=== PATIENT | male | born 1935 | race Hispanic/Latino ===

== ENCOUNTER 2018-07-12 08:59 | Inpatient (IN) | payer BC, MEDICARE ==
[2018-07-12 09:35] LABS: BASO # 0.1 K/uL (0.0-0.2); BASO % 1.2 % (0.0-2.0); EOS # 0.1 K/uL (0.0-0.7); EOS % 1.2 % (0.0-4.0); HEMOGLOBIN 14.1 g/dL (12.0-18.0); LYMPH # 0.8 K/uL (1.0-4.3); LYMPH % 11.6 % (20.0-40.0); MEAN CELL VOLUME 97.6 fL (80.0-94.0); MEAN CORPUSCULAR HEMOGLOBIN 32.4 pg (27.0-31.0); MEAN CORPUSCULAR HGB CONC 33.2 g/dL (33.0-37.0); MEAN PLATELET VOLUME 10.2 fL (7.2-11.7); MONO # 0.6 K/uL (0.0-0.8); MONO % 9.4 % (0.0-10.0); NEUT # 5.1 K/uL (1.8-7.0); NEUT % 76.6 % (50.0-75.0); NRBC % 0.3 % (0.0-2.0); RBC 4.34 Mil/uL (4.40-5.90); RED CELL DISTRIBUTION WIDTH 14.9 % (11.5-14.5); WHITE BLOOD COUNT 6.6 K/uL (4.8-10.8)
--- NOTE | 2018-07-12 09:40 | RAD ---
Chest x-ray single frontal view History: Shortness of breath. Comparison: None. Findings: Moderate to severe venous congestion. Right midlung atelectasis. Widened mediastinum with enlarged ectatic aorta. Atherosclerotic calcification at the aortic knob. Cardiomegaly. Small nodular density at the left lung apex. Status post median sternotomy. Degenerative changes in the spine and shoulders. Impression: Moderate to severe venous congestion. Right midlung atelectasis. Widened mediastinum with enlarged ectatic aorta. Atherosclerotic calcification at the aortic knob. Cardiomegaly. Small nodular density at the left lung apex. Status post median sternotomy.
[2018-07-12 09:41] LABS: VENOUS BLOOD GAS BASE EXCESS 12.2 mmol/L (0.0-2.0); VENOUS BLOOD GAS PCO2 100 mmHg (40-60); VENOUS BLOOD GAS PO2 30 mm/Hg (30-55); VENOUS BLOOD PH 7.25 (7.32-7.43)
[2018-07-12 09:46] LABS: ALB/GLOB RATIO 1.2 (1.0-2.1); ALBUMIN 3.7 g/dL (3.5-5.0); CALCIUM 8.9 mg/dl (8.6-10.4)
[2018-07-12 09:49] LABS: INR 1.4; PROTHROMBIN TIME 15.7 SECONDS (9.7-12.2)
[2018-07-12 10:05] LABS: CK-MB 2.42 ng/mL (0.0-3.38); TROPONIN I 0.158 ng/mL (0.00-0.120)
[2018-07-12 11:27] LABS: ABG ALLEN TEST POS; ARTERIAL BLOOD GAS HCO3 28.3 mmol/L (21-28); ARTERIAL BLOOD GAS HEMOGLOBIN 14.3 g/dL (11.7-17.4); ARTERIAL BLOOD GAS O2 SAT 97.1 % (95-98); ARTERIAL BLOOD GAS PCO2 79 mm/Hg (35-45); ARTERIAL BLOOD GAS PH 7.25 (7.35-7.45); ARTERIAL BLOOD GAS PO2 83 mm/Hg (80-100)
--- NOTE | 2018-07-12 11:29 | C.PDOC ---
History Of Present Illness Patient BIBA for evaluation of SOB and weakness, given albuterol/atrovent in the field by EMS. History is limited due to clinical condition. Time Seen by Provider: 07/12/18 09:00 Chief Complaint (Nursing): Respiratory Distress History Per: EMS History/Exam Limitations: clinical condition Onset/Duration Of Symptoms: Unknown Current Respiratory Medications: See Home Med List Severity: Moderate Past Medical History Reviewed: Historical Data, Nursing Documentation, Vital Signs Vital Signs: Last Vital Signs Temp 98.4 F 07/12/18 09:25 Pulse 101 H 07/12/18 10:57 Resp 17 07/12/18 10:57 BP 145/79 07/12/18 10:57 Pulse Ox 96 07/12/18 10:57 - Medical History PMH: HTN Surgical History: CABG Family History: States: Other Other Family History: noncontributory - Social History Hx Alcohol Use: Yes Hx Substance Use: No Review Of Systems Review Of Systems: ROS cannot be obtained secondary to pt's inabilty to answer questions. Physical Exam - Physical Exam Appears: In Acute Distress (in moderate respiratory distress) Skin: Other (erythematous areas around B/L eyes, B/L nipples) Head: Normacephalic Oral Mucosa: Moist Cardiovascular: Rhythm Irregular (tachycardic and irregularly irregular) Respiratory: Accessory Muscle Use (moderate), Rales (B/L ), No Rhonchi Gastrointestinal/Abdominal: Normal Exam, Bowel Sounds, Soft, No Tenderness Extremity: Pedal Edema (+1 pitting edema B/L LEs) Pulses: Left Dorsalis Pedis: Normal, Right Dorsalis Pedis: Normal Neurological/Psych: Other (awake, alert, mildly confused) ED Course And Treatment - Laboratory Results Result Diagrams: 07/18/18 07:33 07/18/18 07:33 ECG: Interpreted By Me, Viewed By Me (atrial fibrillation 82 bpm, left axis deviation, Q waves III, V2, V3, T wave inversions aVF, V4-V6) ECG Interpretation: Abnormal O2 Sat by Pulse Oximetry: 96 (RA) Pulse Ox Interpretation: Normal - Radiology CXR: Interpreted by Me, Viewed By Me CXR Interpretation: Yes: Other (pulmonary vascular congestion, no infiltrates ) Progress Note: Blood work, EKG, CXR ordered and reviewed. Patient placed on bipap emergently, SL nitro, PO ASA, IV Lasix given. 11:25am- Patient's daughter now at bedside, states patient has h/o CABG and aortic valve repair (2013), COPD, atrial fibrillation, prostate CA s/p radiation, HTN, hyperlipidemia. Patient has been weak and SOB, with increasing swelling since friday. - Physician Consult Information Physician Contacted: Rey House Outcome Of Conversation: Discussed patient with Dr. House, agreess with admission to his service for CHF exacerbation, COPD, dyspnea, hypercapnea, elevated troponin. Patient evaluated by audio visual coordinator Dr. Tran, who accepts patient for ICU admission. Critical Care Time - Critical Care Note Total Time (in mins): 50 Documented critical care: time excludes all time spent performing seperately blair lable procedures. Disposition - Disposition Disposition: HOSPITALIZED Disposition Time: 12:44 Condition: SERIOUS - Clinical Impression Clinical Impression: COPD (chronic obstructive pulmonary disease), Troponin level elevated, Hypercarbia, CHF exacerbation Decision To Admit - Pt Status Changed To: Hospital Disposition Of: Inpatient - Admit Certification Admit to Inpatient:: After my assessment, the patient will require hospitalization for at least two midnights. This is because of the severity of symptoms shown, intensity of services needed, and/or the medical risk in this patient being treated as an outpatient. - InPatient: Physician Admission Certification: I certify that this patient requires 2 or more midnights of care for the following reason:: see notes - . Bed Request Type: ICU Admitting Physician: Rey House Patient Diagnosis: CHF exacerbation, COPD (chronic obstructive pulmonary disease), Hypercarbia, Troponin level elevated
[2018-07-12] MEDS ORDERED: Albuterol 0.083% Inhal Sol (2.5 mg/3 mL) UD IH STA (11:32)
[2018-07-12] MEDS ORDERED: Albuterol-Ipratrop 3 mg / 0.5 (3 ml) UD ONE (11:57)
[2018-07-12 13:29] LABS: SQUAMOUS EPITHIAL < 1 /hpf (0-5); URINE BACTERIA RARE (<OCC); URINE BILIRUBIN NEGATIVE (NEGATIVE); URINE BLOOD 2+ (NEGATIVE); URINE CLARITY Clear (Clear); URINE COLOR Yellow (YELLOW); URINE GLUCOSE (UA) NORMAL (Normal); URINE LEUKOCYTE ESTERASE NEG Leu/uL (Negative); URINE PROTEIN 2+ mg/dL (NEGATIVE); URINE UROBILINOGEN NORMAL mg/dL (0.2-1.0)
--- NOTE | 2018-07-12 16:01 | CT ---
Date of service: 07/12/2018 PROCEDURE: CT HEAD WITHOUT CONTRAST. HISTORY: Altered mental status COMPARISON: None available. TECHNIQUE: Axial computed tomography images were obtained through the head/brain without intravenous contrast. Radiation dose: Total exam DLP = 1329.01 mGy-cm. This CT exam was performed using one or more of the following dose reduction techniques: Automated exposure control, adjustment of the mA and/or kV according to patient size, and/or use of iterative reconstruction technique. FINDINGS: HEMORRHAGE: No intracranial hemorrhage. BRAIN: No mass effect or edema. Scattered focal lucencies in the subcortical and periventricular white matter suggestive for chronic microvascular ischemic change. Diffuse generalized atrophy. Intracranial arterial calcifications. VENTRICLES: Prominent. CALVARIUM: Unremarkable. PARANASAL SINUSES: Mucosal retention cysts and/or polyps in the bilateral maxillary sinuses. MASTOID AIR CELLS: Unremarkable as visualized. No inflammatory changes. OTHER FINDINGS: None. IMPRESSION: No acute intracranial abnormality. Chronic microvascular ischemic change. Diffuse generalized atrophy. Sinus mucosal disease. If symptoms persists, consider correlation with MRI.
[2018-07-12 16:24] LABS: ABG ALLEN TEST PS; ARTERIAL BLOOD GAS HEMOGLOBIN 13.8 g/dL (11.7-17.4); ARTERIAL BLOOD GAS O2 SAT 97.5 % (95-98); ARTERIAL BLOOD GAS PCO2 90 mm/Hg (35-45); ARTERIAL BLOOD GAS PH 7.23 (7.35-7.45); ARTERIAL BLOOD GAS PO2 87 mm/Hg (80-100); ARTERIAL BLOOD GAS TCO2 40.5 mmol/L (22-28)
--- NOTE | 2018-07-12 17:07 | CP.PCM.CON ---
History of Present Illness - History of Present Illness History of Present Illness: 83yo M. PMHx HTN, COPD, CAD, CABG, AVR, Afib on Xarelto. p/w progressive worsening SOB, with AMS today, which appears to be secondary to pulmonary edema from acute exacerbation of chronic CHF (type unknown). Patient started on BIPAP in ED with minimal improvement, brought to ICU for further monitoring. Review of Systems - Review of Systems Systems not reviewed;Unavailable: Altered Mental Status Past Patient History - Past Social History Smoking Status: Former Smoker - CARDIAC Hx Hypertension: Yes - PSYCHIATRIC Hx Substance Use: No - SURGICAL HISTORY Hx Coronary Artery Bypass Graft: Yes Meds Allergies/Adverse Reactions: Allergies Allergy/AdvReac Type Severity Reaction Status Date / Time No Known Allergies Allergy Verified 07/12/18 09:17 - Medications Medications: Current Medications Aspirin (Aspirin Chewable) 81 mg PO DAILY JO-ANN Carvedilol (Coreg) 3.125 mg PO BID JO-ANN Enalapril Maleate (Vasotec) 2.5 mg PO DAILY JO-ANN Furosemide (Lasix) 40 mg IVP Q12 JO-ANN Losartan Potassium (Cozaar) 25 mg PO DAILY JO-ANN Rivaroxaban (Xarelto) 15 mg PO DAILY JO-ANN Rosuvastatin Calcium (Crestor) 10 mg PO HS JO-ANN Tamsulosin HCl (Flomax) 0.4 mg PO DAILY JO-ANN Physical Exam - Head Exam Head Exam: ATRAUMATIC, NORMAL INSPECTION, NORMOCEPHALIC - Eye Exam Eye Exam: EOMI, PERRL Additional comments: crust around left eye, with erythema. - ENT Exam ENT Exam: Mucous Membranes Dry - Neck Exam Neck exam: Positive for: Normal Inspection - Respiratory Exam Respiratory Exam: Clear to Auscultation Bilateral, NORMAL BREATHING PATTERN - Cardiovascular Exam Cardiovascular Exam: Tachycardia, Irregular Rhythm - GI/Abdominal Exam GI & Abdominal Exam: Normal Bowel Sounds, Soft. absent: Tenderness - Extremities Exam Extremities exam: Positive for: normal inspection, pedal edema (+1 bilaterally) - Neurological Exam Neurological exam: Alert, Altered - Psychiatric Exam Psychiatric exam: Agitated, Anxious Results - Vital Signs Recent Vital Signs: Last Vital Signs Temp 97.6 F 07/12/18 15:17 Pulse 74 07/12/18 16:34 Resp 21 07/12/18 15:15 BP 123/79 07/12/18 15:15 Pulse Ox 96 07/12/18 15:15 - Labs Result Diagrams: 07/12/18 09:25 07/12/18 09:25 Labs: Laboratory Results - last 24 hr 07/12/18 07/12/18 07/12/18 09:13 09:25 09:25 WBC 6.6 RBC 4.34 L Hgb 14.1 Hct 42.4 MCV 97.6 H MCH 32.4 H MCHC 33.2 RDW 14.9 H Plt Count 174 MPV 10.2 Neut % (Auto) 76.6 H Lymph % (Auto) 11.6 L [place] % (Auto) 9.4 Eos % (Auto) 1.2 Baso % (Auto) 1.2 Neut # (Auto) 5.1 Lymph # (Auto) 0.8 L [place] # (Auto) 0.6 Eos # (Auto) 0.1 Baso # (Auto) 0.1 PT 15.7 H INR 1.4 APTT 33 Puncture Site pCO2 pO2 HCO3 ABG pH ABG Total CO2 ABG O2 Saturation ABG Base Excess ABG Hemoglobin ABG Carboxyhemoglobin POC ABG HHb (Measured) ABG Methemoglobin [place] Test VBG pH VBG pCO2 VBG HCO3 VBG Total CO2 VBG O2 Sat (Calc) VBG Base Excess VBG Potassium A-a O2 Difference Respiratory Index Hgb O2 Saturation Glucose Lactate Vent Mode Mechanical Rate FiO2 Inspiratory BiPAP Expiratory BiPAP Blood Gas Comments Crit Value Called To Crit Value Called By Crit Value Read Back Blood Gas Notified Time Sodium Potassium Chloride Carbon Dioxide Anion Gap BUN Creatinine Est GFR ( Amer) Est GFR (Non-Af Amer) POC Glucose (mg/dL) 99 Random Glucose Calcium Total Bilirubin AST ALT Alkaline Phosphatase Total Creatine Kinase CK-MB (Mass) Troponin I NT-Pro-B Natriuret Pep Total Protein Albumin Globulin Albumin/Globulin Ratio Venous Blood Potassium Urine Color Urine Clarity Urine pH Ur Specific [place] Urine Protein Urine Glucose (UA) Urine Ketones Urine Blood Urine Nitrate Urine Bilirubin Urine Urobilinogen Ur Leukocyte Esterase Urine WBC (Auto) Urine RBC (Auto) Ur Squamous Epith Cells Urine Bacteria 07/12/18 07/12/18 07/12/18 09:25 09:36 11:15 WBC RBC Hgb Hct MCV MCH MCHC RDW Plt Count MPV Neut % (Auto) Lymph % (Auto) [place] % (Auto) Eos % (Auto) Baso % (Auto) Neut # (Auto) Lymph # (Auto) [place] # (Auto) Eos # (Auto) Baso # (Auto) PT INR APTT Puncture Site Rr pCO2 79 H* pO2 30 83 HCO3 28.3 H ABG pH 7.25 L ABG Total CO2 37.0 H ABG O2 Saturation 97.1 ABG Base Excess 4.5 H ABG Hemoglobin 14.3 ABG Carboxyhemoglobin 2.7 H POC ABG HHb (Measured) 2.8 ABG Methemoglobin 1.4 [place] Test Pos VBG pH 7.25 L VBG pCO2 100 H* VBG HCO3 33.0 VBG Total CO2 47.0 H VBG O2 Sat (Calc) 55.3 VBG Base Excess 12.2 H VBG Potassium 5.8 H A-a O2 Difference 246.0 Respiratory Index 3.0 Hgb O2 Saturation 93.1 L Glucose 114 H Lactate 1.8 Vent Mode Bipap Mechanical Rate FiO2 60.0 Inspiratory BiPAP 10 Expiratory BiPAP 5 Blood Gas Comments High co2 Crit Value Called To starr Garcia Renan Crit Value Called By manisha Delgado Crit Value Read Back Y Y Blood Gas Notified Time 940 1125 Sodium 143 142.0 Potassium 4.6 Chloride 98 103.0 Carbon Dioxide 38 H Anion Gap 12 BUN 30 H Creatinine 1.6 H Est GFR ( Amer) 50 Est GFR (Non-Af Amer) 41 POC Glucose (mg/dL) Random Glucose 117 H Calcium 8.9 Total Bilirubin 0.8 AST 36 ALT 30 Alkaline Phosphatase 171 H Total Creatine Kinase 50 L CK-MB (Mass) 2.42 Troponin I 0.1580 H* NT-Pro-B Natriuret Pep 7450 H Total Protein 6.8 Albumin 3.7 Globulin 3.2 Albumin/Globulin Ratio 1.2 Venous Blood Potassium 5.8 H Urine Color Urine Clarity Urine pH Ur Specific [place] Urine Protein Urine Glucose (UA) Urine Ketones Urine Blood Urine Nitrate Urine Bilirubin Urine Urobilinogen Ur Leukocyte Esterase Urine WBC (Auto) Urine RBC (Auto) Ur Squamous Epith Cells Urine Bacteria 07/12/18 07/12/18 13:00 16:15 WBC RBC Hgb Hct MCV MCH MCHC RDW Plt Count MPV Neut % (Auto) Lymph % (Auto) [place] % (Auto) Eos % (Auto) Baso % (Auto) Neut # (Auto) Lymph # (Auto) [place] # (Auto) Eos # (Auto) Baso # (Auto) PT INR APTT Puncture Site Rrsdial pCO2 90 H* pO2 87 HCO3 30.0 H ABG pH 7.23 L ABG Total CO2 40.5 H ABG O2 Saturation 97.5 ABG Base Excess 6.6 H ABG Hemoglobin 13.8 ABG Carboxyhemoglobin 2.5 H POC ABG HHb (Measured) 2.4 ABG Methemoglobin 1.0 [place] Test Ps VBG pH VBG pCO2 VBG HCO3 VBG Total CO2 VBG O2 Sat (Calc) VBG Base Excess VBG Potassium A-a O2 Difference 228.0 Respiratory Index 2.6 Hgb O2 Saturation 94.0 L Glucose Lactate Vent Mode Bipap Mechanical Rate 20 FiO2 60.0 Inspiratory BiPAP 20 Expiratory BiPAP 10 Blood Gas Comments Crit Value Called To Dr. tao Crit Value Called By Mely caldwell rcp Crit Value Read Back Y Blood Gas Notified Time 1625 Sodium Potassium Chloride Carbon Dioxide Anion Gap BUN Creatinine Est GFR ( Amer) Est GFR (Non-Af Amer) POC Glucose (mg/dL) Random Glucose Calcium Total Bilirubin AST ALT Alkaline Phosphatase Total Creatine Kinase CK-MB (Mass) Troponin I NT-Pro-B Natriuret Pep Total Protein Albumin Globulin Albumin/Globulin Ratio Venous Blood Potassium Urine Color Yellow Urine Clarity Clear Urine pH 5.0 Ur Specific [place] 1.008 Urine Protein 2+ H Urine Glucose (UA) Normal Urine Ketones Negative Urine Blood 2+ H Urine Nitrate Negative Urine Bilirubin Negative Urine Urobilinogen Normal Ur Leukocyte Esterase Neg Urine WBC (Auto) < 1 Urine RBC (Auto) 9 H Ur Squamous Epith Cells < 1 Urine Bacteria Rare Assessment & Plan (1) CHF exacerbation Assessment and Plan: 83yo M. PMHx HTN, COPD, CAD, CABG, AVR, Afib on Xarelto. p/w progressive worsening SOB, with AMS today, which appears to be secondary to pulmonary edema from acute exacerbation of chronic CHF (type unknown). Neuro: p/w metabolic encephalopathy secondary to hypercarbia. Patient more alert with change of settings on BIPAP. Pulm: acute respiratory failure with hypercarbia and hypoxia, requiring BIPAP. repeating ABG to assess hypercarbia. CV: hemodynamically stable. Obtain echo to assess cardiac function. patient was on beta blockers at home, can continue. Continue eddie-I. Hem: anemia of chronic disease. Afib on Xarelto. Renal: will monitor urine output, diuresing with lasix. 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 Endo: no acute issues GI: NPO while on BIPAP ID: no acute issues DVT proph - lovenox GI proph - not currently indicated simpson for strict I/O's during acute illness Code status - full code Critical Care Time spent 45 minutes The documented time is cumulative and includes review of patient data/exams/labs/chart review and examination of the patient on rounds and throughout the day; time is exclusive of any procedures or teaching time. Status: Acute
[2018-07-12] MEDS ORDERED: Albumin Human 5% (12.5 gm/250 ml) IV ONE (17:15)
[2018-07-12 17:28] LABS: ABG ALLEN TEST POS; ARTERIAL BLOOD GAS HCO3 28.2 mmol/L (21-28); ARTERIAL BLOOD GAS HEMOGLOBIN 13.5 g/dL (11.7-17.4); ARTERIAL BLOOD GAS O2 SAT 99.3 % (95-98); ARTERIAL BLOOD GAS PCO2 85 mm/Hg (35-45); ARTERIAL BLOOD GAS PH 7.22 (7.35-7.45); ARTERIAL BLOOD GAS PO2 154 mm/Hg (80-100); ARTERIAL BLOOD GAS TCO2 37.4 mmol/L (22-28)
--- NOTE | 2018-07-13 00:28 | CON ---
DATE: 07/12/2018 HISTORY OF PRESENT ILLNESS: History was obtained from the patient's daughter. The patient is an 83-year-old male, who has history of coronary artery disease, status post double bypass surgery and aortic valve replacement with a porcine prosthesis in 2013 at [facility]. The patient is being followed by his cyber incident handler, Dr. Olivas in [place] and, since his surgery in 2014, he has not required any cardiac catheterization or coronary intervention. The daughter noticed that the patient himself is getting sluggish, refusing to take a shower and refusing to go downstairs and finally he stayed in bed and is unable to eat. At this point, she activated EMS. The patient is some 15 years ago and his daughter lives with him, but he is fairly active on his own at home until the last week. There was no reported history of stroke in the past. SOCIAL HISTORY: Nonsmoker. He lives with his daughter. HOME MEDICATIONS: Include Xarelto 15 mg once a day, Lopressor, Cozaar, amlodipine, and albuterol inhaler. REVIEW OF SYSTEMS: No fever or chills. No syncope or fall episode. PHYSICAL EXAMINATION: GENERAL: The patient is an elderly male, who is currently sleepy and does not appear to be in respiratory distress. VITAL SIGNS: Blood pressure 127/73, heart rate 99, temperature 98.4, respirations 26. HEENT: Normocephalic. CHEST: Absent breath sounds over the bases. HEART: S1 and S2, regular. ABDOMEN: Soft. EXTREMITIES: 2+ pitting edema. LABORATORY DATA: Today's hemoglobin and hematocrit 14.1 and 42.4. White count and platelet count are within normal limits. SMA-7: Sodium 143, potassium 4.6, chloride 98, CO2 38, glucose 117, BUN 6, creatinine 1.6, troponin 0.158. INR is 1.4, PTT 33. IMAGING DATA: EKG revealed atrial fibrillation at the rate of 82, PVCs versus aberrancy, old anterolateral NV, consider lateral ischemic T-wave changes. Chest x-ray revealed cardiomegaly with moderate CHF. Sternotomy wires were noted. ASSESSMENT: 1. Exacerbation versus heart failure. 2. Chronic atrial fibrillation. 3. Coronary artery disease status post double coronary artery bypass surgery, as well as bioprosthetic aortic valve replacement in 2013. 4. Rule out underlying sepsis. 5. Rule out cerebrovascular accident. 6. Consider non-ST elevation myocardial infarction. RECOMMENDATIONS: Resume aspirin 81 mg once a day, Xarelto 15 mg once a day. Monitor the EKGs and serial cardiac enzymes. Obtain daily EKGs. Consider obtaining an echocardiogram, venous Doppler of lower extremities, two sets of blood cultures, urine culture, and head CT scan without contrast. The case was discussed at length with the patient's daughter. In the meantime, the patient will be started on IV Lasix and GRIFFIN inhibitors. Tyler Daley MD
[2018-07-13 04:41] LABS: ABG ALLEN TEST POS; ARTERIAL BLOOD GAS HCO3 35.3 mmol/L (21-28); ARTERIAL BLOOD GAS O2 SAT 97.2 % (95-98); ARTERIAL BLOOD GAS PCO2 82 mm/Hg (35-45); ARTERIAL BLOOD GAS PH 7.33 (7.35-7.45); ARTERIAL BLOOD GAS PO2 83 mm/Hg (80-100); ARTERIAL BLOOD GAS TCO2 45.7 mmol/L (22-28)
[2018-07-13 06:28] LABS: ALBUMIN 2.9 g/dL (3.5-5.0); CALCIUM 7.6 mg/dl (8.6-10.4)
[2018-07-13 06:59] LABS: BASO % 0.5 % (0.0-2.0); HEMOGLOBIN 13.9 g/dL (12.0-18.0); LYMPH # 0.3 K/uL (1.0-4.3); LYMPH % 4.3 % (20.0-40.0); MEAN CELL VOLUME 96.5 fL (80.0-94.0); MEAN CORPUSCULAR HEMOGLOBIN 31.9 pg (27.0-31.0); MEAN PLATELET VOLUME 9.6 fL (7.2-11.7); MONO # 0.7 K/uL (0.0-0.8); MONO % 8.9 % (0.0-10.0); NEUT # 6.5 K/uL (1.8-7.0); NEUT % 86.3 % (50.0-75.0); NRBC % 0.3 % (0.0-2.0); PLATELET COUNT 144 K/uL (130-400); RBC 4.36 Mil/uL (4.40-5.90); RED CELL DISTRIBUTION WIDTH 14.9 % (11.5-14.5); WHITE BLOOD COUNT 7.5 K/uL (4.8-10.8)
[2018-07-13 08:37] LABS: BANDS 1 % (0-2); LYMPHOCYTE 3 % (20-40); MONOCYTE 6 % (0-10); NEUTROPHIL 90 % (50-75); PLATELET ESTIMATE NORMAL (NORMAL); TOTAL CELLS COUNTED 100
--- NOTE | 2018-07-13 10:49 | CP.CCUPN ---
CCU Subjective - Physician Review Subjective (Free Text): 07/13/18 12:01 Patient seen and examined this morning. Patient in no acute distress. He is on BIPAP and resting comfortably. Critical Care Time Spent (in minutes): 35 CCU Objective - Vital Signs / Intake & Output Vital Signs (Last 4 hours): Vital Signs Pulse Resp BP Pulse Ox 07/13/18 10:36 111/68 07/13/18 10:34 86 07/13/18 07:46 86 07/13/18 07:00 77 20 96 Intake and Output (Last 8hrs): Intake & Output 07/12/18 07/13/18 07/13/18 22:59 06:59 14:59 Intake Total 125 Output Total 970 900 75 Balance -845 -900 -75 Weight 261 lb 3.2 oz 232 lb 12.93 oz Intake: Intake, IV Amount 125 Right Antecubital 125 Oral 0 Output: Urine 970 900 75 Urethral (Simpson) 970 900 75 Other: Voiding Method Indwelling Catheter - Physical Exam Head: Positive for: Atraumatic, Normocephalic Pupils: Positive for: PERRL Conjunctiva: Positive for: Normal Mouth: Positive for: Moist Mucous Membranes Respiratory/Chest: Positive for: Clear to Auscultation, Other (On BIPAP). Negative for: Respiratory Distress, Accessory Muscle Use, Wheezes, Rales, Rhonchi Cardiovascular: Positive for: Normal S1, S2, Irregular Rhythm. Negative for: Murmurs, Tachycardic, Bradycardic, Rub, Gallop Abdomen: Positive for: Normal Bowel Sounds. Negative for: Tenderness, Distention, Peritoneal Signs, Guarding Upper Extremity: Positive for: Normal Inspection. Negative for: Cyanosis, Edema Lower Extremity: Positive for: Normal Inspection, Edema, NORMAL PULSES Skin: Positive for: Warm, Dry, Normal Color. Negative for: Rashes Psychiatric: Positive for: Alert - Medications Active Medications: Active Medications Generic Name Dose Route Start Last Admin Trade Name Freq PRN Reason Stop Dose Admin Aspirin 81 mg 07/13/18 10:00 Aspirin Chewable PO DAILY JO-ANN Carvedilol 3.125 mg 07/12/18 18:00 07/12/18 18:00 Coreg PO Not Given BID JO-ANN Enalapril Maleate 2.5 mg 07/13/18 10:00 Vasotec PO DAILY JO-ANN Famotidine 20 mg 07/13/18 10:30 07/13/18 10:40 Pepcid IVP 20 mg DAILY JO-ANN Administration Furosemide 40 mg 07/12/18 22:00 07/13/18 10:36 Lasix IVP 40 mg Q12 JO-ANN Administration Influenza Virus Vaccine 60 mcg 07/15/18 10:00 Fluzone Quad [id number] IM 07/15/18 10:01 .ONCE ONE Pneumococcal Polyvalent Vaccine 0.5 ml 07/15/18 10:00 Pneumovax 23 Vaccine IM 07/15/18 10:01 .ONCE ONE Rivaroxaban 15 mg 07/12/18 15:30 07/12/18 15:30 Xarelto PO Not Given DAILY JO-ANN Rosuvastatin Calcium 10 mg 07/12/18 22:00 07/12/18 21:26 Crestor PO 10 mg HS JO-ANN Administration Tamsulosin HCl 0.4 mg 07/12/18 15:30 07/12/18 15:30 Flomax PO Not Given DAILY JO-ANN - Patient Studies Lab Studies: Microbiology Studies 07/12/18 10:12 Blood Culture - Preliminary Blood NO GROWTH AFTER 24 HOURS 07/12/18 09:25 Blood Culture - Preliminary Blood NO GROWTH AFTER 24 HOURS Lab Studies 07/13/18 07/13/18 07/12/18 Range/Units 06:52 06:03 17:20 WBC 7.5 (4.8-10.8) K/uL RBC 4.36 L (4.40-5.90) Mil/uL Hgb 13.9 (12.0-18.0) g/dL Hct 42.1 (35.0-51.0) % MCV 96.5 H (80.0-94.0) fL MCH 31.9 H (27.0-31.0) pg MCHC 33.0 (33.0-37.0) g/dL RDW 14.9 H (11.5-14.5) % Plt Count 144 (130-400) K/uL MPV 9.6 (7.2-11.7) fL Neut % (Auto) 86.3 H (50.0-75.0) % Lymph % (Auto) 4.3 L (20.0-40.0) % [place] % (Auto) 8.9 (0.0-10.0) % Eos % (Auto) 0.0 (0.0-4.0) % Baso % (Auto) 0.5 (0.0-2.0) % Neut # (Auto) 6.5 (1.8-7.0) K/uL Lymph # (Auto) 0.3 L (1.0-4.3) K/uL [place] # (Auto) 0.7 (0.0-0.8) K/uL Eos # (Auto) 0.0 (0.0-0.7) K/uL Baso # (Auto) 0.0 (0.0-0.2) K/uL Neutrophils % (Manual) 90 H (50-75) % Band Neutrophils % 1 (0-2) % Lymphocytes % (Manual) 3 L (20-40) % Monocytes % (Manual) 6 (0-10) % Platelet Estimate Normal (NORMAL) RBC Morphology Normal Puncture Site Rradial pCO2 85 H* (35-45) mm/Hg pO2 154 H (80-100) mm/Hg HCO3 28.2 H (21-28) mmol/L ABG pH 7.22 L (7.35-7.45) ABG Total CO2 37.4 H (22-28) mmol/L ABG O2 Saturation 99.3 H (95-98) % ABG Base Excess 4.2 H (-2.0-3.0) mmol/L ABG Hemoglobin 13.5 (11.7-17.4) g/dL ABG Carboxyhemoglobin 2.2 H (0.5-1.5) % POC ABG HHb (Measured) 0.7 (0.0-5.0) % ABG Methemoglobin 0.9 (0.0-3.0) % [place] Test Pos ABG Potassium (3.6-5.2) mmol/L A-a O2 Difference 310.0 mm/Hg Respiratory Index 2.0 Hgb O2 Saturation 96.2 (95.0-98.0) % Sodium 142 (132-148) mmol/l Chloride 96 L (98-107) mmol/L Glucose (75-110) mg/dl Lactate (0.7-2.1) mmol/L Vent Mode Bipap Mechanical Rate FiO2 80.0 % Inspiratory BiPAP 20 Expiratory BiPAP 10 Blood Gas Comments Crit Value Called To Crit Value Called By Mely caldwell rcp Crit Value Read Back Y Blood Gas Notified Time 1728 Potassium 4.4 (3.6-5.2) mmol/L Carbon Dioxide 34 H (22-30) mmol/L Anion Gap 16 (10-20) BUN 33 H (9-20) mg/dL Creatinine 1.7 H (0.8-1.5) mg/dL Est GFR ( Amer) 47 Est GFR (Non-Af Amer) 38 Random Glucose 120 H (75-110) mg/dL Calcium 7.6 L (8.6-10.4) mg/dl Phosphorus 4.6 H (2.5-4.5) mg/dL Magnesium 1.7 (1.6-2.3) mg/dL Total Bilirubin 0.6 (0.2-1.3) mg/dL AST 26 (17-59) U/L ALT 19 L D (21-72) U/L Alkaline Phosphatase 108 (38-126) U/L Total Protein 5.9 L (6.3-8.3) g/dL Albumin 2.9 L D (3.5-5.0) g/dL Globulin 3.0 (2.2-3.9) gm/dL Albumin/Globulin Ratio 1.0 (1.0-2.1) Arterial Blood Potassium (3.6-5.2) mmol/L Urine Color (YELLOW) Urine Clarity (Clear) Urine pH (5.0-8.0) Ur Specific [place] (1.003-1.030) Urine Protein (NEGATIVE) mg/dL Urine Glucose (UA) (Normal) mg/dL Urine Ketones (NEGATIVE) mg/dL Urine Blood (NEGATIVE) Urine Nitrate (NEGATIVE) Urine Bilirubin (NEGATIVE) Urine Urobilinogen (0.2-1.0) mg/dL Ur Leukocyte Esterase (Negative) Gertrudis/uL Urine WBC (Auto) (0-5) /hpf Urine RBC (Auto) (0-3) /hpf Ur Squamous Epith Cells (0-5) /hpf Urine Bacteria (<OCC) 07/12/18 07/12/18 07/12/18 Range/Units 16:15 13:00 11:15 WBC (4.8-10.8) K/uL RBC (4.40-5.90) Mil/uL Hgb (12.0-18.0) g/dL Hct (35.0-51.0) % MCV (80.0-94.0) fL MCH (27.0-31.0) pg MCHC (33.0-37.0) g/dL RDW (11.5-14.5) % Plt Count (130-400) K/uL MPV (7.2-11.7) fL Neut % (Auto) (50.0-75.0) % Lymph % (Auto) (20.0-40.0) % [place] % (Auto) (0.0-10.0) % Eos % (Auto) (0.0-4.0) % Baso % (Auto) (0.0-2.0) % Neut # (Auto) (1.8-7.0) K/uL Lymph # (Auto) (1.0-4.3) K/uL [place] # (Auto) (0.0-0.8) K/uL Eos # (Auto) (0.0-0.7) K/uL Baso # (Auto) (0.0-0.2) K/uL Neutrophils % (Manual) (50-75) % Band Neutrophils % (0-2) % Lymphocytes % (Manual) (20-40) % Monocytes % (Manual) (0-10) % Platelet Estimate (NORMAL) RBC Morphology Puncture Site Rrsdial Rr pCO2 90 H* 79 H* (35-45) mm/Hg pO2 87 83 (80-100) mm/Hg HCO3 30.0 H 28.3 H (21-28) mmol/L ABG pH 7.23 L 7.25 L (7.35-7.45) ABG Total CO2 40.5 H 37.0 H (22-28) mmol/L ABG O2 Saturation 97.5 97.1 (95-98) % ABG Base Excess 6.6 H 4.5 H (-2.0-3.0) mmol/L ABG Hemoglobin 13.8 14.3 (11.7-17.4) g/dL ABG Carboxyhemoglobin 2.5 H 2.7 H (0.5-1.5) % POC ABG HHb (Measured) 2.4 2.8 (0.0-5.0) % ABG Methemoglobin 1.0 1.4 (0.0-3.0) % Naman Test Ps Pos ABG Potassium (3.6-5.2) mmol/L A-a O2 Difference 228.0 246.0 mm/Hg Respiratory Index 2.6 3.0 Hgb O2 Saturation 94.0 L 93.1 L (95.0-98.0) % Sodium (132-148) mmol/l Chloride (98-107) mmol/L Glucose (75-110) mg/dl Lactate (0.7-2.1) mmol/L Vent Mode Bipap Bipap Mechanical Rate 20 FiO2 60.0 60.0 % Inspiratory BiPAP 20 10 Expiratory BiPAP 10 5 Blood Gas Comments High co2 Crit Value Called To Dr. dinh Urrutia Crit Value Called By herson Garcia Crit Value Read Back Y Y Blood Gas Notified Time 1625 1125 Potassium (3.6-5.2) mmol/L Carbon Dioxide (22-30) mmol/L Anion Gap (10-20) BUN (9-20) mg/dL Creatinine (0.8-1.5) mg/dL Est GFR ( Amer) Est GFR (Non-Af Amer) Random Glucose (75-110) mg/dL Calcium (8.6-10.4) mg/dl Phosphorus (2.5-4.5) mg/dL Magnesium (1.6-2.3) mg/dL Total Bilirubin (0.2-1.3) mg/dL AST (17-59) U/L ALT (21-72) U/L Alkaline Phosphatase (38-126) U/L Total Protein (6.3-8.3) g/dL Albumin (3.5-5.0) g/dL Globulin (2.2-3.9) gm/dL Albumin/Globulin Ratio (1.0-2.1) Arterial Blood Potassium (3.6-5.2) mmol/L Urine Color Yellow (YELLOW) Urine Clarity Clear (Clear) Urine pH 5.0 (5.0-8.0) Ur Specific [place] 1.008 (1.003-1.030) Urine Protein 2+ H (NEGATIVE) mg/dL Urine Glucose (UA) Normal (Normal) mg/dL Urine Ketones Negative (NEGATIVE) mg/dL Urine Blood 2+ H (NEGATIVE) Urine Nitrate Negative (NEGATIVE) Urine Bilirubin Negative (NEGATIVE) Urine Urobilinogen Normal (0.2-1.0) mg/dL Ur Leukocyte Esterase Neg (Negative) Gertrudis/uL Urine WBC (Auto) < 1 (0-5) /hpf Urine RBC (Auto) 9 H (0-3) /hpf Ur Squamous Epith Cells < 1 (0-5) /hpf Urine Bacteria Rare (<OCC) 07/12/18 Range/Units 04:30 WBC (4.8-10.8) K/uL RBC (4.40-5.90) Mil/uL Hgb (12.0-18.0) g/dL Hct (35.0-51.0) % MCV (80.0-94.0) fL MCH (27.0-31.0) pg MCHC (33.0-37.0) g/dL RDW (11.5-14.5) % Plt Count (130-400) K/uL MPV (7.2-11.7) fL Neut % (Auto) (50.0-75.0) % Lymph % (Auto) (20.0-40.0) % [place] % (Auto) (0.0-10.0) % Eos % (Auto) (0.0-4.0) % Baso % (Auto) (0.0-2.0) % Neut # (Auto) (1.8-7.0) K/uL Lymph # (Auto) (1.0-4.3) K/uL [place] # (Auto) (0.0-0.8) K/uL Eos # (Auto) (0.0-0.7) K/uL Baso # (Auto) (0.0-0.2) K/uL Neutrophils % (Manual) (50-75) % Band Neutrophils % (0-2) % Lymphocytes % (Manual) (20-40) % Monocytes % (Manual) (0-10) % Platelet Estimate (NORMAL) RBC Morphology Puncture Site Rr pCO2 82 H* (35-45) mm/Hg pO2 83 (80-100) mm/Hg HCO3 35.3 H (21-28) mmol/L ABG pH 7.33 L (7.35-7.45) ABG Total CO2 45.7 H (22-28) mmol/L ABG O2 Saturation 97.2 (95-98) % ABG Base Excess 13.4 H (-2.0-3.0) mmol/L ABG Hemoglobin (11.7-17.4) g/dL ABG Carboxyhemoglobin (0.5-1.5) % POC ABG HHb (Measured) (0.0-5.0) % ABG Methemoglobin (0.0-3.0) % Naman Test Pos ABG Potassium 4.5 (3.6-5.2) mmol/L A-a O2 Difference 135.0 mm/Hg Respiratory Index 1.6 Hgb O2 Saturation (95.0-98.0) % Sodium 142.0 (132-148) mmol/l Chloride 104.0 (98-107) mmol/L Glucose 132 H (75-110) mg/dl Lactate 1.1 (0.7-2.1) mmol/L Vent Mode Bipap Mechanical Rate FiO2 45.0 % Inspiratory BiPAP 20 Expiratory BiPAP 10 Blood Gas Comments Crit Value Called To Tashia bazzi/rn Crit Value Called By Tyrell lang/rt Crit Value Read Back Y Blood Gas Notified Time 445 Potassium (3.6-5.2) mmol/L Carbon Dioxide (22-30) mmol/L Anion Gap (10-20) BUN (9-20) mg/dL Creatinine (0.8-1.5) mg/dL Est GFR ( Amer) Est GFR (Non-Af Amer) Random Glucose (75-110) mg/dL Calcium (8.6-10.4) mg/dl Phosphorus (2.5-4.5) mg/dL Magnesium (1.6-2.3) mg/dL Total Bilirubin (0.2-1.3) mg/dL AST (17-59) U/L ALT (21-72) U/L Alkaline Phosphatase (38-126) U/L Total Protein (6.3-8.3) g/dL Albumin (3.5-5.0) g/dL Globulin (2.2-3.9) gm/dL Albumin/Globulin Ratio (1.0-2.1) Arterial Blood Potassium 4.5 (3.6-5.2) mmol/L Urine Color (YELLOW) Urine Clarity (Clear) Urine pH (5.0-8.0) Ur Specific [place] (1.003-1.030) Urine Protein (NEGATIVE) mg/dL Urine Glucose (UA) (Normal) mg/dL Urine Ketones (NEGATIVE) mg/dL Urine Blood (NEGATIVE) Urine Nitrate (NEGATIVE) Urine Bilirubin (NEGATIVE) Urine Urobilinogen (0.2-1.0) mg/dL Ur Leukocyte Esterase (Negative) Gertrudis/uL Urine WBC (Auto) (0-5) /hpf Urine RBC (Auto) (0-3) /hpf Ur Squamous Epith Cells (0-5) /hpf Urine Bacteria (<OCC) Laboratory Results - last 24 hr 07/12/18 07/12/18 07/12/18 04:30 11:15 13:00 WBC RBC Hgb Hct MCV MCH MCHC RDW Plt Count MPV Neut % (Auto) Lymph % (Auto) [place] % (Auto) Eos % (Auto) Baso % (Auto) Neut # (Auto) Lymph # (Auto) [place] # (Auto) Eos # (Auto) Baso # (Auto) Neutrophils % (Manual) Band Neutrophils % Lymphocytes % (Manual) Monocytes % (Manual) Platelet Estimate RBC Morphology Puncture Site Rr Rr pCO2 82 H* 79 H* pO2 83 83 HCO3 35.3 H 28.3 H ABG pH 7.33 L 7.25 L ABG Total CO2 45.7 H 37.0 H ABG O2 Saturation 97.2 97.1 ABG Base Excess 13.4 H 4.5 H ABG Hemoglobin 14.3 ABG Carboxyhemoglobin 2.7 H POC ABG HHb (Measured) 2.8 ABG Methemoglobin 1.4 Naman Test Pos Pos ABG Potassium 4.5 A-a O2 Difference 135.0 246.0 Respiratory Index 1.6 3.0 Hgb O2 Saturation 93.1 L Sodium 142.0 Chloride 104.0 Glucose 132 H Lactate 1.1 Vent Mode Bipap Bipap Mechanical Rate FiO2 45.0 60.0 Inspiratory BiPAP 20 10 Expiratory BiPAP 10 5 Blood Gas Comments High co2 Crit Value Called To Tashia bazzi/rn Renan Crit Value Called By Tryell lang/rt Mirela bryant Crit Value Read Back Y Y Blood Gas Notified Time 445 1125 Potassium Carbon Dioxide Anion Gap BUN Creatinine Est GFR ( Amer) Est GFR (Non-Af Amer) Random Glucose Calcium Phosphorus Magnesium Total Bilirubin AST ALT Alkaline Phosphatase Total Protein Albumin Globulin Albumin/Globulin Ratio Arterial Blood Potassium 4.5 Urine Color Yellow Urine Clarity Clear Urine pH 5.0 Ur Specific [place] 1.008 Urine Protein 2+ H Urine Glucose (UA) Normal Urine Ketones Negative Urine Blood 2+ H Urine Nitrate Negative Urine Bilirubin Negative Urine Urobilinogen Normal Ur Leukocyte Esterase Neg Urine WBC (Auto) < 1 Urine RBC (Auto) 9 H Ur Squamous Epith Cells < 1 Urine Bacteria Rare 07/12/18 07/12/18 07/13/18 16:15 17:20 06:03 WBC RBC Hgb Hct MCV MCH MCHC RDW Plt Count MPV Neut % (Auto) Lymph % (Auto) [place] % (Auto) Eos % (Auto) Baso % (Auto) Neut # (Auto) Lymph # (Auto) [place] # (Auto) Eos # (Auto) Baso # (Auto) Neutrophils % (Manual) Band Neutrophils % Lymphocytes % (Manual) Monocytes % (Manual) Platelet Estimate RBC Morphology Puncture Site Rrsdial Rradial pCO2 90 H* 85 H* pO2 87 154 H HCO3 30.0 H 28.2 H ABG pH 7.23 L 7.22 L ABG Total CO2 40.5 H 37.4 H ABG O2 Saturation 97.5 99.3 H ABG Base Excess 6.6 H 4.2 H ABG Hemoglobin 13.8 13.5 ABG Carboxyhemoglobin 2.5 H 2.2 H POC ABG HHb (Measured) 2.4 0.7 ABG Methemoglobin 1.0 0.9 Naman Test Ps Pos ABG Potassium A-a O2 Difference 228.0 310.0 Respiratory Index 2.6 2.0 Hgb O2 Saturation 94.0 L 96.2 Sodium 142 Chloride 96 L Glucose Lactate Vent Mode Bipap Bipap Mechanical Rate 20 FiO2 60.0 80.0 Inspiratory BiPAP 20 20 Expiratory BiPAP 10 10 Blood Gas Comments Crit Value Called To Dr. dinh Giron Crit Value Called By herson Garcia rcp Crit Value Read Back Y Y Blood Gas Notified Time 1625 1728 Potassium 4.4 Carbon Dioxide 34 H Anion Gap 16 BUN 33 H Creatinine 1.7 H Est GFR ( Amer) 47 Est GFR (Non-Af Amer) 38 Random Glucose 120 H Calcium 7.6 L Phosphorus 4.6 H Magnesium 1.7 Total Bilirubin 0.6 AST 26 ALT 19 L D Alkaline Phosphatase 108 Total Protein 5.9 L Albumin 2.9 L D Globulin 3.0 Albumin/Globulin Ratio 1.0 Arterial Blood Potassium Urine Color Urine Clarity Urine pH Ur Specific [place] Urine Protein Urine Glucose (UA) Urine Ketones Urine Blood Urine Nitrate Urine Bilirubin Urine Urobilinogen Ur Leukocyte Esterase Urine WBC (Auto) Urine RBC (Auto) Ur Squamous Epith Cells Urine Bacteria 07/13/18 06:52 WBC 7.5 RBC 4.36 L Hgb 13.9 Hct 42.1 MCV 96.5 H MCH 31.9 H MCHC 33.0 RDW 14.9 H Plt Count 144 MPV 9.6 Neut % (Auto) 86.3 H Lymph % (Auto) 4.3 L [place] % (Auto) 8.9 Eos % (Auto) 0.0 Baso % (Auto) 0.5 Neut # (Auto) 6.5 Lymph # (Auto) 0.3 L [place] # (Auto) 0.7 Eos # (Auto) 0.0 Baso # (Auto) 0.0 Neutrophils % (Manual) 90 H Band Neutrophils % 1 Lymphocytes % (Manual) 3 L Monocytes % (Manual) 6 Platelet Estimate Normal RBC Morphology Normal Puncture Site pCO2 pO2 HCO3 ABG pH ABG Total CO2 ABG O2 Saturation ABG Base Excess ABG Hemoglobin ABG Carboxyhemoglobin POC ABG HHb (Measured) ABG Methemoglobin [place] Test ABG Potassium A-a O2 Difference Respiratory Index Hgb O2 Saturation Sodium Chloride Glucose Lactate Vent Mode Mechanical Rate FiO2 Inspiratory BiPAP Expiratory BiPAP Blood Gas Comments Crit Value Called To Crit Value Called By Crit Value Read Back Blood Gas Notified Time Potassium Carbon Dioxide Anion Gap BUN Creatinine Est GFR ( Amer) Est GFR (Non-Af Amer) Random Glucose Calcium Phosphorus Magnesium Total Bilirubin AST ALT Alkaline Phosphatase Total Protein Albumin Globulin Albumin/Globulin Ratio Arterial Blood Potassium Urine Color Urine Clarity Urine pH Ur Specific [place] Urine Protein Urine Glucose (UA) Urine Ketones Urine Blood Urine Nitrate Urine Bilirubin Urine Urobilinogen Ur Leukocyte Esterase Urine WBC (Auto) Urine RBC (Auto) Ur Squamous Epith Cells Urine Bacteria EKG/Cardiology Studies: Cardiology / EKG Studies 07/12/18 10:17 EKG [ELECTROCARDIOGRAM] Stat Comment: Mode Of Transportation: BED Reason For Exam: cp Fingerstick Blood Sugar Results: 99 Critical Care Progress Note - Ventilator Checklist Head of Bed 30 Degrees: Yes - Vent Settings FIO2:: 40 - Extremities/Vascular Does the Patient have a Simpson Catheter?: Yes Assessment/Plan - Assessment and Plan (Free Text) Assessment: 83yo male with PMHx HTN, COPD, CAD, CABG, AVR, and Afib on Xarelto. Presenting with progressive worsening SOB with AMS, which appears to be secondary to pulmonary edema from acute exacerbation of chronic CHF (type unknown). Plan: Neuro: - P/w metabolic encephalopathy secondary to hypercarbia - Patient more alert with change of settings on BIPAP Pulm: - Acute respiratory failure with hypercarbia and hypoxia, requiring BIPAP. - ABG: f/u Cardiovascular: - Hemodynamically stable. - Echo: mild concentric LVH, LVEF: 45-50%, mild global hypokinesis of LV, moderate pulmonary HTN, moderate tricuspid regurgitation - Coreg 3.125mg PO BID - Enalapril 2.5mg PO QD - Troponin: 0.158 --> 0.174 Heme: - Anemia of chronic disease. Afib on Xarelto. Renal: - Will monitor urine output - Flomax 0.4mg PO QD - Lasix 40mg IV Q12H Endo: - No acute issues GI: - NPO while on BIPAP ID: - Blood cx (07/12): Gram positive cocci - Rocephin 1g IV QD DVT proph - Xarelto, SCD's contraindicated 2/2 rule out DVT GI proph - Pepcid simpson for strict I/O's during acute illness Code status - full code Case discussed with Dr. Sandor Edmonds, PGY-1 - Date & Time Date: 07/13/18 Time: 12:04
--- NOTE | 2018-07-13 12:34 | CARD ---
APPROVED REPORT Date of service: 07/12/2018 EKG Measurement Heart [id number] <Conclusion> Atrial fibrillation with rapid ventricular response Left axis deviation Low voltage QRS Inferior infarct, age undetermined Possible Anterolateral infarct, age undetermined Abnormal ECG
--- NOTE | 2018-07-13 12:50 | CARD ---
APPROVED REPORT Date of service: 07/13/2018 EXAM: Two-dimensional and M-mode echocardiogram with Doppler and color Doppler. INDICATION Congestive Heart Failure COPD 2D DIMENSIONS IVSd1.2 (0.7-1.1cm)Aortic Root (2D)2.2 (2.0-3.7cm) LVDd5.3 (3.9-5.9cm)LVOT Diameter2.0 (1.8-2.4cm) PWd1.2 (0.7-1.1cm)LA Qzutoj46 (18-58mL) LVDs3.9 (2.5-4.0cm)FS (%) 27.2 % LVEF (%)52.5 (>50%)IVC0.00 cm M-Mode DIMENSIONS Left Atrium (MM)5.77 (2.5-4.0cm)IVSd0.95 (0.7-1.1cm) Aortic Root2.02 (2.2-3.7cm)LVDd4.57 (4.0-5.6cm) Aortic Cusp Exc.1.20 (1.5-2.0cm)PWd0.91 (0.7-1.1cm) FS (%) 30 %LVDs3.21 (2.0-3.8cm) TAPSE13.36 cmLVEF (%)57 (>50%) Aortic Valve AoV Peak Jomsdlow258.8cm/sAoV VTI59.1cmAO Peak GR.34mmHg LVOT Peak Tynoodgx113.2cm/sLVOT VTI23.44cmAO Mean GR.18mmHg DUSTY (VMAX)1.56pf3KXE (VTI)1.24cm2 Mitral Valve MV E Mzxdmnyt86.8cm/sE/A ratio0.6PJAB986.95 cm/s TDI Lateral E' Peak V11.84cm/sMedial E' Peak V6.80cm/sE/Lateral E'8.3 E/Medial E'14.4 Tricuspid Valve TR Peak [id number]/sTR Peak Gr.[id number] LEFT VENTRICLE The left ventricle appears normal size. There is mild concentric left ventricular hypertrophy. The Ejection Fraction is 45-50%. There is mild global hypokinesis of the left ventricle. indeterminate diastolic function. RIGHT VENTRICLE The right ventricle is normal size. rv Systolic function is moderately reduced. ATRIA The left atrium is severely dilated. The right atrium size is normal. The interatrial septum is intact with no evidence for an atrial septal defect. AORTIC VALVE aortic valve is not well seen,appears calcified. No aortic regurgitation is present. There is moderate valvular aortic stenosis. Calculated aortic valve area is 1.2 cm2 with maximum pressure gradient of 34 mmHg and mean pressure gradient of 18 mmHg. MITRAL VALVE mild mac, Mitral regurgitation is moderate. TRICUSPID VALVE The tricuspid valve is normal in structure. There is moderate tricuspid regurgitation. Right ventricular systolic pressure is estimated at 50 mmHg. There is moderate pulmonary hypertension. PULMONIC VALVE The pulmonary valve is normal in structure. GREAT VESSELS The aortic root is normal size. The aortic root displays mild sclerocalcific changes of the aortic root. Dilated IVC with poor inspiration collapse is consistent with elevated right atrial pressure. PERICARDIAL EFFUSION There is no pericardial effusion. <Conclusion> The left ventricle appears normal size. There is mild concentric left ventricular hypertrophy. The Ejection Fraction is 45-50%. There is mild global hypokinesis of the left ventricle. indeterminate diastolic function. rv Systolic function is moderately reduced. The left atrium is severely dilated. aortic valve is not well seen,appears calcified. There is moderate valvular aortic stenosis. Calculated aortic valve area is 1.2 cm2 with maximum pressure gradient of 34 mmHg and mean pressure gradient of 18 mmHg. Mitral regurgitation is moderate. There is moderate tricuspid regurgitation. Right ventricular systolic pressure is estimated at 50 mmHg. There is moderate pulmonary hypertension. The aortic root is normal size. The aortic root displays mild sclerocalcific changes of the aortic root. Dilated IVC with poor inspiration collapse is consistent with elevated right atrial pressure. There is no pericardial effusion.
[2018-07-13 14:27] LABS: TROPONIN I 0.174 ng/mL (0.00-0.120)
[2018-07-13 14:28] LABS: CK-MB 1.74 ng/mL (0.0-3.38)
--- NOTE | 2018-07-13 19:05 | CP.PCM.HP ---
Past Patient History - Past Medical History & Family History Past Medical History?: Yes - Past Social History Smoking Status: Former Smoker - CARDIAC Hx Hypertension: Yes - PULMONARY Hx Respiratory Disorders: Yes Hx Chronic Obstructive Pulmonary Disease (COPD): Yes - NEUROLOGICAL Hx Neurological Disorder: No - HEENT Hx HEENT Problems: No - RENAL Hx Chronic Kidney Disease: No - ENDOCRINE/METABOLIC Hx Endocrine Disorders: No - HEMATOLOGICAL/ONCOLOGICAL Hx Blood Disorders: No - INTEGUMENTARY Hx Dermatological Problems: No - MUSCULOSKELETAL/RHEUMATOLOGICAL Hx Musculoskeletal Disorders: No Hx Falls: No - GASTROINTESTINAL Hx Gastrointestinal Disorders: No - GENITOURINARY/GYNECOLOGICAL Hx Genitourinary Disorders: No - PSYCHIATRIC Hx Substance Use: No - SURGICAL HISTORY Hx Coronary Artery Bypass Graft: Yes - ANESTHESIA Hx Anesthesia: Yes Hx Anesthesia Reactions: No Meds Allergies/Adverse Reactions: Allergies Allergy/AdvReac Type Severity Reaction Status Date / Time No Known Allergies Allergy Verified 07/12/18 09:17 Physical Exam - Constitutional Appears: Well - Head Exam Head Exam: ATRAUMATIC, NORMAL INSPECTION, NORMOCEPHALIC - Eye Exam Eye Exam: EOMI, Normal appearance, PERRL Pupil Exam: NORMAL ACCOMODATION, PERRL - ENT Exam ENT Exam: Mucous Membranes Moist, Normal Exam - Neck Exam Neck exam: Positive for: Normal Inspection - Respiratory Exam Respiratory Exam: Decreased Breath Sounds - Cardiovascular Exam Cardiovascular Exam: REGULAR RHYTHM, +S1, +S2 - GI/Abdominal Exam GI & Abdominal Exam: Diminished Bowel Sounds, Soft - Rectal Exam Rectal Exam: Deferred Results - Vital Signs Recent Vital Signs: Last Vital Signs Temp 98.4 F 07/13/18 10:00 Pulse 77 07/13/18 15:30 Resp 32 H 07/13/18 15:20 BP 139/85 07/13/18 15:20 Pulse Ox 95 07/13/18 15:20 - Labs Result Diagrams: 07/13/18 06:52 07/13/18 06:03 Labs: Laboratory Results - last 24 hr 07/12/18 07/13/18 07/13/18 04:30 06:03 06:52 WBC 7.5 RBC 4.36 L Hgb 13.9 Hct 42.1 MCV 96.5 H MCH 31.9 H MCHC 33.0 RDW 14.9 H Plt Count 144 MPV 9.6 Neut % (Auto) 86.3 H Lymph % (Auto) 4.3 L Hubbard % (Auto) 8.9 Eos % (Auto) 0.0 Baso % (Auto) 0.5 Neut # (Auto) 6.5 Lymph # (Auto) 0.3 L Hubbard # (Auto) 0.7 Eos # (Auto) 0.0 Baso # (Auto) 0.0 Neutrophils % (Manual) 90 H Band Neutrophils % 1 Lymphocytes % (Manual) 3 L Monocytes % (Manual) 6 Platelet Estimate Normal RBC Morphology Normal Puncture Site Rr pCO2 82 H* pO2 83 HCO3 35.3 H ABG pH 7.33 L ABG Total CO2 45.7 H ABG O2 Saturation 97.2 ABG Base Excess 13.4 H Naman Test Pos ABG Potassium 4.5 A-a O2 Difference 135.0 Respiratory Index 1.6 Sodium 142.0 142 Chloride 104.0 96 L Glucose 132 H Lactate 1.1 Vent Mode Bipap FiO2 45.0 Inspiratory BiPAP 20 Expiratory BiPAP 10 Crit Value Called To Tashia bazzi/rn Crit Value Called By Tyrell lang/rt Crit Value Read Back Y Blood Gas Notified Time 445 Potassium 4.4 Carbon Dioxide 34 H Anion Gap 16 BUN 33 H Creatinine 1.7 H Est GFR ( Amer) 47 Est GFR (Non-Af Amer) 38 Random Glucose 120 H Calcium 7.6 L Phosphorus 4.6 H Magnesium 1.7 Total Bilirubin 0.6 AST 26 ALT 19 L D Alkaline Phosphatase 108 Total Creatine Kinase CK-MB (Mass) Troponin I Total Protein 5.9 L Albumin 2.9 L D Globulin 3.0 Albumin/Globulin Ratio 1.0 Arterial Blood Potassium 4.5 07/13/18 13:24 WBC RBC Hgb Hct MCV MCH MCHC RDW Plt Count MPV Neut % (Auto) Lymph % (Auto) Hubbard % (Auto) Eos % (Auto) Baso % (Auto) Neut # (Auto) Lymph # (Auto) Hubbard # (Auto) Eos # (Auto) Baso # (Auto) Neutrophils % (Manual) Band Neutrophils % Lymphocytes % (Manual) Monocytes % (Manual) Platelet Estimate RBC Morphology Puncture Site pCO2 pO2 HCO3 ABG pH ABG Total CO2 ABG O2 Saturation ABG Base Excess Naman Test ABG Potassium A-a O2 Difference Respiratory Index Sodium Chloride Glucose Lactate Vent Mode FiO2 Inspiratory BiPAP Expiratory BiPAP Crit Value Called To Crit Value Called By Crit Value Read Back Blood Gas Notified Time Potassium Carbon Dioxide Anion Gap BUN Creatinine Est GFR ( Amer) Est GFR (Non-Af Amer) Random Glucose Calcium Phosphorus Magnesium Total Bilirubin AST ALT Alkaline Phosphatase Total Creatine Kinase 56 CK-MB (Mass) 1.74 Troponin I 0.1740 H* Total Protein Albumin Globulin Albumin/Globulin Ratio Arterial Blood Potassium
--- NOTE | 2018-07-13 20:01 | PN ---
DATE: 07/13/2018 SUBJECTIVE: The patient is currently lethargic. He is on BiPAP. No reported hypotension or ventricular arrhythmia. PHYSICAL EXAMINATION: VITAL SIGNS: Blood pressure 118/73, heart rate 70, temperature 98.2, respirations 29. HEENT: Normocephalic. CHEST: Absent breath sounds over the bases. HEART: S1 and S2 regular. ABDOMEN: Soft. EXTREMITIES: 1+ pitting edema. LABORATORY DATA: Today's BUN and creatinine are 33 and 1.7, glucose 120. Troponin 0.158 and 0.174. Today's hemoglobin and hematocrit, white count, and platelet count are within normal limit. Blood culture is positive for gram-positive cocci. Bedside echocardiographic study revealed ejection fraction in the range of 45% to 50%. 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 ASSESSMENT: 1. Systolic heart failure. 2. Gram-positive bacteremia, rule-out underlying sepsis. 3. Moderate bioprosthetic valve aortic stenosis. 4. Chronic atrial fibrillation. 5. Consider non-ST elevation myocardial infarction. RECOMMENDATIONS: Continue aspirin 81 mg once a day; IV Rocephin at 1 g daily; Coreg at 3.125 mg twice a day, off for systolic blood pressure below 110. Continue Vasotec 2.5 mg once a day, off for systolic blood pressure below 100. Continue Lasix 40 mg intravenously twice a day. The daughter signed [id number] status on him. ID consult is strongly recommended as well as initiating appropriate intravenous antibiotic therapy. Tyler Daley MD
[2018-07-14 05:41] LABS: ABG ALLEN TEST POS; ARTERIAL BLOOD GAS HCO3 40.8 mmol/L (21-28); ARTERIAL BLOOD GAS HEMOGLOBIN 14.2 g/dL (11.7-17.4); ARTERIAL BLOOD GAS O2 SAT 93.2 % (95-98); ARTERIAL BLOOD GAS PCO2 94 mm/Hg (35-45); ARTERIAL BLOOD GAS PH 7.35 (7.35-7.45); ARTERIAL BLOOD GAS PO2 64 mm/Hg (80-100); ARTERIAL BLOOD GAS TCO2 54.8 mmol/L (22-28)
[2018-07-14 06:42] LABS: BASO % 0.3 % (0.0-2.0); EOS % 0.5 % (0.0-4.0); HEMOGLOBIN 14.3 g/dL (12.0-18.0); LYMPH # 0.6 K/uL (1.0-4.3); LYMPH % 8.1 % (20.0-40.0); MEAN CELL VOLUME 97.4 fL (80.0-94.0); MEAN CORPUSCULAR HEMOGLOBIN 32.5 pg (27.0-31.0); MEAN CORPUSCULAR HGB CONC 33.4 g/dL (33.0-37.0); MEAN PLATELET VOLUME 10.1 fL (7.2-11.7); MONO # 0.7 K/uL (0.0-0.8); MONO % 9.6 % (0.0-10.0); NEUT # 6.3 K/uL (1.8-7.0); NEUT % 81.5 % (50.0-75.0); NRBC % 0.3 % (0.0-2.0); PLATELET COUNT 149 K/uL (130-400); RBC 4.39 Mil/uL (4.40-5.90); WHITE BLOOD COUNT 7.8 K/uL (4.8-10.8)
[2018-07-14 06:49] LABS: ALBUMIN 3.3 g/dL (3.5-5.0); CALCIUM 8.2 mg/dl (8.6-10.4)
[2018-07-14 07:08] LABS: CK-MB 2.37 ng/mL (0.0-3.38); TROPONIN I 0.139 ng/mL (0.00-0.120)
--- NOTE | 2018-07-14 07:36 | CP.CCUPN ---
<Michael Edmonds - Last Filed: 07/14/18 18:13> CCU Subjective - Physician Review Events Since Last Encounter (Free Text): 07/14/18 12:44 Patient seen and examined at bedside. Patient is not in distress. Patient is no longer on BIPAP. O2 saturation stable on 2L of O2. Subjective (Free Text): 07/13/18 12:01 Patient seen and examined this morning. Patient in no acute distress. He is on BIPAP and resting comfortably. Critical Care Time Spent (in minutes): 35 CCU Objective - Vital Signs / Intake & Output Vital Signs (Last 4 hours): Vital Signs Temp Pulse Resp BP Pulse Ox 07/14/18 07:00 80 15 97 07/14/18 06:27 71 07/14/18 06:20 82 14 118/76 90 L 07/14/18 06:16 72 15 119/83 96 07/14/18 06:15 71 13 96 07/14/18 06:00 98.4 F 67 15 95 07/14/18 05:20 76 23 110/76 95 07/14/18 05:00 88 35 H 84 L 07/14/18 04:20 72 14 130/80 96 07/14/18 04:00 70 16 97 Intake and Output (Last 8hrs): Intake & Output 07/13/18 07/14/18 07/14/18 22:59 06:59 14:59 Intake Total 690 100 0 Output Total 265 615 100 Balance 425 -515 -100 Weight 220 lb Intake: Oral 690 100 0 Output: Urine 265 615 100 Urethral (Simpson) 265 615 100 Other: # Voids Urethral (Simpson) 100 # Bowel Movements 0 0 0 - Physical Exam Head: Positive for: Atraumatic, Normocephalic Pupils: Positive for: PERRL Conjunctiva: Positive for: Normal Mouth: Positive for: Moist Mucous Membranes Respiratory/Chest: Positive for: Clear to Auscultation, Other (On BIPAP). Negative for: Respiratory Distress, Accessory Muscle Use, Wheezes, Rales, Rhonchi Cardiovascular: Positive for: Normal S1, S2, Irregular Rhythm. Negative for: Murmurs, Tachycardic, Bradycardic, Rub, Gallop Abdomen: Positive for: Normal Bowel Sounds. Negative for: Tenderness, Distention, Peritoneal Signs, Guarding Upper Extremity: Positive for: Normal Inspection. Negative for: Cyanosis, Edema Lower Extremity: Positive for: Normal Inspection, Edema, NORMAL PULSES Skin: Positive for: Warm, Dry, Normal Color. Negative for: Rashes Psychiatric: Positive for: Alert - Medications Active Medications: Active Medications Generic Name Dose Route Start Last Admin Trade Name Freq PRN Reason Stop Dose Admin Alprazolam 0.25 mg 07/14/18 07:29 Xanax PO 07/21/18 07:31 Q8H PRN Agitation Aspirin 81 mg 07/13/18 10:00 07/13/18 10:00 Aspirin Chewable PO Not Given DAILY JO-ANN Carvedilol 3.125 mg 07/12/18 18:00 07/13/18 18:41 Coreg PO 3.125 mg BID JO-ANN Administration Enalapril Maleate 2.5 mg 07/13/18 10:00 07/13/18 10:00 Vasotec PO Not Given DAILY JO-ANN Famotidine 20 mg 07/13/18 10:30 07/13/18 10:40 Pepcid IVP 20 mg DAILY JO-ANN Administration Furosemide 40 mg 07/12/18 22:00 07/14/18 00:25 Lasix IVP 40 mg Q12 JO-ANN Administration Ceftriaxone Sodium 1 gm/ 100 mls @ 100 mls/hr 07/13/18 12:00 07/13/18 12:24 Sodium Chloride IVPB 100 mls/hr Q24H JO-ANN Administration Protocol Influenza Virus Vaccine 60 mcg 07/15/18 10:00 Fluzone Quad [id number] IM 07/15/18 10:01 .ONCE ONE Pneumococcal Polyvalent Vaccine 0.5 ml 07/15/18 10:00 Pneumovax 23 Vaccine IM 07/15/18 10:01 .ONCE ONE Rivaroxaban 15 mg 07/12/18 15:30 07/13/18 18:42 Xarelto PO 15 mg DAILY JO-ANN Administration Rosuvastatin Calcium 10 mg 07/12/18 22:00 07/13/18 21:45 Crestor PO 10 mg HS JO-ANN Administration Tamsulosin HCl 0.4 mg 07/12/18 15:30 07/13/18 10:00 Flomax PO Not Given DAILY JO-ANN - Patient Studies Lab Studies: Microbiology Studies 07/12/18 19:00 MRSA Culture (Admit) - Final Naris MRSA NOT DETECTED 07/12/18 14:13 Urine Culture - Final Urine,Catheterized No Growth (<1,000 CFU/ML) 07/12/18 09:25 Blood Culture - Preliminary Blood Gram Positive Cocci Gram Stain - Final 07/12/18 10:12 Blood Culture - Preliminary Blood NO GROWTH AFTER 24 HOURS Lab Studies 07/14/18 07/14/18 07/14/18 Range/Units 06:32 06:32 06:30 WBC 7.8 (4.8-10.8) K/uL RBC 4.39 L (4.40-5.90) Mil/uL Hgb 14.3 (12.0-18.0) g/dL Hct 42.7 (35.0-51.0) % MCV 97.4 H (80.0-94.0) fL MCH 32.5 H (27.0-31.0) pg MCHC 33.4 (33.0-37.0) g/dL RDW 15.0 H (11.5-14.5) % Plt Count 149 (130-400) K/uL MPV 10.1 (7.2-11.7) fL Neut % (Auto) 81.5 H (50.0-75.0) % Lymph % (Auto) 8.1 L (20.0-40.0) % Green % (Auto) 9.6 (0.0-10.0) % Eos % (Auto) 0.5 (0.0-4.0) % Baso % (Auto) 0.3 (0.0-2.0) % Neut # (Auto) 6.3 (1.8-7.0) K/uL Lymph # (Auto) 0.6 L (1.0-4.3) K/uL Green # (Auto) 0.7 (0.0-0.8) K/uL Eos # (Auto) 0.0 (0.0-0.7) K/uL Baso # (Auto) 0.0 (0.0-0.2) K/uL Neutrophils % (Manual) (50-75) % Band Neutrophils % (0-2) % Lymphocytes % (Manual) (20-40) % Monocytes % (Manual) (0-10) % Platelet Estimate (NORMAL) RBC Morphology Puncture Site pCO2 (35-45) mm/Hg pO2 (80-100) mm/Hg HCO3 (21-28) mmol/L ABG pH (7.35-7.45) ABG Total CO2 (22-28) mmol/L ABG O2 Saturation (95-98) % ABG Base Excess (-2.0-3.0) mmol/L ABG Hemoglobin (11.7-17.4) g/dL ABG Carboxyhemoglobin (0.5-1.5) % POC ABG HHb (Measured) (0.0-5.0) % ABG Methemoglobin (0.0-3.0) % Naman Test Hgb O2 Saturation (95.0-98.0) % Liter Flow Crit Value Called To Crit Value Called By Crit Value Read Back Blood Gas Notified Time Sodium 140 (132-148) mmol/L Potassium 3.9 (3.6-5.2) mmol/L Chloride 87 L (98-107) mmol/L Carbon Dioxide 42 H* D (22-30) mmol/L Anion Gap 15 (10-20) BUN 45 H (9-20) mg/dL Creatinine 1.7 H (0.8-1.5) mg/dL Est GFR ( Amer) 47 Est GFR (Non-Af Amer) 38 Random Glucose 83 (75-110) mg/dL Calcium 8.2 L (8.6-10.4) mg/dl Phosphorus 4.0 (2.5-4.5) mg/dL Magnesium 1.8 (1.6-2.3) mg/dL Total Bilirubin 0.7 (0.2-1.3) mg/dL AST 32 (17-59) U/L ALT 31 (21-72) U/L Alkaline Phosphatase 138 H D (38-126) U/L Total Creatine Kinase 65 (55-170) U/L CK-MB (Mass) 2.37 (0.0-3.38) ng/mL Troponin I 0.1390 H* (0.00-0.120) ng/mL Total Protein 6.4 (6.3-8.3) g/dL Albumin 3.3 L (3.5-5.0) g/dL Globulin 3.2 (2.2-3.9) gm/dL Albumin/Globulin Ratio 1.0 (1.0-2.1) 11/20/18 11/19/18 11/19/18 Range/Units 05:17 13:24 06:52 WBC (4.8-10.8) K/uL RBC (4.40-5.90) Mil/uL Hgb (12.0-18.0) g/dL Hct (35.0-51.0) % MCV (80.0-94.0) fL MCH (27.0-31.0) pg MCHC (33.0-37.0) g/dL RDW (11.5-14.5) % Plt Count (130-400) K/uL MPV (7.2-11.7) fL Neut % (Auto) (50.0-75.0) % Lymph % (Auto) (20.0-40.0) % Green % (Auto) (0.0-10.0) % Eos % (Auto) (0.0-4.0) % Baso % (Auto) (0.0-2.0) % Neut # (Auto) (1.8-7.0) K/uL Lymph # (Auto) (1.0-4.3) K/uL Green # (Auto) (0.0-0.8) K/uL Eos # (Auto) (0.0-0.7) K/uL Baso # (Auto) (0.0-0.2) K/uL Neutrophils % (Manual) 90 H (50-75) % Band Neutrophils % 1 (0-2) % Lymphocytes % (Manual) 3 L (20-40) % Monocytes % (Manual) 6 (0-10) % Platelet Estimate Normal (NORMAL) RBC Morphology Normal Puncture Site Rr pCO2 94 H* (35-45) mm/Hg pO2 64 L (80-100) mm/Hg HCO3 40.8 H* (21-28) mmol/L ABG pH 7.35 (7.35-7.45) ABG Total CO2 54.8 H (22-28) mmol/L ABG O2 Saturation 93.2 L (95-98) % ABG Base Excess 20.6 H (-2.0-3.0) mmol/L ABG Hemoglobin 14.2 (11.7-17.4) g/dL ABG Carboxyhemoglobin 2.3 H (0.5-1.5) % POC ABG HHb (Measured) 6.6 H (0.0-5.0) % ABG Methemoglobin 1.0 (0.0-3.0) % Naman Test Pos Hgb O2 Saturation 90.2 L (95.0-98.0) % Liter Flow 2.0 Crit Value Called To Robin rn Crit Value Called By Fidencio antit[employer] assault gunner Crit Value Read Back Y Blood Gas Notified Time 541 Sodium (132-148) mmol/L Potassium (3.6-5.2) mmol/L Chloride (98-107) mmol/L Carbon Dioxide (22-30) mmol/L Anion Gap (10-20) BUN (9-20) mg/dL Creatinine (0.8-1.5) mg/dL Est GFR ( Amer) Est GFR (Non-Af Amer) Random Glucose (75-110) mg/dL Calcium (8.6-10.4) mg/dl Phosphorus (2.5-4.5) mg/dL Magnesium (1.6-2.3) mg/dL Total Bilirubin (0.2-1.3) mg/dL AST (17-59) U/L ALT (21-72) U/L Alkaline Phosphatase (38-126) U/L Total Creatine Kinase 56 (55-170) U/L CK-MB (Mass) 1.74 (0.0-3.38) ng/mL Troponin I 0.1740 H* (0.00-0.120) ng/mL Total Protein (6.3-8.3) g/dL Albumin (3.5-5.0) g/dL Globulin (2.2-3.9) gm/dL Albumin/Globulin Ratio (1.0-2.1) Laboratory Results - last 24 hr 07/13/18 07/13/18 07/14/18 06:52 13:24 05:17 WBC RBC Hgb Hct MCV MCH MCHC RDW Plt Count MPV Neut % (Auto) Lymph % (Auto) Green % (Auto) Eos % (Auto) Baso % (Auto) Neut # (Auto) Lymph # (Auto) Green # (Auto) Eos # (Auto) Baso # (Auto) Neutrophils % (Manual) 90 H Band Neutrophils % 1 Lymphocytes % (Manual) 3 L Monocytes % (Manual) 6 Platelet Estimate Normal RBC Morphology Normal Puncture Site Rr pCO2 94 H* pO2 64 L HCO3 40.8 H* ABG pH 7.35 ABG Total CO2 54.8 H ABG O2 Saturation 93.2 L ABG Base Excess 20.6 H ABG Hemoglobin 14.2 ABG Carboxyhemoglobin 2.3 H POC ABG HHb (Measured) 6.6 H ABG Methemoglobin 1.0 Naman Test Pos Hgb O2 Saturation 90.2 L Liter Flow 2.0 Crit Value Called To Robin clements Crit Value Called By Fidencio antit[employer] assault gunner Crit Value Read Back Y Blood Gas Notified Time 541 Sodium Potassium Chloride Carbon Dioxide Anion Gap BUN Creatinine Est GFR ( Amer) Est GFR (Non-Af Amer) Random Glucose Calcium Phosphorus Magnesium Total Bilirubin AST ALT Alkaline Phosphatase Total Creatine Kinase 56 CK-MB (Mass) 1.74 Troponin I 0.1740 H* Total Protein Albumin Globulin Albumin/Globulin Ratio 07/14/18 07/14/18 07/14/18 06:30 06:32 06:32 WBC 7.8 RBC 4.39 L Hgb 14.3 Hct 42.7 MCV 97.4 H MCH 32.5 H MCHC 33.4 RDW 15.0 H Plt Count 149 MPV 10.1 Neut % (Auto) 81.5 H Lymph % (Auto) 8.1 L Green % (Auto) 9.6 Eos % (Auto) 0.5 Baso % (Auto) 0.3 Neut # (Auto) 6.3 Lymph # (Auto) 0.6 L Green # (Auto) 0.7 Eos # (Auto) 0.0 Baso # (Auto) 0.0 Neutrophils % (Manual) Band Neutrophils % Lymphocytes % (Manual) Monocytes % (Manual) Platelet Estimate RBC Morphology Puncture Site pCO2 pO2 HCO3 ABG pH ABG Total CO2 ABG O2 Saturation ABG Base Excess ABG Hemoglobin ABG Carboxyhemoglobin POC ABG HHb (Measured) ABG Methemoglobin Naman Test Hgb O2 Saturation Liter Flow Crit Value Called To Crit Value Called By Crit Value Read Back Blood Gas Notified Time Sodium 140 Potassium 3.9 Chloride 87 L Carbon Dioxide 42 H* D Anion Gap 15 BUN 45 H Creatinine 1.7 H Est GFR ( Amer) 47 Est GFR (Non-Af Amer) 38 Random Glucose 83 Calcium 8.2 L Phosphorus 4.0 Magnesium 1.8 Total Bilirubin 0.7 AST 32 ALT 31 Alkaline Phosphatase 138 H D Total Creatine Kinase 65 CK-MB (Mass) 2.37 Troponin I 0.1390 H* Total Protein 6.4 Albumin 3.3 L Globulin 3.2 Albumin/Globulin Ratio 1.0 Fingerstick Blood Sugar Results: 99 Critical Care Progress Note - Nutrition Nutrition: Nutrition Category Date Time Status Pureed [Dysphagia/Modified Consistency Diet] [DIET] Diets 07/14/18 Breakfast Active Assessment/Plan - Assessment and Plan (Free Text) Assessment: 83yo male with PMHx HTN, COPD, CAD, CABG, AVR, and Afib on Xarelto. Presenting with progressive worsening SOB with AMS, which appears to be secondary to pulmonary edema from acute exacerbation of chronic CHF. Plan: Neuro: - P/w metabolic encephalopathy secondary to hypercarbia - Patient is alert Pulm: - Acute respiratory failure with hypercarbia and hypoxia - Off BIPAP - Stable on 2L of O2 - ABG: f/u Cardiovascular: - Hemodynamically stable. - Echo: mild concentric LVH, LVEF: 45-50%, mild global hypokinesis of LV, moderate pulmonary HTN, moderate tricuspid regurgitation - Coreg 3.125mg PO BID - Enalapril 2.5mg PO QD - Troponin: 0.174 --> 0.139 Heme: - Anemia of chronic disease - A-fib on Xarelto 15mg PO QD Renal: - Will monitor urine output - Flomax 0.4mg PO QD - Lasix 40mg IV Q12H Endo: - No acute issues GI: - Pureed diet ID: - Blood cx (07/12): Gram positive cocci- Likely contaminated sample - Blood cx (07/12): No growth to date - Patient afebrile and no leukocytosis - MRSA not detected DVT proph - Xarelto, SCD's contraindicated 2/2 rule out DVT GI proph - Pepcid simpson for strict I/O's during acute illness Code status - full code Case discussed with Dr. Frank Edmonds, PGY-1 <Woodrow Marie S - Last Filed: 07/14/18 18:34> CCU Objective - Vital Signs / Intake & Output Vital Signs (Last 4 hours): Vital Signs Pulse Resp BP 07/14/18 17:24 74 07/14/18 17:20 103/67 07/14/18 17:19 92 H 22 07/14/18 17:00 80 07/14/18 16:21 110 H 30 H 120/86 07/14/18 16:00 77 25 H 07/14/18 15:20 74 19 103/70 07/14/18 15:00 98 H 17 Intake and Output (Last 8hrs): Intake & Output 07/14/18 07/14/18 07/14/18 06:59 14:59 22:59 Intake Total 100 400 Output Total 615 580 140 Balance -515 -180 -140 Weight 220 lb Intake: Oral 100 400 Output: Urine 615 580 140 Urethral (Simpson) 615 580 140 Other: # Bowel Movements 0 0 - Medications Active Medications: Active Medications Generic Name Dose Route Start Last Admin Trade Name Freq PRN Reason Stop Dose Admin Albuterol/Ipratropium 3 ml 07/14/18 14:00 07/14/18 13:20 Duoneb 3 Mg/0.5 Mg (3 Ml) Ud INH 3 ml RQ6 JO-ANN Administration Alprazolam 0.25 mg 07/14/18 07:29 07/14/18 17:46 Xanax PO 07/21/18 07:31 0.25 mg Q8H PRN Administration Agitation Aspirin 81 mg 07/13/18 10:00 07/14/18 09:20 Aspirin Chewable PO 81 mg DAILY JO-ANN Administration Carvedilol 3.125 mg 07/12/18 18:00 07/14/18 17:46 Coreg PO 3.125 mg BID JO-ANN Administration Enalapril Maleate 2.5 mg 07/13/18 10:00 07/14/18 09:51 Vasotec PO 2.5 mg DAILY JO-ANN Administration Famotidine 20 mg 07/13/18 10:30 07/14/18 09:20 Pepcid IVP 20 mg DAILY JO-ANN Administration Furosemide 40 mg 07/15/18 10:00 Lasix IVP DAILY [facility] Influenza Virus Vaccine 60 mcg 07/15/18 10:00 Fluzone Quad [id number] IM 07/15/18 10:01 .ONCE ONE Methylprednisolone 60 mg 07/14/18 10:30 07/14/18 16:21 Solu-Medrol IV 60 mg Q6H JO-ANN Administration Pneumococcal Polyvalent Vaccine 0.5 ml 07/15/18 10:00 Pneumovax 23 Vaccine IM 07/15/18 10:01 .ONCE ONE Rivaroxaban 15 mg 07/12/18 15:30 07/14/18 09:19 Xarelto PO 15 mg DAILY JO-ANN Administration Rosuvastatin Calcium 10 mg 07/12/18 22:00 07/13/18 21:45 Crestor PO 10 mg HS JO-ANN Administration Tamsulosin HCl 0.4 mg 07/12/18 15:30 07/14/18 09:20 Flomax PO 0.4 mg DAILY JO-ANN Administration - Patient Studies Lab Studies: Microbiology Studies 07/12/18 09:25 S.aureus & Coag-Neg Staph PNA FISH - Preliminary Blood Blood Culture - Preliminary Gram Positive Cocci Gram Stain - Final 07/12/18 10:12 Blood Culture - Preliminary Blood NO GROWTH AFTER 48 HOURS 07/12/18 19:00 MRSA Culture (Admit) - Final Naris MRSA NOT DETECTED 07/12/18 14:13 Urine Culture - Final Urine,Catheterized No Growth (<1,000 CFU/ML) Lab Studies 07/14/18 07/14/18 07/14/18 Range/Units 06:32 06:32 06:30 WBC 7.8 (4.8-10.8) K/uL RBC 4.39 L (4.40-5.90) Mil/uL Hgb 14.3 (12.0-18.0) g/dL Hct 42.7 (35.0-51.0) % MCV 97.4 H (80.0-94.0) fL MCH 32.5 H (27.0-31.0) pg MCHC 33.4 (33.0-37.0) g/dL RDW 15.0 H (11.5-14.5) % Plt Count 149 (130-400) K/uL MPV 10.1 (7.2-11.7) fL Neut % (Auto) 81.5 H (50.0-75.0) % Lymph % (Auto) 8.1 L (20.0-40.0) % Green % (Auto) 9.6 (0.0-10.0) % Eos % (Auto) 0.5 (0.0-4.0) % Baso % (Auto) 0.3 (0.0-2.0) % Neut # (Auto) 6.3 (1.8-7.0) K/uL Lymph # (Auto) 0.6 L (1.0-4.3) K/uL Green # (Auto) 0.7 (0.0-0.8) K/uL Eos # (Auto) 0.0 (0.0-0.7) K/uL Baso # (Auto) 0.0 (0.0-0.2) K/uL Neutrophils % (Manual) 82 H (50-75) % Lymphocytes % (Manual) 8 L (20-40) % Monocytes % (Manual) 10 (0-10) % Nucleated RBC % 2 H (0-0) % Platelet Estimate Normal (NORMAL) RBC Morphology Normal Puncture Site pCO2 (35-45) mm/Hg pO2 (80-100) mm/Hg HCO3 (21-28) mmol/L ABG pH (7.35-7.45) ABG Total CO2 (22-28) mmol/L ABG O2 Saturation (95-98) % ABG Base Excess (-2.0-3.0) mmol/L ABG Hemoglobin (11.7-17.4) g/dL ABG Carboxyhemoglobin (0.5-1.5) % POC ABG HHb (Measured) (0.0-5.0) % ABG Methemoglobin (0.0-3.0) % Naman Test Hgb O2 Saturation (95.0-98.0) % Liter Flow Crit Value Called To Crit Value Called By Crit Value Read Back Blood Gas Notified Time Sodium 140 (132-148) mmol/L Potassium 3.9 (3.6-5.2) mmol/L Chloride 87 L (98-107) mmol/L Carbon Dioxide 42 H* D (22-30) mmol/L Anion Gap 15 (10-20) BUN 45 H (9-20) mg/dL Creatinine 1.7 H (0.8-1.5) mg/dL Est GFR ( Amer) 47 Est GFR (Non-Af Amer) 38 Random Glucose 83 (75-110) mg/dL Calcium 8.2 L (8.6-10.4) mg/dl Phosphorus 4.0 (2.5-4.5) mg/dL Magnesium 1.8 (1.6-2.3) mg/dL Total Bilirubin 0.7 (0.2-1.3) mg/dL AST 32 (17-59) U/L ALT 31 (21-72) U/L Alkaline Phosphatase 138 H D (38-126) U/L Total Creatine Kinase 65 (55-170) U/L CK-MB (Mass) 2.37 (0.0-3.38) ng/mL Troponin I 0.1390 H* (0.00-0.120) ng/mL Total Protein 6.4 (6.3-8.3) g/dL Albumin 3.3 L (3.5-5.0) g/dL Globulin 3.2 (2.2-3.9) gm/dL Albumin/Globulin Ratio 1.0 (1.0-2.1) 07/14/18 Range/Units 05:17 WBC (4.8-10.8) K/uL RBC (4.40-5.90) Mil/uL Hgb (12.0-18.0) g/dL Hct (35.0-51.0) % MCV (80.0-94.0) fL MCH (27.0-31.0) pg MCHC (33.0-37.0) g/dL RDW (11.5-14.5) % Plt Count (130-400) K/uL MPV (7.2-11.7) fL Neut % (Auto) (50.0-75.0) % Lymph % (Auto) (20.0-40.0) % Green % (Auto) (0.0-10.0) % Eos % (Auto) (0.0-4.0) % Baso % (Auto) (0.0-2.0) % Neut # (Auto) (1.8-7.0) K/uL Lymph # (Auto) (1.0-4.3) K/uL Green # (Auto) (0.0-0.8) K/uL Eos # (Auto) (0.0-0.7) K/uL Baso # (Auto) (0.0-0.2) K/uL Neutrophils % (Manual) (50-75) % Lymphocytes % (Manual) (20-40) % Monocytes % (Manual) (0-10) % Nucleated RBC % (0-0) % Platelet Estimate (NORMAL) RBC Morphology Puncture Site Rr pCO2 94 H* (35-45) mm/Hg pO2 64 L (80-100) mm/Hg HCO3 40.8 H* (21-28) mmol/L ABG pH 7.35 (7.35-7.45) ABG Total CO2 54.8 H (22-28) mmol/L ABG O2 Saturation 93.2 L (95-98) % ABG Base Excess 20.6 H (-2.0-3.0) mmol/L ABG Hemoglobin 14.2 (11.7-17.4) g/dL ABG Carboxyhemoglobin 2.3 H (0.5-1.5) % POC ABG HHb (Measured) 6.6 H (0.0-5.0) % ABG Methemoglobin 1.0 (0.0-3.0) % Naman Test Pos Hgb O2 Saturation 90.2 L (95.0-98.0) % Liter Flow 2.0 Crit Value Called To Robin rn Crit Value Called By Fidencio antitank assault gunner Crit Value Read Back Y Blood Gas Notified Time 541 Sodium (132-148) mmol/L Potassium (3.6-5.2) mmol/L Chloride (98-107) mmol/L Carbon Dioxide (22-30) mmol/L Anion Gap (10-20) BUN (9-20) mg/dL Creatinine (0.8-1.5) mg/dL Est GFR ( Amer) Est GFR (Non-Af Amer) Random Glucose (75-110) mg/dL Calcium (8.6-10.4) mg/dl Phosphorus (2.5-4.5) mg/dL Magnesium (1.6-2.3) mg/dL Total Bilirubin (0.2-1.3) mg/dL AST (17-59) U/L ALT (21-72) U/L Alkaline Phosphatase (38-126) U/L Total Creatine Kinase (55-170) U/L CK-MB (Mass) (0.0-3.38) ng/mL Troponin I (0.00-0.120) ng/mL Total Protein (6.3-8.3) g/dL Albumin (3.5-5.0) g/dL Globulin (2.2-3.9) gm/dL Albumin/Globulin Ratio (1.0-2.1) Laboratory Results - last 24 hr 07/14/18 07/14/18 07/14/18 05:17 06:30 06:32 WBC RBC Hgb Hct MCV MCH MCHC RDW Plt Count MPV Neut % (Auto) Lymph % (Auto) Green % (Auto) Eos % (Auto) Baso % (Auto) Neut # (Auto) Lymph # (Auto) Green # (Auto) Eos # (Auto) Baso # (Auto) Neutrophils % (Manual) Lymphocytes % (Manual) Monocytes % (Manual) Nucleated RBC % Platelet Estimate RBC Morphology Puncture Site Rr pCO2 94 H* pO2 64 L HCO3 40.8 H* ABG pH 7.35 ABG Total CO2 54.8 H ABG O2 Saturation 93.2 L ABG Base Excess 20.6 H ABG Hemoglobin 14.2 ABG Carboxyhemoglobin 2.3 H POC ABG HHb (Measured) 6.6 H ABG Methemoglobin 1.0 Naman Test Pos Hgb O2 Saturation 90.2 L Liter Flow 2.0 Crit Value Called To Robin rn Crit Value Called By Fidencio antitank assault gunner Crit Value Read Back Y Blood Gas Notified Time 541 Sodium 140 Potassium 3.9 Chloride 87 L Carbon Dioxide 42 H* D Anion Gap 15 BUN 45 H Creatinine 1.7 H Est GFR ( Amer) 47 Est GFR (Non-Af Amer) 38 Random Glucose 83 Calcium 8.2 L Phosphorus 4.0 Magnesium 1.8 Total Bilirubin 0.7 AST 32 ALT 31 Alkaline Phosphatase 138 H D Total Creatine Kinase 65 CK-MB (Mass) 2.37 Troponin I 0.1390 H* Total Protein 6.4 Albumin 3.3 L Globulin 3.2 Albumin/Globulin Ratio 1.0 07/14/18 06:32 WBC 7.8 RBC 4.39 L Hgb 14.3 Hct 42.7 MCV 97.4 H MCH 32.5 H MCHC 33.4 RDW 15.0 H Plt Count 149 MPV 10.1 Neut % (Auto) 81.5 H Lymph % (Auto) 8.1 L Green % (Auto) 9.6 Eos % (Auto) 0.5 Baso % (Auto) 0.3 Neut # (Auto) 6.3 Lymph # (Auto) 0.6 L Green # (Auto) 0.7 Eos # (Auto) 0.0 Baso # (Auto) 0.0 Neutrophils % (Manual) 82 H Lymphocytes % (Manual) 8 L Monocytes % (Manual) 10 Nucleated RBC % 2 H Platelet Estimate Normal RBC Morphology Normal Puncture Site pCO2 pO2 HCO3 ABG pH ABG Total CO2 ABG O2 Saturation ABG Base Excess ABG Hemoglobin ABG Carboxyhemoglobin POC ABG HHb (Measured) ABG Methemoglobin Naman Test Hgb O2 Saturation Liter Flow Crit Value Called To Crit Value Called By Crit Value Read Back Blood Gas Notified Time Sodium Potassium Chloride Carbon Dioxide Anion Gap BUN Creatinine Est GFR ( Amer) Est GFR (Non-Af Amer) Random Glucose Calcium Phosphorus Magnesium Total Bilirubin AST ALT Alkaline Phosphatase Total Creatine Kinase CK-MB (Mass) Troponin I Total Protein Albumin Globulin Albumin/Globulin Ratio Critical Care Progress Note - Nutrition Nutrition: Nutrition Category Date Time Status Dysphagia/Modified Consistency Diet [DIET] Diets 07/14/18 Dinner Active Attending/Attestation - Attestation I have personally seen and examined this patient.: Yes I have fully participated in the care of the patient.: Yes I have reviewed all pertinent clinical information: Yes Notes (Text): 07/14/18 18:33 patient seen and examined in the intensive care unit. Patient is off BiPAP and breathing much improved Continue nebulizer treatment Continue diuretics Antibiotics started Nebulizer treatment Follow-up ABG and chest x-ray
[2018-07-14 08:48] LABS: LYMPHOCYTE 8 % (20-40); MONOCYTE 10 % (0-10); NEUTROPHIL 82 % (50-75); NUCLEATED RED BLOOD CELL 2 % (0-0); PLATELET ESTIMATE NORMAL (NORMAL); TOTAL CELLS COUNTED 100
[2018-07-14] MEDS: MethylPREDNISolone 40 mg Vial IV SCH ×3 (11:30→21:35)
--- NOTE | 2018-07-14 11:56 | CP.PCM.PN ---
Subjective - Date & Time of Evaluation Date of Evaluation: 07/14/18 Time of Evaluation: 13:30 - Subjective Subjective: clinically same Objective - Vital Signs/Intake and Output Vital Signs (last 24 hours): Temp Pulse Resp BP Pulse Ox 98.4 F 65 15 111/62 97 07/14/18 06:00 07/14/18 07:38 07/14/18 07:00 07/14/18 09:51 07/14/18 07:00 Intake and Output: 07/14/18 07/14/18 06:59 18:59 Intake Total 550 0 Output Total 880 370 Balance -330 -370 - Medications Medications: Current Medications Albuterol/Ipratropium (Duoneb 3 Mg/0.5 Mg (3 Ml) Ud) 3 ml INH RQ6 JO-ANN Alprazolam (Xanax) 0.25 mg PO Q8H PRN PRN Reason: Agitation Stop: 07/21/18 07:31 Aspirin (Aspirin Chewable) 81 mg PO DAILY [facility] Last Admin: 07/14/18 09:20 Dose: 81 mg Carvedilol (Coreg) 3.125 mg PO BID [facility] Last Admin: 07/14/18 09:19 Dose: 3.125 mg Enalapril Maleate (Vasotec) 2.5 mg PO DAILY [facility] Last Admin: 07/14/18 09:51 Dose: 2.5 mg Famotidine (Pepcid) 20 mg IVP DAILY [facility] Last Admin: 07/14/18 09:20 Dose: 20 mg Furosemide (Lasix) 40 mg IVP Q12 [facility] Last Admin: 07/14/18 09:23 Dose: 40 mg Influenza Virus Vaccine (Fluzone Quad [id number]) 60 mcg IM .ONCE ONE Stop: 07/15/18 10:01 Methylprednisolone (Solu-Medrol) 60 mg IV Q6H [facility] Pneumococcal Polyvalent Vaccine (Pneumovax 23 Vaccine) 0.5 ml IM .ONCE ONE Stop: 07/15/18 10:01 Rivaroxaban (Xarelto) 15 mg PO DAILY [facility] Last Admin: 07/14/18 09:19 Dose: 15 mg Rosuvastatin Calcium (Crestor) 10 mg PO HS [facility] Last Admin: 07/13/18 21:45 Dose: 10 mg Tamsulosin HCl (Flomax) 0.4 mg PO DAILY [facility] Last Admin: 07/14/18 09:20 Dose: 0.4 mg - Labs Labs: 07/14/18 06:32 07/14/18 06:30 PT 15.7 SECONDS (9.7-12.2) H 07/12/18 09:25 INR 1.4 07/12/18 09:25 APTT 33 SECONDS (21-34) 07/12/18 09:25 - Constitutional Appears: Well - Head Exam Head Exam: ATRAUMATIC, NORMAL INSPECTION, NORMOCEPHALIC - Eye Exam Eye Exam: EOMI, Normal appearance, PERRL Pupil Exam: NORMAL ACCOMODATION, PERRL - ENT Exam ENT Exam: Mucous Membranes Moist, Normal Exam - Neck Exam Neck Exam: Full ROM, Normal Inspection. absent: Lymphadenopathy - Respiratory Exam Respiratory Exam: Decreased Breath Sounds - Cardiovascular Exam Cardiovascular Exam: REGULAR RHYTHM, +S1, +S2 - GI/Abdominal Exam GI & Abdominal Exam: Soft, Diminished Bowel Sounds - Rectal Exam Rectal Exam: Deferred
[2018-07-14] MEDS: Albuterol-Ipratrop 3 mg / 0.5 (3 ml) UD INH SCH ×2 (13:20→19:33)
--- NOTE | 2018-07-14 13:41 | RAD ---
Date of service: 07/14/2018 HISTORY: CHF. COMPARISON: 07/12/2018. FINDINGS: LUNGS: Interval improvement in pulmonary vascular congestion. PLEURA: No significant pleural effusion identified, no pneumothorax apparent. CARDIOVASCULAR: Atherosclerotic calcifications identified primarily aortic arch. Improving CH Cardiomegaly remains OSSEOUS STRUCTURES: No significant abnormalities. VISUALIZED UPPER ABDOMEN: Normal. OTHER FINDINGS: None. IMPRESSION: Interval improvement in congestive heart failure.
--- NOTE | 2018-07-14 14:17 | VASCLAB ---
Date of service: 07/13/2018 PROCEDURE: Lower Extremity Venous Duplex Exam. HISTORY: r/o DVT PRIORS: None. TECHNIQUE: Bilateral common femoral, femoral, popliteal and posterior tibial, peroneal and great saphenous veins were evaluated. Flow was assessed with color Doppler, compressibility, assessment of phasic flow and augmentation response. Report prepared by Vin Verdugo, BS, RVT FINDINGS: RIGHT: 1. Common Femoral Vein: 1.1. Compressibility - Fully compressible: Thrombus - None : Flow - Phasic: Augmentation -Normal: Reflux - None. 2. Femoral Vein: 2.1. Compressibility - Fully compressible: Thrombus - None : Flow - Phasic: Augmentation -Normal: Reflux - None. 3. Popliteal Vein: 3.1. Compressibility - Fully compressible: Thrombus - None : Flow - Phasic: Augmentation -Normal: Reflux - None. 4. Posterior Tibial Vein: 4.1. Compressibility - Fully compressible: Thrombus - None: Flow - Phasic: Augmentation -Normal: Reflux - None. 5. Peroneal Vein: 5.1. Compressibility - Fully compressible: Thrombus - None: Flow - Phasic: Augmentation -Normal: Reflux - None. 6. Great Saphenous Vein: 6.1. Compressibility - Fully compressible: Thrombus - None: Flow - Phasic: Augmentation - Normal: Reflux - None. LEFT: 1. Common Femoral Vein: 1.1. Compressibility - Fully compressible: Thrombus - None: Flow - Phasic: Augmentation -Normal: Reflux - None. 2. Femoral Vein: 2.1. Compressibility - Fully compressible: Thrombus - None: Flow - Phasic: Augmentation -Normal: Reflux - None. 3. Popliteal Vein: 3.1. Compressibility - Fully compressible: Thrombus - None : Flow - Phasic: Augmentation -Normal: Reflux - None. 4. Posterior Tibial Vein: 4.1. Compressibility - Fully compressible: Thrombus - None: Flow - Phasic: Augmentation -Normal: Reflux - None. 5. Peroneal Vein: 5.1. Compressibility - Fully compressible: Thrombus - None: Flow - Phasic: Augmentation -Normal: Reflux - None. 6. Great Saphenous Vein: 6.1. Compressibility - : Thrombus - : Flow - : Augmentation - : Reflux - . OTHER FINDINGS: Right: None significant. Left: None significant. IMPRESSION: Right: No evidence of deep or superficial vein thrombosis of the right lower extremity. Normal valve function noted of the right side. Left: No evidence of deep or superficial vein thrombosis of the left lower extremity. Normal valve function noted of the left side. The left greater saphenous vein has been previously removed.
--- NOTE | 2018-07-14 18:33 | PN ---
DATE: 07/14/2018 SUBJECTIVE: The patient is awake but confused, does not appear to be in respiratory distress. PHYSICAL EXAMINATION: VITAL SIGNS: Blood pressure 111/62, heart rate 65, temperature 98.4. HEENT: Normocephalic. CHEST: Diminished breath sounds over the bases. HEART: S1 and S2 are regular. EXTREMITIES: 1+ pitting edema. LABORATORY DATA: SMA-7: Sodium 140, potassium 3.9, chloride 87, CO2 42, glucose 83, BUN 45, creatinine 1.7. Today's troponin is 0.139. Today's hemoglobin, hematocrit, white count and platelet count are within normal limits. One set of blood culture revealed gram-positive cocci in clusters. Urine culture, no growth. Echocardiographic study revealed mild depressed left ventricular systolic function, mildly depressed right ventricular systolic function, moderate prosthetic valve aortic stenosis. ASSESSMENT: 1. Consider non-ST elevation myocardial infarction. 2. Biventricular failure. 3. 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 Currently, the patient has moderate valvular aortic stenosis. 4. Gram-positive bacteremia. 5. Chronic atrial fibrillation. RECOMMENDATIONS: Continue aspirin 81 mg once a day, Coreg 3.125 mg twice a day, Crestor at 10 mg once a day and Lasix will be reduced to 40 mg intravenously once a day in view of metabolic alkalosis. Continue Solu-Medrol 60 mg intravenously every 6 hours, Xarelto at 15 mg once a day. Obtain repeat chest x-ray. A conservative medical approach is recommended. Tyler Daley MD
--- NOTE | 2018-07-14 19:17 | CARD ---
APPROVED REPORT Date of service: 07/12/2018 EKG Measurement Heart [id number] <Conclusion> Atrial fibrillation with premature ventricular or aberrantly conducted complexes Low voltage QRS Cannot rule out Anteroseptal infarct, age undetermined ST & T wave abnormality, consider lateral ischemia Abnormal ECG
[2018-07-15] MEDS: Albuterol-Ipratrop 3 mg / 0.5 (3 ml) UD INH SCH ×4 (01:39→19:55)
[2018-07-15] MEDS: MethylPREDNISolone 40 mg Vial IV SCH ×4 (05:30→21:58)
[2018-07-15 05:43] LABS: ABG ALLEN TEST PS; ARTERIAL BLOOD GAS HCO3 38.5 mmol/L (21-28); ARTERIAL BLOOD GAS HEMOGLOBIN 14.9 g/dL (11.7-17.4); ARTERIAL BLOOD GAS O2 SAT 89.1 % (95-98); ARTERIAL BLOOD GAS PCO2 66 mm/Hg (35-45); ARTERIAL BLOOD GAS PH 7.45 (7.35-7.45); ARTERIAL BLOOD GAS PO2 51 mm/Hg (80-100); ARTERIAL BLOOD GAS TCO2 47.9 mmol/L (22-28)
[2018-07-15 06:30] LABS: BASO % 0.3 % (0.0-2.0); HEMOGLOBIN 15.5 g/dL (12.0-18.0); LYMPH # 0.2 K/uL (1.0-4.3); LYMPH % 3.3 % (20.0-40.0); MEAN CELL VOLUME 94.8 fL (80.0-94.0); MEAN CORPUSCULAR HEMOGLOBIN 31.6 pg (27.0-31.0); MEAN CORPUSCULAR HGB CONC 33.4 g/dL (33.0-37.0); MEAN PLATELET VOLUME 10.1 fL (7.2-11.7); MONO # 0.1 K/uL (0.0-0.8); MONO % 2.5 % (0.0-10.0); NEUT # 5.3 K/uL (1.8-7.0); NEUT % 93.9 % (50.0-75.0); NRBC % 0.2 % (0.0-2.0); PLATELET COUNT 150 K/uL (130-400); RBC 4.89 Mil/uL (4.40-5.90); RED CELL DISTRIBUTION WIDTH 14.4 % (11.5-14.5); WHITE BLOOD COUNT 5.6 K/uL (4.8-10.8)
[2018-07-15 06:36] LABS: ALBUMIN 3.3 g/dL (3.5-5.0); CALCIUM 8.2 mg/dl (8.6-10.4)
[2018-07-15 08:31] LABS: LYMPHOCYTE 1 % (20-40); MONOCYTE 3 % (0-10); NEUTROPHIL 96 % (50-75); PLATELET ESTIMATE NORMAL (NORMAL); TOTAL CELLS COUNTED 100
[2018-07-15] MEDS ORDERED: Influenza Vaccine 60 MCG/0.5 ML SYR (3 yr & up) IM ONE (10:00)
[2018-07-15] MEDS ORDERED: Pneumococcal 23-Valent Vaccine IM ONE (10:00)
--- NOTE | 2018-07-15 16:15 | CP.PCM.PN ---
Subjective - Date & Time of Evaluation Date of Evaluation: 07/15/18 Time of Evaluation: 10:30 - Subjective Subjective: patient seen and examined Breathing much improved On BiPAP at night or as needed Afebrile Patient is awake and responsive Objective - Vital Signs/Intake and Output Vital Signs (last 24 hours): Temp Pulse Resp BP Pulse Ox 97.8 F 77 18 106/59 L 88 L 07/15/18 06:00 07/15/18 13:20 07/15/18 13:20 07/15/18 13:20 07/15/18 10:23 Intake and Output: 07/15/18 07/15/18 06:59 18:59 Intake Total 700 Output Total 450 Balance 250 - Medications Medications: Current Medications Albuterol/Ipratropium (Duoneb 3 Mg/0.5 Mg (3 Ml) Ud) 3 ml INH RQ6 [facility] Last Admin: 07/15/18 13:29 Dose: 3 ml Alprazolam (Xanax) 0.25 mg PO Q8H PRN PRN Reason: Agitation Stop: 07/21/18 07:31 Last Admin: 07/14/18 17:46 Dose: 0.25 mg Aspirin (Aspirin Chewable) 81 mg PO DAILY [facility] Last Admin: 07/15/18 09:41 Dose: 81 mg Carvedilol (Coreg) 3.125 mg PO BID [facility] Last Admin: 07/15/18 09:41 Dose: 3.125 mg Enalapril Maleate (Vasotec) 2.5 mg PO DAILY [facility] Last Admin: 07/15/18 09:41 Dose: 2.5 mg Famotidine (Pepcid) 20 mg IVP DAILY [facility] Last Admin: 07/15/18 10:08 Dose: 20 mg Furosemide (Lasix) 40 mg IVP DAILY [facility] Last Admin: 07/15/18 09:40 Dose: 40 mg Methylprednisolone (Solu-Medrol) 60 mg IV Q6H [facility] Last Admin: 07/15/18 10:12 Dose: 60 mg Rivaroxaban (Xarelto) 15 mg PO DAILY [facility] Last Admin: 07/15/18 10:13 Dose: 15 mg Rosuvastatin Calcium (Crestor) 10 mg PO HS [facility] Last Admin: 07/14/18 21:35 Dose: 10 mg Tamsulosin HCl (Flomax) 0.4 mg PO DAILY [facility] Last Admin: 07/15/18 09:42 Dose: 0.4 mg - Labs Labs: 07/15/18 05:52 07/15/18 05:53 PT 15.7 SECONDS (9.7-12.2) H 07/12/18 09:25 INR 1.4 07/12/18 09:25 APTT 33 SECONDS (21-34) 07/12/18 09:25
--- NOTE | 2018-07-15 16:59 | PN ---
DATE: 07/15/2018 SUBJECTIVE: The patient is confused, but does not appear to be in respiratory distress. PHYSICAL EXAMINATION: VITAL SIGNS: Blood pressure 109/63, heart rate 81, respirations 18, temperature 97.8. HEENT: Head normocephalic. CHEST: Absent breath sounds over the bases. HEART: S1 and S2 regular. ABDOMEN: Soft. EXTREMITIES: Resolved leg edema. LABORATORY DATA: Today's SMA-7: Sodium 137, potassium 4.2, chloride 86, CO2 of 39, glucose 161, BUN 56, creatinine 1.7. Today's hemoglobin and hematocrit, white count, and platelet count are within normal limit. Yesterday's chest x-ray revealed interval improvement of congestive heart failure. ASSESSMENT: 1. Consider non-ST elevation myocardial infarction. 2. Biventricular failure. 3. Moderate bioprosthetic valve aortic stenosis. 4. Chronic atrial fibrillation. 5. Altered mental status. RECOMMENDATIONS: I did review the blood culture final report, which was coagulase-negative Staph. Continue current conservative medical approach including aspirin 81 mg once a day, Coreg 3.125 mg once a day, Crestor 10 mg once a day, Lasix 20 mg intravenously once a day, Solu-Medrol 60 mg intravenously every 6 hours, Xarelto 15 mg daily. The patient will be transferred to Telemetry. Tyler Daley MD
--- NOTE | 2018-07-15 20:58 | CP.PCM.PN ---
Subjective - Date & Time of Evaluation Date of Evaluation: 07/15/18 Time of Evaluation: 13:30 - Subjective Subjective: clinically same Objective - Vital Signs/Intake and Output Vital Signs (last 24 hours): Temp Pulse Resp BP Pulse Ox 97.5 F L 77 29 H 102/69 95 07/15/18 16:00 07/15/18 17:19 07/15/18 17:19 07/15/18 17:20 07/15/18 17:19 Intake and Output: 07/15/18 07/16/18 18:59 06:59 Intake Total 850 Output Total 450 Balance 400 - Medications Medications: Current Medications Albuterol/Ipratropium (Duoneb 3 Mg/0.5 Mg (3 Ml) Ud) 3 ml INH RQ6 [facility] Last Admin: 07/15/18 19:55 Dose: 3 ml Alprazolam (Xanax) 0.25 mg PO Q8H PRN PRN Reason: Agitation Stop: 07/21/18 07:31 Last Admin: 07/15/18 20:23 Dose: 0.25 mg Aspirin (Aspirin Chewable) 81 mg PO DAILY [facility] Last Admin: 07/15/18 09:41 Dose: 81 mg Carvedilol (Coreg) 3.125 mg PO BID [facility] Last Admin: 07/15/18 17:30 Dose: 3.125 mg Enalapril Maleate (Vasotec) 2.5 mg PO DAILY [facility] Last Admin: 07/15/18 09:41 Dose: 2.5 mg Famotidine (Pepcid) 20 mg IVP DAILY [facility] Last Admin: 07/15/18 10:08 Dose: 20 mg Furosemide (Lasix) 40 mg IVP DAILY [facility] Last Admin: 07/15/18 09:40 Dose: 40 mg Methylprednisolone (Solu-Medrol) 60 mg IV Q6H [facility] Last Admin: 07/15/18 17:30 Dose: 60 mg Rivaroxaban (Xarelto) 15 mg PO DAILY [facility] Last Admin: 07/15/18 10:13 Dose: 15 mg Rosuvastatin Calcium (Crestor) 10 mg PO HS [facility] Last Admin: 07/14/18 21:35 Dose: 10 mg Tamsulosin HCl (Flomax) 0.4 mg PO DAILY [facility] Last Admin: 07/15/18 09:42 Dose: 0.4 mg - Labs Labs: 07/15/18 05:52 07/15/18 05:53 PT 15.7 SECONDS (9.7-12.2) H 07/12/18 09:25 INR 1.4 07/12/18 09:25 APTT 33 SECONDS (21-34) 07/12/18 09:25 - Constitutional Appears: Well - Head Exam Head Exam: ATRAUMATIC, NORMAL INSPECTION, NORMOCEPHALIC - Eye Exam Eye Exam: EOMI, Normal appearance, PERRL Pupil Exam: NORMAL ACCOMODATION, PERRL - ENT Exam ENT Exam: Mucous Membranes Moist, Normal Exam - Neck Exam Neck Exam: Full ROM, Normal Inspection. absent: Lymphadenopathy - Respiratory Exam Respiratory Exam: Decreased Breath Sounds - Cardiovascular Exam Cardiovascular Exam: REGULAR RHYTHM, +S1, +S2 - GI/Abdominal Exam GI & Abdominal Exam: Soft, Diminished Bowel Sounds - Rectal Exam Rectal Exam: Deferred
[2018-07-16] MEDS: Albuterol-Ipratrop 3 mg / 0.5 (3 ml) UD INH SCH ×3 (01:14→20:31)
[2018-07-16 04:38] LABS: ARTERIAL BLOOD GAS HCO3 40.5 mmol/L (21-28); ARTERIAL BLOOD GAS HEMOGLOBIN 14.8 g/dL (11.7-17.4); ARTERIAL BLOOD GAS O2 SAT 99.7 % (95-98); ARTERIAL BLOOD GAS PCO2 72 mm/Hg (35-45); ARTERIAL BLOOD GAS PH 7.44 (7.35-7.45); ARTERIAL BLOOD GAS PO2 86 mm/Hg (80-100); ARTERIAL BLOOD GAS TCO2 51.1 mmol/L (22-28)
[2018-07-16] MEDS: MethylPREDNISolone 40 mg Vial IV SCH ×4 (05:12→22:22)
[2018-07-16 06:34] LABS: BASO % 0.1 % (0.0-2.0); LYMPH # 0.2 K/uL (1.0-4.3); MEAN CELL VOLUME 94.2 fL (80.0-94.0); MEAN CORPUSCULAR HEMOGLOBIN 32.2 pg (27.0-31.0); MEAN CORPUSCULAR HGB CONC 34.2 g/dL (33.0-37.0); MEAN PLATELET VOLUME 9.8 fL (7.2-11.7); MONO # 0.3 K/uL (0.0-0.8); MONO % 3.7 % (0.0-10.0); NEUT # 8.5 K/uL (1.8-7.0); NEUT % 94.2 % (50.0-75.0); NRBC % 0.2 % (0.0-2.0); PLATELET COUNT 151 K/uL (130-400); RBC 4.67 Mil/uL (4.40-5.90); RED CELL DISTRIBUTION WIDTH 14.4 % (11.5-14.5); WHITE BLOOD COUNT 9.1 K/uL (4.8-10.8)
[2018-07-16 06:53] LABS: ALBUMIN 3.3 g/dL (3.5-5.0); CALCIUM 8.3 mg/dl (8.6-10.4)
[2018-07-16 09:24] LABS: LYMPHOCYTE 2 % (20-40); MONOCYTE 3 % (0-10); NEUTROPHIL 95 % (50-75); PLATELET ESTIMATE NORMAL (NORMAL); TOTAL CELLS COUNTED 100
[2018-07-16 09:25] LABS: ANISOCYTOSIS SLIGHT
[2018-07-16 09:26] LABS: GIANT PLATELETS PRESENT; LARGE PLATELETS PRESENT; POLYCHROMIC SLIGHT
[2018-07-16 09:27] LABS: TOXIC GRANULATION PRESENT
--- NOTE | 2018-07-16 10:08 | CP.PCM.PN ---
Subjective - Date & Time of Evaluation Date of Evaluation: 07/16/18 Time of Evaluation: 10:00 - Subjective Subjective: patient is seen and examined Out of bed to chair No shortness of breath On BiPAP at night or as needed Afebrile the chest pain Continue steroids and nebulizer treatment Followup ABG and chest x-ray Continue diuretics Objective - Vital Signs/Intake and Output Vital Signs (last 24 hours): Temp Pulse Resp BP Pulse Ox 98.6 F 69 15 105/64 95 07/16/18 08:00 07/16/18 08:00 07/16/18 08:00 07/16/18 10:05 07/16/18 08:00 Intake and Output: 07/16/18 07/16/18 06:59 18:59 Intake Total 390 100 Output Total 600 0 Balance -210 100 - Medications Medications: Current Medications Albuterol/Ipratropium (Duoneb 3 Mg/0.5 Mg (3 Ml) Ud) 3 ml INH RQ6 [facility] Last Admin: 07/16/18 01:14 Dose: 3 ml Alprazolam (Xanax) 0.25 mg PO Q8H PRN PRN Reason: Agitation Stop: 07/21/18 07:31 Last Admin: 07/15/18 20:23 Dose: 0.25 mg Aspirin (Aspirin Chewable) 81 mg PO DAILY [facility] Last Admin: 07/16/18 10:04 Dose: 81 mg Carvedilol (Coreg) 3.125 mg PO BID [facility] Last Admin: 07/16/18 10:04 Dose: 3.125 mg Enalapril Maleate (Vasotec) 2.5 mg PO DAILY [facility] Last Admin: 07/15/18 09:41 Dose: 2.5 mg Famotidine (Pepcid) 20 mg IVP DAILY [facility] Last Admin: 07/16/18 10:05 Dose: 20 mg Furosemide (Lasix) 40 mg IVP DAILY [facility] Last Admin: 07/16/18 10:05 Dose: 40 mg Methylprednisolone (Solu-Medrol) 60 mg IV Q6H [facility] Last Admin: 07/16/18 10:05 Dose: 60 mg Rivaroxaban (Xarelto) 15 mg PO DAILY [facility] Last Admin: 07/16/18 10:06 Dose: 15 mg Rosuvastatin Calcium (Crestor) 10 mg PO HS [facility] Last Admin: 07/15/18 21:58 Dose: 10 mg Tamsulosin HCl (Flomax) 0.4 mg PO DAILY [facility] Last Admin: 07/16/18 10:04 Dose: 0.4 mg - Labs Labs: 07/16/18 06:31 07/16/18 06:31 PT 15.7 SECONDS (9.7-12.2) H 07/12/18 09:25 INR 1.4 07/12/18 09:25 APTT 33 SECONDS (21-34) 07/12/18 09:25
--- NOTE | 2018-07-16 14:56 | PN ---
DATE: 07/16/2018 SUBJECTIVE: The patient is confused, but does not appear to be in respiratory distress and he denies any chest pain. PHYSICAL EXAMINATION: VITAL SIGNS: Blood pressure 114/69, heart rate 78, respirations 33, and temperature 98.6. HEENT: Normocephalic. CHEST: Clear. HEART: S1 and S2 regular. EXTREMITIES: Trace leg edema. LABORATORY DATA: Today's hemoglobin and hematocrit 15 and 44, white count 9.1 and platelet count 151,000. Today's SMA-7: Sodium 134, potassium 4, chloride 86, CO2 of 37, glucose 150, BUN 52, and creatinine 1.4. ASSESSMENT: 1. Non-ST elevation myocardial infarction. 2. Biventricular failure. 3. Moderate prosthetic aortic valve stenosis. 4. Chronic atrial fibrillation. 5. Altered mental status. RECOMMENDATIONS: Continue aspirin 81 mg once a day, Coreg 3.125 mg once a day, Crestor 10 mg once a day, albuterol inhaler, Lasix 40 mg intravenously once daily, Lasix 20 mg intravenously daily, Solu-Medrol 60 mg intravenously every 6 hours, Vasotec 2.5 mg once a day, and Xarelto 15 mg once a day. Obtain repeat CT scan without contrast. Tyler Daley MD
--- NOTE | 2018-07-16 16:47 | CT ---
Date of service: 07/16/2018 PROCEDURE: CT HEAD WITHOUT CONTRAST. HISTORY: AMS COMPARISON: Comparison is made with 07/12/2018 TECHNIQUE: Axial computed tomography images were obtained through the head/brain without intravenous contrast. Radiation dose: Total exam DLP = 1170.49 mGy-cm. This CT exam was performed using one or more of the following dose reduction techniques: Automated exposure control, adjustment of the mA and/or kV according to patient size, and/or use of iterative reconstruction technique. FINDINGS: HEMORRHAGE: No intracranial hemorrhage. BRAIN: No mass effect or edema. Atrophy and chronic microvascular white matter ischemic changes are again noted. VENTRICLES: Unremarkable. No hydrocephalus. CALVARIUM: Unremarkable. PARANASAL SINUSES: Unremarkable as visualized. No significant inflammatory changes. MASTOID AIR CELLS: Unremarkable as visualized. No inflammatory changes. OTHER FINDINGS: None. IMPRESSION: No evidence of acute intracranial hemorrhage mass effect or midline shift. Diffuse volume loss and moderate chronic microvascular white matter ischemic disease.
--- NOTE | 2018-07-16 19:52 | CP.PCM.PN ---
Subjective - Date & Time of Evaluation Date of Evaluation: 07/16/18 Time of Evaluation: 13:45 - Subjective Subjective: clinically same Objective - Vital Signs/Intake and Output Vital Signs (last 24 hours): Temp Pulse Resp BP Pulse Ox 97.0 F L 65 25 H 95/55 L 75 L 07/16/18 14:00 07/16/18 19:00 07/16/18 19:00 07/16/18 18:20 07/16/18 11:00 Intake and Output: 07/16/18 07/17/18 18:59 06:59 Intake Total 1000 0 Output Total 1300 Balance -300 0 - Medications Medications: Current Medications Albuterol/Ipratropium (Duoneb 3 Mg/0.5 Mg (3 Ml) Ud) 3 ml INH RQ6 [facility] Last Admin: 07/16/18 07:05 Dose: 3 ml Alprazolam (Xanax) 0.25 mg PO Q8H PRN PRN Reason: Agitation Stop: 07/21/18 07:31 Last Admin: 07/15/18 20:23 Dose: 0.25 mg Aspirin (Aspirin Chewable) 81 mg PO DAILY [facility] Last Admin: 07/16/18 10:04 Dose: 81 mg Carvedilol (Coreg) 3.125 mg PO BID [facility] Last Admin: 07/16/18 17:21 Dose: Not Given Enalapril Maleate (Vasotec) 2.5 mg PO DAILY [facility] Last Admin: 07/16/18 17:24 Dose: Not Given Famotidine (Pepcid) 20 mg IVP DAILY [facility] Last Admin: 07/16/18 10:05 Dose: 20 mg Furosemide (Lasix) 40 mg IVP DAILY [facility] Last Admin: 07/16/18 10:05 Dose: 40 mg Methylprednisolone (Solu-Medrol) 60 mg IV Q6H [facility] Last Admin: 07/16/18 17:21 Dose: 60 mg Rivaroxaban (Xarelto) 15 mg PO DAILY [facility] Last Admin: 07/16/18 10:06 Dose: 15 mg Rosuvastatin Calcium (Crestor) 10 mg PO HS [facility] Last Admin: 07/15/18 21:58 Dose: 10 mg Tamsulosin HCl (Flomax) 0.4 mg PO DAILY [facility] Last Admin: 07/16/18 10:04 Dose: 0.4 mg - Labs Labs: 07/16/18 06:31 07/16/18 06:31 PT 15.7 SECONDS (9.7-12.2) H 07/12/18 09:25 INR 1.4 07/12/18 09:25 APTT 33 SECONDS (21-34) 07/12/18 09:25 - Constitutional Appears: Well - Head Exam Head Exam: ATRAUMATIC, NORMAL INSPECTION, NORMOCEPHALIC - Eye Exam Eye Exam: EOMI, Normal appearance, PERRL Pupil Exam: NORMAL ACCOMODATION, PERRL - ENT Exam ENT Exam: Mucous Membranes Moist, Normal Exam - Neck Exam Neck Exam: Full ROM, Normal Inspection. absent: Lymphadenopathy - Respiratory Exam Respiratory Exam: Decreased Breath Sounds - Cardiovascular Exam Cardiovascular Exam: REGULAR RHYTHM, +S1, +S2 - GI/Abdominal Exam GI & Abdominal Exam: Soft, Diminished Bowel Sounds - Rectal Exam Rectal Exam: Deferred
[2018-07-17] MEDS: Albuterol-Ipratrop 3 mg / 0.5 (3 ml) UD INH SCH ×4 (01:20→19:43)
[2018-07-17] MEDS: MethylPREDNISolone 40 mg Vial IV SCH ×4 (04:01→21:47)
[2018-07-17 06:30] LABS: BASO % 0.2 % (0.0-2.0); HEMOGLOBIN 16.5 g/dL (12.0-18.0); LYMPH # 0.1 K/uL (1.0-4.3); LYMPH % 1.4 % (20.0-40.0); MEAN CELL VOLUME 94.8 fL (80.0-94.0); MEAN CORPUSCULAR HEMOGLOBIN 31.6 pg (27.0-31.0); MEAN CORPUSCULAR HGB CONC 33.3 g/dL (33.0-37.0); MEAN PLATELET VOLUME 10.7 fL (7.2-11.7); MONO # 0.3 K/uL (0.0-0.8); MONO % 3.6 % (0.0-10.0); NEUT # 7.9 K/uL (1.8-7.0); NEUT % 94.8 % (50.0-75.0); NRBC % 0.2 % (0.0-2.0); PLATELET COUNT 144 K/uL (130-400); RBC 5.22 Mil/uL (4.40-5.90); RED CELL DISTRIBUTION WIDTH 14.7 % (11.5-14.5); WHITE BLOOD COUNT 8.3 K/uL (4.8-10.8)
[2018-07-17 06:36] LABS: ARTERIAL BLOOD GAS HCO3 40.4 mmol/L (21-28); ARTERIAL BLOOD GAS HEMOGLOBIN 15.6 g/dL (11.7-17.4); ARTERIAL BLOOD GAS O2 SAT 90.2 % (95-98); ARTERIAL BLOOD GAS PCO2 71 mm/Hg (35-45); ARTERIAL BLOOD GAS PH 7.45 (7.35-7.45); ARTERIAL BLOOD GAS PO2 52 mm/Hg (80-100); ARTERIAL BLOOD GAS TCO2 51.5 mmol/L (22-28)
[2018-07-17 07:17] LABS: ALB/GLOB RATIO 1.1 (1.0-2.1); ALBUMIN 3.6 g/dL (3.5-5.0); CALCIUM 7.7 mg/dl (8.6-10.4)
[2018-07-17 08:34] LABS: BANDS 1 % (0-2); LYMPHOCYTE 1 % (20-40); MONOCYTE 1 % (0-10); NEUTROPHIL 97 % (50-75); PLATELET ESTIMATE NORMAL (NORMAL); TOTAL CELLS COUNTED 100
--- NOTE | 2018-07-17 11:33 | PCM.FALL ---
Post Fall Progress Note - Post Fall Fall Date: 07/17/18 Fall Time: 11:20 Description of Fall: Patient went to sit on reclining chair and got tangled in O2 tube and tele wires. He fell onto R knee. Patient denies head trauma. He is on Xarelto. Denies pain, lesions, bruising. - Post Fall Exam Vital Sign: Temp Pulse Resp BP Pulse Ox 97.9 F 80 23 122/72 96 07/17/18 04:20 07/17/18 07:30 07/17/18 06:00 07/17/18 09:55 07/17/18 06:00 Skull Exam: Negative for: Scalp wound, Scalp hematoma Eye Exam: Positive for: Pupils equal, Pupils reactive Ear Exam: Negative for: Discharge, Bleeding Nose Exam: Negative for: Discharge, Bleeding Skin Exam: Negative for: Colour, Lacerations, Grazes, Bruising Mouth Exam: Negative for: Tongue bitten, Teeth dislodge Neck Exam: Negative for: Tenderness Spinal Exam: Negative for: Tenderness Chest Exam: Negative for: Difficulty breathing Abdomen Exam: Negative for: Tenderness Pelvic Exam: Negative for: Tenderness Arm Exam: Negative for: Deformity Leg Exam: Negative for: Deformity Impression/Plan: - Stat b/l knee XR - Stat hip XR
--- NOTE | 2018-07-17 13:11 | RAD ---
Date of service: 07/17/2018 PROCEDURE: Bilateral Knee Radiographs. HISTORY: Fall COMPARISON: None. FINDINGS: BONES: Right Knee: No evidence of acute displaced fracture nor dislocation. Left Knee: Normal. No fracture. JOINTS: Right Knee: There is chondrocalcinosis medial greater than lateral compartments.. Mild medial joint space narrowing.. Left knee: Normal. No significant osteoarthritis. SOFT TISSUES: Bilateral vascular calcifications are present. JOINT EFFUSION: Right Knee: Suspect trace right-sided joint effusion. Left Knee: None. OTHER FINDINGS: Note made of metallic vascular clips medial soft tissues of the left calf likely due to prior venous harvest procedure however clinical correlation with surgical history recommended. IMPRESSION: No evidence of acute displaced fracture nor dislocation. Right-sided chondrocalcinosis with mild medial joint space narrowing. Suspect trace right-sided joint effusion
--- NOTE | 2018-07-17 13:48 | RAD ---
Date of service: 07/17/2018 PROCEDURE: Pelvis and bilateral hips. HISTORY: Fall COMPARISON: Comparison made with radiographs of the abdomen 02/22/2013 which partially imaged the pelvis and hips TECHNIQUE: Frontal view of the pelvis and both hips as well as frogleg lateral views both hips performed FINDINGS: No evidence of acute displaced fracture nor dislocation. Both femoral heads are appropriately located within the respective acetabula. Mild degenerative osteoarthritis both hip joints. Minimal sclerosis both SI joints. Degenerative spondylosis lumbosacral spine. Vascular calcifications are present incidental. Note made of metallic clips in the proximal medial soft tissues left thigh IMPRESSION: No evidence of acute displaced fracture nor dislocation.. If symptoms persist or occult fracture suspected clinically consider followup CT scan for further evaluation. See above discussion for additional details and findings.
--- NOTE | 2018-07-17 17:38 | PN ---
DATE: 07/17/2018 SUBJECTIVE: The patient sustained a fall from his recliner. He fell on his right knee. He denies any loss of consciousness. He attributed the fall to being imbalanced on the recliner. The patient denies any loss of consciousness. The patient pointed to an ecchymosis on the right temporal area. He sustained right knee abrasions. No shortness of breath or chest pain. PHYSICAL EXAMINATION: VITAL SIGNS: Blood pressure 122/72, heart rate 80, respirations 15, and temperature 97.9. HEENT: Minimal right temporal bruising. CHEST: Clear. HEART: S1 and S2 regular. ABDOMEN: Soft. EXTREMITIES: leg edema. LABORATORY DATA: Hemoglobin, hematocrit, white count, and platelet count today are within normal limit. Today's BUN and creatinine are 60 and 1.4 respectively and carbon dioxide 42. Potassium is within normal limit, calcium is within normal at 7.7, and glucose 136. Repeat CT scan done yesterday, no evidence of acute intracranial hemorrhage, mass effect, or midline shift. Diffuse volume loss and moderate chronic microvascular white matter ischemic changes. ASSESSMENT: 1. Chronic atrial fibrillation. 2. Non-ST elevation myocardial infarction. 3. Bilateral ventricular failure. 4. Improved mental status. 5. Status post mechanical fall with right knee abrasion; however, the right temporal ecchymosis appears to be an old one and head CT scan done yesterday revealed no acute findings. RECOMMENDATIONS: Continue aspirin 81 mg once a day and Crestor 10 mg once a day, discontinue Lasix in view of prerenal azotemia, continue Solu-Medrol 60 mg intravenously every 6 hours, 25 mg once a day, and Xarelto 15 mg once a day. Obtain right knee x-ray. Tyler Daley MD
--- NOTE | 2018-07-17 19:09 | CP.PCM.PN ---
Subjective - Date & Time of Evaluation Date of Evaluation: 07/17/18 Time of Evaluation: 13:30 - Subjective Subjective: clinically same Objective - Vital Signs/Intake and Output Vital Signs (last 24 hours): Temp Pulse Resp BP Pulse Ox 98.2 F 75 18 99/54 L 96 07/17/18 16:00 07/17/18 17:00 07/17/18 16:00 07/17/18 16:49 07/17/18 16:00 Intake and Output: 07/17/18 07/18/18 18:59 06:59 Intake Total 1000 Output Total 400 Balance 600 - Medications Medications: Current Medications Albuterol/Ipratropium (Duoneb 3 Mg/0.5 Mg (3 Ml) Ud) 3 ml INH RQ6 [facility] Last Admin: 07/17/18 14:15 Dose: 3 ml Alprazolam (Xanax) 0.25 mg PO Q8H PRN PRN Reason: Agitation Stop: 07/21/18 07:31 Last Admin: 07/16/18 22:22 Dose: 0.25 mg Aspirin (Aspirin Chewable) 81 mg PO DAILY [facility] [place] Last Admin: 07/17/18 09:55 Dose: 81 mg Carvedilol (Coreg) 3.125 mg PO BID [facility] Last Admin: 07/17/18 09:55 Dose: 3.125 mg Enalapril Maleate (Vasotec) 2.5 mg PO DAILY [facility] [place] Last Admin: 07/17/18 09:55 Dose: 2.5 mg Famotidine (Pepcid) 20 mg IVP DAILY [facility] [place] Last Admin: 07/17/18 09:55 Dose: 20 mg Methylprednisolone (Solu-Medrol) 60 mg IV Q6H [facility] [place] Last Admin: 07/17/18 15:40 Dose: 60 mg Rivaroxaban (Xarelto) 15 mg PO DAILY [facility] Last Admin: 07/17/18 09:56 Dose: 15 mg Rosuvastatin Calcium (Crestor) 10 mg PO HS [facility] [place] Last Admin: 07/16/18 22:22 Dose: 10 mg Tamsulosin HCl (Flomax) 0.4 mg PO DAILY [facility] [place] Last Admin: 07/17/18 09:55 Dose: 0.4 mg - Labs Labs: 07/17/18 06:23 07/17/18 06:20 PT 15.7 SECONDS (9.7-12.2) H 07/12/18 09:25 INR 1.4 07/12/18 09:25 APTT 33 SECONDS (21-34) 07/12/18 09:25 - Constitutional Appears: Well - Head Exam Head Exam: ATRAUMATIC, NORMAL INSPECTION, NORMOCEPHALIC - Eye Exam Eye Exam: EOMI, Normal appearance, PERRL Pupil Exam: NORMAL ACCOMODATION, PERRL - ENT Exam ENT Exam: Mucous Membranes Moist, Normal Exam - Neck Exam Neck Exam: Full ROM, Normal Inspection. absent: Lymphadenopathy - Respiratory Exam Respiratory Exam: Decreased Breath Sounds - Cardiovascular Exam Cardiovascular Exam: REGULAR RHYTHM, +S1, +S2 - GI/Abdominal Exam GI & Abdominal Exam: Soft, Diminished Bowel Sounds - Rectal Exam Rectal Exam: Deferred
--- NOTE | 2018-07-17 19:26 | CP.PCM.PN ---
Subjective - Date & Time of Evaluation Date of Evaluation: 07/17/18 Time of Evaluation: 17:20 - Subjective Subjective: patient seen and examined Patient is off BiPAP during daytime Comfortable in no distress Afebrile Taper steroids Nebulizer treatment Objective - Vital Signs/Intake and Output Vital Signs (last 24 hours): Temp Pulse Resp BP Pulse Ox 98.2 F 75 18 99/54 L 96 07/17/18 16:00 07/17/18 17:00 07/17/18 16:00 07/17/18 16:49 07/17/18 16:00 Intake and Output: 07/17/18 07/18/18 18:59 06:59 Intake Total 1000 Output Total 400 Balance 600 - Medications Medications: Current Medications Albuterol/Ipratropium (Duoneb 3 Mg/0.5 Mg (3 Ml) Ud) 3 ml INH RQ6 [facility] Last Admin: 07/17/18 14:15 Dose: 3 ml Alprazolam (Xanax) 0.25 mg PO Q8H PRN PRN Reason: Agitation Stop: 07/21/18 07:31 Last Admin: 07/16/18 22:22 Dose: 0.25 mg Aspirin (Aspirin Chewable) 81 mg PO DAILY [facility] Last Admin: 07/17/18 09:55 Dose: 81 mg Carvedilol (Coreg) 3.125 mg PO BID [facility] Last Admin: 07/17/18 09:55 Dose: 3.125 mg Enalapril Maleate (Vasotec) 2.5 mg PO DAILY [facility] Last Admin: 07/17/18 09:55 Dose: 2.5 mg Famotidine (Pepcid) 20 mg IVP DAILY [facility] Last Admin: 07/17/18 09:55 Dose: 20 mg Methylprednisolone (Solu-Medrol) 60 mg IV Q6H [facility] Last Admin: 07/17/18 15:40 Dose: 60 mg Rivaroxaban (Xarelto) 15 mg PO DAILY [facility] Last Admin: 07/17/18 09:56 Dose: 15 mg Rosuvastatin Calcium (Crestor) 10 mg PO HS [facility] Last Admin: 07/16/18 22:22 Dose: 10 mg Tamsulosin HCl (Flomax) 0.4 mg PO DAILY [facility] Last Admin: 07/17/18 09:55 Dose: 0.4 mg - Labs Labs: 07/17/18 06:23 07/17/18 06:20 PT 15.7 SECONDS (9.7-12.2) H 07/12/18 09:25 INR 1.4 07/12/18 09:25 APTT 33 SECONDS (21-34) 07/12/18 09:25
[2018-07-18] MEDS: Albuterol-Ipratrop 3 mg / 0.5 (3 ml) UD INH SCH ×4 (01:06→20:08)
[2018-07-18] MEDS: MethylPREDNISolone 40 mg Vial IV SCH ×4 (04:38→21:34)
[2018-07-18 08:00] LABS: HEMOGLOBIN 14.6 g/dL (12.0-18.0); LYMPH # 0.1 K/uL (1.0-4.3); LYMPH % 1.4 % (20.0-40.0); MEAN CELL VOLUME 94.3 fL (80.0-94.0); MEAN CORPUSCULAR HEMOGLOBIN 31.3 pg (27.0-31.0); MEAN CORPUSCULAR HGB CONC 33.2 g/dL (33.0-37.0); MEAN PLATELET VOLUME 10.7 fL (7.2-11.7); MONO # 0.4 K/uL (0.0-0.8); MONO % 4.2 % (0.0-10.0); NEUT % 94.4 % (50.0-75.0); PLATELET COUNT 136 K/uL (130-400); RBC 4.65 Mil/uL (4.40-5.90); RED CELL DISTRIBUTION WIDTH 14.6 % (11.5-14.5); WHITE BLOOD COUNT 8.5 K/uL (4.8-10.8)
[2018-07-18 08:33] LABS: ALB/GLOB RATIO 1.1 (1.0-2.1); ALBUMIN 2.9 g/dL (3.5-5.0); CALCIUM 8.2 mg/dl (8.6-10.4)
[2018-07-18 11:01] LABS: LYMPHOCYTE 3 % (20-40); MONOCYTE 4 % (0-10); NEUTROPHIL 93 % (50-75); PLATELET ESTIMATE NORMAL (NORMAL); TOTAL CELLS COUNTED 100
[2018-07-18 11:02] LABS: ANISOCYTOSIS SLIGHT; LARGE PLATELETS PRESENT
[2018-07-18 17:54] VITALS: RESP 20
--- NOTE | 2018-07-18 19:18 | CP.PCM.PN ---
Subjective - Date & Time of Evaluation Date of Evaluation: 07/18/18 Time of Evaluation: 11:15 - Subjective Subjective: clinically same Objective - Vital Signs/Intake and Output Vital Signs (last 24 hours): Temp Pulse Resp BP Pulse Ox 98.1 F 72 20 109/65 95 07/18/18 16:00 07/18/18 18:03 07/18/18 16:00 07/18/18 18:03 07/18/18 16:00 Intake and Output: 07/18/18 07/19/18 18:59 06:59 Intake Total 860 Output Total 800 Balance 60 - Medications Medications: Current Medications Albuterol/Ipratropium (Duoneb 3 Mg/0.5 Mg (3 Ml) Ud) 3 ml INH RQ6 [facility] Last Admin: 07/18/18 13:36 Dose: Not Given Alprazolam (Xanax) 0.25 mg PO Q8H PRN PRN Reason: Agitation Stop: 07/21/18 07:31 Last Admin: 07/18/18 02:20 Dose: 0.25 mg Aspirin (Aspirin Chewable) 81 mg PO DAILY [facility] Last Admin: 07/18/18 10:37 Dose: 81 mg Carvedilol (Coreg) 3.125 mg PO BID [facility] Last Admin: 07/18/18 18:05 Dose: 3.125 mg Enalapril Maleate (Vasotec) 2.5 mg PO DAILY [facility] Last Admin: 07/18/18 10:36 Dose: 2.5 mg Famotidine (Pepcid) 20 mg IVP DAILY [facility] Last Admin: 07/18/18 10:36 Dose: 20 mg Methylprednisolone (Solu-Medrol) 60 mg IV Q6H [facility] Last Admin: 07/18/18 18:05 Dose: 60 mg Rivaroxaban (Xarelto) 15 mg PO DAILY [facility] Last Admin: 07/18/18 11:00 Dose: 15 mg Rosuvastatin Calcium (Crestor) 10 mg PO HS [facility] Last Admin: 07/17/18 21:47 Dose: 10 mg Tamsulosin HCl (Flomax) 0.4 mg PO DAILY [facility] Last Admin: 07/18/18 10:38 Dose: 0.4 mg - Labs Labs: 07/18/18 07:33 07/18/18 07:33 PT 15.7 SECONDS (9.7-12.2) H 07/12/18 09:25 INR 1.4 07/12/18 09:25 APTT 33 SECONDS (21-34) 07/12/18 09:25 - Constitutional Appears: Well - Head Exam Head Exam: ATRAUMATIC, NORMAL INSPECTION, NORMOCEPHALIC - Eye Exam Eye Exam: EOMI, Normal appearance, PERRL Pupil Exam: NORMAL ACCOMODATION, PERRL - ENT Exam ENT Exam: Mucous Membranes Moist, Normal Exam - Neck Exam Neck Exam: Full ROM, Normal Inspection. absent: Lymphadenopathy - Respiratory Exam Respiratory Exam: Decreased Breath Sounds - Cardiovascular Exam Cardiovascular Exam: REGULAR RHYTHM, +S1, +S2 - GI/Abdominal Exam GI & Abdominal Exam: Soft, Diminished Bowel Sounds - Rectal Exam Rectal Exam: Deferred
--- NOTE | 2018-07-18 19:35 | CP.PCM.PN ---
Subjective - Date & Time of Evaluation Date of Evaluation: 07/18/18 Time of Evaluation: 18:20 - Subjective Subjective: the patient seen and examined The patient is alert and oriented Patient off BiPAP no shortness of breath Afebrile Elevated bicarbonate in History secondary to hypercapnia Followup ABG Continue nebulizer treatment BiPAP at night Taper steroids Diuretics Objective - Vital Signs/Intake and Output Vital Signs (last 24 hours): Temp Pulse Resp BP Pulse Ox 98.1 F 72 20 109/65 95 07/18/18 16:00 07/18/18 18:03 07/18/18 16:00 07/18/18 18:03 07/18/18 16:00 Intake and Output: 07/18/18 07/19/18 18:59 06:59 Intake Total 860 Output Total 800 Balance 60 - Medications Medications: Current Medications Albuterol/Ipratropium (Duoneb 3 Mg/0.5 Mg (3 Ml) Ud) 3 ml INH RQ6 [facility] Last Admin: 07/18/18 13:36 Dose: Not Given Alprazolam (Xanax) 0.25 mg PO Q8H PRN PRN Reason: Agitation Stop: 07/21/18 07:31 Last Admin: 07/18/18 02:20 Dose: 0.25 mg Aspirin (Aspirin Chewable) 81 mg PO DAILY [facility] Last Admin: 07/18/18 10:37 Dose: 81 mg Carvedilol (Coreg) 3.125 mg PO BID [facility] Last Admin: 07/18/18 18:05 Dose: 3.125 mg Enalapril Maleate (Vasotec) 2.5 mg PO DAILY [facility] Last Admin: 07/18/18 10:36 Dose: 2.5 mg Famotidine (Pepcid) 20 mg IVP DAILY [facility] Last Admin: 07/18/18 10:36 Dose: 20 mg Methylprednisolone (Solu-Medrol) 60 mg IV Q6H [facility] Last Admin: 07/18/18 18:05 Dose: 60 mg Rivaroxaban (Xarelto) 15 mg PO DAILY [facility] Last Admin: 07/18/18 11:00 Dose: 15 mg Rosuvastatin Calcium (Crestor) 10 mg PO HS [facility] Last Admin: 07/17/18 21:47 Dose: 10 mg Tamsulosin HCl (Flomax) 0.4 mg PO DAILY [facility] Last Admin: 07/18/18 10:38 Dose: 0.4 mg - Labs Labs: 07/18/18 07:33 07/18/18 07:33 PT 15.7 SECONDS (9.7-12.2) H 07/12/18 09:25 INR 1.4 07/12/18 09:25 APTT 33 SECONDS (21-34) 07/12/18 09:25
--- NOTE | 2018-07-18 20:41 | PN ---
DATE: 07/18/2018 SUBJECTIVE: The patient was transferred to Telemetry. He is still confused. The daughter is at the bedside. PHYSICAL EXAMINATION: VITAL SIGNS: Blood pressure 124/87, heart rate 78, temperature 97.5, and respirations 18. HEENT: Normocephalic. CHEST: Minimal basal rhonchi. HEART: S1 and S2 are regular. EXTREMITIES: Trace leg edema. LABORATORY DATA: Today's SMA-7: Sodium 134, potassium 3.8, chloride 82, CO2 of 41, glucose 189, BUN 56, and creatinine 1.4. Today's hemoglobin, hematocrit, white count, and platelet count are within normal limit. Right knee x-ray, no evidence of acute displaced fracture or dislocation. Right-sided chondrocalcinosis with mild medial joint space narrowing, suspect trace right-sided joint effusion. ASSESSMENT: 1. Chronic atrial fibrillation. 2. Non-ST elevation myocardial infarction. 3. Biventricular failure. 4. Altered mental status. 5. Status post mechanical fall while in the intensive care unit yesterday. RECOMMENDATIONS: Continue aspirin 81 mg once a day, Coreg 3.125 mg twice a day, Crestor 10 mg once a day, Flomax 0.4 mg once a day, Solu-Medrol 60 mg intravenously every 6 hours, Vasotec 2.5 mg once a day, and Xarelto 15 mg once a day. Case was discussed with the patient's daughter. The patient will be maintained on conservative medical approach and will hopefully go to subacute rehab as daughter has no resources to attend to his condition at home. Tyler Daley MD
[2018-07-19] MEDS: Albuterol-Ipratrop 3 mg / 0.5 (3 ml) UD INH SCH ×4 (01:52→19:48)
[2018-07-19] MEDS: MethylPREDNISolone 40 mg Vial IV SCH ×4 (04:13→22:19)
--- NOTE | 2018-07-19 13:04 | CP.PCM.PN ---
Subjective - Date & Time of Evaluation Date of Evaluation: 07/19/18 Time of Evaluation: 13:04 - Subjective Subjective: Pulmonary Follow up, Covering Dr Marie The patient was Seen/interviewed and examined by me at the bedside, Medical records reviewed and Management issues were discussed and formulated with the house staff. Events reviewed Awake, comfortable, NAD Afebrile Felling better today Denies any chest pain, SOB or Palpitations Tolerating BIPAP Objective - Vital Signs/Intake and Output Vital Signs (last 24 hours): Temp Pulse Resp BP Pulse Ox 97.5 F L 62 20 132/82 93 L 07/18/18 23:35 07/19/18 08:12 07/18/18 23:35 07/19/18 09:36 07/18/18 23:35 Intake and Output: 07/19/18 07/19/18 06:59 18:59 Output Total 300 Balance -300 - Medications Medications: Current Medications Albuterol/Ipratropium (Duoneb 3 Mg/0.5 Mg (3 Ml) Ud) 3 ml INH RQ6 [facility] Last Admin: 07/19/18 13:00 Dose: 3 ml Alprazolam (Xanax) 0.25 mg PO Q8H PRN PRN Reason: Agitation Stop: 07/21/18 07:31 Last Admin: 07/18/18 02:20 Dose: 0.25 mg Aspirin (Aspirin Chewable) 81 mg PO DAILY [facility] Last Admin: 07/19/18 09:36 Dose: 81 mg Carvedilol (Coreg) 3.125 mg PO BID [facility] Last Admin: 07/19/18 09:36 Dose: 3.125 mg Enalapril Maleate (Vasotec) 2.5 mg PO DAILY [facility] Last Admin: 07/19/18 09:36 Dose: 2.5 mg Famotidine (Pepcid) 20 mg IVP DAILY [facility] Last Admin: 07/19/18 09:35 Dose: 20 mg Methylprednisolone (Solu-Medrol) 60 mg IV Q6H [facility] Last Admin: 07/19/18 09:35 Dose: 60 mg Rivaroxaban (Xarelto) 15 mg PO DAILY [facility] Last Admin: 07/19/18 09:36 Dose: 15 mg Rosuvastatin Calcium (Crestor) 10 mg PO HS [facility] Last Admin: 07/18/18 21:34 Dose: 10 mg Tamsulosin HCl (Flomax) 0.4 mg PO DAILY [facility] Last Admin: 07/19/18 09:36 Dose: 0.4 mg - Labs Labs: 07/18/18 07:33 07/18/18 07:33 PT 15.7 SECONDS (9.7-12.2) H 07/12/18 09:25 INR 1.4 07/12/18 09:25 APTT 33 SECONDS (21-34) 07/12/18 09:25 - Constitutional Appears: Well, Non-toxic - Head Exam Head Exam: ATRAUMATIC, NORMAL INSPECTION, NORMOCEPHALIC - Eye Exam Eye Exam: EOMI, Normal appearance, PERRL - ENT Exam ENT Exam: Mucous Membranes Moist, Normal Exam - Neck Exam Neck Exam: Full ROM, Normal Inspection. absent: Lymphadenopathy - Cardiovascular Exam Cardiovascular Exam: REGULAR RHYTHM, +S1, +S2. absent: Murmur - GI/Abdominal Exam GI & Abdominal Exam: Soft, Normal Bowel Sounds. absent: Tenderness - Back Exam Back Exam: absent: CVA tenderness (L), CVA tenderness (R) - Neurological Exam Neurological Exam: Alert, Awake Assessment and Plan (1) CHF exacerbation Status: Acute (2) REYNALDO and COPD overlap syndrome Status: Acute - Assessment and Plan (Free Text) Assessment: Continue current management, Continue Nebulizer treatment Wean off BIPAP Taper steroids
--- NOTE | 2018-07-19 14:46 | PN ---
DATE: 07/19/2018 SUBJECTIVE: The patient is oriented to place, but at times he confabulates. He does not appear to be in any distress. PHYSICAL EXAMINATION: VITAL SIGNS: Blood pressure 132/82, heart rate 62, temperature 97.5, respirations 20. HEENT: Normocephalic. CHEST: Minimal rhonchi. HEART: S1 and S2 regular. EXTREMITIES: Peripheral edema. ASSESSMENT: 1. Non-ST elevation myocardial infarction. 2. Chronic atrial fibrillation. 3. Biventricular failure. 4. Altered mental status. 5. Prerenal azotemia. RECOMMENDATIONS: Continue aspirin 81 mg once a day, Coreg 3.125 mg twice a day, Flomax 0.4 mg once a day, Solu-Medrol 60 mg intravenously every 6 hours, Vasotec 2.5 mg once a day, and Xarelto 15 mg once a day, and discontinue telemetry. Awaiting subacute rehab placement. Tyler Daley MD
--- NOTE | 2018-07-19 17:33 | CP.PCM.PN ---
Subjective - Date & Time of Evaluation Date of Evaluation: 07/19/18 Time of Evaluation: 10:30 - Subjective Subjective: clinically same Objective - Vital Signs/Intake and Output Vital Signs (last 24 hours): Temp Pulse Resp BP Pulse Ox 98.1 F 70 20 127/82 95 07/19/18 15:12 07/19/18 15:12 07/19/18 15:12 07/19/18 15:12 07/19/18 15:12 Intake and Output: 07/19/18 07/19/18 06:59 18:59 Output Total 300 Balance -300 - Medications Medications: Current Medications Albuterol/Ipratropium (Duoneb 3 Mg/0.5 Mg (3 Ml) Ud) 3 ml INH RQ6 [facility] Last Admin: 07/19/18 13:00 Dose: 3 ml Alprazolam (Xanax) 0.25 mg PO Q8H PRN PRN Reason: Agitation Stop: 07/21/18 07:31 Last Admin: 07/19/18 13:25 Dose: 0.25 mg Aspirin (Aspirin Chewable) 81 mg PO DAILY [facility] Last Admin: 07/19/18 09:36 Dose: 81 mg Carvedilol (Coreg) 3.125 mg PO BID [facility] Last Admin: 07/19/18 17:27 Dose: Not Given Enalapril Maleate (Vasotec) 2.5 mg PO DAILY [facility] Last Admin: 07/19/18 09:36 Dose: 2.5 mg Famotidine (Pepcid) 20 mg IVP DAILY [facility] Last Admin: 07/19/18 09:35 Dose: 20 mg Methylprednisolone (Solu-Medrol) 60 mg IV Q6H [facility] Last Admin: 07/19/18 17:31 Dose: 60 mg Rivaroxaban (Xarelto) 15 mg PO DAILY [facility] Last Admin: 07/19/18 09:36 Dose: 15 mg Rosuvastatin Calcium (Crestor) 10 mg PO HS [facility] Last Admin: 07/18/18 21:34 Dose: 10 mg Tamsulosin HCl (Flomax) 0.4 mg PO DAILY [facility] Last Admin: 07/19/18 09:36 Dose: 0.4 mg - Labs Labs: 07/18/18 07:33 07/18/18 07:33 PT 15.7 SECONDS (9.7-12.2) H 07/12/18 09:25 INR 1.4 07/12/18 09:25 APTT 33 SECONDS (21-34) 07/12/18 09:25 - Constitutional Appears: Well - Head Exam Head Exam: ATRAUMATIC, NORMAL INSPECTION, NORMOCEPHALIC - Eye Exam Eye Exam: EOMI, Normal appearance, PERRL Pupil Exam: NORMAL ACCOMODATION, PERRL - ENT Exam ENT Exam: Mucous Membranes Moist, Normal Exam - Neck Exam Neck Exam: Full ROM, Normal Inspection. absent: Lymphadenopathy - Respiratory Exam Respiratory Exam: Decreased Breath Sounds - Cardiovascular Exam Cardiovascular Exam: REGULAR RHYTHM, +S1, +S2 - GI/Abdominal Exam GI & Abdominal Exam: Soft, Diminished Bowel Sounds - Rectal Exam Rectal Exam: Deferred
[2018-07-20] MEDS: Albuterol-Ipratrop 3 mg / 0.5 (3 ml) UD INH SCH ×4 (02:25→20:05)
[2018-07-20] MEDS: MethylPREDNISolone 40 mg Vial IV SCH ×3 (04:21→22:20)
--- NOTE | 2018-07-20 16:00 | CP.PCM.PN ---
Subjective - Date & Time of Evaluation Date of Evaluation: 07/20/18 Time of Evaluation: 09:00 - Subjective Subjective: Patient seen and examined at bedside, lying down comfortably. Afebrile and in no acute distress. Denies shortness of breath, cough, chest pain, fever. Patient is of BiPAP. Elevated bicarbonate in history secondary to hypercapnia. Stable for discharge from pulmonary standpoint. Objective - Vital Signs/Intake and Output Vital Signs (last 24 hours): Temp Pulse Resp BP Pulse Ox 97.9 F 100 H 20 139/82 98 07/20/18 08:18 07/20/18 08:18 07/20/18 08:18 07/20/18 09:18 07/20/18 08:18 - Medications Medications: Current Medications Albuterol/Ipratropium (Duoneb 3 Mg/0.5 Mg (3 Ml) Ud) 3 ml INH RQ6 [facility] Last Admin: 07/20/18 07:43 Dose: Not Given Alprazolam (Xanax) 0.25 mg PO Q8H PRN PRN Reason: Agitation Stop: 07/21/18 07:31 Last Admin: 07/20/18 09:17 Dose: 0.25 mg Aspirin (Aspirin Chewable) 81 mg PO DAILY [facility] Last Admin: 07/20/18 09:24 Dose: 81 mg Carvedilol (Coreg) 3.125 mg PO BID [facility] Last Admin: 07/20/18 09:17 Dose: 3.125 mg Enalapril Maleate (Vasotec) 2.5 mg PO DAILY [facility] Last Admin: 07/20/18 09:18 Dose: 2.5 mg Famotidine (Pepcid) 20 mg PO DAILY [facility] Methylprednisolone (Solu-Medrol) 40 mg IV Q8H [facility] Last Admin: 07/20/18 13:44 Dose: 40 mg Rivaroxaban (Xarelto) 15 mg PO DAILY [facility] Last Admin: 07/20/18 09:17 Dose: 15 mg Rosuvastatin Calcium (Crestor) 10 mg PO HS [facility] Last Admin: 07/19/18 22:20 Dose: 10 mg Tamsulosin HCl (Flomax) 0.4 mg PO DAILY [facility] Last Admin: 07/20/18 09:23 Dose: 0.4 mg - Labs Labs: 07/18/18 07:33 07/18/18 07:33 PT 15.7 SECONDS (9.7-12.2) H 07/12/18 09:25 INR 1.4 07/12/18 09:25 APTT 33 SECONDS (21-34) 07/12/18 09:25
--- NOTE | 2018-07-20 16:57 | PN ---
DATE: 07/20/2018 SUBJECTIVE: The patient is confused but pleasant and cooperative. He denies any chest pain. PHYSICAL EXAMINATION VITAL SIGNS: Blood pressure 129/82, heart rate 100, temperature 97.9, and respiration 20. HEENT: Normocephalic. CHEST: Minimal basal rhonchi. HEART: S1 and S2 regular. EXTREMITIES: Trace pedal edema. ASSESSMENT: 1. Improved congestive heart failure. 2. Non-ST elevation myocardial infarction. 3. Chronic atrial fibrillation. 4. Altered mental status. 5. Prerenal azotemia and metabolic alkalosis. RECOMMENDATIONS: Continue aspirin 81 mg once a day, Coreg 3.125 mg twice a day, Crestor 10 mg once a day, Solu-Medrol 40 mg intravenously every 6 hours, Vasotec 2.5 mg once a day and Xarelto 15 mg daily. A conservative medical approach as per the patient's daughter request. Tyler Daley MD
--- NOTE | 2018-07-20 23:51 | CP.PCM.PN ---
Subjective - Date & Time of Evaluation Date of Evaluation: 07/20/18 Time of Evaluation: 09:20 - Subjective Subjective: clinically same Objective - Vital Signs/Intake and Output Vital Signs (last 24 hours): Temp Pulse Resp BP Pulse Ox 98.1 F 68 20 145/97 H 95 07/20/18 16:00 07/20/18 16:00 07/20/18 16:00 07/20/18 17:45 07/20/18 16:00 Intake and Output: 07/20/18 07/21/18 18:59 06:59 Intake Total 300 Balance 300 - Medications Medications: Current Medications Albuterol/Ipratropium (Duoneb 3 Mg/0.5 Mg (3 Ml) Ud) 3 ml INH RQ6 [facility] Last Admin: 07/20/18 20:05 Dose: 3 ml Alprazolam (Xanax) 0.25 mg PO Q8H PRN PRN Reason: Agitation Stop: 07/21/18 07:31 Last Admin: 07/20/18 09:17 Dose: 0.25 mg Aspirin (Aspirin Chewable) 81 mg PO DAILY [facility] Last Admin: 07/20/18 09:24 Dose: 81 mg Carvedilol (Coreg) 3.125 mg PO BID [facility] Last Admin: 07/20/18 17:29 Dose: 3.125 mg Enalapril Maleate (Vasotec) 2.5 mg PO DAILY [facility] Last Admin: 07/20/18 09:18 Dose: 2.5 mg Famotidine (Pepcid) 20 mg PO DAILY [facility] Methylprednisolone (Solu-Medrol) 40 mg IV Q8H [facility] Last Admin: 07/20/18 22:20 Dose: Not Given Rivaroxaban (Xarelto) 15 mg PO DAILY [facility] Last Admin: 07/20/18 09:17 Dose: 15 mg Rosuvastatin Calcium (Crestor) 10 mg PO HS [facility] Last Admin: 07/20/18 22:20 Dose: Not Given Tamsulosin HCl (Flomax) 0.4 mg PO DAILY [facility] Last Admin: 07/20/18 09:23 Dose: 0.4 mg - Labs Labs: 07/18/18 07:33 07/18/18 07:33 PT 15.7 SECONDS (9.7-12.2) H 07/12/18 09:25 INR 1.4 07/12/18 09:25 APTT 33 SECONDS (21-34) 07/12/18 09:25 - Constitutional Appears: Well - Head Exam Head Exam: ATRAUMATIC, NORMAL INSPECTION, NORMOCEPHALIC - Eye Exam Eye Exam: EOMI, Normal appearance, PERRL Pupil Exam: NORMAL ACCOMODATION, PERRL - ENT Exam ENT Exam: Mucous Membranes Moist, Normal Exam - Neck Exam Neck Exam: Full ROM, Normal Inspection. absent: Lymphadenopathy - Respiratory Exam Respiratory Exam: Decreased Breath Sounds - Cardiovascular Exam Cardiovascular Exam: REGULAR RHYTHM, +S1, +S2 - GI/Abdominal Exam GI & Abdominal Exam: Soft, Diminished Bowel Sounds - Rectal Exam Rectal Exam: Deferred
[2018-07-21] MEDS: Albuterol-Ipratrop 3 mg / 0.5 (3 ml) UD INH SCH ×4 (01:46→20:31)
[2018-07-21] MEDS ORDERED: DiphenhydrAMINE 50 mg/ml Inj IVP STA (03:05)
[2018-07-21] MEDS: MethylPREDNISolone 40 mg Vial IV SCH ×3 (05:12→21:29)
--- NOTE | 2018-07-21 12:53 | CP.PCM.PN ---
Subjective - Date & Time of Evaluation Date of Evaluation: 07/21/18 Time of Evaluation: 09:20 - Subjective Subjective: clinically same Objective - Vital Signs/Intake and Output Vital Signs (last 24 hours): Temp Pulse Resp BP Pulse Ox 97.7 F 79 20 170/110 H 94 L 07/21/18 08:08 07/21/18 08:08 07/21/18 08:08 07/21/18 09:15 07/21/18 08:08 Intake and Output: 07/21/18 07/21/18 06:59 18:59 Intake Total 660 400 Balance 660 400 - Medications Medications: Current Medications Albuterol/Ipratropium (Duoneb 3 Mg/0.5 Mg (3 Ml) Ud) 3 ml INH RQ6 [facility] Last Admin: 07/21/18 07:37 Dose: 3 ml Aspirin (Aspirin Chewable) 81 mg PO DAILY [facility] Last Admin: 07/21/18 09:14 Dose: 81 mg Carvedilol (Coreg) 6.25 mg PO BID [facility] Enalapril Maleate (Vasotec) 5 mg PO DAILY [facility] Famotidine (Pepcid) 20 mg PO DAILY [facility] Last Admin: 07/21/18 09:15 Dose: 20 mg Methylprednisolone (Solu-Medrol) 40 mg IV Q8H [facility] Last Admin: 07/21/18 05:12 Dose: 40 mg Rivaroxaban (Xarelto) 15 mg PO DAILY [facility] Last Admin: 07/21/18 09:16 Dose: 15 mg Rosuvastatin Calcium (Crestor) 10 mg PO HS [facility] Last Admin: 07/20/18 22:20 Dose: Not Given Tamsulosin HCl (Flomax) 0.4 mg PO DAILY [facility] Last Admin: 07/21/18 09:15 Dose: 0.4 mg - Labs Labs: 07/18/18 07:33 07/18/18 07:33 PT 15.7 SECONDS (9.7-12.2) H 07/12/18 09:25 INR 1.4 07/12/18 09:25 APTT 33 SECONDS (21-34) 07/12/18 09:25 - Constitutional Appears: Well - Head Exam Head Exam: ATRAUMATIC, NORMAL INSPECTION, NORMOCEPHALIC - Eye Exam Eye Exam: EOMI, Normal appearance, PERRL Pupil Exam: NORMAL ACCOMODATION, PERRL - ENT Exam ENT Exam: Mucous Membranes Moist, Normal Exam - Neck Exam Neck Exam: Full ROM, Normal Inspection. absent: Lymphadenopathy - Respiratory Exam Respiratory Exam: Decreased Breath Sounds - Cardiovascular Exam Cardiovascular Exam: REGULAR RHYTHM, +S1, +S2 - GI/Abdominal Exam GI & Abdominal Exam: Soft, Diminished Bowel Sounds - Rectal Exam Rectal Exam: Deferred
--- NOTE | 2018-07-21 15:39 | PN ---
DATE: 07/21/2018 SUBJECTIVE: The patient denies any chest pain. PHYSICAL EXAMINATION: VITAL SIGNS: Blood pressure 170/111, heart rate 79, temperature 97.7, and respiration 20. HEENT: Normocephalic. CHEST: Basal rhonchi. HEART: S1 and S2 regular. EXTREMITIES: No edema. ASSESSMENT: 1. Status post non-ST elevation myocardial infarction. 2. Biventricular failure. 3. Chronic atrial fibrillation. 4. Altered mental status. 5. Prerenal azotemia. 6. Uncontrolled hypertension. RECOMMENDATIONS: Continue aspirin at 81 mg once a day, Crestor at 10 mg once a day, Solu-Medrol 20 mg intravenously every 8 hours. Increase Vasotec to 5 mg once a day. Continue Xarelto 15 mg once a day and increase Coreg to 6.25 mg twice a day. The patient can be transferred to subacute rehab as per family request. Tyler Daley MD
--- NOTE | 2018-07-21 16:13 | CP.PCM.PN ---
Subjective - Date & Time of Evaluation Date of Evaluation: 07/21/18 Time of Evaluation: 12:20 - Subjective Subjective: Patient seen and examined at bedside, lying down comfortably. Afebrile and in no acute distress. Denies shortness of breath, cough, chest pain, fever. Patient is off BiPAP. Elevated bicarbonate in history secondary to hypercapnia. Will order ABG on room air today. Objective - Vital Signs/Intake and Output Vital Signs (last 24 hours): Temp Pulse Resp BP Pulse Ox 97.7 F 79 20 130/50 L 94 L 07/21/18 08:08 07/21/18 08:08 07/21/18 08:08 07/21/18 14:58 07/21/18 08:08 Intake and Output: 07/21/18 07/21/18 06:59 18:59 Intake Total 660 400 Balance 660 400 - Medications Medications: Current Medications Albuterol/Ipratropium (Duoneb 3 Mg/0.5 Mg (3 Ml) Ud) 3 ml INH RQ6 [facility] Last Admin: 07/21/18 13:58 Dose: Not Given Aspirin (Aspirin Chewable) 81 mg PO DAILY [facility] Last Admin: 07/21/18 09:14 Dose: 81 mg Carvedilol (Coreg) 6.25 mg PO BID [facility] Last Admin: 07/21/18 14:59 Dose: 6.25 mg Enalapril Maleate (Vasotec) 5 mg PO DAILY [facility] Last Admin: 07/21/18 14:58 Dose: 5 mg Famotidine (Pepcid) 20 mg PO DAILY [facility] Last Admin: 07/21/18 09:15 Dose: 20 mg Methylprednisolone (Solu-Medrol) 40 mg IV Q8H [facility] Last Admin: 07/21/18 15:00 Dose: 40 mg Rivaroxaban (Xarelto) 15 mg PO DAILY [facility] Last Admin: 07/21/18 09:16 Dose: 15 mg Rosuvastatin Calcium (Crestor) 10 mg PO HS [facility] Last Admin: 07/20/18 22:20 Dose: Not Given Tamsulosin HCl (Flomax) 0.4 mg PO DAILY [facility] Last Admin: 07/21/18 09:15 Dose: 0.4 mg - Labs Labs: 07/18/18 07:33 07/18/18 07:33 PT 15.7 SECONDS (9.7-12.2) H 07/12/18 09:25 INR 1.4 07/12/18 09:25 APTT 33 SECONDS (21-34) 07/12/18 09:25 - Head Exam Head Exam: ATRAUMATIC, NORMOCEPHALIC - ENT Exam ENT Exam: Mucous Membranes Moist - Neck Exam Neck Exam: Normal Inspection - Respiratory Exam Respiratory Exam: Decreased Breath Sounds - Cardiovascular Exam Cardiovascular Exam: REGULAR RHYTHM - GI/Abdominal Exam GI & Abdominal Exam: Soft, Normal Bowel Sounds Assessment and Plan (1) REYNALDO and COPD overlap syndrome Assessment & Plan: Prednisone in tapering dose patient candidate for home oxygen Nebulizer treatment patient will benefit from Trilogy as patient not responding to BiPAP Status: Acute (2) CHF exacerbation Status: Acute
[2018-07-21 16:32] LABS: ARTERIAL BLOOD GAS HCO3 37.3 mmol/L (21-28); ARTERIAL BLOOD GAS HEMOGLOBIN 14.3 g/dL (11.7-17.4); ARTERIAL BLOOD GAS O2 SAT 93.9 % (95-98); ARTERIAL BLOOD GAS PCO2 54 mm/Hg (35-45); ARTERIAL BLOOD GAS PO2 52 mm/Hg (80-100); ARTERIAL BLOOD GAS TCO2 43.8 mmol/L (22-28)
[2018-07-22] MEDS: Albuterol-Ipratrop 3 mg / 0.5 (3 ml) UD INH SCH ×3 (01:19→13:32)
[2018-07-22] MEDS: MethylPREDNISolone 40 mg Vial IV SCH (05:50)
--- NOTE | 2018-07-22 13:29 | CP.PCM.PN ---
Subjective - Date & Time of Evaluation Date of Evaluation: 07/22/18 Time of Evaluation: 13:29 - Subjective Subjective: PATIENT SEEN AND EXAMINED AT THE BEDSIDE Objective - Vital Signs/Intake and Output Vital Signs (last 24 hours): Temp Pulse Resp BP Pulse Ox 97.5 F L 75 20 101/85 96 07/22/18 08:00 07/22/18 08:00 07/22/18 08:00 07/22/18 09:17 07/22/18 08:00 Intake and Output: 07/22/18 07/22/18 06:59 18:59 Intake Total 200 240 Balance 200 240 - Medications Medications: Current Medications Acetaminophen (Tylenol 325mg Tab) 650 mg PO Q6 PRN PRN Reason: Pain, Mild (1-3) Last Admin: 07/21/18 22:28 Dose: 650 mg Albuterol/Ipratropium (Duoneb 3 Mg/0.5 Mg (3 Ml) Ud) 3 ml INH RQ6 [facility] Last Admin: 07/22/18 07:45 Dose: 3 ml Alprazolam (Xanax) 0.25 mg PO Q8H PRN PRN Reason: Anxiety Stop: 07/28/18 21:45 Last Admin: 07/21/18 22:16 Dose: 0.25 mg Aspirin (Aspirin Chewable) 81 mg PO DAILY [facility] Last Admin: 07/22/18 09:16 Dose: 81 mg Carvedilol (Coreg) 6.25 mg PO BID [facility] Last Admin: 07/22/18 09:16 Dose: 6.25 mg Enalapril Maleate (Vasotec) 5 mg PO DAILY [facility] Last Admin: 07/22/18 09:17 Dose: 5 mg Famotidine (Pepcid) 20 mg PO DAILY [facility] Last Admin: 07/22/18 09:17 Dose: 20 mg Methylprednisolone (Solu-Medrol) 40 mg IV Q12 [facility] Rivaroxaban (Xarelto) 15 mg PO DAILY [facility] Last Admin: 07/22/18 09:16 Dose: 15 mg Rosuvastatin Calcium (Crestor) 10 mg PO HS [facility] Last Admin: 07/21/18 21:29 Dose: 10 mg Tamsulosin HCl (Flomax) 0.4 mg PO DAILY [facility] Last Admin: 07/22/18 09:17 Dose: 0.4 mg - Labs Labs: 07/18/18 07:33 07/18/18 07:33 PT 15.7 SECONDS (9.7-12.2) H 07/12/18 09:25 INR 1.4 07/12/18 09:25 APTT 33 SECONDS (21-34) 07/12/18 09:25 Assessment and Plan - Assessment and Plan (Free Text) Assessment: PLACE UNDER THE SERVICE OF DR Tita MILLIGAN -----CALL FOR ADMITTING ORDER CONTINUE HOME MEDICATION MED REC NEW PRESCRIPTION GIVEN ASA 81 MG PO DAILY COREG 6.25 MG PO BID VASOTEC 5 MG PO DAILY CRESTOR 10 MG PO AT HS STOP TAKING METOPROLOL/ LOSARTAN AND AMLODIPINE ACTIVITY TOLERATED AND FACILITY PROTOCOL ARRANGE HOME O2 WHEN PATIENT IS BEIING DC HOME PER DR VEGA (NIB ADJUSTER) CALL DR Tita FARRAR FOR FURTHER ORDER
[2018-07-22 16:30] VITALS: TEMP 98
[2018-07-22 17:11] VITALS: BP 126/77; PULSE 67; O2SAT 96
--- NOTE | 2018-07-22 18:55 | PN ---
DATE: 07/22/2018 SUBJECTIVE: The patient is angry and at time confused. His main anger is because of the food quality. He denies any chest pain. PHYSICAL EXAMINATION VITAL SIGNS: Blood pressure 114/78, heart rate 75, temperature 97.5, respirations 20. HEENT: Normocephalic. CHEST: Clear. HEART: S1 and S2 regular. EXTREMITIES: No edema. ASSESSMENT: 1. Status post non-ST elevation myocardial infarction. 2. Chronic atrial fibrillation. 3. Prerenal azotemia. 4. History of coronary artery disease status post double bypass surgery as well as bioprosthetic aortic valve replacement in 2013. RECOMMENDATIONS: Continue aspirin 81 mg once a day, Coreg 6.25 mg once a day, Crestor 10 mg once a day, Solu-Medrol 40 mg intravenously every 6 to 12 hours, Vasotec 5 mg daily, Xarelto 15 mg once a day. I requested nurse practitioner to reorder 2 g sodium diet and schedule the pureed diet and the patient is in the process of being transferred to [facility]. Tyler Daley MD
[2018-07-22] MEDS ORDERED: MethylPREDNISolone 40 mg Vial IV SCH (22:00)
--- NOTE | 2018-07-23 20:56 | PQF ---
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 Please specify the underlying cause of bacteremia (black spected, probable, questionable, or clinical is acceptable if documented at the time of discharge) Please specify associated organism causing bacteremia Please also clarify if bacteremia is due to a device (please specify device) The patient's Clinical Indicators include: GRAM + BACTEREMIA R/O SEPSIS MODERATE BIOPROSTHETIC VALVE AORTIC STENOSIS. "PLEASE CLARIFY AND DOCUMENT IF 'SEPSIS" WAS R/I OR R/O. Query created by: Sugey Hyatt on 07/23/2018 10:21 AM Electronically signed by: Rey BUENROSTRO 07/23/2018 8:54 PM
== END 2018-07-22 18:06 | disposition home or self-care (01) | DRG 871 ==
LOC: C.ER 08:59 → C.9E 12:44 → C.9I 14:52 → C.5S 07-17 20:53
PROVIDERS: ADMIT Internal Medicine Nephrology; ATTEND Internal Medicine Nephrology
PROC: 5A09457 Assistance with Respiratory Ventilation, 24-96 Consecutive Hours, Continuous Positive Airway Pressure (ICD-10-PCS; principal; 2018-07-12)
DX: A41.9 Sepsis, unspecified organism (principal); I21.4 Non-ST elevation (NSTEMI) myocardial infarction; G93.41 Metabolic encephalopathy; J96.02 Acute respiratory failure with hypercapnia; J96.01 Acute respiratory failure with hypoxia; M35.1 Other overlap syndromes; E87.3 Alkalosis; I50.20 Unspecified systolic (congestive) heart failure; T82.857A Stenosis of other cardiac prosthetic devices, implants and grafts, initial encounter; D63.8 Anemia in other chronic diseases classified elsewhere; I11.0 Hypertensive heart disease with heart failure; G47.33 Obstructive sleep apnea (adult) (pediatric); I25.10 Atherosclerotic heart disease of native coronary artery without angina pectoris; I48.2 Chronic atrial fibrillation; J44.9 Chronic obstructive pulmonary disease, unspecified; Z95.3 Presence of xenogenic heart valve; Z95.1 Presence of aortocoronary bypass graft; Z87.891 Personal history of nicotine dependence; I50.82 Biventricular heart failure; Z79.01 Long term (current) use of anticoagulants; B96.89 Other specified bacterial agents as the cause of diseases classified elsewhere

== ENCOUNTER 2018-11-06 10:16 | Inpatient (IN) | payer MEDICARE ==
[2018-11-06 10:30] VITALS: BMI 38.2
[2018-11-06 10:46] LABS: BASO # 0.1 K/uL (0.0-0.2); BASO % 1.1 % (0.0-2.0); EOS # 0.1 K/uL (0.0-0.7); EOS % 1.3 % (0.0-4.0); LYMPH # 0.5 K/uL (1.0-4.3); LYMPH % 7.3 % (20.0-40.0); MEAN CORPUSCULAR HEMOGLOBIN 31.3 pg (27.0-31.0); MEAN CORPUSCULAR HGB CONC 31.6 g/dL (33.0-37.0); MEAN PLATELET VOLUME 9.5 fL (7.2-11.7); MONO # 0.7 K/uL (0.0-0.8); MONO % 10.1 % (0.0-10.0); NEUT # 5.5 K/uL (1.8-7.0); NEUT % 80.2 % (50.0-75.0); NRBC % 0.1 % (0.0-2.0); PLATELET COUNT 168 K/uL (130-400); RBC 3.71 Mil/uL (4.40-5.90); WHITE BLOOD COUNT 6.8 K/uL (4.8-10.8)
[2018-11-06 10:50] LABS: HEMOGLOBIN 11.6 g/dL (12.0-18.0); MEAN CELL VOLUME 98.8 fL (80.0-94.0)
--- NOTE | 2018-11-06 10:50 | CT ---
Date of service: 11/06/2018 PROCEDURE: CT HEAD WITHOUT CONTRAST. HISTORY: Code Stroke COMPARISON: Comparison is made with 07/16/2018 TECHNIQUE: Axial computed tomography images were obtained through the head/brain without intravenous contrast. Radiation dose: Total exam DLP = 1422.86 mGy-cm. This CT exam was performed using one or more of the following dose reduction techniques: Automated exposure control, adjustment of the mA and/or kV according to patient size, and/or use of iterative reconstruction technique. FINDINGS: HEMORRHAGE: No intracranial hemorrhage. BRAIN: No mass effect or edema. Again noted is focal hypodensity at the peripheral posterior aspect of the right cerebellar hemisphere. [id number] volume loss and moderate chronic microvascular white matter ischemic changes are again noted. VENTRICLES: Dilated ventricles likely due to central atrophy. The possibility of mild hydrocephalus is not excluded CALVARIUM: Unremarkable. PARANASAL SINUSES: Mild to moderate maxillary sinus mucosal thickening. MASTOID AIR CELLS: Unremarkable as visualized. No inflammatory changes. OTHER FINDINGS: None. IMPRESSION: No evidence of acute intracranial hemorrhage mass effect or midline shift.
[2018-11-06 10:54] LABS: INR 1.2; PROTHROMBIN TIME 13.5 SECONDS (9.7-12.2)
[2018-11-06 10:59] LABS: ALB/GLOB RATIO 1.1 (1.0-2.1); ALBUMIN 3.6 g/dL (3.5-5.0); ALT/SGPT 15 U/L (21-72); AST/SGOT 30 U/L (17-59); BLOOD UREA NITROGEN 48 mg/dL (9-20); CALCIUM 8.7 mg/dl (8.6-10.4); GFR NON-AFRICAN AMERICAN 36; HDL CHOLESTEROL 69 mg/dL (30-70)
[2018-11-06 11:13] LABS: LYMPHOCYTE 3 % (20-40); MONOCYTE 4 % (0-10); NEUTROPHIL 93 % (50-75); TOTAL CELLS COUNTED 100
[2018-11-06 11:14] LABS: ANISOCYTOSIS SLIGHT; HYPOCHROMIC SLIGHT; PLATELET ESTIMATE NORMAL (NORMAL)
[2018-11-06 11:15] LABS: LDL CHOLESTEROL 72 mg/dL (0-129)
--- NOTE | 2018-11-06 11:16 | C.PDOC ---
History Of Present Illness 83 year old male, whose past medical history includes COPD, CHF, hypercapnia, is brought to the ED by EMS after family found him experiencing difficulty breathing and with altered mental status. As per EMS, patient was last seen at [facility] at 2200 last night. Upon EMS arrival, patient was found to have oxygen saturation of 88%, and was placed on non-rebreather mask. Additional information limited secondary to patient being a poor historian. Time Seen by Provider: 11/06/18 10:34 Chief Complaint (Nursing): Shortness Of Breath History Per: Patient, EMS History/Exam Limitations: other (poor historian ) Onset/Duration Of Symptoms: Hrs Current Symptoms Are (Timing): Still Present Past Medical History Reviewed: Historical Data, Nursing Documentation, Vital Signs Vital Signs: Last Vital Signs Temp Pulse 78 11/06/18 11:13 Resp 20 11/06/18 11:13 BP 110/59 L 11/06/18 11:13 Pulse Ox 98 11/06/18 11:00 - Medical History PMH: CHF, COPD, HTN Denies: Chronic Kidney Disease Surgical History: CABG - [facility] Procedures ASSISTANCE WITH RESPIRATORY VENTILATION, 24-96 HRS, CPAP (07/12/18) Family History: States: Unknown Family Hx - Social History Hx Alcohol Use: Yes Hx Substance Use: No Review Of Systems Review Of Systems: ROS cannot be obtained secondary to pt's inabilty to answer questions. Physical Exam - Physical Exam Appears: Non-toxic, In Acute Distress, Confused Skin: Normal Color, Warm, Dry Head: Atraumatic, Normacephalic Eye(s): bilateral: Normal Inspection, PERRL, EOMI Oral Mucosa: Moist Neck: Trachea Midline, Supple Chest: Symmetrical, No Deformity, No Tenderness Cardiovascular: Rhythm Regular, No Murmur Respiratory: Rales Gastrointestinal/Abdominal: Soft, No Tenderness, No Guarding, No Rebound, Other (obese ) Extremity: Pedal Edema, Capillary Refill (less than 2 seconds ) Neurological/Psych: Normal Speech (speech is clear and coherent ), Other (awake, alert and oriented X2. Weakness to right upper extremities ) Other Neurological Findings: Other (no facial droop ) ED Course And Treatment - Laboratory Results Result Diagrams: 11/11/18 06:50 11/11/18 06:50 Lab Results: PT 13.5 SECONDS (9.7-12.2) H 11/06/18 10:39 INR 1.2 11/06/18 10:39 APTT 34 SECONDS (21-34) 11/06/18 10:39 Troponin I 0.0410 ng/mL (0.00-0.120) 11/06/18 10:39 Total Bilirubin 0.4 mg/dL (0.2-1.3) 11/06/18 10:39 AST 30 U/L (17-59) 11/06/18 10:39 ALT 15 U/L (21-72) L D 11/06/18 10:39 Alkaline Phosphatase 268 U/L (38-126) H D 11/06/18 10:39 Total Protein 7.1 g/dL (6.3-8.3) 11/06/18 10:39 Albumin 3.6 g/dL (3.5-5.0) 11/06/18 10:39 Globulin 3.4 gm/dL (2.2-3.9) 11/06/18 10:39 Albumin/Globulin Ratio 1.1 (1.0-2.1) 11/06/18 10:39 ECG: Interpreted By Me, Viewed By Me ECG Rhythm: Atrial Fibrillation Interpretation Of ECG: Atrial fibrillation at rate 77bpm. Occasional PVCs noted. No ST elevations. Rate From EC O2 Sat by Pulse Oximetry: 98 Critical Care Time - Critical Care Note Total Time (in mins): 60 Documented critical care: time excludes all time spent performing seperately billable procedures. NIHSS Stroke Scale - Date/Time Evaluation Performed Date Performed: 11/06/18 Time Performed: 10:35 When Was NIHSS Performed: Baseline - How Severe is the Stoke Level of Consciousness: 1=Drowsy LOC to Questions: 0=Both comments correct LOC to commands: 0=Obeys both correctly Best Gaze: 0=Normal Visual: 0=No visual loss Facial: 0=Normal Motor Arm - Left: 1=Drift noted before 10 sec Motor Arm - Right: 1=Drift noted before 10 sec Motor Leg - Left: 1=Drift before 5 sec Motor Leg - Right: 1=Drift before 5 sec Limb Ataxia: 0=Absent Sensory: 0=Normal Best Language: 0=No aphasia Dysarthia: 1=Mild to moderate slurring Extinction & Inattention (Neglect): 0=Normal, no object Score: 6 Medical Decision Making Medical Decision Making: Patient present as above requiring my immediate attention. Code stroke was called. CT brain, BiPap, labs, cxr, ekg ordered. 11:00 CT reported by rad as negative. Case d/w Dr. Staton who recommended Plavix and ASA 81 mg. 11:40 Patient's mentation and respiratory status significantly improved on BiPap. 12:15 Case d/w Dr. Agusto House who accepts patient to his service. Disposition - Disposition Disposition: HOSPITALIZED Disposition Time: 12:15 Condition: FAIR - Clinical Impression Clinical Impression: Altered mental status, CHF exacerbation, Chr obstructive pulmonary disease w/ acute lower respiratory infxn - Scribe Statement The provider has reviewed the documentation as recorded by the Scribe (Yahaira House) Provider Attestation: All medical record entries made by the Scribe were at my direction and personally dictated by me. I have reviewed the chart and agree that the record accurately reflects my personal performance of the history, physical exam, medical decision making, and the department course for this patient. I have also personally directed, reviewed, and agree with the discharge instructions and disposition.
--- NOTE | 2018-11-06 11:25 | CT ---
Date of service: 11/06/2018 PROCEDURE: CT Angiography of the neck and brain. HISTORY: code stroke COMPARISON: None available. TECHNIQUE: CT angiography of the neck and intracranial arteries was performed. Coronal and sagittal maximum intensity projection reformated images were generated. Radiation dose: Total exam DLP = 775.01 mGy-cm. This CT exam was performed using one or more of the following dose reduction techniques: Automated exposure control, adjustment of the mA and/or kV according to patient size, and/or use of iterative reconstruction technique. FINDINGS: RIGHT CAROTID ARTERIES: Common Carotid Artery: Normal. Carotid Bifurcation: Large foci of atherosclerotic calcification noted at the carotid bifurcation associated with foci of vjih-wi-iffoidec approximately 70 percent stenosis. Internal Carotid Artery:[id number]-cx-jpmvyyng approximately 50-60 percent stenosis noted at the origin of the right internal carotid artery associated with large calcification. Foci of atherosclerotic calcification also noted at the mid and distal right internal carotid artery. External Carotid Artery (proximal branches): Normal. LEFT CAROTID ARTERIES: Common Carotid Artery: Foci of atherosclerotic calcification noted at the left common carotid artery. Carotid Bifurcation: Large foci of atherosclerotic calcification noted at the carotid bifurcation associated with mild to moderate approximately 60 percent stenosis. Internal Carotid Artery:Mild approximately 50 percent stenosis noted at the origin of the left internal carotid artery associated with atherosclerotic calcification. External Carotid Artery (proximal branches): Normal. VERTEBRAL ARTERIES: Right Vertebral Artery: The right vertebral artery is smaller than the left. Left Vertebral Artery: Foci of atherosclerotic calcification noted in both vertebral arteries. OTHER FINDINGS: Atherosclerotic calcification noted in the carotid and vertebral arteries. INTERNAL CEREBRAL ARTERIES: Diffuse atherosclerotic calcification noted at the supraclinoid and internal carotid terminus. The skull base, petrous, cavernous and supraclinoid segments are bilaterally widely patent. ANTERIOR CEREBRAL ARTERIES: Unremarkable. A1 and A2 segments are widely patent. Smaller distal branches unremarkable, as visualized. MIDDLE CEREBRAL ARTERIES: Unremarkable. M1 and M2 segments are widely patent. Perisylvian branches grossly symmetric. POSTERIOR CIRCULATION: Basilar Artery: Unremarkable. Distal Vertebral Arteries: The right V4 is smaller than the left. Atherosclerotic calcifications seen in the distal vertebral arteries Posterior Cerebral Arteries: Unremarkable. Posterior Inferior Cerebellar Arteries: Unremarkable. ANEURYSM/ VASCULAR MALFORMATIONS: None. OTHER FINDINGS: No evidence of filling defect visualized dural sinuses IMPRESSION: Moderate diffuse atherosclerotic calcification. Foci of mild to moderate stenosis noted the bilateral carotid bifurcation and the origin of internal carotid arteries. No evidence of occlusion or critical stenosis in intracranial arteries. 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 Mildly enlarged main pulmonary artery.
--- NOTE | 2018-11-06 11:36 | RAD ---
Date of service: 11/06/2018 HISTORY: Code Stroke COMPARISON: 07/14/2018. FINDINGS: LUNGS: The lungs are well inflated. There is ill-defined airspace disease in the right lower lobe and moderate pulmonary venous congestion with mild interstitial pulmonary edema. PLEURA: No pleural effusions or pneumothorax. CARDIOVASCULAR: Persistent moderate cardiomegaly. Status post CABG. There are aortic atherosclerotic calcifications present. OSSEOUS STRUCTURES: Within normal limits for the patient's age. VISUALIZED UPPER ABDOMEN: Normal. OTHER FINDINGS: None. IMPRESSION: Mild congestive heart failure. Ill-defined airspace disease in the right lower lobe may represent alveolar pulmonary edema however developing pneumonia cannot be excluded. Follow-up is advised.
--- NOTE | 2018-11-06 11:49 | CP.PCM.CON ---
<Juan A Beal - Last Filed: 11/06/18 19:50> History of Present Illness - History of Present Illness History of Present Illness: ICU Consult Note for Dr. Leighton House This is an 83 y o male with PMhx COPD, CHF, hypercapnia, CAG, s/p CABG, AVR, and A-fib on Xarelto who presented to the ED today [facility] after family called 911 for ambulance; per report stated that they were on phone talking to pt when he started experiencing difficulty breathing and AMS. Mental baseline of pt unknown due to pt's family not being at bedside and pt's current mental status. Per EMS pt was last seen at baseline at 2200 last night. Upon EMS arrival, pt was found to have O2 sat of 88%, and was placed on non-rebreather mask. During my exam at bedside, pt was on BiPap. Additional HPI and ROS unobtainable due to pt's current mental status. Reason for ICU consult was for respiratory distress. PMhx: as noted above PSurgHx: CABG, AVR Allergies: NKDA Current meds: reviewed as per [facility] Fam hx: unknown Soc hx: unknown, lives at home alone PMD: Dr. Agusto House Review of Systems - Review of Systems Systems not reviewed;Unavailable: Altered Mental Status Past Patient History - Past Medical History & Family History Past Medical History?: Yes - Past Social History Smoking Status: Former Smoker - CARDIAC Hx Congestive Heart Failure: Yes Hx Hypertension: Yes - PULMONARY Hx Chronic Obstructive Pulmonary Disease (COPD): Yes - NEUROLOGICAL Hx Neurological Disorder: No - HEENT Hx HEENT Problems: No - RENAL Hx Chronic Kidney Disease: No - ENDOCRINE/METABOLIC Hx Endocrine Disorders: No - HEMATOLOGICAL/ONCOLOGICAL Hx Blood Disorders: No - INTEGUMENTARY Hx Dermatological Problems: No - MUSCULOSKELETAL/RHEUMATOLOGICAL Hx Musculoskeletal Disorders: No Hx Falls: No - GASTROINTESTINAL Hx Gastrointestinal Disorders: No - GENITOURINARY/GYNECOLOGICAL Hx Genitourinary Disorders: No - PSYCHIATRIC Hx Substance Use: No - SURGICAL HISTORY Hx Coronary Artery Bypass Graft: Yes - ANESTHESIA Hx Anesthesia: Yes Hx Anesthesia Reactions: No Meds Allergies/Adverse Reactions: Allergies Allergy/AdvReac Type Severity Reaction Status Date / Time No Known Allergies Allergy Verified 07/12/18 09:17 Physical Exam - Constitutional Appears: Non-toxic, No Acute Distress - Head Exam Head Exam: ATRAUMATIC, NORMOCEPHALIC - Eye Exam Eye Exam: EOMI, Normal appearance, PERRL - ENT Exam ENT Exam: Mucous Membranes Moist - Respiratory Exam Respiratory Exam: Clear to Auscultation Bilateral, NORMAL BREATHING PATTERN. absent: Rales, Rhonchi, Wheezes - Cardiovascular Exam Cardiovascular Exam: REGULAR RHYTHM, +S1, +S2. absent: Gallop, Rubs, Systolic Murmur - GI/Abdominal Exam GI & Abdominal Exam: Normal Bowel Sounds, Soft. absent: Distended, Tenderness - Extremities Exam Additional comments: 2+ non-pitting LE edema b/l - Neurological Exam Neurological exam: Alert Additional comments: AAOx1 - Skin Skin Exam: Dry, Intact, Warm Results - Vital Signs Recent Vital Signs: Last Vital Signs Temp 98.5 F 11/06/18 11:29 Pulse 67 11/06/18 11:29 Resp 15 11/06/18 11:29 BP 121/61 11/06/18 11:29 Pulse Ox 98 11/06/18 11:49 - Labs Result Diagrams: 11/06/18 10:39 11/06/18 10:39 Labs: Laboratory Results - last 24 hr 11/06/18 11/06/18 11/06/18 10:21 10:39 10:39 WBC 6.8 RBC 3.71 L Hgb 11.6 L D Hct 36.6 MCV 98.8 H D MCH 31.3 H MCHC 31.6 L RDW 15.0 H Plt Count 168 MPV 9.5 Neut % (Auto) 80.2 H Lymph % (Auto) 7.3 L [place] % (Auto) 10.1 H Eos % (Auto) 1.3 Baso % (Auto) 1.1 Neut # (Auto) 5.5 Lymph # (Auto) 0.5 L [place] # (Auto) 0.7 Eos # (Auto) 0.1 Baso # (Auto) 0.1 Neutrophils % (Manual) 93 H Lymphocytes % (Manual) 3 L Monocytes % (Manual) 4 Platelet Estimate Normal Hypochromasia (manual) Slight Anisocytosis (manual) Slight PT 13.5 H INR 1.2 APTT 34 Sodium Potassium Chloride Carbon Dioxide Anion Gap BUN Creatinine Est GFR ( Amer) Est GFR (Non-Af Amer) POC Glucose (mg/dL) 185 H Random Glucose Hemoglobin A1c Calcium Total Bilirubin AST ALT Alkaline Phosphatase Ammonia Troponin I Total Protein Albumin Globulin Albumin/Globulin Ratio Triglycerides Cholesterol LDL Cholesterol Direct HDL Cholesterol Alcohol, Quantitative Blood Type Antibody Screen 11/06/18 11/06/18 11/06/18 10:39 10:39 10:39 WBC RBC Hgb Hct MCV MCH MCHC RDW Plt Count MPV Neut % (Auto) Lymph % (Auto) [place] % (Auto) Eos % (Auto) Baso % (Auto) Neut # (Auto) Lymph # (Auto) [place] # (Auto) Eos # (Auto) Baso # (Auto) Neutrophils % (Manual) Lymphocytes % (Manual) Monocytes % (Manual) Platelet Estimate Hypochromasia (manual) Anisocytosis (manual) PT INR APTT Sodium 140 Potassium 4.7 Chloride 100 Carbon Dioxide 34 H Anion Gap 11 BUN 48 H Creatinine 1.8 H Est GFR ( Amer) 44 Est GFR (Non-Af Amer) 36 POC Glucose (mg/dL) Random Glucose 162 H Hemoglobin A1c 5.7 Calcium 8.7 Total Bilirubin 0.4 AST 30 ALT 15 L D Alkaline Phosphatase 268 H D Ammonia Troponin I 0.0410 Total Protein 7.1 Albumin 3.6 Globulin 3.4 Albumin/Globulin Ratio 1.1 Triglycerides 187 H Cholesterol 164 LDL Cholesterol Direct 72 HDL Cholesterol 69 Alcohol, Quantitative < 10 Blood Type A NEGATIVE Antibody Screen Negative 11/06/18 10:42 WBC RBC Hgb Hct MCV MCH MCHC RDW Plt Count MPV Neut % (Auto) Lymph % (Auto) [place] % (Auto) Eos % (Auto) Baso % (Auto) Neut # (Auto) Lymph # (Auto) [place] # (Auto) Eos # (Auto) Baso # (Auto) Neutrophils % (Manual) Lymphocytes % (Manual) Monocytes % (Manual) Platelet Estimate Hypochromasia (manual) Anisocytosis (manual) PT INR APTT Sodium Potassium Chloride Carbon Dioxide Anion Gap BUN Creatinine Est GFR ( Amer) Est GFR (Non-Af Amer) POC Glucose (mg/dL) Random Glucose Hemoglobin A1c Calcium Total Bilirubin AST ALT Alkaline Phosphatase Ammonia 12 Troponin I Total Protein Albumin Globulin Albumin/Globulin Ratio Triglycerides Cholesterol LDL Cholesterol Direct HDL Cholesterol Alcohol, Quantitative Blood Type Antibody Screen Assessment & Plan - Assessment and Plan (Free Text) Assessment: This is an 83 y o male with PMhx COPD, CHF, hypercapnia, CAG, s/p CABG, AVR, and A-fib on Xarelto who presented to the ED today Karina wells family called 911 for ambulance; per report stated that they were on phone talking to pt when he started experiencing difficulty breathing and AMS. Reason for ICU consult was for respiratory distress. To be admitted to ICU for monitoring of respiratory status while on BiPap. May be 2/2 to CHF exacerbation. Plan: Neuro: -AAox1 on exam -Head CT: no evidence of acute ICH, mass effect or midline shift -Head/neck CTA: Moderate diffuse atherosclerotic calcification. Foci of mild to moderate stenosis noted the b/l carotid bifrucation and origin of internal carotid arteries. No evidence of occlusion or critical stenosis in intracranial arteries. 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 Mildly enlarged main pulmonary artery. -Neurology consulted, Dr. Staton, recs appreciated Code Stroke called on pt on initial presentation in ED, however pt did not appear with focal deficits on exam. AMS may be 2/2 systemic causes Recommend c/w home meds ASA and Xarelto -Cont to monitor Cardio: -CHF exacerbation -Currently on BiPap, maintain O2 sat > 92% -C/w home meds Lasix, Coreg, Cozaar -ASA, Xarelto -Cardiology consulted, Dr. Daley, recs appreciated -Vitals stable, cont to monitor clinically Pulm: -C/w BiPap -Respiratory distress may be 2/2 CHF exacerbation -ABG on admission: 7.14/113/301/29.9, pt presented with hypercapnic respiratory acidosis, cont to trend -Maintain O2 sat > 92% -[place] [place] GI: -NPO -No ppx needed at this time -Cont to monitor -No acute issues at this time Heme: -H/H 11.6/36.6, cont to trend -No leukocytosis, cont to trend Renal: -BUN/Cr 48/1.8, cont to trend, similar to pt's baseline per chart review -Trend I's/O's PPX: -DVT: SCD -GI: n/a Pt seen, examined with, and plan discussed with Dr. Leighton House, attending physician. Juan A Beal DO PGY-1, Assistant Professor Of Communication Pager #[phone] <Tahir House - Last Filed: 11/07/18 11:30> Meds - Medications Medications: Current Medications Albuterol/Ipratropium (Duoneb 3 Mg/0.5 Mg (3 Ml) Ud) 3 ml INH RQ6 [facility] Last Admin: 11/07/18 07:50 Dose: 3 ml Aspirin (Aspirin Chewable) 81 mg PO DAILY [facility] Last Admin: 11/07/18 10:11 Dose: 81 mg Furosemide (Lasix) 40 mg IVP BID [facility] Last Admin: 11/07/18 10:11 Dose: 40 mg Azithromycin 500 mg/ Sodium (Chloride) 250 mls @ 250 mls/hr IVPB DAILY [facility]; Protocol Piperacillin Sod/Tazobactam (Sod 3.375 gm/ Sodium Chloride) 100 mls @ 200 mls/hr IVPB Q6H [facility]; Protocol Methylprednisolone (Solu-Medrol) 40 mg IVP Q8 [facility] Last Admin: 11/07/18 06:00 Dose: 40 mg Rivaroxaban (Xarelto) 15 mg PO DAILY [facility] Last Admin: 11/07/18 10:18 Dose: 15 mg Rosuvastatin Calcium (Crestor) 10 mg PO HS [facility] Last Admin: 11/06/18 22:00 Dose: Not Given Tamsulosin HCl (Flomax) 0.4 mg PO DAILY [facility] Last Admin: 11/07/18 10:11 Dose: 0.4 mg Results - Vital Signs Recent Vital Signs: Last Vital Signs Temp 98.7 F 11/07/18 08:00 Pulse 85 11/07/18 09:09 Resp 13 11/07/18 09:09 BP 168/72 H 11/07/18 10:11 Pulse Ox 89 L 11/07/18 09:09 - Labs Result Diagrams: 11/07/18 05:54 11/07/18 05:54 Labs: Laboratory Results - last 24 hr 11/06/18 11/06/18 11/06/18 10:39 10:39 10:39 WBC RBC Hgb Hct MCV MCH MCHC RDW Plt Count MPV Neut % (Auto) Lymph % (Auto) [place] % (Auto) Eos % (Auto) Baso % (Auto) Neut # (Auto) Lymph # (Auto) [place] # (Auto) Eos # (Auto) Baso # (Auto) Neutrophils % (Manual) 93 H Lymphocytes % (Manual) 3 L Monocytes % (Manual) 4 Platelet Estimate Normal Large Platelets Hypochromasia (manual) Slight Anisocytosis (manual) Slight Puncture Site pCO2 pO2 HCO3 ABG pH ABG Total CO2 ABG O2 Saturation ABG Base Excess ABG Hemoglobin ABG Carboxyhemoglobin POC ABG HHb (Measured) ABG Methemoglobin [place] Test ABG Potassium A-a O2 Difference Respiratory Index Hgb O2 Saturation Glucose Lactate Liter Flow Vent Mode FiO2 Tidal Volume Inspiratory BiPAP Expiratory BiPAP Crit Value Called To Crit Value Called By Crit Value Read Back Blood Gas Notified Time Sodium 140 Potassium 4.7 Chloride 100 Carbon Dioxide 34 H Anion Gap 11 BUN 48 H Creatinine 1.8 H Est GFR ( Amer) 44 Est GFR (Non-Af Amer) 36 Random Glucose 162 H Hemoglobin A1c 5.7 Calcium 8.7 Phosphorus Magnesium Total Bilirubin 0.4 AST 30 ALT 15 L D Alkaline Phosphatase 268 H D Total Creatine Kinase 54 L Troponin I 0.0410 Total Protein 7.1 Albumin 3.6 Globulin 3.4 Albumin/Globulin Ratio 1.1 Triglycerides 187 H Cholesterol 164 LDL Cholesterol Direct 72 HDL Cholesterol 69 Arterial Blood Potassium Urine Color Urine Clarity Urine pH Ur Specific [place] Urine Protein Urine Glucose (UA) Urine Ketones Urine Blood Urine Nitrate Urine Bilirubin Urine Urobilinogen Ur Leukocyte Esterase Urine WBC (Auto) Urine RBC (Auto) Ur Squamous Epith Cells Hyaline Casts Urine Opiates Screen Urine Methadone Screen Ur Barbiturates Screen Ur Phencyclidine Scrn Ur Amphetamines Screen U Benzodiazepines Scrn U Oth Cocaine Metabols U Cannabinoids Screen Alcohol, Quantitative < 10 Influenza Typ A,B (EIA) Blood Type Antibody Screen 11/06/18 11/06/18 11/06/18 10:39 12:44 12:44 WBC RBC Hgb Hct MCV MCH MCHC RDW Plt Count MPV Neut % (Auto) Lymph % (Auto) [place] % (Auto) Eos % (Auto) Baso % (Auto) Neut # (Auto) Lymph # (Auto) [place] # (Auto) Eos # (Auto) Baso # (Auto) Neutrophils % (Manual) Lymphocytes % (Manual) Monocytes % (Manual) Platelet Estimate Large Platelets Hypochromasia (manual) Anisocytosis (manual) Puncture Site pCO2 pO2 HCO3 ABG pH ABG Total CO2 ABG O2 Saturation ABG Base Excess ABG Hemoglobin ABG Carboxyhemoglobin POC ABG HHb (Measured) ABG Methemoglobin [place] Test ABG Potassium A-a O2 Difference Respiratory Index Hgb O2 Saturation Glucose Lactate Liter Flow Vent Mode FiO2 Tidal Volume Inspiratory BiPAP Expiratory BiPAP Crit Value Called To Crit Value Called By Crit Value Read Back Blood Gas Notified Time Sodium Potassium Chloride Carbon Dioxide Anion Gap BUN Creatinine Est GFR ( Amer) Est GFR (Non-Af Amer) Random Glucose Hemoglobin A1c Calcium Phosphorus Magnesium Total Bilirubin AST ALT Alkaline Phosphatase Total Creatine Kinase Troponin I Total Protein Albumin Globulin Albumin/Globulin Ratio Triglycerides Cholesterol LDL Cholesterol Direct HDL Cholesterol Arterial Blood Potassium Urine Color Yellow Urine Clarity Clear Urine pH 5.0 Ur Specific [place] 1.017 Urine Protein Negative Urine Glucose (UA) Normal Urine Ketones Negative Urine Blood 1+ H Urine Nitrate Negative Urine Bilirubin Negative Urine Urobilinogen Normal Ur Leukocyte Esterase Neg Urine WBC (Auto) 2 Urine RBC (Auto) 3 Ur Squamous Epith Cells 1 Hyaline Casts 6-10 H Urine Opiates Screen Negative Urine Methadone Screen Negative Ur Barbiturates Screen Negative Ur Phencyclidine Scrn Negative Ur Amphetamines Screen Negative U Benzodiazepines Scrn Negative U Oth Cocaine Metabols Negative U Cannabinoids Screen Negative Alcohol, Quantitative Influenza Typ A,B (EIA) Blood Type A NEGATIVE Antibody Screen Negative 11/06/18 11/06/18 11/07/18 12:45 18:00 05:54 WBC 6.8 RBC 3.65 L Hgb 11.6 L Hct 35.4 MCV 97.0 H MCH 31.6 H MCHC 32.6 L RDW 14.7 H Plt Count 166 MPV 9.7 Neut % (Auto) 93.5 H Lymph % (Auto) 3.7 L [place] % (Auto) 2.4 Eos % (Auto) 0.1 Baso % (Auto) 0.3 Neut # (Auto) 6.3 Lymph # (Auto) 0.3 L [place] # (Auto) 0.2 Eos # (Auto) 0.0 Baso # (Auto) 0.0 Neutrophils % (Manual) 93 H Lymphocytes % (Manual) 4 L Monocytes % (Manual) 3 Platelet Estimate Normal Large Platelets Present Hypochromasia (manual) Slight Anisocytosis (manual) Slight Puncture Site Rr Rba pCO2 113 H* 84 H* pO2 301 H 54 L HCO3 29.9 H 28.9 H ABG pH 7.14 L* 7.24 L ABG Total CO2 42.0 H 38.6 H ABG O2 Saturation 99.7 H 92.3 L ABG Base Excess 6.4 H 5.6 H ABG Hemoglobin 11.1 L ABG Carboxyhemoglobin 1.5 POC ABG HHb (Measured) 0.3 ABG Methemoglobin 1.3 [place] Test Pos Na ABG Potassium 4.7 A-a O2 Difference 271.0 91.0 Respiratory Index 0.9 1.7 Hgb O2 Saturation 96.8 Glucose 129 H Lactate 0.6 L Liter Flow Vent Mode Bipap Bipap FiO2 100.0 35.0 Tidal Volume 14 Inspiratory BiPAP 12 18 Expiratory BiPAP 6 8 Crit Value Called To Aaron Macias icu nurse Crit Value Called By Mirela guardado,rt Jayla rt Crit Value Read Back Y Y Blood Gas Notified Time 1254 1803 Sodium 140.0 Potassium Chloride 104.0 Carbon Dioxide Anion Gap BUN Creatinine Est GFR ( Amer) Est GFR (Non-Af Amer) Random Glucose Hemoglobin A1c Calcium Phosphorus Magnesium Total Bilirubin AST ALT Alkaline Phosphatase Total Creatine Kinase Troponin I Total Protein Albumin Globulin Albumin/Globulin Ratio Triglycerides Cholesterol LDL Cholesterol Direct HDL Cholesterol Arterial Blood Potassium 4.7 Urine Color Urine Clarity Urine pH Ur Specific [place] Urine Protein Urine Glucose (UA) Urine Ketones Urine Blood Urine Nitrate Urine Bilirubin Urine Urobilinogen Ur Leukocyte Esterase Urine WBC (Auto) Urine RBC (Auto) Ur Squamous Epith Cells Hyaline Casts Urine Opiates Screen Urine Methadone Screen Ur Barbiturates Screen Ur Phencyclidine Scrn Ur Amphetamines Screen U Benzodiazepines Scrn U Oth Cocaine Metabols U Cannabinoids Screen Alcohol, Quantitative Influenza Typ A,B (EIA) Blood Type Antibody Screen 11/07/18 11/07/18 11/07/18 05:54 09:16 09:22 WBC RBC Hgb Hct MCV MCH MCHC RDW Plt Count MPV Neut % (Auto) Lymph % (Auto) [place] % (Auto) Eos % (Auto) Baso % (Auto) Neut # (Auto) Lymph # (Auto) [place] # (Auto) Eos # (Auto) Baso # (Auto) Neutrophils % (Manual) Lymphocytes % (Manual) Monocytes % (Manual) Platelet Estimate Large Platelets Hypochromasia (manual) Anisocytosis (manual) Puncture Site Rba pCO2 66 H pO2 56 L HCO3 31.1 H ABG pH 7.35 ABG Total CO2 38.4 H ABG O2 Saturation 92.7 L ABG Base Excess 8.3 H ABG Hemoglobin ABG Carboxyhemoglobin POC ABG HHb (Measured) ABG Methemoglobin [place] Test Na ABG Potassium 4.2 A-a O2 Difference 61.0 Respiratory Index 1.1 Hgb O2 Saturation Glucose 124 H Lactate 1.1 Liter Flow 2.0 Vent Mode FiO2 28.0 Tidal Volume Inspiratory BiPAP Expiratory BiPAP Crit Value Called To Crit Value Called By Crit Value Read Back Blood Gas Notified Time Sodium 141 143.0 Potassium 4.5 Chloride 99 104.0 Carbon Dioxide 35 H Anion Gap 11 BUN 49 H Creatinine 1.6 H Est GFR ( Amer) 50 Est GFR (Non-Af Amer) 41 Random Glucose 117 H D Hemoglobin A1c Calcium 8.8 Phosphorus 4.7 H Magnesium 2.0 Total Bilirubin 0.4 AST 30 ALT 22 Alkaline Phosphatase 271 H Total Creatine Kinase Troponin I Total Protein 6.6 Albumin 3.4 L Globulin 3.2 Albumin/Globulin Ratio 1.1 Triglycerides Cholesterol LDL Cholesterol Direct HDL Cholesterol Arterial Blood Potassium 4.2 Urine Color Urine Clarity Urine pH Ur Specific [place] Urine Protein Urine Glucose (UA) Urine Ketones Urine Blood Urine Nitrate Urine Bilirubin Urine Urobilinogen Ur Leukocyte Esterase Urine WBC (Auto) Urine RBC (Auto) Ur Squamous Epith Cells Hyaline Casts Urine Opiates Screen Urine Methadone Screen Ur Barbiturates Screen Ur Phencyclidine Scrn Ur Amphetamines Screen U Benzodiazepines Scrn U Oth Cocaine Metabols U Cannabinoids Screen Alcohol, Quantitative Influenza Typ A,B (EIA) Negative for flu a/b Blood Type Antibody Screen Assessment & Plan - Assessment and Plan (Free Text) Plan: Patient seen and examined at bedside. PAtient with h/o COPD was found to be in hypercapneic respiratory failure. -Initialyl stroke code called; however ABG revealed hypercapneic respiratory failure -unlikely stroke, check utox, serum toxicology for AMS as patient able to move all [address] brain neg -Hypercapneic respiratory failure: continue bi-pap patient responsive, able to protect airway, avoid sedation -CXR reveals congestion: continue negative balance as BP tolerates -Chronic systolic/diastolic heart failure: continue negative balance -NPO -check influenza -contine patient's home medications cc time 45 minutes - Date & Time Date: 11/06/18 Time: 19:00
[2018-11-06] MEDS ORDERED: Azithromycin 500mg/250ML NS 500 MG/250 ML BAG IVPB STA (12:22)
[2018-11-06] MEDS ORDERED: Azithromycin 500mg/250ML NS 500 MG/250 ML BAG IVPB ONE (12:48)
[2018-11-06 12:54] LABS: ARTERIAL BLOOD GAS PCO2 113 mm/Hg (35-45); ARTERIAL BLOOD GAS PH 7.14 (7.35-7.45)
[2018-11-06 12:55] LABS: ABG ALLEN TEST POS; ARTERIAL BLOOD GAS HCO3 29.9 mmol/L (21-28); ARTERIAL BLOOD GAS HEMOGLOBIN 11.1 g/dL (11.7-17.4); ARTERIAL BLOOD GAS O2 SAT 99.7 % (95-98); ARTERIAL BLOOD GAS PO2 301 mm/Hg (80-100)
[2018-11-06 13:06] LABS: SQUAMOUS EPITHIAL 1 /hpf (0-5); URINE BILIRUBIN NEGATIVE (NEGATIVE); URINE BLOOD 1+ (NEGATIVE); URINE CLARITY Clear (Clear); URINE COLOR Yellow (YELLOW); URINE GLUCOSE (UA) NORMAL (Normal); URINE LEUKOCYTE ESTERASE NEG Leu/uL (Negative); URINE PROTEIN NEGATIVE (NEGATIVE); URINE UROBILINOGEN NORMAL mg/dL (0.2-1.0)
[2018-11-06 13:34] LABS: BARBITURATES, UR NEGATIVE (NEGATIVE); BENZODIAZEPINES, UR NEGATIVE (NEGATIVE); OPIATES, UR NEGATIVE (NEGATIVE); PHENCYCLIDINE, UR NEGATIVE (NEGATIVE)
--- NOTE | 2018-11-06 16:06 | CP.PCM.CON ---
History of Present Illness - History of Present Illness History of Present Illness: Neurology Consultation Note: Consult requested by Dr. House Mr. Chase is an 83-year-old man with a past medical history of COPD, CHF, hypercapnia, who was brought to the ED by EMS after family found him experiencing difficulty breathing and with altered mental status. Neurology was consulted after an initial code stroke was called. However, the patient had no focal deficits and was hypoxic with saturations of 88% on non-rebreather. Review of Systems - Review of Systems Systems not reviewed;Unavailable: Respiratory Distress Past Patient History - Past Medical History & Family History Past Medical History?: Yes - Past Social History Smoking Status: Former Smoker - CARDIAC Hx Congestive Heart Failure: Yes Hx Hypertension: Yes - PULMONARY Hx Chronic Obstructive Pulmonary Disease (COPD): Yes - NEUROLOGICAL Hx Neurological Disorder: No - HEENT Hx HEENT Problems: No - RENAL Hx Chronic Kidney Disease: No - ENDOCRINE/METABOLIC Hx Endocrine Disorders: No - HEMATOLOGICAL/ONCOLOGICAL Hx Blood Disorders: No - INTEGUMENTARY Hx Dermatological Problems: No - MUSCULOSKELETAL/RHEUMATOLOGICAL Hx Musculoskeletal Disorders: No Hx Falls: No - GASTROINTESTINAL Hx Gastrointestinal Disorders: No - GENITOURINARY/GYNECOLOGICAL Hx Genitourinary Disorders: No - PSYCHIATRIC Hx Substance Use: No - SURGICAL HISTORY Hx Coronary Artery Bypass Graft: Yes - ANESTHESIA Hx Anesthesia: Yes Hx Anesthesia Reactions: No Meds Allergies/Adverse Reactions: Allergies Allergy/AdvReac Type Severity Reaction Status Date / Time No Known Allergies Allergy Verified 07/12/18 09:17 Physical Exam - Constitutional Appears: Chronically Ill - Head Exam Head Exam: ATRAUMATIC, NORMAL INSPECTION, NORMOCEPHALIC - Eye Exam Eye Exam: EOMI, Normal appearance, PERRL - ENT Exam ENT Exam: Mucous Membranes Moist, Normal Exam - Neck Exam Neck exam: Positive for: Normal Inspection - Respiratory Exam Respiratory Exam: Accessory Muscle Use, Rales, Rhonchi, Wheezes - Cardiovascular Exam Cardiovascular Exam: Tachycardia, REGULAR RHYTHM, +S1, +S2 - GI/Abdominal Exam GI & Abdominal Exam: Normal Bowel Sounds, Soft. absent: Tenderness - Neurological Exam Neurological exam: Alert, CN II-XII Intact, Oriented x3, Reflexes Normal Additional comments: Patient is in respiratory distress, unable to test gait, but exam appears non- focal. - Psychiatric Exam Psychiatric exam: Anxious - Skin Skin Exam: Dry, Intact, Normal Color, Warm Results - Vital Signs Recent Vital Signs: Last Vital Signs Temp 98.2 F 11/06/18 15:20 Pulse 59 L 11/06/18 15:47 Resp 21 11/06/18 15:20 BP 123/66 11/06/18 15:20 Pulse Ox 100 11/06/18 15:20 - Labs Result Diagrams: 11/08/18 06:12 11/08/18 06:12 Labs: Laboratory Results - last 24 hr 11/06/18 11/06/18 11/06/18 10:21 10:39 10:39 WBC 6.8 RBC 3.71 L Hgb 11.6 L D Hct 36.6 MCV 98.8 H D MCH 31.3 H MCHC 31.6 L RDW 15.0 H Plt Count 168 MPV 9.5 Neut % (Auto) 80.2 H Lymph % (Auto) 7.3 L Bertie % (Auto) 10.1 H Eos % (Auto) 1.3 Baso % (Auto) 1.1 Neut # (Auto) 5.5 Lymph # (Auto) 0.5 L Bertie # (Auto) 0.7 Eos # (Auto) 0.1 Baso # (Auto) 0.1 Neutrophils % (Manual) 93 H Lymphocytes % (Manual) 3 L Monocytes % (Manual) 4 Platelet Estimate Normal Hypochromasia (manual) Slight Anisocytosis (manual) Slight PT 13.5 H INR 1.2 APTT 34 Puncture Site pCO2 pO2 HCO3 ABG pH ABG Total CO2 ABG O2 Saturation ABG Base Excess ABG Hemoglobin ABG Carboxyhemoglobin POC ABG HHb (Measured) ABG Methemoglobin [place] Test A-a O2 Difference Respiratory Index Hgb O2 Saturation Vent Mode FiO2 Inspiratory BiPAP Expiratory BiPAP Crit Value Called To Crit Value Called By Crit Value Read Back Blood Gas Notified Time Sodium Potassium Chloride Carbon Dioxide Anion Gap BUN Creatinine Est GFR ( Amer) Est GFR (Non-Af Amer) POC Glucose (mg/dL) 185 H Random Glucose Hemoglobin A1c Calcium Total Bilirubin AST ALT Alkaline Phosphatase Ammonia Total Creatine Kinase Troponin I Total Protein Albumin Globulin Albumin/Globulin Ratio Triglycerides Cholesterol LDL Cholesterol Direct HDL Cholesterol Urine Color Urine Clarity Urine pH Ur Specific [place] Urine Protein Urine Glucose (UA) Urine Ketones Urine Blood Urine Nitrate Urine Bilirubin Urine Urobilinogen Ur Leukocyte Esterase Urine WBC (Auto) Urine RBC (Auto) Ur Squamous Epith Cells Hyaline Casts Urine Opiates Screen Urine Methadone Screen Ur Barbiturates Screen Ur Phencyclidine Scrn Ur Amphetamines Screen U Benzodiazepines Scrn U Oth Cocaine Metabols U Cannabinoids Screen Alcohol, Quantitative Blood Type Antibody Screen 11/06/18 11/06/18 11/06/18 10:39 10:39 10:39 WBC RBC Hgb Hct MCV MCH MCHC RDW Plt Count MPV Neut % (Auto) Lymph % (Auto) Bertie % (Auto) Eos % (Auto) Baso % (Auto) Neut # (Auto) Lymph # (Auto) Bertie # (Auto) Eos # (Auto) Baso # (Auto) Neutrophils % (Manual) Lymphocytes % (Manual) Monocytes % (Manual) Platelet Estimate Hypochromasia (manual) Anisocytosis (manual) PT INR APTT Puncture Site pCO2 pO2 HCO3 ABG pH ABG Total CO2 ABG O2 Saturation ABG Base Excess ABG Hemoglobin ABG Carboxyhemoglobin POC ABG HHb (Measured) ABG Methemoglobin [place] Test A-a O2 Difference Respiratory Index Hgb O2 Saturation Vent Mode FiO2 Inspiratory BiPAP Expiratory BiPAP Crit Value Called To Crit Value Called By Crit Value Read Back Blood Gas Notified Time Sodium 140 Potassium 4.7 Chloride 100 Carbon Dioxide 34 H Anion Gap 11 BUN 48 H Creatinine 1.8 H Est GFR ( Amer) 44 Est GFR (Non-Af Amer) 36 POC Glucose (mg/dL) Random Glucose 162 H Hemoglobin A1c 5.7 Calcium 8.7 Total Bilirubin 0.4 AST 30 ALT 15 L D Alkaline Phosphatase 268 H D Ammonia Total Creatine Kinase 54 L Troponin I 0.0410 Total Protein 7.1 Albumin 3.6 Globulin 3.4 Albumin/Globulin Ratio 1.1 Triglycerides 187 H Cholesterol 164 LDL Cholesterol Direct 72 HDL Cholesterol 69 Urine Color Urine Clarity Urine pH Ur Specific [place] Urine Protein Urine Glucose (UA) Urine Ketones Urine Blood Urine Nitrate Urine Bilirubin Urine Urobilinogen Ur Leukocyte Esterase Urine WBC (Auto) Urine RBC (Auto) Ur Squamous Epith Cells Hyaline Casts Urine Opiates Screen Urine Methadone Screen Ur Barbiturates Screen Ur Phencyclidine Scrn Ur Amphetamines Screen U Benzodiazepines Scrn U Oth Cocaine Metabols U Cannabinoids Screen Alcohol, Quantitative < 10 Blood Type A NEGATIVE Antibody Screen Negative 11/06/18 11/06/18 11/06/18 10:42 12:44 12:44 WBC RBC Hgb Hct MCV MCH MCHC RDW Plt Count MPV Neut % (Auto) Lymph % (Auto) Bertie % (Auto) Eos % (Auto) Baso % (Auto) Neut # (Auto) Lymph # (Auto) Bertie # (Auto) Eos # (Auto) Baso # (Auto) Neutrophils % (Manual) Lymphocytes % (Manual) Monocytes % (Manual) Platelet Estimate Hypochromasia (manual) Anisocytosis (manual) PT INR APTT Puncture Site pCO2 pO2 HCO3 ABG pH ABG Total CO2 ABG O2 Saturation ABG Base Excess ABG Hemoglobin ABG Carboxyhemoglobin POC ABG HHb (Measured) ABG Methemoglobin [place] Test A-a O2 Difference Respiratory Index Hgb O2 Saturation Vent Mode FiO2 Inspiratory BiPAP Expiratory BiPAP Crit Value Called To Crit Value Called By Crit Value Read Back Blood Gas Notified Time Sodium Potassium Chloride Carbon Dioxide Anion Gap BUN Creatinine Est GFR ( Amer) Est GFR (Non-Af Amer) POC Glucose (mg/dL) Random Glucose Hemoglobin A1c Calcium Total Bilirubin AST ALT Alkaline Phosphatase Ammonia 12 Total Creatine Kinase Troponin I Total Protein Albumin Globulin Albumin/Globulin Ratio Triglycerides Cholesterol LDL Cholesterol Direct HDL Cholesterol Urine Color Yellow Urine Clarity Clear Urine pH 5.0 Ur Specific [place] 1.017 Urine Protein Negative Urine Glucose (UA) Normal Urine Ketones Negative Urine Blood 1+ H Urine Nitrate Negative Urine Bilirubin Negative Urine Urobilinogen Normal Ur Leukocyte Esterase Neg Urine WBC (Auto) 2 Urine RBC (Auto) 3 Ur Squamous Epith Cells 1 Hyaline Casts 6-10 H Urine Opiates Screen Negative Urine Methadone Screen Negative Ur Barbiturates Screen Negative Ur Phencyclidine Scrn Negative Ur Amphetamines Screen Negative U Benzodiazepines Scrn Negative U Oth Cocaine Metabols Negative U Cannabinoids Screen Negative Alcohol, Quantitative Blood Type Antibody Screen 11/06/18 12:45 WBC RBC Hgb Hct MCV MCH MCHC RDW Plt Count MPV Neut % (Auto) Lymph % (Auto) Bertie % (Auto) Eos % (Auto) Baso % (Auto) Neut # (Auto) Lymph # (Auto) Bertie # (Auto) Eos # (Auto) Baso # (Auto) Neutrophils % (Manual) Lymphocytes % (Manual) Monocytes % (Manual) Platelet Estimate Hypochromasia (manual) Anisocytosis (manual) PT INR APTT Puncture Site Rr pCO2 113 H* pO2 301 H HCO3 29.9 H ABG pH 7.14 L* ABG Total CO2 42.0 H ABG O2 Saturation 99.7 H ABG Base Excess 6.4 H ABG Hemoglobin 11.1 L ABG Carboxyhemoglobin 1.5 POC ABG HHb (Measured) 0.3 ABG Methemoglobin 1.3 Naman Test Pos A-a O2 Difference 271.0 Respiratory Index 0.9 Hgb O2 Saturation 96.8 Vent Mode Bipap FiO2 100.0 Inspiratory BiPAP 12 Expiratory BiPAP 6 Crit Value Called To Aaron miller md Crit Value Called By Mirela guardado,rt Crit Value Read Back Y Blood Gas Notified Time 1254 Sodium Potassium Chloride Carbon Dioxide Anion Gap BUN Creatinine Est GFR ( Amer) Est GFR (Non-Af Amer) POC Glucose (mg/dL) Random Glucose Hemoglobin A1c Calcium Total Bilirubin AST ALT Alkaline Phosphatase Ammonia Total Creatine Kinase Troponin I Total Protein Albumin Globulin Albumin/Globulin Ratio Triglycerides Cholesterol LDL Cholesterol Direct HDL Cholesterol Urine Color Urine Clarity Urine pH Ur Specific [place] Urine Protein Urine Glucose (UA) Urine Ketones Urine Blood Urine Nitrate Urine Bilirubin Urine Urobilinogen Ur Leukocyte Esterase Urine WBC (Auto) Urine RBC (Auto) Ur Squamous Epith Cells Hyaline Casts Urine Opiates Screen Urine Methadone Screen Ur Barbiturates Screen Ur Phencyclidine Scrn Ur Amphetamines Screen U Benzodiazepines Scrn U Oth Cocaine Metabols U Cannabinoids Screen Alcohol, Quantitative Blood Type Antibody Screen Assessment & Plan (1) CHF exacerbation Assessment and Plan: The patient's altered mental status is likely due to systemic causes. Status: Acute (2) Altered mental status Assessment and Plan: CT head did not show any acute findings. CTA of head/neck showed diffuse calcifications and intracranial atherosclerotic disease. This could be compounded with lack of oxygenation. I recommend continuing to treat cardio- pulmonary issues. Dual anti-platelet therapy is recommended in the setting of ICAD. However, based on the chart, the patient is already on aspirin and Xarelto at home. This should suffice. Thank you for this consultation. Status: Acute
[2018-11-06 18:03] LABS: ARTERIAL BLOOD GAS HCO3 28.9 mmol/L (21-28); ARTERIAL BLOOD GAS O2 SAT 92.3 % (95-98); ARTERIAL BLOOD GAS PCO2 84 mm/Hg (35-45); ARTERIAL BLOOD GAS PH 7.24 (7.35-7.45); ARTERIAL BLOOD GAS PO2 54 mm/Hg (80-100); ARTERIAL BLOOD GAS TCO2 38.6 mmol/L (22-28)
--- NOTE | 2018-11-06 19:47 | CP.PCM.HP ---
Past Patient History - Past Medical History & Family History Past Medical History?: Yes - Past Social History Smoking Status: Former Smoker - CARDIAC Hx Congestive Heart Failure: Yes Hx Hypertension: Yes - PULMONARY Hx Chronic Obstructive Pulmonary Disease (COPD): Yes - NEUROLOGICAL Hx Neurological Disorder: No - HEENT Hx HEENT Problems: No - RENAL Hx Chronic Kidney Disease: No - ENDOCRINE/METABOLIC Hx Endocrine Disorders: No - HEMATOLOGICAL/ONCOLOGICAL Hx Blood Disorders: No - INTEGUMENTARY Hx Dermatological Problems: No - MUSCULOSKELETAL/RHEUMATOLOGICAL Hx Musculoskeletal Disorders: No Hx Falls: No - GASTROINTESTINAL Hx Gastrointestinal Disorders: No - GENITOURINARY/GYNECOLOGICAL Hx Genitourinary Disorders: No - PSYCHIATRIC Hx Substance Use: No - SURGICAL HISTORY Hx Coronary Artery Bypass Graft: Yes - ANESTHESIA Hx Anesthesia: Yes Hx Anesthesia Reactions: No Meds Allergies/Adverse Reactions: Allergies Allergy/AdvReac Type Severity Reaction Status Date / Time No Known Allergies Allergy Verified 07/12/18 09:17 Physical Exam - Constitutional Appears: Well - Head Exam Head Exam: ATRAUMATIC, NORMAL INSPECTION, NORMOCEPHALIC - Eye Exam Eye Exam: EOMI, Normal appearance, PERRL Pupil Exam: NORMAL ACCOMODATION, PERRL - ENT Exam ENT Exam: Mucous Membranes Moist, Normal Exam - Neck Exam Neck exam: Positive for: Normal Inspection - Respiratory Exam Respiratory Exam: Decreased Breath Sounds - Cardiovascular Exam Cardiovascular Exam: REGULAR RHYTHM, +S1, +S2 - GI/Abdominal Exam GI & Abdominal Exam: Diminished Bowel Sounds, Soft - Rectal Exam Rectal Exam: Deferred Results - Vital Signs Recent Vital Signs: Last Vital Signs Temp 98.2 F 11/06/18 15:20 Pulse 59 L 11/06/18 15:47 Resp 24 11/06/18 15:30 BP 123/66 11/06/18 15:20 Pulse Ox 98 11/06/18 18:43 - Labs Result Diagrams: 11/06/18 10:39 11/06/18 10:39 Labs: Laboratory Results - last 24 hr 11/06/18 11/06/18 11/06/18 10:21 10:39 10:39 WBC 6.8 RBC 3.71 L Hgb 11.6 L D Hct 36.6 MCV 98.8 H D MCH 31.3 H MCHC 31.6 L RDW 15.0 H Plt Count 168 MPV 9.5 Neut % (Auto) 80.2 H Lymph % (Auto) 7.3 L [place] % (Auto) 10.1 H Eos % (Auto) 1.3 Baso % (Auto) 1.1 Neut # (Auto) 5.5 Lymph # (Auto) 0.5 L [place] # (Auto) 0.7 Eos # (Auto) 0.1 Baso # (Auto) 0.1 Neutrophils % (Manual) 93 H Lymphocytes % (Manual) 3 L Monocytes % (Manual) 4 Platelet Estimate Normal Hypochromasia (manual) Slight Anisocytosis (manual) Slight PT 13.5 H INR 1.2 APTT 34 Puncture Site pCO2 pO2 HCO3 ABG pH ABG Total CO2 ABG O2 Saturation ABG Base Excess ABG Hemoglobin ABG Carboxyhemoglobin POC ABG HHb (Measured) ABG Methemoglobin [place] Test ABG Potassium A-a O2 Difference Respiratory Index Hgb O2 Saturation Glucose Lactate Vent Mode FiO2 Tidal Volume Inspiratory BiPAP Expiratory BiPAP Crit Value Called To Crit Value Called By Crit Value Read Back Blood Gas Notified Time Sodium Potassium Chloride Carbon Dioxide Anion Gap BUN Creatinine Est GFR ( Amer) Est GFR (Non-Af Amer) POC Glucose (mg/dL) 185 H Random Glucose Hemoglobin A1c Calcium Total Bilirubin AST ALT Alkaline Phosphatase Ammonia Total Creatine Kinase Troponin I Total Protein Albumin Globulin Albumin/Globulin Ratio Triglycerides Cholesterol LDL Cholesterol Direct HDL Cholesterol Arterial Blood Potassium Urine Color Urine Clarity Urine pH Ur Specific [place] Urine Protein Urine Glucose (UA) Urine Ketones Urine Blood Urine Nitrate Urine Bilirubin Urine Urobilinogen Ur Leukocyte Esterase Urine WBC (Auto) Urine RBC (Auto) Ur Squamous Epith Cells Hyaline Casts Urine Opiates Screen Urine Methadone Screen Ur Barbiturates Screen Ur Phencyclidine Scrn Ur Amphetamines Screen U Benzodiazepines Scrn U Oth Cocaine Metabols U Cannabinoids Screen Alcohol, Quantitative Blood Type Antibody Screen 11/06/18 11/06/18 11/06/18 10:39 10:39 10:39 WBC RBC Hgb Hct MCV MCH MCHC RDW Plt Count MPV Neut % (Auto) Lymph % (Auto) [place] % (Auto) Eos % (Auto) Baso % (Auto) Neut # (Auto) Lymph # (Auto) [place] # (Auto) Eos # (Auto) Baso # (Auto) Neutrophils % (Manual) Lymphocytes % (Manual) Monocytes % (Manual) Platelet Estimate Hypochromasia (manual) Anisocytosis (manual) PT INR APTT Puncture Site pCO2 pO2 HCO3 ABG pH ABG Total CO2 ABG O2 Saturation ABG Base Excess ABG Hemoglobin ABG Carboxyhemoglobin POC ABG HHb (Measured) ABG Methemoglobin [place] Test ABG Potassium A-a O2 Difference Respiratory Index Hgb O2 Saturation Glucose Lactate Vent Mode FiO2 Tidal Volume Inspiratory BiPAP Expiratory BiPAP Crit Value Called To Crit Value Called By Crit Value Read Back Blood Gas Notified Time Sodium 140 Potassium 4.7 Chloride 100 Carbon Dioxide 34 H Anion Gap 11 BUN 48 H Creatinine 1.8 H Est GFR ( Amer) 44 Est GFR (Non-Af Amer) 36 POC Glucose (mg/dL) Random Glucose 162 H Hemoglobin A1c 5.7 Calcium 8.7 Total Bilirubin 0.4 AST 30 ALT 15 L D Alkaline Phosphatase 268 H D Ammonia Total Creatine Kinase 54 L Troponin I 0.0410 Total Protein 7.1 Albumin 3.6 Globulin 3.4 Albumin/Globulin Ratio 1.1 Triglycerides 187 H Cholesterol 164 LDL Cholesterol Direct 72 HDL Cholesterol 69 Arterial Blood Potassium Urine Color Urine Clarity Urine pH Ur Specific [place] Urine Protein Urine Glucose (UA) Urine Ketones Urine Blood Urine Nitrate Urine Bilirubin Urine Urobilinogen Ur Leukocyte Esterase Urine WBC (Auto) Urine RBC (Auto) Ur Squamous Epith Cells Hyaline Casts Urine Opiates Screen Urine Methadone Screen Ur Barbiturates Screen Ur Phencyclidine Scrn Ur Amphetamines Screen U Benzodiazepines Scrn U Oth Cocaine Metabols U Cannabinoids Screen Alcohol, Quantitative < 10 Blood Type A NEGATIVE Antibody Screen Negative 11/06/18 11/06/18 11/06/18 10:42 12:44 12:44 WBC RBC Hgb Hct MCV MCH MCHC RDW Plt Count MPV Neut % (Auto) Lymph % (Auto) [place] % (Auto) Eos % (Auto) Baso % (Auto) Neut # (Auto) Lymph # (Auto) [place] # (Auto) Eos # (Auto) Baso # (Auto) Neutrophils % (Manual) Lymphocytes % (Manual) Monocytes % (Manual) Platelet Estimate Hypochromasia (manual) Anisocytosis (manual) PT INR APTT Puncture Site pCO2 pO2 HCO3 ABG pH ABG Total CO2 ABG O2 Saturation ABG Base Excess ABG Hemoglobin ABG Carboxyhemoglobin POC ABG HHb (Measured) ABG Methemoglobin [place] Test ABG Potassium A-a O2 Difference Respiratory Index Hgb O2 Saturation Glucose Lactate Vent Mode FiO2 Tidal Volume Inspiratory BiPAP Expiratory BiPAP Crit Value Called To Crit Value Called By Crit Value Read Back Blood Gas Notified Time Sodium Potassium Chloride Carbon Dioxide Anion Gap BUN Creatinine Est GFR ( Amer) Est GFR (Non-Af Amer) POC Glucose (mg/dL) Random Glucose Hemoglobin A1c Calcium Total Bilirubin AST ALT Alkaline Phosphatase Ammonia 12 Total Creatine Kinase Troponin I Total Protein Albumin Globulin Albumin/Globulin Ratio Triglycerides Cholesterol LDL Cholesterol Direct HDL Cholesterol Arterial Blood Potassium Urine Color Yellow Urine Clarity Clear Urine pH 5.0 Ur Specific [place] 1.017 Urine Protein Negative Urine Glucose (UA) Normal Urine Ketones Negative Urine Blood 1+ H Urine Nitrate Negative Urine Bilirubin Negative Urine Urobilinogen Normal Ur Leukocyte Esterase Neg Urine WBC (Auto) 2 Urine RBC (Auto) 3 Ur Squamous Epith Cells 1 Hyaline Casts 6-10 H Urine Opiates Screen Negative Urine Methadone Screen Negative Ur Barbiturates Screen Negative Ur Phencyclidine Scrn Negative Ur Amphetamines Screen Negative U Benzodiazepines Scrn Negative U Oth Cocaine Metabols Negative U Cannabinoids Screen Negative Alcohol, Quantitative Blood Type Antibody Screen 11/06/18 11/06/18 12:45 18:00 WBC RBC Hgb Hct MCV MCH MCHC RDW Plt Count MPV Neut % (Auto) Lymph % (Auto) [place] % (Auto) Eos % (Auto) Baso % (Auto) Neut # (Auto) Lymph # (Auto) [place] # (Auto) Eos # (Auto) Baso # (Auto) Neutrophils % (Manual) Lymphocytes % (Manual) Monocytes % (Manual) Platelet Estimate Hypochromasia (manual) Anisocytosis (manual) PT INR APTT Puncture Site Rr Rba pCO2 113 H* 84 H* pO2 301 H 54 L HCO3 29.9 H 28.9 H ABG pH 7.14 L* 7.24 L ABG Total CO2 42.0 H 38.6 H ABG O2 Saturation 99.7 H 92.3 L ABG Base Excess 6.4 H 5.6 H ABG Hemoglobin 11.1 L ABG Carboxyhemoglobin 1.5 POC ABG HHb (Measured) 0.3 ABG Methemoglobin 1.3 Naman Test Pos Na ABG Potassium 4.7 A-a O2 Difference 271.0 91.0 Respiratory Index 0.9 1.7 Hgb O2 Saturation 96.8 Glucose 129 H Lactate 0.6 L Vent Mode Bipap Bipap FiO2 100.0 35.0 Tidal Volume 14 Inspiratory BiPAP 12 18 Expiratory BiPAP 6 8 Crit Value Called To Aaron Macias icu nurse Crit Value Called By Mirela guardadort Jayla rt Crit Value Read Back Y Y Blood Gas Notified Time 1250 1803 Sodium 140.0 Potassium Chloride 104.0 Carbon Dioxide Anion Gap BUN Creatinine Est GFR ( Amer) Est GFR (Non-Af Amer) POC Glucose (mg/dL) Random Glucose Hemoglobin A1c Calcium Total Bilirubin AST ALT Alkaline Phosphatase Ammonia Total Creatine Kinase Troponin I Total Protein Albumin Globulin Albumin/Globulin Ratio Triglycerides Cholesterol LDL Cholesterol Direct HDL Cholesterol Arterial Blood Potassium 4.7 Urine Color Urine Clarity Urine pH Ur Specific [place] Urine Protein Urine Glucose (UA) Urine Ketones Urine Blood Urine Nitrate Urine Bilirubin Urine Urobilinogen Ur Leukocyte Esterase Urine WBC (Auto) Urine RBC (Auto) Ur Squamous Epith Cells Hyaline Casts Urine Opiates Screen Urine Methadone Screen Ur Barbiturates Screen Ur Phencyclidine Scrn Ur Amphetamines Screen U Benzodiazepines Scrn U Oth Cocaine Metabols U Cannabinoids Screen Alcohol, Quantitative Blood Type Antibody Screen
[2018-11-06] MEDS: MethylPREDNISolone 40 mg Vial IVP SCH (21:58)
[2018-11-07] MEDS: Albuterol-Ipratrop 3 mg / 0.5 (3 ml) UD INH SCH ×4 (01:39→20:47)
[2018-11-07] MEDS: MethylPREDNISolone 40 mg Vial IVP SCH ×3 (06:00→22:00)
[2018-11-07 06:06] LABS: BASO % 0.3 % (0.0-2.0); EOS % 0.1 % (0.0-4.0); HEMOGLOBIN 11.6 g/dL (12.0-18.0); LYMPH # 0.3 K/uL (1.0-4.3); LYMPH % 3.7 % (20.0-40.0); MEAN CORPUSCULAR HEMOGLOBIN 31.6 pg (27.0-31.0); MEAN CORPUSCULAR HGB CONC 32.6 g/dL (33.0-37.0); MEAN PLATELET VOLUME 9.7 fL (7.2-11.7); MONO # 0.2 K/uL (0.0-0.8); MONO % 2.4 % (0.0-10.0); NEUT # 6.3 K/uL (1.8-7.0); NEUT % 93.5 % (50.0-75.0); NRBC % 0.1 % (0.0-2.0); PLATELET COUNT 166 K/uL (130-400); RBC 3.65 Mil/uL (4.40-5.90); RED CELL DISTRIBUTION WIDTH 14.7 % (11.5-14.5); WHITE BLOOD COUNT 6.8 K/uL (4.8-10.8)
[2018-11-07 06:29] LABS: ALB/GLOB RATIO 1.1 (1.0-2.1); ALBUMIN 3.4 g/dL (3.5-5.0); CALCIUM 8.8 mg/dl (8.6-10.4)
--- NOTE | 2018-11-07 07:05 | CON ---
DATE: 11/06/2018 CARDIOLOGY CONSULTATION REASON FOR CONSULTATION: Shortness of breath and altered mental status. HISTORY OF PRESENT ILLNESS: The patient is an 83-year-old male who is known to me from last admission in June of last year who has a history of double bypass surgery and aortic valve replacement with a porcine prosthesis in 2013 at [facility] and is being followed by his [employer] Engineer, Dr. Olivas in [place]. The patient also has history of chronic atrial fibrillation and was admitted through the emergency room to the ICU because of shortness of breath and altered mental status. Upon my evaluation to the patient himself, he has ; however, he was cooperative and oriented to place and stated that he saw Dr. Olivas a few weeks ago and reported that he came in because of shortness of breath. The patient denies any history of retrosternal chest pain. SOCIAL HISTORY: The patient is a nonsmoker. He lives with his daughter. MEDICATIONS: Current medications are: Aspirin 81 mg once a day, Zithromax 500 mg intravenously daily, Rocephin 1 g intravenously daily, Coreg 6.25 mg daily, Cozaar 100 mg once a day, Crestor 10 mg once a day, albuterol inhaler every 6 hours p.r.n., Flomax 0.4 mg daily, Solu-Medrol 40 mg intravenously every 6 hours, Vasotec 5 mg orally daily. REVIEW OF SYSTEMS: No reported hypotension, no reported ventricular tachycardia in the ICU. PAST MEDICAL HISTORY: Coronary artery disease, status post double bypass surgery and bioprosthetic aortic valve replacement. PHYSICAL EXAMINATION: GENERAL: The patient is an elderly male who is currently on BiPAP, mildly tachypneic. VITAL SIGNS: Blood pressure 127/62, heart rate 67, temperature 98.2, respirations 35. HEENT: Normocephalic. CHEST: Bilateral rhonchi. HEART: S1 and S2, regular. ABDOMEN: Soft. EXTREMITIES: 2+ pitting edema. Chest x-ray revealed cardiomegaly with moderate CHF and right lateral lower lobe infiltrates. Head CT scan without contrast, no acute findings. Head and neck CT angio: Mild diffuse atherosclerotic calcification, foci of [id number] stenosis noted in the bilateral carotid bifurcation and originally internal carotid arteries. No evidence of occlusion or critical stenosis. Mild aneurysmal dilatation of the ascending thoracic aorta. Mildly enlarged main pulmonary artery. EKG revealed atrial fibrillation at the rate of 77, PVCs versus aberrancy, old septal infarct. LABORATORY DATA: Today's hemoglobin and hematocrit 11.6 and 36.6, white count 6.8, platelet count 168,000. SMA-7: Sodium 140, potassium 4.7, chloride 100, CO2 of 34, glucose 162, BUN 48, creatinine 1.8. Alkaline phosphatase elevated at 268. Lipid profile is within normal limit except for triglycerides of 187. INR is 1.2, PTT 34. Urine drug screen was negative. Echocardiographic study in 06/2018 revealed ejection fraction at a range of 45% to 50% with mild global hypokinesis, indeterminate diastolic function. Severely dilated left atrium, calculated aortic valve area of 1.2 sq cm. Mild mitral insufficiency. Moderate pulmonary hypertension. ASSESSMENT: 1. Congestive heart failure. 2. Consider underlying pneumonia. 3. Coronary artery disease, status post double bypass surgery and bioprosthetic aortic valve replacement. 4. Chronic atrial fibrillation. 5. Chronic renal insufficiency. 6. Moderate pulmonary hypertension. RECOMMENDATIONS: Continue aspirin 81 mg once a day. Continue IV Rocephin and IV Zithromax. Continue Coreg 6.25 mg daily, Cozaar 100 mg daily, Crestor 10 mg once a day. Continue IV Lasix 20 mg twice a day, Solu-Medrol 40 mg intravenously every 8 hours, enalapril at 5 mg daily. Monitor daily EKGs and serial cardiac enzymes. Start therapeutic subcutaneous Lovenox if there is no medical contraindication for full anticoagulation or resume the patient's Xarelto at 15 mg daily. Follow up septic workup including blood cultures. Tyler Dalye MD
[2018-11-07 09:08] LABS: NEUTROPHIL 93 % (50-75); TOTAL CELLS COUNTED 100
[2018-11-07 09:09] LABS: LYMPHOCYTE 4 % (20-40); MONOCYTE 3 % (0-10)
[2018-11-07 09:11] LABS: ANISOCYTOSIS SLIGHT; LARGE PLATELETS PRESENT; PLATELET ESTIMATE NORMAL (NORMAL)
[2018-11-07 09:12] LABS: HYPOCHROMIC SLIGHT
[2018-11-07 09:25] LABS: ARTERIAL BLOOD GAS HCO3 31.1 mmol/L (21-28); ARTERIAL BLOOD GAS O2 SAT 92.7 % (95-98); ARTERIAL BLOOD GAS PCO2 66 mm/Hg (35-45); ARTERIAL BLOOD GAS PH 7.35 (7.35-7.45); ARTERIAL BLOOD GAS PO2 56 mm/Hg (80-100); ARTERIAL BLOOD GAS TCO2 38.4 mmol/L (22-28)
[2018-11-07] MEDS ORDERED: XARELTO 15 MG PO SCH (10:00)
--- NOTE | 2018-11-07 10:37 | RAD ---
Chest x-ray single frontal view HISTORY: Evaluate lungs. COMPARISON: 11/06/2018 FINDINGS: Moderate to severe venous congestion. Prominent patchy increased markings at the lung bases. Enlarged ectatic aorta with calcification at the aortic knob. Cardiomegaly. Status post median sternotomy. Degenerative changes in the spine and shoulders. Impression: Moderate to severe venous congestion. Prominent patchy increased markings at the lung bases. Enlarged ectatic aorta with calcification at the aortic knob. Cardiomegaly. Status post median sternotomy.
[2018-11-07] MEDS: Azithromycin 500 MG in Sodium Chloride 0.9% 250 ML IVPB SCH (11:30)
--- NOTE | 2018-11-07 11:39 | CP.PCM.PN ---
Subjective - Date & Time of Evaluation Date of Evaluation: 11/07/18 Time of Evaluation: 11:30 - Subjective Subjective: Patient more awake, alert in NAD, tolerating nasal cannula on 1 liters Objective - Vital Signs/Intake and Output Vital Signs (last 24 hours): Temp Pulse Resp BP Pulse Ox 98.7 F 85 13 168/72 H 89 L 11/07/18 08:00 11/07/18 09:09 11/07/18 09:09 11/07/18 10:11 11/07/18 09:09 Intake and Output: 11/07/18 11/07/18 06:59 18:59 Intake Total 10 0 Output Total 1350 Balance -1340 0 - Medications Medications: Current Medications Albuterol/Ipratropium (Duoneb 3 Mg/0.5 Mg (3 Ml) Ud) 3 ml INH RQ6 JO-ANN Last Admin: 11/07/18 07:50 Dose: 3 ml Aspirin (Aspirin Chewable) 81 mg PO DAILY JO-ANN Last Admin: 11/07/18 10:11 Dose: 81 mg Furosemide (Lasix) 40 mg IVP BID JO-ANN Last Admin: 11/07/18 10:11 Dose: 40 mg Azithromycin 500 mg/ Sodium (Chloride) 250 mls @ 250 mls/hr IVPB DAILY JO-ANN; Protocol Piperacillin Sod/Tazobactam (Sod 3.375 gm/ Sodium Chloride) 100 mls @ 200 m ls/hr IVPB Q6H JO-ANN; Protocol Methylprednisolone (Solu-Medrol) 40 mg IVP Q8 JO-ANN Last Admin: 11/07/18 06:00 Dose: 40 mg Rivaroxaban (Xarelto) 15 mg PO DAILY JO-ANN Last Admin: 11/07/18 10:18 Dose: 15 mg Rosuvastatin Calcium (Crestor) 10 mg PO HS JO-ANN Last Admin: 11/06/18 22:00 Dose: Not Given Tamsulosin HCl (Flomax) 0.4 mg PO DAILY JO-ANN Last Admin: 11/07/18 10:11 Dose: 0.4 mg - Labs Labs: 11/07/18 05:54 11/07/18 05:54 PT 13.5 SECONDS (9.7-12.2) H 11/06/18 10:39 INR 1.2 11/06/18 10:39 APTT 34 SECONDS (21-34) 11/06/18 10:39 - Constitutional Appears: Well, Non-toxic, No Acute Distress - Head Exam Head Exam: ATRAUMATIC, NORMAL INSPECTION - Eye Exam Eye Exam: EOMI Pupil Exam: PERRL - Respiratory Exam Respiratory Exam: Clear to Ausculation Bilateral, Rales, NORMAL BREATHING PATTERN. absent: Rhonchi, Wheezes - Cardiovascular Exam Cardiovascular Exam: REGULAR RHYTHM, +S1, +S2 - GI/Abdominal Exam GI & Abdominal Exam: Normal Bowel Sounds - Extremities Exam Extremities Exam: Pedal Edema - Neurological Exam Neurological Exam: Alert, Awake, Oriented x3 - Skin Skin Exam: Normal Color Assessment and Plan - Assessment and Plan (Free Text) Assessment: 83 y/o male with pmx of HTN, COPD, CAD, CABG, AVR, A-fib on Xarelta presents to [facility], [place] with AMS (stroke) dx with hypercapneic respiratory failure -Hypercapneic respiratory failure: continue bi-pap to keep spo2 b.w 90-92 and pH b/w 7.35-7.45, continue bronchodilators, + solumedrol -Chronic diastolic and systolic heart failure: continue negative balance, not a candidate for ACEI 2nd renal failure, -at risk of CAD: will beneift rom asa _ statin -A-fib: contineu AC, (consider renal dosing), hold AV tania sergio as patient's HR was near 40s-60s -stroke unlikely, able to move all 4 extremitites -continue dvt/pud ppx -Patient remains hemodynamically stable -AMS improves, -Patient has b/l LE edema and will reiquire negative balance -start oral diet -PT/OT -BI-pap at night -continue to monitor
[2018-11-07] MEDS: Piperacillin/Tazobact 3.375 GM in Sodium Chloride 100 ML IVPB SCH ×3 (13:01→23:30)
--- NOTE | 2018-11-07 18:42 | CP.PCM.PN ---
Subjective - Date & Time of Evaluation Date of Evaluation: 11/07/18 Time of Evaluation: 11:45 - Subjective Subjective: Patient seen and examined today No nausea No vomiting No fever No diarrhea No dizziness No shortness of breath Objective - Vital Signs/Intake and Output Vital Signs (last 24 hours): Temp Pulse Resp BP Pulse Ox 98.7 F 85 11 L 123/88 85 L 11/07/18 16:00 11/07/18 18:09 11/07/18 18:09 11/07/18 18:09 11/07/18 17:10 Intake and Output: 11/07/18 11/07/18 06:59 18:59 Intake Total 10 1660 Output Total 1350 200 Balance -1340 1460 - Medications Medications: Current Medications Albuterol/Ipratropium (Duoneb 3 Mg/0.5 Mg (3 Ml) Ud) 3 ml INH RQ6 JO-ANN Last Admin: 11/07/18 13:47 Dose: 3 ml Aspirin (Aspirin Chewable) 81 mg PO DAILY JO-ANN Last Admin: 11/07/18 10:11 Dose: 81 mg Furosemide (Lasix) 40 mg IVP BID JO-ANN Last Admin: 11/07/18 17:35 Dose: 40 mg Azithromycin 500 mg/ Sodium (Chloride) 250 mls @ 250 mls/hr IVPB DAILY JO-ANN; Protocol Last Admin: 11/07/18 11:30 Dose: 250 mls/hr Piperacillin Sod/Tazobactam (Sod 3.375 gm/ Sodium Chloride) 100 mls @ 200 mls/hr IVPB Q6H JO-ANN; Protocol Last Admin: 11/07/18 17:36 Dose: 200 mls/hr Methylprednisolone (Solu-Medrol) 40 mg IVP Q8 JO-ANN Last Admin: 11/07/18 14:05 Dose: 40 mg Rivaroxaban (Xarelto) 15 mg PO DAILY JO-ANN Last Admin: 11/07/18 10:18 Dose: 15 mg Rosuvastatin Calcium (Crestor) 10 mg PO HS [facility] Last Admin: 11/06/18 22:00 Dose: Not Given Tamsulosin HCl (Flomax) 0.4 mg PO DAILY JO-ANN Last Admin: 11/07/18 10:11 Dose: 0.4 mg - Labs Labs: 11/07/18 05:54 11/07/18 05:54 PT 13.5 SECONDS (9.7-12.2) H 03/15/19 10:39 INR 1.2 11/06/18 10:39 APTT 34 SECONDS (21-34) 11/06/18 10:39 - Constitutional Appears: Well - Head Exam Head Exam: ATRAUMATIC, NORMAL INSPECTION, NORMOCEPHALIC - Eye Exam Eye Exam: EOMI, Normal appearance, PERRL Pupil Exam: NORMAL ACCOMODATION, PERRL - ENT Exam ENT Exam: Mucous Membranes Moist, Normal Exam - Neck Exam Neck Exam: Full ROM, Normal Inspection. absent: Lymphadenopathy - Respiratory Exam Respiratory Exam: Decreased Breath Sounds - Cardiovascular Exam Cardiovascular Exam: REGULAR RHYTHM, +S1, +S2 - GI/Abdominal Exam GI & Abdominal Exam: Soft, Diminished Bowel Sounds - Rectal Exam Rectal Exam: Deferred
--- NOTE | 2018-11-07 21:40 | PN ---
DATE: 11/07/2018 SUBJECTIVE: The patient is oriented to place. He is comfortable on BiPAP. PHYSICAL EXAMINATION: VITAL SIGNS: Blood pressure 122/64, heart rate 66, temperature 98.6, and respiration 15. HEENT: Normocephalic. CHEST: Absent breath sounds over the bases. HEART: S1 and S2 regular. ABDOMEN: Soft. EXTREMITIES: 2+ pitting edema. LABORATORY DATA: Today's hemoglobin and hematocrit are 11.6 and 35.4. White count and platelet counts are within normal limits. Today's SMA-7: Sodium 141, potassium 4.5, chloride 99, CO2 of 35, glucose 117, BUN 49, and creatinine 1.6. Today's chest x-ray revealed cardiomegaly with moderate CHF. ASSESSMENT: 1. Exacerbation of congestive heart failure. 2. Chronic atrial fibrillation. 3. Chronic renal insufficiency. 4. Moderate secondary pulmonary hypertension. 5. Coronary artery disease with history of double bypass surgery and bioprosthetic aortic valve replacement. RECOMMENDATIONS: Continue aspirin 81 mg once a day, IV Zithromax 500 mg daily, Lasix 40 mg intravenous twice a day, IV Zosyn at 3.375 g every 6 hours, Solu-Medrol 40 mg intravenous every 8 hours, and Xarelto 15 mg orally once a day. Tyler Daley MD
[2018-11-08] MEDS: Albuterol-Ipratrop 3 mg / 0.5 (3 ml) UD INH SCH ×4 (01:09→20:01)
[2018-11-08] MEDS: Piperacillin/Tazobact 3.375 GM in Sodium Chloride 100 ML IVPB SCH ×4 (05:30→23:03)
[2018-11-08] MEDS: MethylPREDNISolone 40 mg Vial IVP SCH ×3 (06:10→22:58)
[2018-11-08 06:29] LABS: BASO % 0.2 % (0.0-2.0); HEMOGLOBIN 11.3 g/dL (12.0-18.0); LYMPH # 0.2 K/uL (1.0-4.3); LYMPH % 3.4 % (20.0-40.0); MEAN CELL VOLUME 96.1 fL (80.0-94.0); MEAN CORPUSCULAR HEMOGLOBIN 31.5 pg (27.0-31.0); MEAN CORPUSCULAR HGB CONC 32.8 g/dL (33.0-37.0); MEAN PLATELET VOLUME 9.7 fL (7.2-11.7); MONO # 0.3 K/uL (0.0-0.8); MONO % 4.6 % (0.0-10.0); NEUT # 6.5 K/uL (1.8-7.0); NEUT % 91.8 % (50.0-75.0); NRBC % 0.1 % (0.0-2.0); PLATELET COUNT 164 K/uL (130-400); RBC 3.59 Mil/uL (4.40-5.90); RED CELL DISTRIBUTION WIDTH 14.4 % (11.5-14.5); WHITE BLOOD COUNT 7.1 K/uL (4.8-10.8)
[2018-11-08 06:41] LABS: ALBUMIN 3.3 g/dL (3.5-5.0); CALCIUM 8.7 mg/dl (8.6-10.4)
[2018-11-08 08:57] LABS: LYMPHOCYTE 6 % (20-40); MONOCYTE 5 % (0-10); NEUTROPHIL 89 % (50-75); TOTAL CELLS COUNTED 100
[2018-11-08 08:58] LABS: PLATELET ESTIMATE NORMAL (NORMAL)
[2018-11-08 09:02] LABS: ANISOCYTOSIS SLIGHT; LARGE PLATELETS PRESENT
[2018-11-08 09:03] LABS: HYPOCHROMIC SLIGHT
[2018-11-08] MEDS: Azithromycin 500 MG in Sodium Chloride 0.9% 250 ML IVPB SCH (09:38)
--- NOTE | 2018-11-08 13:55 | CP.PCM.PN ---
Subjective - Date & Time of Evaluation Date of Evaluation: 11/08/18 Time of Evaluation: 13:56 - Subjective Subjective: Patient awake, alert, talking to his daughter, patient refused to move out of bed to chair Objective - Vital Signs/Intake and Output Vital Signs (last 24 hours): Temp Pulse Resp BP Pulse Ox 97.5 F L 62 18 127/64 95 11/08/18 12:00 11/08/18 13:43 11/08/18 13:00 11/08/18 13:00 11/08/18 13:00 Intake and Output: 11/08/18 11/08/18 06:59 18:59 Intake Total 420 290 Output Total 2000 Balance -1580 290 - Medications Medications: Current Medications Albuterol/Ipratropium (Duoneb 3 Mg/0.5 Mg (3 Ml) Ud) 3 ml INH RQ6 JO-ANN Last Admin: 11/08/18 13:43 Dose: 3 ml Aspirin (Aspirin Chewable) 81 mg PO DAILY JO-ANN Last Admin: 11/08/18 09:39 Dose: 81 mg Furosemide (Lasix) 40 mg IVP BID JO-ANN Last Admin: 11/08/18 09:39 Dose: 40 mg Azithromycin 500 mg/ Sodium (Chloride) 250 mls @ 250 mls/hr IVPB DAILY JO-ANN; Protocol Last Admin: 11/08/18 09:38 Dose: 250 mls/hr Piperacillin Sod/Tazobactam (Sod 3.375 gm/ Sodium Chloride) 100 mls @ 200 mls/hr IVPB Q6H JO-ANN; Protocol Last Admin: 11/08/18 05:30 Dose: 200 mls/hr Methylprednisolone (Solu-Medrol) 40 mg IVP Q8 JO-ANN Last Admin: 11/08/18 06:10 Dose: 40 mg Rivaroxaban (Xarelto) 15 mg PO DAILY JO-ANN Last Admin: 11/08/18 09:38 Dose: 15 mg Rosuvastatin Calcium (Crestor) 10 mg PO HS JO-ANN Last Admin: 11/07/18 22:00 Dose: 10 mg Tamsulosin HCl (Flomax) 0.4 mg PO DAILY JO-ANN Last Admin: 11/08/18 09:39 Dose: 0.4 mg - Labs Labs: 11/08/18 06:12 11/08/18 06:12 PT 13.5 SECONDS (9.7-12.2) H 11/06/18 10:39 INR 1.2 11/06/18 10:39 APTT 34 SECONDS (21-34) 11/06/18 10:39 - Head Exam Head Exam: ATRAUMATIC, NORMAL INSPECTION, NORMOCEPHALIC - Eye Exam Pupil Exam: NORMAL ACCOMODATION, PERRL - ENT Exam ENT Exam: Mucous Membranes Moist - Respiratory Exam Respiratory Exam: Clear to Ausculation Bilateral, Rales, NORMAL BREATHING PATTERN - Cardiovascular Exam Cardiovascular Exam: REGULAR RHYTHM, +S1, +S2 - GI/Abdominal Exam GI & Abdominal Exam: Soft, Normal Bowel Sounds - Extremities Exam Extremities Exam: Pedal Edema - Neurological Exam Neurological Exam: Alert, Awake, Oriented x3 - Skin Skin Exam: Normal Color Assessment and Plan - Assessment and Plan (Free Text) Assessment: 83 y/o male with pmx of HTN, COPD, CAD, CABG, AVR, A-fib on Xarelta presents to [facility] with AMS (stroke) dx with hypercapneic respiratory failure -Hypercapneic respiratory failure: resolved while on bi-pap at night, titrate FiO2, keep spo2 b.w 90-92 and pH b/w 7.35-7.45, continue bronchodilators, + solumedrol -Chronic diastolic and systolic heart failure: continue negative balance, not a candidate for ACEI 2nd renal failure, -at risk of CAD: will benefit from asa + statin -A-fib: continue AC, (consider renal dosing), hold AV tania sergio as patient's HR was near 40s-60s -stroke: resolved, able to move all 4 extremities. at his baseline -continue dvt/pud ppx -Patient remains hemodynamically stable -AMS improves, -Patient has b/l LE edema and will require negative balance -start oral diet -PT/OT -BI-pap at night -continue to monitor -avoid sedation
--- NOTE | 2018-11-08 14:09 | RAD ---
Chest x-ray single frontal view HISTORY: Pneumonia. Comparison: 11/07/2018 Findings: Moderate venous congestion. Patchy increased consolidative changes at the lung bases; right greater than left. Small nodular density in the right midlung zone. Enlarged ectatic aorta with calcification at the aortic knob. Status post median sternotomy. Cardiomegaly. Degenerative changes in the spine. Impression: Moderate venous congestion. Patchy increased consolidative changes at the lung bases; right greater than left. Small nodular density in the right midlung zone. Enlarged ectatic aorta with calcification at the aortic knob. Status post median sternotomy. Cardiomegaly.
--- NOTE | 2018-11-08 19:39 | CP.PCM.PN ---
Subjective - Date & Time of Evaluation Date of Evaluation: 11/08/18 Time of Evaluation: 12:00 - Subjective Subjective: Patient seen and examined today No nausea No vomiting No fever No diarrhea No dizziness No shortness of breath Objective - Vital Signs/Intake and Output Vital Signs (last 24 hours): Temp Pulse Resp BP Pulse Ox 98.3 F 68 20 122/68 98 11/08/18 16:00 11/08/18 19:00 11/08/18 19:00 11/08/18 19:00 11/08/18 19:00 Intake and Output: 11/08/18 11/09/18 18:59 06:59 Intake Total 810 0 Output Total 550 Balance 260 0 - Medications Medications: Current Medications Albuterol/Ipratropium (Duoneb 3 Mg/0.5 Mg (3 Ml) Ud) 3 ml INH RQ6 JO-ANN Last Admin: 11/08/18 13:43 Dose: 3 ml Aspirin (Aspirin Chewable) 81 mg PO DAILY JO-ANN Last Admin: 11/08/18 09:39 Dose: 81 mg Furosemide (Lasix) 40 mg IVP BID JO-ANN Last Admin: 11/08/18 17:18 Dose: 40 mg Azithromycin 500 mg/ Sodium (Chloride) 250 mls @ 250 mls/hr IVPB DAILY JO-ANN; Protocol Last Admin: 11/08/18 09:38 Dose: 250 mls/hr Piperacillin Sod/Tazobactam (Sod 3.375 gm/ Sodium Chloride) 100 mls @ 200 mls/hr IVPB Q6H JO-ANN; Protocol Last Admin: 11/08/18 17:17 Dose: 200 mls/hr Methylprednisolone (Solu-Medrol) 40 mg IVP Q8 JO-ANN Last Admin: 11/08/18 14:00 Dose: 40 mg Rivaroxaban (Xarelto) 15 mg PO DAILY JO-ANN Last Admin: 11/08/18 09:38 Dose: 15 mg Rosuvastatin Calcium (Crestor) 10 mg PO HS JO-ANN Last Admin: 11/07/18 22:00 Dose: 10 mg Tamsulosin HCl (Flomax) 0.4 mg PO DAILY JO-ANN Last Admin: 11/08/18 09:39 Dose: 0.4 mg - Labs Labs: 11/08/18 06:12 11/08/18 06:12 PT 13.5 SECONDS (9.7-12.2) H 11/06/18 10:39 INR 1.2 11/06/18 10:39 APTT 34 SECONDS (21-34) 11/06/18 10:39 - Constitutional Appears: Well - Head Exam Head Exam: ATRAUMATIC, NORMAL INSPECTION, NORMOCEPHALIC - Eye Exam Eye Exam: EOMI, Normal appearance, PERRL Pupil Exam: NORMAL ACCOMODATION, PERRL - ENT Exam ENT Exam: Mucous Membranes Moist, Normal Exam - Neck Exam Neck Exam: Full ROM, Normal Inspection. absent: Lymphadenopathy - Respiratory Exam Respiratory Exam: Decreased Breath Sounds - Cardiovascular Exam Cardiovascular Exam: REGULAR RHYTHM, +S1, +S2 - GI/Abdominal Exam GI & Abdominal Exam: Soft, Diminished Bowel Sounds - Rectal Exam Rectal Exam: Deferred
--- NOTE | 2018-11-08 22:52 | PN ---
DATE: 11/08/2018 SUBJECTIVE: The patient is currently on BiPAP. His daughter is at the bedside. His wheezing is much better than previous day. He is experiencing productive cough. PHYSICAL EXAMINATION: VITAL SIGNS: Blood pressure 146/90, heart rate 73, temperature 98.3, respirations 21. HEENT: Normocephalic. CHEST: Bibasilar coarse crepitations. HEART: S1, S2 regular. EXTREMITIES: 2+ pitting edema. LABORATORY DATA: Hemoglobin and hematocrit 11.3 and 34.5. White count and platelet count are within normal limits. Today's SMA-7, sodium 139, potassium 4, chloride 94, CO2 of 39, glucose 142, BUN 66, creatinine 1.8. I did review today's chest x-ray. The official report is consistent with moderate venous congestion but increased consolidative changes at the lung bases, right greater than left. Enlarged ectatic aorta. ASSESSMENT: 1. Bilateral pneumonia. 2. Exacerbation of congestive heart failure. 3. Chronic atrial fibrillation. 4. Chronic renal insufficiency. 5. Coronary artery disease, status post double bypass surgery and bioprosthetic aortic valve replacement. RECOMMENDATIONS: Continue aspirin 81 mg once a day, IV Zithromax 500 mg daily, Crestor 10 mg once a day, albuterol inhaler every 6 hours, Lasix 40 mg intravenous twice a day, Solu-Medrol 40 mg intravenous every 8 hours, Zosyn at 3.375 g intravenous every 6 hours, Xarelto 15 mg once a day. Case was discussed with the patient's daughter at the bedside. Tyler Daley MD
[2018-11-09] MEDS: Albuterol-Ipratrop 3 mg / 0.5 (3 ml) UD INH SCH ×4 (01:30→19:46)
[2018-11-09] MEDS: Piperacillin/Tazobact 3.375 GM in Sodium Chloride 100 ML IVPB SCH ×4 (05:00→23:49)
[2018-11-09] MEDS: MethylPREDNISolone 40 mg Vial IVP SCH ×3 (05:02→22:15)
[2018-11-09 05:40] LABS: ARTERIAL BLOOD GAS HCO3 39.3 mmol/L (21-28); ARTERIAL BLOOD GAS O2 SAT 98.1 % (95-98); ARTERIAL BLOOD GAS PCO2 61 mm/Hg (35-45); ARTERIAL BLOOD GAS PH 7.48 (7.35-7.45); ARTERIAL BLOOD GAS PO2 99 mm/Hg (80-100); ARTERIAL BLOOD GAS TCO2 47.3 mmol/L (22-28)
[2018-11-09 06:44] LABS: EOS % 0.1 % (0.0-4.0); HEMOGLOBIN 12.3 g/dL (12.0-18.0); LYMPH # 0.2 K/uL (1.0-4.3); LYMPH % 3.3 % (20.0-40.0); MEAN CORPUSCULAR HEMOGLOBIN 31.5 pg (27.0-31.0); MEAN CORPUSCULAR HGB CONC 32.8 g/dL (33.0-37.0); MEAN PLATELET VOLUME 9.8 fL (7.2-11.7); MONO # 0.3 K/uL (0.0-0.8); MONO % 4.7 % (0.0-10.0); NEUT # 6.8 K/uL (1.8-7.0); NEUT % 91.9 % (50.0-75.0); NRBC % 0.2 % (0.0-2.0); PLATELET COUNT 148 K/uL (130-400); RBC 3.91 Mil/uL (4.40-5.90); RED CELL DISTRIBUTION WIDTH 14.6 % (11.5-14.5); WHITE BLOOD COUNT 7.4 K/uL (4.8-10.8)
[2018-11-09 06:55] LABS: ALBUMIN 3.2 g/dL (3.5-5.0); CALCIUM 8.4 mg/dl (8.6-10.4)
--- NOTE | 2018-11-09 07:47 | CP.CCUPN ---
CCU Subjective - Physician Review Subjective (Free Text): ICU Progress Note for Dr. Patten Pt seen and examined at bedside this am. Denies any acute complaints. Saturating on NC at bedside in no acute distress. No acute events reported overnight by staff. Denies fever, chills, chest pain, sob, n/v/d/c, abd pain, urinary complaints, or other symptoms. CCU Objective - Vital Signs / Intake & Output Vital Signs (Last 4 hours): Vital Signs Temp Pulse Resp BP Pulse Ox 11/09/18 07:41 74 11/09/18 07:10 64 24 186/95 H 100 11/09/18 06:10 64 11/09/18 06:09 64 16 142/78 95 11/09/18 05:10 63 18 165/87 H 99 11/09/18 04:09 63 16 164/89 H 96 11/09/18 04:00 98.5 F 97 Intake and Output (Last 8hrs): Intake & Output 11/08/18 11/09/18 11/09/18 22:59 06:59 14:59 Intake Total 240 750 0 Output Total 550 750 0 Balance -310 0 0 Weight 249 lb 8 oz Intake: Intake, IV Amount 150 Left Antecubital 150 Oral 240 600 0 Output: Urine 550 750 0 Urine, Voided 550 750 0 Other: # Bowel Movements 0 0 - Physical Exam Head: Positive for: Atraumatic, Normocephalic Pupils: Positive for: PERRL Extroacular Muscles: Positive for: EOMI Mouth: Positive for: Moist Mucous Membranes Neck: Positive for: Normal Range of Motion. Negative for: JVD, Lymphadenopathy Respiratory/Chest: Positive for: Clear to Auscultation. Negative for: Wheezes, Rales, Rhonchi Cardiovascular: Positive for: Regular Rate and Rhythm, Normal S1, S2. Negative for: Murmurs, Rub, Gallop Abdomen: Positive for: Normal Bowel Sounds. Negative for: Tenderness, Distention, Mass/Organomegaly Upper Extremity: Positive for: Normal Inspection, Edema, NORMAL PULSES, Neurovascularly Intact, Capillary Refill < 2s. Negative for: Cyanosis Lower Extremity: Positive for: Normal Inspection, Edema, NORMAL PULSES, Neurovascularly Intact, Capillary Refill < 2 s Neurological: Positive for: GCS=15, CN II-XII Intact, Speech Normal Skin: Positive for: Warm, Dry, Normal Color Psychiatric: Positive for: Alert, Oriented x 3 - Medications Active Medications: Active Medications Generic Name Dose Route Start Last Admin Trade Name Raulq PRN Reason Stop Dose Admin Albuterol/Ipratropium 3 ml 11/07/18 02:00 11/09/18 01:30 Duoneb 3 Mg/0.5 Mg (3 Ml) Ud INH 3 ml RQ6 [facility] Administration Aspirin 81 mg 11/07/18 10:00 11/08/18 09:39 Aspirin Chewable PO 81 mg DAILY [facility] Administration Furosemide 40 mg 11/06/18 20:15 11/08/18 17:18 Lasix IVP 40 mg BID [facility] Administration Hydralazine HCl 25 mg 11/09/18 07:38 Apresoline PO 11/09/18 07:39 ONCE ONE Azithromycin 500 mg/ Sodium 250 mls @ 250 mls/hr 11/07/18 10:00 11/08/18 09:38 Chloride IVPB 250 mls/hr DAILY [facility] Administration Protocol Piperacillin Sod/Tazobactam 100 mls @ 200 mls/hr 11/07/18 11:30 11/09/18 0 5:00 Sod 3.375 gm/ Sodium Chloride IVPB 200 mls/hr Q6H [facility] Administration Protocol Methylprednisolone 40 mg 11/06/18 22:00 11/09/18 05:02 Solu-Medrol IVP 40 mg Q8 [facility] Administration Rivaroxaban 15 mg 11/07/18 10:00 11/08/18 09:38 Xarelto PO 15 mg DAILY [facility] Administration Rosuvastatin Calcium 10 mg 11/06/18 22:00 11/08/18 22:59 Crestor PO 10 mg HS [facility] Administration Tamsulosin HCl 0.4 mg 11/07/18 10:00 11/08/18 09:39 Flomax PO 0.4 mg DAILY JO-ANN Administration - Patient Studies Lab Studies: Microbiology Studies 11/06/18 11:50 Blood Culture - Preliminary Blood NO GROWTH AFTER 48 HOURS 11/06/18 10:52 Blood Culture - Preliminary Blood NO GROWTH AFTER 48 HOURS Lab Studies 11/09/18 11/09/18 11/09/18 Range/Units 06:37 06:37 05:24 WBC 7.4 (4.8-10.8) K/uL RBC 3.91 L (4.40-5.90) Mil/uL Hgb 12.3 (12.0-18.0) g/dL Hct 37.5 (35.0-51.0) % MCV 96.0 H (80.0-94.0) fL MCH 31.5 H (27.0-31.0) pg MCHC 32.8 L (33.0-37.0) g/dL RDW 14.6 H (11.5-14.5) % Plt Count 148 (130-400) K/uL MPV 9.8 (7.2-11.7) fL Neut % (Auto) 91.9 H (50.0-75.0) % Lymph % (Auto) 3.3 L (20.0-40.0) % Jay % (Auto) 4.7 (0.0-10.0) % Eos % (Auto) 0.1 (0.0-4.0) % Baso % (Auto) 0.0 (0.0-2.0) % Neut # (Auto) 6.8 (1.8-7.0) K/uL Lymph # (Auto) 0.2 L (1.0-4.3) K/uL Jay # (Auto) 0.3 (0.0-0.8) K/uL Eos # (Auto) 0.0 (0.0-0.7) K/uL Baso # (Auto) 0.0 (0.0-0.2) K/uL Neutrophils % (Manual) (50-75) % Lymphocytes % (Manual) (20-40) % Monocytes % (Manual) (0-10) % Platelet Estimate (NORMAL) Large Platelets Hypochromasia (manual) Anisocytosis (manual) Puncture Site Rb pCO2 61 H (35-45) mm/Hg pO2 99 (80-100) mm/Hg HCO3 39.3 H (21-28) mmol/L ABG pH 7.48 H (7.35-7.45) ABG Total CO2 47.3 H (22-28) mmol/L ABG O2 Saturation 98.1 H (95-98) % ABG Base Excess 18.4 H (-2.0-3.0) mmol/L Naman Test Na ABG Potassium 3.7 (3.6-5.2) mmol/L A-a O2 Difference 74.0 mm/Hg Respiratory Index 0.7 Sodium 136 140.0 (132-148) mmol/l Chloride 93 L 99.0 (98-107) mmol/L Glucose 159 H (75-110) mg/dl Lactate 2.4 H (0.7-2.1) mmol/L Vent Mode Bipap FiO2 35.0 % Inspiratory BiPAP 14 Expiratory BiPAP 6 Potassium 4.3 (3.6-5.2) mmol/L Carbon Dioxide 37 H (22-30) mmol/L Anion Gap 10 (10-20) BUN 56 H (9-20) mg/dL Creatinine 1.7 H (0.8-1.5) mg/dL Est GFR ( Amer) 47 Est GFR (Non-Af Amer) 38 Random Glucose 148 H (75-110) mg/dL Calcium 8.4 L (8.6-10.4) mg/dl Phosphorus 4.2 (2.5-4.5) mg/dL Magnesium 2.0 (1.6-2.3) mg/dL Total Bilirubin 0.6 (0.2-1.3) mg/dL AST 34 (17-59) U/L ALT 11 L D (21-72) U/L Alkaline Phosphatase 229 H (38-126) U/L Total Protein 6.3 (6.3-8.3) g/dL Albumin 3.2 L (3.5-5.0) g/dL Globulin 3.1 (2.2-3.9) gm/dL Albumin/Globulin Ratio 1.0 (1.0-2.1) Arterial Blood Potassium 3.7 (3.6-5.2) mmol/L Random Vancomycin ug/mL 11/08/18 11/08/18 Range/Units 12:11 06:12 WBC (4.8-10.8) K/uL RBC (4.40-5.90) Mil/uL Hgb (12.0-18.0) g/dL Hct (35.0-51.0) % MCV (80.0-94.0) fL MCH (27.0-31.0) pg MCHC (33.0-37.0) g/dL RDW (11.5-14.5) % Plt Count (130-400) K/uL MPV (7.2-11.7) fL Neut % (Auto) (50.0-75.0) % Lymph % (Auto) (20.0-40.0) % Jay % (Auto) (0.0-10.0) % Eos % (Auto) (0.0-4.0) % Baso % (Auto) (0.0-2.0) % Neut # (Auto) (1.8-7.0) K/uL Lymph # (Auto) (1.0-4.3) K/uL Jay # (Auto) (0.0-0.8) K/uL Eos # (Auto) (0.0-0.7) K/uL Baso # (Auto) (0.0-0.2) K/uL Neutrophils % (Manual) 89 H (50-75) % Lymphocytes % (Manual) 6 L (20-40) % Monocytes % (Manual) 5 (0-10) % Platelet Estimate Normal (NORMAL) Large Platelets Present Hypochromasia (manual) Slight Anisocytosis (manual) Slight Puncture Site pCO2 (35-45) mm/Hg pO2 (80-100) mm/Hg HCO3 (21-28) mmol/L ABG pH (7.35-7.45) ABG Total CO2 (22-28) mmol/L ABG O2 Saturation (95-98) % ABG Base Excess (-2.0-3.0) mmol/L Naman Test ABG Potassium (3.6-5.2) mmol/L A-a O2 Difference mm/Hg Respiratory Index Sodium (132-148) mmol/l Chloride (98-107) mmol/L Glucose (75-110) mg/dl Lactate (0.7-2.1) mmol/L Vent Mode FiO2 % Inspiratory BiPAP Expiratory BiPAP Potassium (3.6-5.2) mmol/L Carbon Dioxide (22-30) mmol/L Anion Gap (10-20) BUN (9-20) mg/dL Creatinine (0.8-1.5) mg/dL Est GFR ( Amer) Est GFR (Non-Af Amer) Random Glucose (75-110) mg/dL Calcium (8.6-10.4) mg/dl Phosphorus (2.5-4.5) mg/dL Magnesium (1.6-2.3) mg/dL Total Bilirubin (0.2-1.3) mg/dL AST (17-59) U/L ALT (21-72) U/L Alkaline Phosphatase (38-126) U/L Total Protein (6.3-8.3) g/dL Albumin (3.5-5.0) g/dL Globulin (2.2-3.9) gm/dL Albumin/Globulin Ratio (1.0-2.1) Arterial Blood Potassium (3.6-5.2) mmol/L Random Vancomycin < 5.0 ug/mL Laboratory Results - last 24 hr 11/08/18 11/08/18 11/09/18 06:12 12:11 05:24 WBC RBC Hgb Hct MCV MCH MCHC RDW Plt Count MPV Neut % (Auto) Lymph % (Auto) Jay % (Auto) Eos % (Auto) Baso % (Auto) Neut # (Auto) Lymph # (Auto) Jay # (Auto) Eos # (Auto) Baso # (Auto) Neutrophils % (Manual) 89 H Lymphocytes % (Manual) 6 L Monocytes % (Manual) 5 Platelet Estimate Normal Large Platelets Present Hypochromasia (manual) Slight Anisocytosis (manual) Slight Puncture Site Rb pCO2 61 H pO2 99 HCO3 39.3 H ABG pH 7.48 H ABG Total CO2 47.3 H ABG O2 Saturation 98.1 H ABG Base Excess 18.4 H Naman Test Na ABG Potassium 3.7 A-a O2 Difference 74.0 Respiratory Index 0.7 Sodium 140.0 Chloride 99.0 Glucose 159 H Lactate 2.4 H Vent Mode Bipap FiO2 35.0 Inspiratory BiPAP 14 Expiratory BiPAP 6 Potassium Carbon Dioxide Anion Gap BUN Creatinine Est GFR ( Amer) Est GFR (Non-Af Amer) Random Glucose Calcium Phosphorus Magnesium Total Bilirubin AST ALT Alkaline Phosphatase Total Protein Albumin Globulin Albumin/Globulin Ratio Arterial Blood Potassium 3.7 Random Vancomycin < 5.0 11/09/18 11/09/18 06:37 06:37 WBC 7.4 RBC 3.91 L Hgb 12.3 Hct 37.5 MCV 96.0 H MCH 31.5 H MCHC 32.8 L RDW 14.6 H Plt Count 148 MPV 9.8 Neut % (Auto) 91.9 H Lymph % (Auto) 3.3 L Jay % (Auto) 4.7 Eos % (Auto) 0.1 Baso % (Auto) 0.0 Neut # (Auto) 6.8 Lymph # (Auto) 0.2 L Jay # (Auto) 0.3 Eos # (Auto) 0.0 Baso # (Auto) 0.0 Neutrophils % (Manual) Lymphocytes % (Manual) Monocytes % (Manual) Platelet Estimate Large Platelets Hypochromasia (manual) Anisocytosis (manual) Puncture Site pCO2 pO2 HCO3 ABG pH ABG Total CO2 ABG O2 Saturation ABG Base Excess Naman Test ABG Potassium A-a O2 Difference Respiratory Index Sodium 136 Chloride 93 L Glucose Lactate Vent Mode FiO2 Inspiratory BiPAP Expiratory BiPAP Potassium 4.3 Carbon Dioxide 37 H Anion Gap 10 BUN 56 H Creatinine 1.7 H Est GFR ( Amer) 47 Est GFR (Non-Af Amer) 38 Random Glucose 148 H Calcium 8.4 L Phosphorus 4.2 Magnesium 2.0 Total Bilirubin 0.6 AST 34 ALT 11 L D Alkaline Phosphatase 229 H Total Protein 6.3 Albumin 3.2 L Globulin 3.1 Albumin/Globulin Ratio 1.0 Arterial Blood Potassium Random Vancomycin Radiology Impressions: Radiology Impressions Chest X-Ray 11/08/18 12:07 Impression: Moderate venous congestion. Patchy increased consolidative changes at the lung bases; right greater than left. Small nodular density in the right midlung zone. Enlarged ectatic aorta with calcification at the aortic knob. Status post median sternotomy. Cardiomegaly. Fingerstick Blood Sugar Results: 183 Review of Systems - Constitutional Constitutional: absent: Fever, Chills, Sweats - EENT Eyes: absent: Change in Vision - Cardiovascular Cardiovascular: absent: Chest Pain, Diaphoresis, Dyspnea on Exertion, Pain Radiating to Arm/Neck/Jaw - Respiratory Respiratory: absent: Cough, Dyspnea, Wheezing - Gastrointestinal Gastrointestinal: absent: Abdominal Pain, Constipation, Diarrhea, Nausea, Vomiting Critical Care Progress Note - Nutrition Nutrition: Nutrition Category Date Time Status Heart Healthy Diet [DIET] Diets 11/08/18 Dinner Active Assessment/Plan - Assessment and Plan (Free Text) Assessment: This is an 83 y o male with PMhx COPD, CHF, hypercapnia, CAG, s/p CABG, AVR, and A-fib on Xarelto who presented to the ED today BiB[facility] after family called 911 for ambulance; per report stated that they were on phone talking to pt when he started experiencing difficulty breathing and AMS. Admitted to ICU for for respiratory distress, likely 2/2 to CHF exacerbation. Plan: Neuro: -AAox3 on exam -Head CT: no evidence of acute ICH, mass effect or midline shift -Head/neck CTA: Moderate diffuse atherosclerotic calcification. Foci of mild to moderate stenosis noted the b/l carotid bifrucation and origin of internal carotid arteries. No evidence of occlusion or critical stenosis in intracranial arteries. 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 Mildly enlarged main pulmonary artery. -Neurology consulted, Dr. Staton, recs appreciated Code Stroke called on pt on initial presentation in ED, however pt did not appear with focal deficits on exam. AMS may be 2/2 systemic causes Recommend c/w home meds ASA and Xarelto -Cont to monitor Cardio: -CHF exacerbation -Currently on BiPap, maintain O2 sat > 92% -C/w home med Lasix -ASA, Xarelto -Crestor -Cardiology consulted, Dr. Daley, recs appreciated -Vitals stable, cont to monitor clinically Pulm: -C/w BiPap at night, NC during day -Respiratory distress may be 2/2 CHF exacerbation -ABG on admission: 7.14/113/301/29.9, pt presented with hypercapnic respiratory acidosis -Maintain O2 sat > 92% -[facility] -Dr. Piña consulted, recs appreciated -Solu-Medrol 40 mg IVP q8h GI: -HHD -No ppx needed at this time -Cont to monitor -No acute issues at this time Heme/ID: -H/H 12.3/37.5, cont to trend -No leukocytosis, cont to trend -Currently on Zosyn and Zithromax -Sputum, blood and urine cxs demonstrate NGTD Renal: -BUN/Cr 56/1.7, cont to trend -C/w Flomax -Trend I's/O's PPX: -DVT: SCD -GI: n/a Dispo: Stable for transfer from ICU to telemetry floor at this time. Pt seen, examined with, and plan discussed with Dr. Patten, attending physician. Juan A Beal DO PGY-1, Continuous Wave Operator Pager #[phone]
[2018-11-09 08:42] LABS: LYMPHOCYTE 4 % (20-40); MONOCYTE 4 % (0-10); NEUTROPHIL 92 % (50-75); PLATELET ESTIMATE NORMAL (NORMAL); TOTAL CELLS COUNTED 100
[2018-11-09] MEDS: Azithromycin 500 MG in Sodium Chloride 0.9% 250 ML IVPB SCH (09:36)
[2018-11-09] MEDS: Oxycodone/Acetaminophen 5/325 mg Tab PO PRN ×2 (16:34→23:46)
[2018-11-09] MEDS: (Novolin R) Insulin Human Regular 100 units/ml vial SC SCH ×2 (17:00→22:10)
--- NOTE | 2018-11-09 20:36 | CP.PCM.PN ---
Subjective - Date & Time of Evaluation Date of Evaluation: 11/09/18 Time of Evaluation: 11:00 - Subjective Subjective: clinically same Objective - Vital Signs/Intake and Output Vital Signs (last 24 hours): Temp Pulse Resp BP Pulse Ox 99.2 F 72 20 130/71 97 11/09/18 20:00 11/09/18 20:00 11/09/18 20:00 11/09/18 20:00 11/09/18 20:00 Intake and Output: 11/09/18 11/10/18 18:59 06:59 Intake Total 964 Output Total 850 Balance 114 - Medications Medications: Current Medications Albuterol/Ipratropium (Duoneb 3 Mg/0.5 Mg (3 Ml) Ud) 3 ml INH RQ6 [facility] Last Admin: 11/09/18 19:46 Dose: 3 ml Aspirin (Aspirin Chewable) 81 mg PO DAILY [facility] Last Admin: 11/09/18 09:38 Dose: 81 mg Furosemide (Lasix) 40 mg IVP BID [facility] Last Admin: 11/09/18 17:35 Dose: 40 mg Azithromycin 500 mg/ Sodium (Chloride) 250 mls @ 250 mls/hr IVPB DAILY [facility]; Protocol Last Admin: 11/09/18 09:36 Dose: 250 mls/hr Piperacillin Sod/Tazobactam (Sod 3.375 gm/ Sodium Chloride) 100 mls @ 200 mls/hr IVPB Q6H [facility]; Protocol Last Admin: 11/09/18 16:35 Dose: 200 mls/hr Insulin Human Regular (Novolin R) 0 unit SC ACHS [facility]; Protocol Last Admin: 11/09/18 17:00 Dose: 6 u Methylprednisolone (Solu-Medrol) 40 mg IVP Q8 [facility] Last Admin: 11/09/18 13:13 Dose: 40 mg Oxycodone/Acetaminophen (Percocet 5/325 Mg Tab) 1 tab PO Q6H PRN PRN Reason: back pain Stop: 11/12/18 16:26 Last Admin: 11/09/18 16:34 Dose: 1 tab Rivaroxaban (Xarelto) 15 mg PO DAILY [facility] Last Admin: 11/09/18 09:38 Dose: 15 mg Rosuvastatin Calcium (Crestor) 10 mg PO HS [facility] Last Admin: 11/08/18 22:59 Dose: 10 mg Tamsulosin HCl (Flomax) 0.4 mg PO DAILY [facility] Last Admin: 11/09/18 09:38 Dose: 0.4 mg - Labs Labs: 11/09/18 06:37 11/09/18 06:37 PT 13.5 SECONDS (9.7-12.2) H 11/06/18 10:39 INR 1.2 11/06/18 10:39 APTT 34 SECONDS (21-34) 11/06/18 10:39 - Constitutional Appears: Well - Head Exam Head Exam: ATRAUMATIC, NORMAL INSPECTION, NORMOCEPHALIC - Eye Exam Eye Exam: EOMI, Normal appearance, PERRL Pupil Exam: NORMAL ACCOMODATION, PERRL - ENT Exam ENT Exam: Mucous Membranes Moist, Normal Exam - Neck Exam Neck Exam: Full ROM, Normal Inspection. absent: Lymphadenopathy - Respiratory Exam Respiratory Exam: Decreased Breath Sounds - Cardiovascular Exam Cardiovascular Exam: REGULAR RHYTHM, +S1, +S2 - GI/Abdominal Exam GI & Abdominal Exam: Soft, Diminished Bowel Sounds - Rectal Exam Rectal Exam: Deferred
--- NOTE | 2018-11-09 22:25 | PN ---
DATE: 11/09/2018 SUBJECTIVE: The patient is experiencing generalized body pain, most likely related to his cough. The patient denies any specific retrosternal chest pain. PHYSICAL EXAMINATION: VITAL SIGNS: Blood pressure 95/49, heart rate 65, temperature 98.1, respirations 20. HEENT: Normocephalic. CHEST: Bibasilar rhonchi. HEART: S1, S2 regular. ABDOMEN: Soft. EXTREMITIES: Slightly improved leg edema. LABORATORY DATA: Hemoglobin and hematocrit of 12.3 and 37.5. White count and platelet count are within normal limits. SMA-7: Sodium 136, potassium 4.3, chloride 93, CO2 of 37, glucose 148, BUN 56, creatinine 1.7. ASSESSMENT: 1. Exacerbation of congestive heart failure. 2. Chronic atrial fibrillation. 3. Coronary artery disease with history of double bypass surgery and bioprosthetic aortic valve replacement. 4. Chronic renal insufficiency. 5. Moderate pulmonary hypertension. RECOMMENDATIONS: Continue aspirin 81 mg once a day, IV Zithromax 500 mg daily, Crestor 10 mg once a day, albuterol inhaler every 6 hours, Flomax 0.4 mg once a day, Lasix 40 mg intravenous twice a day, Zosyn at 3.375 g intravenously every 6 hours, Solu-Medrol 40 mg intravenous every 8 hours, Xarelto 15 mg daily. I agree with starting Percocet one tablet every 6 hours p.r.n. for back pain. Tyler Daley MD
[2018-11-10] MEDS: Albuterol-Ipratrop 3 mg / 0.5 (3 ml) UD INH SCH ×4 (02:17→19:30)
[2018-11-10] MEDS: MethylPREDNISolone 40 mg Vial IVP SCH ×3 (05:08→21:14)
[2018-11-10] MEDS: Piperacillin/Tazobact 3.375 GM in Sodium Chloride 100 ML IVPB SCH ×2 (05:08→13:07)
[2018-11-10] MEDS: Oxycodone/Acetaminophen 5/325 mg Tab PO PRN ×2 (06:22→14:30)
[2018-11-10 06:25] LABS: HEMOGLOBIN 12.2 g/dL (12.0-18.0); LYMPH # 0.2 K/uL (1.0-4.3); MEAN CELL VOLUME 96.3 fL (80.0-94.0); MEAN CORPUSCULAR HEMOGLOBIN 31.4 pg (27.0-31.0); MEAN CORPUSCULAR HGB CONC 32.6 g/dL (33.0-37.0); MONO # 0.4 K/uL (0.0-0.8); MONO % 4.5 % (0.0-10.0); NEUT # 7.3 K/uL (1.8-7.0); NEUT % 92.5 % (50.0-75.0); PLATELET COUNT 174 K/uL (130-400); RBC 3.87 Mil/uL (4.40-5.90); RED CELL DISTRIBUTION WIDTH 14.5 % (11.5-14.5); WHITE BLOOD COUNT 7.9 K/uL (4.8-10.8)
[2018-11-10 07:00] LABS: ALBUMIN 3.1 g/dL (3.5-5.0); CALCIUM 8.2 mg/dl (8.6-10.4)
[2018-11-10] MEDS: (Novolin R) Insulin Human Regular 100 units/ml vial SC SCH ×4 (08:27→21:15)
[2018-11-10 08:42] LABS: LYMPHOCYTE 2 % (20-40); MONOCYTE 4 % (0-10); NEUTROPHIL 94 % (50-75); PLATELET ESTIMATE NORMAL (NORMAL); TOTAL CELLS COUNTED 100
[2018-11-10] MEDS: Azithromycin 500 MG in Sodium Chloride 0.9% 250 ML IVPB SCH (10:59)
[2018-11-10] MEDS: Ammonium Lactate 12% Lotion (225 g) EXT SCH ×2 (11:01→17:18)
--- NOTE | 2018-11-10 15:11 | CP.PCM.PN ---
<Ольга Maxwell P - Last Filed: 11/10/18 15:09> Subjective - Date & Time of Evaluation Date of Evaluation: 11/10/18 Time of Evaluation: 10:00 - Subjective Subjective: Progress note for Dr. Morris. Patient seen and examined at bedside. Patient has no complaints at this time. Denies dizziness, confusion, slurred speech, focal weakness and numbness. Objective - Vital Signs/Intake and Output Vital Signs (last 24 hours): Temp Pulse Resp BP Pulse Ox 98.7 F 90 20 153/78 H 98 11/10/18 12:00 11/10/18 12:00 11/10/18 12:00 11/10/18 12:00 11/10/18 12:00 - Medications Medications: Current Medications Albuterol/Ipratropium (Duoneb 3 Mg/0.5 Mg (3 Ml) Ud) 3 ml INH RQ6 [facility] Last Admin: 11/10/18 13:31 Dose: 3 ml Aspirin (Aspirin Chewable) 81 mg PO DAILY [facility] Last Admin: 11/10/18 09:28 Dose: 81 mg Furosemide (Lasix) 40 mg IVP BID [facility] Last Admin: 11/10/18 09:29 Dose: 40 mg Azithromycin 500 mg/ Sodium (Chloride) 250 mls @ 250 mls/hr IVPB DAILY [facility]; Protocol Last Admin: 11/10/18 10:59 Dose: 250 mls/hr Insulin Human Regular (Novolin R) 0 unit SC ACHS [facility]; Protocol Last Admin: 11/10/18 12:30 Dose: 8 u Lactic Acid (Lac-Hydrin 12% Lotion (225 G)) 0 gm EXT BID [facility] Last Admin: 11/10/18 11:01 Dose: 225 gm Methylprednisolone (Solu-Medrol) 40 mg IVP Q8 [facility] Last Admin: 11/10/18 13:03 Dose: 40 mg Oxycodone/Acetaminophen (Percocet 5/325 Mg Tab) 1 tab PO Q6H PRN PRN Reason: back pain Stop: 11/12/18 16:26 Last Admin: 11/10/18 14:30 Dose: 1 tab Rivaroxaban (Xarelto) 15 mg PO DAILY [facility] Last Admin: 11/10/18 09:28 Dose: 15 mg Rosuvastatin Calcium (Crestor) 10 mg PO HS [facility] Last Admin: 11/09/18 22:15 Dose: 10 mg Tamsulosin HCl (Flomax) 0.4 mg PO DAILY [facility] Last Admin: 11/10/18 09:28 Dose: 0.4 mg - Labs Labs: 11/10/18 06:15 11/10/18 06:15 PT 13.5 SECONDS (9.7-12.2) H 11/06/18 10:39 INR 1.2 11/06/18 10:39 APTT 34 SECONDS (21-34) 11/06/18 10:39 - Constitutional Appears: Non-toxic, No Acute Distress - Head Exam Head Exam: ATRAUMATIC, NORMOCEPHALIC - Eye Exam Eye Exam: EOMI, Normal appearance - ENT Exam ENT Exam: Mucous Membranes Moist - Neck Exam Neck Exam: Full ROM - Neurological Exam Neurological Exam: Alert, Awake, CN II-XII Intact, Oriented x3 Additional comments: Not in metabolic encephalopathy, speech is fluent, no dysdiadochokinesis, moving all extremities equally. - Psychiatric Exam Psychiatric exam: Normal Affect, Normal Mood - Skin Skin Exam: Dry, Intact, Warm Assessment and Plan - Assessment and Plan (Free Text) Assessment: 83 year old male admitted for respiratory distress and AMS Plan: -CT head: no acute findings -CTA head/neck: diffuse calcification and intracranial atherosclerosis. Moderate stenosis bilateral carotid bifurcations. -Patient awake, alert, oriented x3, no focal deficits -Continue ASA and Xarelto -Patient stable from neurological stand point. Please re-consult as necessary. Discussed with Dr. Morris. Ольга Maxwell, PGY-1 <[place]ito Morris - Last Filed: 11/10/18 16:51> Objective - Vital Signs/Intake and Output Vital Signs (last 24 hours): Temp Pulse Resp BP Pulse Ox 98.7 F 90 20 153/78 H 98 11/10/18 12:00 11/10/18 12:00 11/10/18 12:00 11/10/18 12:00 11/10/18 12:00 - Medications Medications: Current Medications Albuterol/Ipratropium (Duoneb 3 Mg/0.5 Mg (3 Ml) Ud) 3 ml INH RQ6 [facility] Last Admin: 11/10/18 13:31 Dose: 3 ml Aspirin (Aspirin Chewable) 81 mg PO DAILY [facility] Last Admin: 11/10/18 09:28 Dose: 81 mg Furosemide (Lasix) 40 mg IVP BID [facility] Last Admin: 11/10/18 09:29 Dose: 40 mg Azithromycin 500 mg/ Sodium (Chloride) 250 mls @ 250 mls/hr IVPB DAILY [facility]; Protocol Last Admin: 11/10/18 10:59 Dose: 250 mls/hr Piperacillin Sod/Tazobactam Sod (Zosyn 2.25 Gm Iv Premix) 2.25 gm in 50 mls @ 100 mls/hr IVPB Q6H [facility]; Protocol Insulin Human Regular (Novolin R) 0 unit SC ACHS [facility]; Protocol Last Admin: 11/10/18 12:30 Dose: 8 u Lactic Acid (Lac-Hydrin 12% Lotion (225 G)) 0 gm EXT BID [facility] Last Admin: 11/10/18 11:01 Dose: 225 gm Methylprednisolone (Solu-Medrol) 40 mg IVP Q8 [facility] Last Admin: 11/10/18 13:03 Dose: 40 mg Oxycodone/Acetaminophen (Percocet 5/325 Mg Tab) 1 tab PO Q6H PRN PRN Reason: back pain Stop: 11/12/18 16:26 Last Admin: 11/10/18 14:30 Dose: 1 tab Rivaroxaban (Xarelto) 15 mg PO DAILY [facility] Last Admin: 11/10/18 09:28 Dose: 15 mg Rosuvastatin Calcium (Crestor) 10 mg PO HS [facility] Last Admin: 11/09/18 22:15 Dose: 10 mg Saccharomyces Boulardii (Florastor) 250 mg PO TID [facility] Tamsulosin HCl (Flomax) 0.4 mg PO DAILY [facility] Last Admin: 11/10/18 09:28 Dose: 0.4 mg - Labs Labs: 11/10/18 06:15 11/10/18 06:15 PT 13.5 SECONDS (9.7-12.2) H 11/06/18 10:39 INR 1.2 11/06/18 10:39 APTT 34 SECONDS (21-34) 11/06/18 10:39 Assessment and Plan - Assessment and Plan (Free Text) Plan: All medical record entries made by the Resident were at my direction and personally dictated by me. I have reviewed the chart and agree that the record a ccurately reflects my personal performance of the history, physical exam, medical decision making, and the department course for this patient. I have also personally directed, reviewed, and agree with the discharge instructions and disposition. 83 yr old male with dizziness and now atherosclerosis intracranially with normal neurological exam. we will continue on antiplatelet agents and monitor. Thank you' DR Morris
[2018-11-10] MEDS: Piperacill/Tazo 2.25gm in Dex 2.25 GM/50 ML BAG IVPB SCH (17:00)
[2018-11-10] MEDS: Saccharomyces Boulardi 250 mg Cap PO SCH (17:21)
--- NOTE | 2018-11-10 18:13 | CP.PCM.PN ---
Subjective - Date & Time of Evaluation Date of Evaluation: 11/10/18 Time of Evaluation: 10:30 - Subjective Subjective: clinically same Objective - Vital Signs/Intake and Output Vital Signs (last 24 hours): Temp Pulse Resp BP Pulse Ox 98.7 F 90 20 138/76 98 11/10/18 12:00 11/10/18 12:00 11/10/18 12:00 11/10/18 17:21 11/10/18 12:00 - Medications Medications: Current Medications Albuterol/Ipratropium (Duoneb 3 Mg/0.5 Mg (3 Ml) Ud) 3 ml INH RQ6 JO-ANN Last Admin: 11/10/18 13:31 Dose: 3 ml Aspirin (Aspirin Chewable) 81 mg PO DAILY JO-ANN Last Admin: 11/10/18 09:28 Dose: 81 mg Furosemide (Lasix) 40 mg IVP BID JO-ANN Last Admin: 11/10/18 17:21 Dose: 40 mg Azithromycin 500 mg/ Sodium (Chloride) 250 mls @ 250 mls/hr IVPB DAILY [facility]; Protocol Last Admin: 11/10/18 10:59 Dose: 250 mls/hr Piperacillin Sod/Tazobactam Sod (Zosyn 2.25 Gm Iv Premix) 2.25 gm in 50 mls @ 100 mls/hr IVPB Q6H JO-ANN; Protocol Last Admin: 11/10/18 17:00 Dose: 100 mls/hr Insulin Human Regular (Novolin R) 0 unit SC ACHS JO-ANN; Protocol Last Admin: 11/10/18 17:22 Dose: Not Given Lactic Acid (Lac-Hydrin 12% Lotion (225 G)) 0 gm EXT BID JO-ANN Last Admin: 11/10/18 17:18 Dose: 1 cre Methylprednisolone (Solu-Medrol) 40 mg IVP Q8 JO-ANN Last Admin: 11/10/18 13:03 Dose: 40 mg Oxycodone/Acetaminophen (Percocet 5/325 Mg Tab) 1 tab PO Q6H PRN PRN Reason: back pain Stop: 11/12/18 16:26 Last Admin: 11/10/18 14:30 Dose: 1 tab Rivaroxaban (Xarelto) 15 mg PO DAILY JO-ANN Last Admin: 11/10/18 09:28 Dose: 15 mg Rosuvastatin Calcium (Crestor) 10 mg PO HS [facility] Last Admin: 11/09/18 22:15 Dose: 10 mg Saccharomyces Boulardii (Florastor) 250 mg PO TID [facility] Last Admin: 11/10/18 17:21 Dose: 250 mg Tamsulosin HCl (Flomax) 0.4 mg PO DAILY [facility] Last Admin: 11/10/18 09:28 Dose: 0.4 mg - Labs Labs: 11/10/18 06:15 11/10/18 06:15 PT 13.5 SECONDS (9.7-12.2) H 11/06/18 10:39 INR 1.2 11/06/18 10:39 APTT 34 SECONDS (21-34) 11/06/18 10:39 - Constitutional Appears: Well - Head Exam Head Exam: ATRAUMATIC, NORMAL INSPECTION, NORMOCEPHALIC - Eye Exam Eye Exam: EOMI, Normal appearance, PERRL Pupil Exam: NORMAL ACCOMODATION, PERRL - ENT Exam ENT Exam: Mucous Membranes Moist, Normal Exam - Neck Exam Neck Exam: Full ROM, Normal Inspection. absent: Lymphadenopathy - Respiratory Exam Respiratory Exam: Decreased Breath Sounds - Cardiovascular Exam Cardiovascular Exam: REGULAR RHYTHM, +S1, +S2 - GI/Abdominal Exam GI & Abdominal Exam: Soft, Diminished Bowel Sounds - Rectal Exam Rectal Exam: Deferred
--- NOTE | 2018-11-10 19:19 | PN ---
DATE: 11/10/2018 SUBJECTIVE: The patient's back pain has improved after receiving Percocet. Leg swelling also improved. He is comfortable without oxygen. PHYSICAL EXAMINATION: VITAL SIGNS: Blood pressure 153/78, heart rate 90, temperature 98.7, and respirations 20. HEENT: Normocephalic. CHEST: Bibasilar rhonchi. HEART: S1 and S2, regular. EXTREMITIES: 1+ pitting edema. LABORATORY DATA: Today's SMA-7: Sodium 137, potassium 3.9, chloride 92, CO2 of 42, glucose 131, BUN 56, and creatinine 1.9. Today's hemoglobin and hematocrit 12.1 and 37.3. White count and platelet count are within normal limits. ASSESSMENT: 1. Coronary artery disease with history of double coronary artery bypass surgery and bioprosthetic aortic valve placement. 2. Chronic atrial fibrillation. 3. Systolic heart failure. 4. Worsening renal insufficiency. 5. Moderate pulmonary hypertension. RECOMMENDATIONS: Continue aspirin 81 mg once a day, Zithromax 500 mg intravenously daily, Crestor 10 mg once a day, albuterol inhaler every 6 hours, and Lasix was reduced to 40 mg intravenously twice a day. Continue Percocet 1 tablet every 6 hours p.r.n. and Xarelto 15 mg daily. Continue Zosyn at 2.25 g intravenously every 6 hours. The patient can be transferred to telemetry from the cardiac point of view. Tyler Daley MD
[2018-11-11] MEDS: Oxycodone/Acetaminophen 5/325 mg Tab PO PRN (01:31)
[2018-11-11] MEDS: Piperacill/Tazo 2.25gm in Dex 2.25 GM/50 ML BAG IVPB SCH ×4 (01:32→17:00)
[2018-11-11] MEDS: MethylPREDNISolone 40 mg Vial IVP SCH ×3 (06:30→21:47)
[2018-11-11 06:53] LABS: BASO % 0.1 % (0.0-2.0); HEMOGLOBIN 12.2 g/dL (12.0-18.0); LYMPH # 0.3 K/uL (1.0-4.3); MEAN CELL VOLUME 96.1 fL (80.0-94.0); MEAN CORPUSCULAR HEMOGLOBIN 31.6 pg (27.0-31.0); MEAN CORPUSCULAR HGB CONC 32.9 g/dL (33.0-37.0); MEAN PLATELET VOLUME 10.2 fL (7.2-11.7); MONO # 0.7 K/uL (0.0-0.8); MONO % 7.5 % (0.0-10.0); NEUT # 7.9 K/uL (1.8-7.0); NEUT % 89.4 % (50.0-75.0); NRBC % 0.1 % (0.0-2.0); PLATELET COUNT 154 K/uL (130-400); RBC 3.85 Mil/uL (4.40-5.90); RED CELL DISTRIBUTION WIDTH 14.5 % (11.5-14.5); WHITE BLOOD COUNT 8.8 K/uL (4.8-10.8)
[2018-11-11 07:38] LABS: ALB/GLOB RATIO 1.1 (1.0-2.1); ALBUMIN 3.1 g/dL (3.5-5.0); CALCIUM 8.2 mg/dl (8.6-10.4)
[2018-11-11] MEDS: (Novolin R) Insulin Human Regular 100 units/ml vial SC SCH ×4 (08:30→21:41)
[2018-11-11 08:39] LABS: BANDS 1 % (0-2); LYMPHOCYTE 3 % (20-40); MONOCYTE 3 % (0-10); NEUTROPHIL 93 % (50-75); PLATELET ESTIMATE NORMAL (NORMAL); TOTAL CELLS COUNTED 100
[2018-11-11] MEDS: Albuterol-Ipratrop 3 mg / 0.5 (3 ml) UD INH SCH ×3 (08:43→19:34)
[2018-11-11] MEDS: Azithromycin 500 MG in Sodium Chloride 0.9% 250 ML IVPB SCH (09:18)
[2018-11-11] MEDS: Saccharomyces Boulardi 250 mg Cap PO SCH ×3 (09:21→17:05)
[2018-11-11] MEDS: Ammonium Lactate 12% Lotion (225 g) EXT SCH ×2 (09:21→17:12)
--- NOTE | 2018-11-11 17:31 | PN ---
DATE: 11/11/2018 SUBJECTIVE: The patient is experiencing productive cough, mild short of breath. PHYSICAL EXAMINATION: VITAL SIGNS: Blood pressure 141/88, heart rate 85, temperature 98.4, and respirations 17. HEENT: Normocephalic. CHEST: Bibasilar rhonchi. HEART: S1 and S2, regular. ABDOMEN: Soft. EXTREMITIES: 1+ pitting edema. LABORATORY DATA: Hemoglobin and hematocrit 12.1 and 37. White count and platelet count 8.8 and 154 respectively. SMA-7: Sodium 136, potassium 4.3, chloride 90, CO2 of 39, glucose 141, BUN 61, and creatinine 2. ASSESSMENT: 1. Coronary artery disease with history of double coronary artery bypass surgery and bioprosthetic aortic valve replacement. 2. Chronic atrial fibrillation. 3. Congestive heart failure. 4. Worsening renal insufficiency. 5. Pneumonia. 6. Moderate secondary pulmonary hypertension. RECOMMENDATIONS: Continue aspirin 81 mg once a day, IV Zithromax 500 mg daily, Crestor 10 mg once a day, reduce Lasix to 40 mg intravenously once a day, continue Solu-Medrol 40 mg intravenously every 8 hours, and Xarelto mg once day. Continue Zosyn 2.25 g intravenously every 6 hours. Tyler Daley MD
--- NOTE | 2018-11-11 19:40 | CP.PCM.PN ---
Subjective - Date & Time of Evaluation Date of Evaluation: 11/11/18 Time of Evaluation: 12:00 - Subjective Subjective: Patient was examined today at bedside patient denies nausea, vomiting, fever, diarrhea, dizziness, shortness of breath Objective - Vital Signs/Intake and Output Vital Signs (last 24 hours): Temp Pulse Resp BP Pulse Ox 98.8 F 85 17 141/88 96 11/11/18 16:00 11/11/18 12:00 11/11/18 12:00 11/11/18 12:00 11/11/18 12:00 Intake and Output: 11/11/18 11/12/18 18:59 06:59 Intake Total 1050 Output Total 901 Balance 149 - Medications Medications: Current Medications Albuterol/Ipratropium (Duoneb 3 Mg/0.5 Mg (3 Ml) Ud) 3 ml INH RQ6 JO-ANN Last Admin: 11/11/18 19:34 Dose: 3 ml Aspirin (Aspirin Chewable) 81 mg PO DAILY JO-ANN Last Admin: 11/11/18 09:19 Dose: 81 mg Furosemide (Lasix) 40 mg IVP DAILY JO-ANN Azithromycin 500 mg/ Sodium (Chloride) 250 mls @ 250 mls/hr IVPB DAILY JO-ANN; Protocol Last Admin: 11/11/18 09:18 Dose: 250 mls/hr Piperacillin Sod/Tazobactam Sod (Zosyn 2.25 Gm Iv Premix) 2.25 gm in 50 mls @ 100 mls/hr IVPB Q6H JO-ANN; Protocol Last Admin: 11/11/18 17:00 Dose: 100 mls/hr Insulin Human Regular (Novolin R) 0 unit SC ACHS JO-ANN; Protocol Last Admin: 11/11/18 17:05 Dose: 3 u Lactic Acid (Lac-Hydrin 12% Lotion (225 G)) 0 gm EXT BID JO-ANN Last Admin: 11/11/18 17:12 Dose: 1 cre Methylprednisolone (Solu-Medrol) 40 mg IVP Q8 JOA-NN Last Admin: 11/11/18 13:01 Dose: 40 mg Oxycodone/Acetaminophen (Percocet 5/325 Mg Tab) 1 tab PO Q6H PRN PRN Reason: back pain Stop: 11/12/18 16:26 Last Admin: 11/11/18 01:31 Dose: 1 tab Rivaroxaban (Xarelto) 15 mg PO DAILY JO-ANN Last Admin: 11/11/18 09:19 Dose: 15 mg Rosuvastatin Calcium (Crestor) 10 mg PO HS [facility] Last Admin: 11/10/18 21:12 Dose: 10 mg Saccharomyces Boulardii (Florastor) 250 mg PO TID [facility] Last Admin: 11/11/18 17:05 Dose: 250 mg Tamsulosin HCl (Flomax) 0.4 mg PO DAILY [facility] Last Admin: 11/11/18 09:20 Dose: 0.4 mg - Labs Labs: 11/11/18 06:50 11/11/18 06:50 PT 13.5 SECONDS (9.7-12.2) H 11/06/18 10:39 INR 1.2 11/06/18 10:39 APTT 34 SECONDS (21-34) 11/06/18 10:39 - Constitutional Appears: Well - Head Exam Head Exam: ATRAUMATIC, NORMAL INSPECTION, NORMOCEPHALIC - Eye Exam Eye Exam: EOMI, Normal appearance, PERRL Pupil Exam: NORMAL ACCOMODATION, PERRL - ENT Exam ENT Exam: Mucous Membranes Moist, Normal Exam - Neck Exam Neck Exam: Full ROM, Normal Inspection. absent: Lymphadenopathy - Respiratory Exam Respiratory Exam: Decreased Breath Sounds - Cardiovascular Exam Cardiovascular Exam: REGULAR RHYTHM, +S1, +S2 - GI/Abdominal Exam GI & Abdominal Exam: Soft, Diminished Bowel Sounds - Rectal Exam Rectal Exam: Deferred
[2018-11-12] MEDS: Piperacill/Tazo 2.25gm in Dex 2.25 GM/50 ML BAG IVPB SCH ×4 (00:33→18:32)
[2018-11-12] MEDS: Albuterol-Ipratrop 3 mg / 0.5 (3 ml) UD INH SCH (01:19)
[2018-11-12] MEDS: Oxycodone/Acetaminophen 5/325 mg Tab PO PRN ×2 (06:08→13:52)
[2018-11-12] MEDS: MethylPREDNISolone 40 mg Vial IVP SCH ×3 (06:08→22:06)
[2018-11-12] MEDS: Saccharomyces Boulardi 250 mg Cap PO SCH ×3 (10:22→22:05)
[2018-11-12] MEDS: Ammonium Lactate 12% Lotion (225 g) EXT SCH ×2 (10:23→18:07)
[2018-11-12] MEDS: Azithromycin 500 MG in Sodium Chloride 0.9% 250 ML IVPB SCH (10:24)
[2018-11-12] MEDS: (Novolin R) Insulin Human Regular 100 units/ml vial SC SCH ×4 (11:05→21:58)
--- NOTE | 2018-11-12 19:50 | CP.PCM.PN ---
Subjective - Date & Time of Evaluation Date of Evaluation: 11/12/18 Time of Evaluation: 09:15 - Subjective Subjective: Patient was examined today at bedside patient denies nausea, vomiting, fever, diarrhea, dizziness, shortness of breath Objective - Vital Signs/Intake and Output Vital Signs (last 24 hours): Temp Pulse Resp BP Pulse Ox 98.2 F 76 20 117/77 98 11/12/18 16:00 11/12/18 16:00 11/12/18 16:00 11/12/18 16:00 11/12/18 16:00 - Medications Medications: Current Medications Aspirin (Aspirin Chewable) 81 mg PO DAILY [facility] Last Admin: 11/12/18 10:22 Dose: 81 mg Furosemide (Lasix) 40 mg IVP DAILY [facility] Last Admin: 11/12/18 10:23 Dose: 40 mg Piperacillin Sod/Tazobactam Sod (Zosyn 2.25 Gm Iv Premix) 2.25 gm in 50 mls @ 100 mls/hr IVPB Q6H [facility]; Protocol Last Admin: 11/12/18 11:42 Dose: 100 mls/hr Insulin Human Regular (Novolin R) 0 unit SC ACHS JO-ANN; Protocol Last Admin: 11/12/18 13:36 Dose: 6 u Lactic Acid (Lac-Hydrin 12% Lotion (225 G)) 0 gm EXT BID [facility] Last Admin: 11/12/18 10:23 Dose: 1 cre Methylprednisolone (Solu-Medrol) 40 mg IVP Q8 JO-ANN Last Admin: 11/12/18 13:37 Dose: 40 mg Rivaroxaban (Xarelto) 15 mg PO DAILY [facility] Last Admin: 11/12/18 10:21 Dose: 15 mg Rosuvastatin Calcium (Crestor) 10 mg PO HS JO-ANN Last Admin: 11/11/18 21:47 Dose: 10 mg Saccharomyces Boulardii (Florastor) 250 mg PO TID JO-ANN Last Admin: 11/12/18 13:37 Dose: 250 mg Tamsulosin HCl (Flomax) 0.4 mg PO DAILY [facility] Last Admin: 11/12/18 10:23 Dose: 0.4 mg - Labs Labs: 11/11/18 06:50 11/11/18 06:50 PT 13.5 SECONDS (9.7-12.2) H 11/06/18 10:39 INR 1.2 11/06/18 10:39 APTT 34 SECONDS (21-34) 11/06/18 10:39 - Constitutional Appears: Well - Head Exam Head Exam: ATRAUMATIC, NORMAL INSPECTION, NORMOCEPHALIC - Eye Exam Eye Exam: EOMI, Normal appearance, PERRL Pupil Exam: NORMAL ACCOMODATION, PERRL - ENT Exam ENT Exam: Mucous Membranes Moist, Normal Exam - Neck Exam Neck Exam: Full ROM, Normal Inspection. absent: Lymphadenopathy - Respiratory Exam Respiratory Exam: Decreased Breath Sounds - Cardiovascular Exam Cardiovascular Exam: REGULAR RHYTHM, +S1, +S2 - GI/Abdominal Exam GI & Abdominal Exam: Soft, Diminished Bowel Sounds - Rectal Exam Rectal Exam: Deferred
--- NOTE | 2018-11-12 20:27 | PN ---
DATE: 11/12/2018 SUBJECTIVE: The patient is currently on BiPAP. He is complaining of productive cough. Denies any chest pain. PHYSICAL EXAMINATION: VITAL SIGNS: Blood pressure 153/93, heart rate 70, temperature 99.7, respirations 20. HEENT: Normocephalic. CHEST: Bibasilar rhonchi. HEART: S1 and S2 regular. ABDOMEN: Soft. EXTREMITIES: Trace leg edema. ASSESSMENT: 1. Coronary artery disease with status post double bypass surgery and bioprosthetic aortic valve replacement. 2. Chronic atrial fibrillation. 3. Pneumonia. 4. Moderate pulmonary hypertension. 5. Chronic renal insufficiency. RECOMMENDATIONS: Continue aspirin 81 mg once a day, Crestor 10 mg once a day, Lasix 40 mg intravenously once a day, Solu-Medrol 40 mg intravenously every 8 hours, and Xarelto 15 mg orally once a day. Continue IV Zosyn 2.25 g every 6 hours. The patient is awaiting isolation telemetry room. Tyler Daley MD
[2018-11-13] MEDS: Piperacill/Tazo 2.25gm in Dex 2.25 GM/50 ML BAG IVPB SCH ×4 (01:13→17:23)
[2018-11-13] MEDS: MethylPREDNISolone 40 mg Vial IVP SCH ×2 (06:23→22:29)
[2018-11-13] MEDS: (Novolin R) Insulin Human Regular 100 units/ml vial SC SCH ×4 (08:24→22:34)
[2018-11-13] MEDS: Saccharomyces Boulardi 250 mg Cap PO SCH ×2 (10:44→17:23)
[2018-11-13] MEDS: Ammonium Lactate 12% Lotion (225 g) EXT SCH ×2 (10:45→17:23)
[2018-11-13] MEDS: Oxycodone/Acetaminophen 5/325 mg Tab PO PRN ×2 (11:00→20:34)
--- NOTE | 2018-11-13 16:39 | RAD ---
Date of service: 11/13/2018 HISTORY: pneumonia COMPARISON: 11/08/2018 FINDINGS: LUNGS: There is interval improved aeration in the lungs with improving pulmonary venous congestion. There is persistent triangular airspace disease in the right lower lobe. PLEURA: No pleural effusions or pneumothorax. CARDIOVASCULAR: Persistent severe cardiomegaly. There are aortic atherosclerotic calcifications present. Status post CABG. OSSEOUS STRUCTURES: Within normal limits for the patient's age. VISUALIZED UPPER ABDOMEN: Normal. OTHER FINDINGS: None. IMPRESSION: Redemonstration of presumable right lower lobe pneumonia. Improving pulmonary venous congestion.
--- NOTE | 2018-11-13 19:56 | PN ---
DATE: 11/13/2018 SUBJECTIVE: The patient is experiencing productive cough. He denies retrosternal chest pain. PHYSICAL EXAMINATION: VITAL SIGNS: Blood pressure 145/90, heart rate 69, temperature 98.6, respirations 20. HEENT: Normocephalic. CHEST: Bibasilar coarse crepitations. HEART: S1 and S2. Regular. ABDOMEN: Soft. EXTREMITIES: 1+ pitting edema. ASSESSMENT: 1. Pneumonia. 2. Coronary artery disease, status post double bypass surgery and bioprosthetic aortic valve replacement. 3. Chronic atrial fibrillation. 4. Chronic renal insufficiency. RECOMMENDATIONS: Continue aspirin 81 mg once a day, Crestor 10 mg once a day, Lasix 20 mg intravenously once a day, Solu-Medrol 40 mg intravenously every 8 hours, Xarelto 15 mg daily and Zosyn 2.25 g intravenously every 6 hours. Obtain a portable chest x-ray. Tyler Daley MD
--- NOTE | 2018-11-13 19:59 | CP.PCM.PN ---
Subjective - Date & Time of Evaluation Date of Evaluation: 11/13/18 Time of Evaluation: 09:30 - Subjective Subjective: Patient seen and examined today No nausea No vomiting No fever No diarrhea No dizziness No shortness of breath Objective - Vital Signs/Intake and Output Vital Signs (last 24 hours): Temp Pulse Resp BP Pulse Ox 98.1 F 95 H 20 112/72 95 11/13/18 16:00 11/13/18 16:00 11/13/18 16:00 11/13/18 16:00 11/13/18 16:00 - Medications Medications: Current Medications Aspirin (Aspirin Chewable) 81 mg PO DAILY [facility] Last Admin: 11/13/18 10:44 Dose: 81 mg Furosemide (Lasix) 40 mg IVP DAILY [facility] Last Admin: 11/13/18 10:45 Dose: 40 mg Insulin Human Regular (Novolin R) 0 unit SC [facility]; Protocol Last Admin: 11/13/18 17:25 Dose: Not Given Lactic Acid (Lac-Hydrin 12% Lotion (225 G)) 0 gm EXT BID [facility] Last Admin: 11/13/18 17:23 Dose: 1 applic Methylprednisolone (Solu-Medrol) 40 mg IVP Q8 [facility] Last Admin: 11/13/18 06:23 Dose: 40 mg Oxycodone/Acetaminophen (Percocet 5/325 Mg Tab) 1 tab PO Q6H PRN PRN Reason: Pain, severe (8-10) Stop: 11/16/18 10:44 Last Admin: 11/13/18 11:00 Dose: 1 tab Rivaroxaban (Xarelto) 15 mg PO DAILY [facility] Last Admin: 11/13/18 10:44 Dose: 15 mg Rosuvastatin Calcium (Crestor) 10 mg PO HS [facility] Last Admin: 11/12/18 22:06 Dose: 10 mg Saccharomyces Boulardii (Florastor) 250 mg PO TID [facility] Last Admin: 11/13/18 17:23 Dose: 250 mg Tamsulosin HCl (Flomax) 0.4 mg PO DAILY [facility] Last Admin: 11/13/18 10:43 Dose: 0.4 mg - Labs Labs: 11/11/18 06:50 11/11/18 06:50 PT 13.5 SECONDS (9.7-12.2) H 11/06/18 10:39 INR 1.2 11/06/18 10:39 APTT 34 SECONDS (21-34) 11/06/18 10:39 - Constitutional Appears: Well - Head Exam Head Exam: ATRAUMATIC, NORMAL INSPECTION, NORMOCEPHALIC - Eye Exam Eye Exam: EOMI, Normal appearance, PERRL Pupil Exam: NORMAL ACCOMODATION, PERRL - ENT Exam ENT Exam: Mucous Membranes Moist, Normal Exam - Neck Exam Neck Exam: Full ROM, Normal Inspection. absent: Lymphadenopathy - Respiratory Exam Respiratory Exam: Decreased Breath Sounds - Cardiovascular Exam Cardiovascular Exam: REGULAR RHYTHM, +S1, +S2 - GI/Abdominal Exam GI & Abdominal Exam: Soft, Diminished Bowel Sounds - Rectal Exam Rectal Exam: Deferred
[2018-11-14] MEDS: Piperacill/Tazo 2.25gm in Dex 2.25 GM/50 ML BAG IVPB SCH ×3 (06:32→17:22)
[2018-11-14] MEDS: MethylPREDNISolone 40 mg Vial IVP SCH ×3 (06:32→21:36)
[2018-11-14] MEDS: (Novolin R) Insulin Human Regular 100 units/ml vial SC SCH ×4 (08:00→22:43)
[2018-11-14] MEDS: Oxycodone/Acetaminophen 5/325 mg Tab PO PRN ×3 (09:41→23:10)
[2018-11-14] MEDS: Saccharomyces Boulardi 250 mg Cap PO SCH ×3 (09:49→17:22)
[2018-11-14] MEDS: Ammonium Lactate 12% Lotion (225 g) EXT SCH ×2 (09:58→17:22)
--- NOTE | 2018-11-14 15:42 | CP.PCM.PN ---
Subjective - Date & Time of Evaluation Date of Evaluation: 11/14/18 - Subjective Subjective: Patient was examined today at bedside patient denies nausea, vomiting, fever, diarrhea, dizziness, shortness of breath Objective - Vital Signs/Intake and Output Vital Signs (last 24 hours): Temp Pulse Resp BP Pulse Ox 97.1 F L 68 20 158/90 H 97 11/14/18 07:00 11/14/18 08:00 11/14/18 07:00 11/14/18 09:53 11/14/18 07:00 - Medications Medications: Current Medications Aspirin (Aspirin Chewable) 81 mg PO DAILY [facility] Last Admin: 11/14/18 09:29 Dose: 81 mg Furosemide (Lasix) 40 mg IVP DAILY [facility] Last Admin: 11/14/18 09:53 Dose: 40 mg Piperacillin Sod/Tazobactam Sod (Zosyn 2.25 Gm Iv Premix) 2.25 gm in 50 mls @ 100 mls/hr IVPB Q6H [facility]; Protocol Last Admin: 11/14/18 11:26 Dose: 100 mls/hr Insulin Human Regular (Novolin R) 0 unit SC ACHS [facility]; Protocol Last Admin: 11/14/18 11:38 Dose: 2 u Lactic Acid (Lac-Hydrin 12% Lotion (225 G)) 0 gm EXT BID [facility] Last Admin: 11/14/18 09:58 Dose: 1 applic Methylprednisolone (Solu-Medrol) 40 mg IVP Q8 [facility] Last Admin: 11/14/18 13:24 Dose: 40 mg Oxycodone/Acetaminophen (Percocet 5/325 Mg Tab) 1 tab PO Q6H PRN PRN Reason: Pain, severe (8-10) Stop: 11/16/18 10:44 Last Admin: 11/14/18 09:41 Dose: 1 tab Rivaroxaban (Xarelto) 15 mg PO DAILY [facility] Last Admin: 11/14/18 10:01 Dose: 15 mg Rosuvastatin Calcium (Crestor) 10 mg PO HS [facility] Last Admin: 11/13/18 22:28 Dose: 10 mg Saccharomyces Boulardii (Florastor) 250 mg PO TID [facility] Last Admin: 11/14/18 13:23 Dose: 250 mg Tamsulosin HCl (Flomax) 0.4 mg PO DAILY [facility] Last Admin: 11/14/18 09:30 Dose: 0.4 mg - Labs Labs: 11/11/18 06:50 11/11/18 06:50 PT 13.5 SECONDS (9.7-12.2) H 11/06/18 10:39 INR 1.2 11/06/18 10:39 APTT 34 SECONDS (21-34) 11/06/18 10:39 - Constitutional Appears: Well - Head Exam Head Exam: ATRAUMATIC, NORMAL INSPECTION, NORMOCEPHALIC - Eye Exam Eye Exam: EOMI, Normal appearance, PERRL Pupil Exam: NORMAL ACCOMODATION, PERRL - ENT Exam ENT Exam: Mucous Membranes Moist, Normal Exam - Neck Exam Neck Exam: Full ROM, Normal Inspection. absent: Lymphadenopathy - Respiratory Exam Respiratory Exam: Decreased Breath Sounds - Cardiovascular Exam Cardiovascular Exam: REGULAR RHYTHM, +S1, +S2 - GI/Abdominal Exam GI & Abdominal Exam: Soft, Diminished Bowel Sounds - Rectal Exam Rectal Exam: Deferred Assessment and Plan - Assessment and Plan (Free Text) Plan: vitals revieed labs reivewed medications reviewed
[2018-11-15] MEDS: Piperacill/Tazo 2.25gm in Dex 2.25 GM/50 ML BAG IVPB SCH ×4 (01:13→17:49)
--- NOTE | 2018-11-15 02:07 | PN ---
DATE: 11/14/2018 SUBJECTIVE: The patient is still experiencing shortness of breath and productive cough. PHYSICAL EXAMINATION: VITAL SIGNS: Blood pressure 158/90, heart rate 68, temperature 97.1, respirations 20. HEENT: Normocephalic. CHEST: Bibasilar rhonchi. HEART: S1 and S2, regular. EXTREMITIES: 2+ pitting edema. LABORATORY DATA: Today his blood sugar is 155. A portable chest x-ray that was done yesterday revealed much clearer lung martinez as compared to admitting chest x-ray. The official report of that x-ray stated re-demonstration of presumable right lower lobe pneumonia, improving pulmonary venous congestion. ASSESSMENT: 1. Congestive heart failure. 2. Right lower lobe pneumonia. 3. Chronic atrial fibrillation. 4. Coronary artery disease, status post double-bypass surgery and bioprosthetic aortic valve replacement. 5. Chronic renal insufficiency. RECOMMENDATIONS: Continue aspirin 81 mg once a day, Crestor at 10 mg once a day, Lasix 40 mg intravenously once a day, Solu-Medrol 40 mg intravenously every 8 hours, Xarelto at 15 mg once a day and Zosyn at 2.25 g intravenously every 6 hours. Tyler Daley MD
[2018-11-15] MEDS: MethylPREDNISolone 40 mg Vial IVP SCH ×3 (06:50→21:21)
[2018-11-15] MEDS: (Novolin R) Insulin Human Regular 100 units/ml vial SC SCH ×4 (08:00→21:49)
[2018-11-15] MEDS: Saccharomyces Boulardi 250 mg Cap PO SCH ×3 (10:33→17:49)
[2018-11-15] MEDS: Ammonium Lactate 12% Lotion (225 g) EXT SCH ×2 (10:33→17:50)
[2018-11-15] MEDS: Oxycodone/Acetaminophen 5/325 mg Tab PO PRN ×2 (10:36→17:49)
--- NOTE | 2018-11-15 15:48 | CP.PCM.PN ---
Subjective - Date & Time of Evaluation Date of Evaluation: 11/15/18 - Subjective Subjective: Patient was examined today at bedside patient denies nausea, vomiting, fever, diarrhea, dizziness, shortness of breath Objective - Vital Signs/Intake and Output Vital Signs (last 24 hours): Temp Pulse Resp BP Pulse Ox 98.8 F 73 18 122/71 96 11/15/18 08:51 11/15/18 08:51 11/15/18 08:51 11/15/18 10:32 11/15/18 08:51 - Medications Medications: Current Medications Aspirin (Aspirin Chewable) 81 mg PO DAILY [facility] Last Admin: 11/15/18 10:31 Dose: 81 mg Furosemide (Lasix) 40 mg IVP DAILY [facility] Last Admin: 11/15/18 10:32 Dose: 40 mg Piperacillin Sod/Tazobactam Sod (Zosyn 2.25 Gm Iv Premix) 2.25 gm in 50 mls @ 100 mls/hr IVPB Q6H [facility]; Protocol Last Admin: 11/15/18 12:05 Dose: 100 mls/hr Insulin Human Regular (Novolin R) 0 unit SC ACHS [facility]; Protocol Last Admin: 11/15/18 13:46 Dose: 2 u Lactic Acid (Lac-Hydrin 12% Lotion (225 G)) 0 gm EXT BID [facility] Last Admin: 11/15/18 10:33 Dose: 1 applic Methylprednisolone (Solu-Medrol) 40 mg IVP Q8 [facility] Last Admin: 11/15/18 13:45 Dose: 40 mg Oxycodone/Acetaminophen (Percocet 5/325 Mg Tab) 1 tab PO Q6H PRN PRN Reason: Pain, severe (8-10) Stop: 11/16/18 10:44 Last Admin: 11/15/18 10:36 Dose: 1 tab Rivaroxaban (Xarelto) 15 mg PO DAILY [facility] Last Admin: 11/15/18 10:31 Dose: 15 mg Rosuvastatin Calcium (Crestor) 10 mg PO HS [facility] Last Admin: 11/14/18 21:36 Dose: 10 mg Saccharomyces Boulardii (Florastor) 250 mg PO TID [facility] Last Admin: 11/15/18 14:04 Dose: 250 mg Tamsulosin HCl (Flomax) 0.4 mg PO DAILY [facility] Last Admin: 11/15/18 10:31 Dose: 0.4 mg - Labs Labs: 11/11/18 06:50 11/11/18 06:50 PT 13.5 SECONDS (9.7-12.2) H 11/06/18 10:39 INR 1.2 11/06/18 10:39 APTT 34 SECONDS (21-34) 11/06/18 10:39 - Constitutional Appears: Well - Head Exam Head Exam: ATRAUMATIC, NORMAL INSPECTION, NORMOCEPHALIC - Eye Exam Eye Exam: EOMI, Normal appearance, PERRL Pupil Exam: NORMAL ACCOMODATION, PERRL - ENT Exam ENT Exam: Mucous Membranes Moist, Normal Exam - Neck Exam Neck Exam: Full ROM, Normal Inspection. absent: Lymphadenopathy - Respiratory Exam Respiratory Exam: Decreased Breath Sounds - Cardiovascular Exam Cardiovascular Exam: REGULAR RHYTHM, +S1, +S2 - GI/Abdominal Exam GI & Abdominal Exam: Soft, Diminished Bowel Sounds - Rectal Exam Rectal Exam: Deferred
--- NOTE | 2018-11-15 20:50 | CARD ---
APPROVED REPORT Date of service: 11/06/2018 EKG Measurement Heart [id number] <Conclusion> Atrial fibrillation with premature ventricular or aberrantly conducted complexes Low voltage QRS Septal infarct, age undetermined Abnormal ECG
--- NOTE | 2018-11-15 22:41 | PN ---
DATE: 11/15/2018 SUBJECTIVE: The patient is mildly short of breath, experiencing productive cough. His daughter is at the bedside. PHYSICAL EXAMINATION: VITAL SIGNS: Blood pressure 119/73, heart rate 73, temperature 98.8, respirations 18. HEENT: Normocephalic. CHEST: Bibasilar rhonchi. HEART: S1 and S2 regular. EXTREMITIES: 1+ pitting edema. LABORATORY DATA: Today's blood sugar is 140 and 161 respectively. Repeat chest x-ray, which was done portable yesterday revealed demonstration of the right lower lobe pneumonia and improving pulmonary venous congestion. ASSESSMENT: 1. Congestive heart failure. 2. Coronary artery disease, status post double-bypass surgery and bioprosthetic aortic valve replacement. 3. Chronic atrial fibrillation. 4. Chronic renal insufficiency. 5. Pneumonia. RECOMMENDATIONS: Continue aspirin 81 mg once a day, Crestor 10 mg once a day, Flomax 0.4 mg once a day, Lasix 20 mg intravenously daily, Solu-Medrol 40 mg intravenously every 8 hours, Xarelto 15 mg daily, and Zosyn at 2.25 g intravenously every 6 hours. Tyler Daley MD
[2018-11-16] MEDS: Oxycodone/Acetaminophen 5/325 mg Tab PO PRN ×3 (00:26→21:48)
[2018-11-16] MEDS: Piperacill/Tazo 2.25gm in Dex 2.25 GM/50 ML BAG IVPB SCH ×4 (00:26→17:11)
[2018-11-16] MEDS: MethylPREDNISolone 40 mg Vial IVP SCH ×3 (05:21→21:17)
[2018-11-16] MEDS: (Novolin R) Insulin Human Regular 100 units/ml vial SC SCH ×4 (07:40→22:28)
[2018-11-16] MEDS: Saccharomyces Boulardi 250 mg Cap PO SCH ×3 (09:34→17:09)
[2018-11-16] MEDS: Ammonium Lactate 12% Lotion (225 g) EXT SCH ×2 (09:36→17:11)
[2018-11-16 14:14] LABS: BASO % 0.3 % (0.0-2.0); HEMOGLOBIN 12.6 g/dL (12.0-18.0); LYMPH # 0.2 K/uL (1.0-4.3); LYMPH % 1.9 % (20.0-40.0); MEAN CELL VOLUME 95.7 fL (80.0-94.0); MEAN CORPUSCULAR HEMOGLOBIN 31.8 pg (27.0-31.0); MEAN CORPUSCULAR HGB CONC 33.3 g/dL (33.0-37.0); MEAN PLATELET VOLUME 10.1 fL (7.2-11.7); MONO # 0.8 K/uL (0.0-0.8); MONO % 8.1 % (0.0-10.0); NEUT # 9.3 K/uL (1.8-7.0); NEUT % 89.7 % (50.0-75.0); NRBC % 0.1 % (0.0-2.0); PLATELET COUNT 182 K/uL (130-400); RBC 3.97 Mil/uL (4.40-5.90); RED CELL DISTRIBUTION WIDTH 14.5 % (11.5-14.5); WHITE BLOOD COUNT 10.4 K/uL (4.8-10.8)
[2018-11-16 14:47] LABS: CALCIUM 8.6 mg/dl (8.6-10.4)
[2018-11-16 15:54] LABS: LYMPHOCYTE 1 % (20-40); MONOCYTE 6 % (0-10); NEUTROPHIL 93 % (50-75); TOTAL CELLS COUNTED 100
[2018-11-16 15:55] LABS: PLATELET ESTIMATE NORMAL (NORMAL)
--- NOTE | 2018-11-16 17:37 | RAD ---
HISTORY: f/u pnemonia COMPARISON: Chest x-ray performed 11/13/18 TECHNIQUE: Chest PA and lateral FINDINGS: LUNGS: Mild pulmonary venous congestion. No focal consolidation. Please note that chest x-ray has limited sensitivity for the detection of pulmonary masses. PLEURA: No significant pleural effusion identified. No definite pneumothorax . CARDIOVASCULAR: Median sternotomy wires. Cardiomegaly. Dense atherosclerotic calcifications of the aorta. OSSEOUS STRUCTURES: Osseous demineralization. Degenerative changes. VISUALIZED UPPER ABDOMEN: Unremarkable. OTHER FINDINGS: None. IMPRESSION: Mild pulmonary venous congestion. Median sternotomy wires. Cardiomegaly. Dense atherosclerotic calcifications of the aorta.
--- NOTE | 2018-11-16 20:10 | CP.PCM.PN ---
Subjective - Date & Time of Evaluation Date of Evaluation: 11/16/18 - Subjective Subjective: patient seen and examined at bedside no nausea no vomiting no fever Objective - Vital Signs/Intake and Output Vital Signs (last 24 hours): Temp Pulse Resp BP Pulse Ox 97.6 F 74 20 137/74 100 11/16/18 15:00 11/16/18 16:00 11/16/18 15:00 11/16/18 15:00 11/16/18 15:00 - Medications Medications: Current Medications Aspirin (Aspirin Chewable) 81 mg PO DAILY [facility] Last Admin: 11/16/18 09:34 Dose: 81 mg Furosemide (Lasix) 40 mg IVP DAILY [facility] Last Admin: 11/16/18 09:35 Dose: 40 mg Piperacillin Sod/Tazobactam Sod (Zosyn 2.25 Gm Iv Premix) 2.25 gm in 50 mls @ 100 mls/hr IVPB Q6H [facility]; Protocol Last Admin: 11/16/18 17:11 Dose: 100 mls/hr Insulin Human Regular (Novolin R) 0 unit SC ACHS [facility]; Protocol Last Admin: 11/16/18 16:55 Dose: Not Given Lactic Acid (Lac-Hydrin 12% Lotion (225 G)) 0 gm EXT BID [facility] Last Admin: 11/16/18 17:11 Dose: 1 applic Methylprednisolone (Solu-Medrol) 40 mg IVP Q8 [facility] Last Admin: 11/16/18 14:45 Dose: 40 mg Rivaroxaban (Xarelto) 15 mg PO DAILY [facility] Last Admin: 11/16/18 09:35 Dose: 15 mg Rosuvastatin Calcium (Crestor) 10 mg PO HS [facility] Last Admin: 11/15/18 21:21 Dose: 10 mg Saccharomyces Boulardii (Florastor) 250 mg PO TID [facility] Last Admin: 11/16/18 17:09 Dose: 250 mg Tamsulosin HCl (Flomax) 0.4 mg PO DAILY [facility] Last Admin: 11/16/18 09:34 Dose: 0.4 mg - Labs Labs: 11/16/18 14:04 11/16/18 14:04 PT 13.5 SECONDS (9.7-12.2) H 11/06/18 10:39 INR 1.2 11/06/18 10:39 APTT 34 SECONDS (21-34) 11/06/18 10:39 - Constitutional Appears: Well - Head Exam Head Exam: ATRAUMATIC, NORMAL INSPECTION, NORMOCEPHALIC - Eye Exam Eye Exam: EOMI, Normal appearance, PERRL Pupil Exam: NORMAL ACCOMODATION, PERRL - ENT Exam ENT Exam: Mucous Membranes Moist, Normal Exam - Neck Exam Neck Exam: Full ROM, Normal Inspection. absent: Lymphadenopathy - Respiratory Exam Respiratory Exam: Decreased Breath Sounds - Cardiovascular Exam Cardiovascular Exam: REGULAR RHYTHM, +S1, +S2 - GI/Abdominal Exam GI & Abdominal Exam: Soft, Diminished Bowel Sounds - Rectal Exam Rectal Exam: Deferred Assessment and Plan - Assessment and Plan (Free Text) Plan: chest xray and labs reviewed d.w staff flomax aspirin lasix xarelto Novolin R
--- NOTE | 2018-11-16 22:48 | PN ---
DATE: 11/16/2018 SUBJECTIVE: The patient complains of shortness of breath, and he is very upset about the fact that he has to go to a subacute rehab rather than staying in the hospital. PHYSICAL EXAMINATION: VITAL SIGNS: Blood pressure 134/74, heart rate 78, temperature 97.6, respirations 20. CHEST: Basal rhonchi. HEART: S1 and S2 regular. ABDOMEN: Soft. EXTREMITIES: 1+ pitting edema. LABORATORY DATA: Today's hemoglobin and hematocrit, white count and platelet count are within normal limits. Today SMA-7: Sodium 136, potassium 5.2, chloride 85, CO2 of 41, glucose 189, BUN 76, creatinine 2. Today's official x-ray report, mild pulmonary vascular congestion. ASSESSMENT: 1. Congestive heart failure. 2. Coronary artery disease, status post double bypass surgery and bioprosthetic aortic valve replacement. 3. Uncontrolled diabetes mellitus. 4. Worsening renal insufficiency. 5. Chronic atrial fibrillation. RECOMMENDATIONS: Continue aspirin 81 mg once a day, Crestor 10 mg once a day, Lasix 40 mg intravenously daily, Solu-Medrol 40 mg intravenously every 8 hours, Xarelto 15 mg once a day, and Zosyn at 2.25 g intravenously every 6 hours. Tyler Daley MD
[2018-11-17] MEDS: Piperacill/Tazo 2.25gm in Dex 2.25 GM/50 ML BAG IVPB SCH ×2 (00:20→05:20)
[2018-11-17] MEDS: MethylPREDNISolone 40 mg Vial IVP SCH ×2 (05:23→22:22)
[2018-11-17] MEDS: Oxycodone/Acetaminophen 5/325 mg Tab PO PRN ×2 (05:57→22:23)
[2018-11-17] MEDS: (Novolin R) Insulin Human Regular 100 units/ml vial SC SCH ×4 (08:18→22:00)
[2018-11-17] MEDS: Saccharomyces Boulardi 250 mg Cap PO SCH ×3 (09:42→18:01)
[2018-11-17] MEDS: Ammonium Lactate 12% Lotion (225 g) EXT SCH ×2 (09:43→18:03)
--- NOTE | 2018-11-17 11:00 | CP.PCM.CON ---
History of Present Illness - History of Present Illness History of Present Illness: 83 y o male with PMhx COPD, CHF, hypercapnia, CAG, s/p CABG, AVR, and A-fib on Xarelto admitted with AMS and exac CHF/ COPD referred for ID eval for antibiotic management cultures so far neg PMhx: CHF COPD CABG AVR A Fib PSurgHx: CABG, AVR Allergies: NKDA Current meds: reviewed as per MAR Fam hx: unknown Soc hx: unknown, lives at home alone Review of Systems - Constitutional Constitutional: As Per HPI - EENT Eyes: absent: Blind Spots, Blurred Vision, Change in Vision, Decreased Night Vision, Diplopia, Discharge, Dry Eye, Exophthalmos, Floaters, Irritation, Itchy Eyes, Loss of Peripheral Vision, Pain, Photophobia, Requires Corrective Lenses, Sees Flashes, Spots in Vision, Tunnel Vision, Other Visual Disturbances, Loss of Vision, Other Ears: absent: As Per HPI, Decreased Hearing, Ear Discharge, Ear Pain, Tinnitus, Abnormal Hearing, Disequilibrium, Dizziness, Other Nose/Mouth/Throat: absent: As Per HPI, Epistaxis, Nasal Congestion, Nasal Discharge, Nasal Obstruction, Nasal Trauma, Nose Pain, Post Nasal Drip, Sinus Pain, Sinus Pressure, Bleeding Gums, Change in Voice, Dental Pain, Dry Mouth, Dysphagia, Halitosis, Hoarsness, Lip Swelling, Mouth Lesions, Mouth Pain, Odynophagia, Sore Throat, Throat Swelling, Tongue Swelling, Facial Pain, Neck Pain, Neck Mass, Other - Cardiovascular Cardiovascular: As Per HPI - Respiratory Respiratory: As Per HPI, Cough, Dyspnea. absent: Hemoptysis - Gastrointestinal Gastrointestinal: absent: As Per HPI, Abdominal Pain, Belching, Bloating, Change in Bowel Habits, Change in Stool Character, Coffee Ground Emesis, Constipation, Cramping, Diarrhea, Dyspepsia, Dysphagia, Early Satiety, Excessive Flatus, Fecal Incontinence, Heartburn, Hematemesis, Hematochezia, Loose Stools, Melena, Nausea, Odynophagia, Temesmus, Vomiting, Other - Genitourinary Genitourinary: absent: As Per HPI, Change in Urinary Stream, Difficulty Urinating, Dysuria, Flank Pain, Hematuria, Pyuria, Nocturia, Urinary Incontinence, Urinary Frequency, Urinary Hesitance, Urinary Urgency, Voiding Freq/Small Amts, Freq UTI, Hx Renal/Bladder Calculi, Hx /Renal Surgery, Bladder Distension, Other - Musculoskeletal Musculoskeletal: absent: As Per HPI, Abnormal Gait, Arthralgias, Atrophy, Back Pain, Deformity, Joint Swelling, Limited Range of Motion, Loss of Height, Muscle Cramps, Muscle Weakness, Myalgias, Neck Pain, Numbness, Radiating Pain into Limb , Stiffness, Tingling, Other - Integumentary Integumentary: absent: As Per HPI, Acne, Alopecia, Bleeding Lesions, Change in Hair, Change in Nails, Change in Pigmentation, Changing Lesions, Dry Skin, Erythema, Furuncle, Hirsutism, Lesions, New Lesions, Non-Healing Lesions, Photosensitivity, Pruritus, Rash, Skin Pain, Skin Ulcer, Sores, Striae, Swelling, Unusual Bruising, Wounds, Jaundice, Other - Neurological Neurological: absent: As Per HPI, Abnormal Gait, Abnormal Hearing, Abnormal Movements, Abnormal Speech, Behavioral Changes, Burning Sensations, Confusion, Convulsions, Disequilibrium, Dizziness, Numbness, Focal Weakness, Frequent Falls, Headaches, Lack of Coordination, Loss of Vision, Memory Loss, Paresthesia s, Radicular Pain, Restless Legs, Sensory Deficit, Syncope, Tingling, Tremor, Vertigo, Weakness, Other Visual Disturbances, Other - Psychiatric Psychiatric: absent: As Per HPI, Abnormal Sleep Pattern, Anhedonia, Anxiety, Auditory Hallucinations, Behavioral Changes, Change in Appetite, Change in Libido, Confusion, Depression, Difficulty Concentrating, Hallucinations, Homicidal Ideation, Hopelessness, Irritability, Memory Loss, Mood Swings, Panic Attacks, Paranoia, Suicidal Ideation, Visual Hallucinations, Tactile Hallucinations, Other - Endocrine Endocrine: absent: As Per HPI, Change in Body Appearance, Change in Libido, Cold Intolorance, Deepening of Voice, Excessive Sweating, Fatigue, Flushing, Heat Intolorance, Increase in Ring/Shoe/Hat Size, Palpitations, Polydipsia, Polyphagia, Polyuria, Other - Hematologic/Lymphatic Hematologic: absent: As Per HPI, Easy Bleeding, Easy Bruising, Lymphadenopathy, Other Past Patient History - Past Medical History & Family History Past Medical History?: Yes - Past Social History Smoking Status: Former Smoker - CARDIAC Hx Congestive Heart Failure: Yes Hx Hypertension: Yes - PULMONARY Hx Chronic Obstructive Pulmonary Disease (COPD): Yes - NEUROLOGICAL Hx Neurological Disorder: No - HEENT Hx HEENT Problems: No - RENAL Hx Chronic Kidney Disease: No - ENDOCRINE/METABOLIC Hx Endocrine Disorders: No - HEMATOLOGICAL/ONCOLOGICAL Hx Blood Disorders: No - INTEGUMENTARY Hx Dermatological Problems: No - MUSCULOSKELETAL/RHEUMATOLOGICAL Hx Musculoskeletal Disorders: No Hx Falls: No - GASTROINTESTINAL Hx Gastrointestinal Disorders: No - GENITOURINARY/GYNECOLOGICAL Hx Genitourinary Disorders: No - PSYCHIATRIC Hx Substance Use: No - SURGICAL HISTORY Hx Coronary Artery Bypass Graft: Yes - ANESTHESIA Hx Anesthesia: Yes Hx Anesthesia Reactions: No Meds Allergies/Adverse Reactions: Allergies Allergy/AdvReac Type Severity Reaction Status Date / Time No Known Allergies Allergy Verified 07/12/18 09:17 - Medications Medications: Current Medications Aspirin (Aspirin Chewable) 81 mg PO DAILY [facility] Last Admin: 11/17/18 09:42 Dose: 81 mg Furosemide (Lasix) 40 mg IVP DAILY [facility] Last Admin: 11/17/18 09:43 Dose: 40 mg Insulin Human Regular (Novolin R) 0 unit SC [facility]; Protocol Last Admin: 11/17/18 08:18 Dose: 2 u Lactic Acid (Lac-Hydrin 12% Lotion (225 G)) 0 gm EXT BID [facility] Last Admin: 11/17/18 09:43 Dose: 1 applic Methylprednisolone (Solu-Medrol) 40 mg IVP Q8 [facility] Last Admin: 11/17/18 05:23 Dose: 40 mg Oxycodone/Acetaminophen (Percocet 5/325 Mg Tab) 1 tab PO Q6H PRN PRN Reason: Pain, moderate (4-7) Stop: 11/19/18 21:29 Last Admin: 11/17/18 05:57 Dose: 1 tab Rivaroxaban (Xarelto) 15 mg PO DAILY [facility] Last Admin: 11/17/18 09:43 Dose: 15 mg Rosuvastatin Calcium (Crestor) 10 mg PO HS [facility] Last Admin: 11/16/18 21:17 Dose: 10 mg Saccharomyces Boulardii (Florastor) 250 mg PO TID [facility] Last Admin: 11/17/18 09:42 Dose: 250 mg Tamsulosin HCl (Flomax) 0.4 mg PO DAILY [facility] Last Admin: 11/17/18 09:42 Dose: 0.4 mg Physical Exam - Constitutional Appears: Non-toxic, No Acute Distress, Chronically Ill - Head Exam Head Exam: NORMOCEPHALIC - Eye Exam Eye Exam: absent: Scleral icterus Pupil Exam: PERRL - ENT Exam ENT Exam: Mucous Membranes Dry, Normal Oropharynx - Neck Exam Neck exam: Negative for: Lymphadenopathy - Respiratory Exam Respiratory Exam: Decreased Breath Sounds, Prolonged Expiratory Phase, Rhonchi - Cardiovascular Exam Cardiovascular Exam: REGULAR RHYTHM, +S1, +S2 - GI/Abdominal Exam GI & Abdominal Exam: Diminished Bowel Sounds, Soft. absent: Tenderness - Rectal Exam Rectal Exam: Deferred - Exam Exam: NORMAL INSPECTION - Extremities Exam Extremities exam: Positive for: pedal edema, pedal pulses present. Negative for: calf tenderness - Back Exam Back exam: absent: CVA tenderness (L), CVA tenderness (R), paraspinal tenderness - Neurological Exam Neurological exam: Alert, CN II-XII Intact, Oriented x3, Reflexes Normal - Psychiatric Exam Psychiatric exam: Depressed - Skin Skin Exam: Dry Results - Vital Signs Recent Vital Signs: Last Vital Signs Temp 98.4 F 11/17/18 07:30 Pulse 68 11/17/18 07:30 Resp 20 11/17/18 07:30 BP 167/100 H 11/17/18 09:43 Pulse Ox 99 11/17/18 07:30 - Labs Result Diagrams: 11/16/18 14:04 11/16/18 14:04 Labs: Laboratory Results - last 24 hr 11/16/18 11/16/18 11/16/18 14:04 14:04 16:37 WBC 10.4 RBC 3.97 L Hgb 12.6 Hct 37.9 MCV 95.7 H MCH 31.8 H MCHC 33.3 RDW 14.5 Plt Count 182 MPV 10.1 Neut % (Auto) 89.7 H Lymph % (Auto) 1.9 L Snyder % (Auto) 8.1 Eos % (Auto) 0.0 Baso % (Auto) 0.3 Neut # (Auto) 9.3 H Lymph # (Auto) 0.2 L Snyder # (Auto) 0.8 Eos # (Auto) 0.0 Baso # (Auto) 0.0 Neutrophils % (Manual) 93 H Lymphocytes % (Manual) 1 L Monocytes % (Manual) 6 Platelet Estimate Normal RBC Morphology Normal Sodium 133 Potassium 5.2 Chloride 85 L Carbon Dioxide 41 H* Anion Gap 12 BUN 76 H Creatinine 2.0 H Est GFR ( Amer) 39 Est GFR (Non-Af Amer) 32 POC Glucose (mg/dL) 109 Random Glucose 189 H D Calcium 8.6 NT-Pro-B Natriuret Pep 1790 H 11/16/18 22:16 WBC RBC Hgb Hct MCV MCH MCHC RDW Plt Count MPV Neut % (Auto) Lymph % (Auto) Snyder % (Auto) Eos % (Auto) Baso % (Auto) Neut # (Auto) Lymph # (Auto) Snyder # (Auto) Eos # (Auto) Baso # (Auto) Neutrophils % (Manual) Lymphocytes % (Manual) Monocytes % (Manual) Platelet Estimate RBC Morphology Sodium Potassium Chloride Carbon Dioxide Anion Gap BUN Creatinine Est GFR ( Amer) Est GFR (Non-Af Amer) POC Glucose (mg/dL) 165 H Random Glucose Calcium NT-Pro-B Natriuret Pep Assessment & Plan (1) CHF exacerbation Status: Acute (2) Chr obstructive pulmonary disease w/ acute lower respiratory infxn Status: Acute (3) COPD (chronic obstructive pulmonary disease) Status: Acute (4) Hypercarbia Status: Acute (5) REYNALDO and COPD overlap syndrome Status: Acute - Assessment and Plan (Free Text) Assessment: resp failure CHF/COPD severe all cultures neg thus far cont IV rx as per Dr Marie
--- NOTE | 2018-11-17 11:33 | CP.PCM.PN ---
Subjective - Date & Time of Evaluation Date of Evaluation: 11/17/18 - Subjective Subjective: patient seen and examined denies fever, nausea, vomiting Objective - Vital Signs/Intake and Output Vital Signs (last 24 hours): Temp Pulse Resp BP Pulse Ox 98.4 F 68 20 167/100 H 99 11/17/18 07:30 11/17/18 07:30 11/17/18 07:30 11/17/18 09:43 11/17/18 07:30 Intake and Output: 11/17/18 11/17/18 06:59 18:59 Intake Total 800 Output Total 1200 Balance -400 - Medications Medications: Current Medications Aspirin (Aspirin Chewable) 81 mg PO DAILY [facility] Last Admin: 11/17/18 09:42 Dose: 81 mg Furosemide (Lasix) 40 mg IVP DAILY [facility] Last Admin: 11/17/18 09:43 Dose: 40 mg Ceftriaxone Sodium (Rocephin Iv 1 Gm Duplex) 50 mls @ 100 mls/hr IVPB DAILY [facility]; Protocol Insulin Human Regular (Novolin R) 0 unit SC ACHS [facility]; Protocol Last Admin: 11/17/18 08:18 Dose: 2 u Lactic Acid (Lac-Hydrin 12% Lotion (225 G)) 0 gm EXT BID [facility] Last Admin: 11/17/18 09:43 Dose: 1 applic Methylprednisolone (Solu-Medrol) 20 mg IVP Q12 [facility] Oxycodone/Acetaminophen (Percocet 5/325 Mg Tab) 1 tab PO Q6H PRN PRN Reason: Pain, moderate (4-7) Stop: 11/19/18 21:29 Last Admin: 11/17/18 05:57 Dose: 1 tab Rivaroxaban (Xarelto) 15 mg PO DAILY [facility] Last Admin: 11/17/18 09:43 Dose: 15 mg Rosuvastatin Calcium (Crestor) 10 mg PO HS [facility] Last Admin: 11/16/18 21:17 Dose: 10 mg Saccharomyces Boulardii (Florastor) 250 mg PO TID [facility] Last Admin: 11/17/18 09:42 Dose: 250 mg Tamsulosin HCl (Flomax) 0.4 mg PO DAILY [facility] Last Admin: 11/17/18 09:42 Dose: 0.4 mg - Labs Labs: 11/16/18 14:04 11/16/18 14:04 PT 13.5 SECONDS (9.7-12.2) H 11/06/18 10:39 INR 1.2 11/06/18 10:39 APTT 34 SECONDS (21-34) 11/06/18 10:39 - Constitutional Appears: Well - Head Exam Head Exam: ATRAUMATIC, NORMAL INSPECTION, NORMOCEPHALIC - Eye Exam Eye Exam: EOMI, Normal appearance, PERRL Pupil Exam: NORMAL ACCOMODATION, PERRL - ENT Exam ENT Exam: Mucous Membranes Moist, Normal Exam - Neck Exam Neck Exam: Full ROM, Normal Inspection. absent: Lymphadenopathy - Respiratory Exam Respiratory Exam: Decreased Breath Sounds - Cardiovascular Exam Cardiovascular Exam: REGULAR RHYTHM, +S1, +S2 - GI/Abdominal Exam GI & Abdominal Exam: Soft, Diminished Bowel Sounds - Rectal Exam Rectal Exam: Deferred Assessment and Plan - Assessment and Plan (Free Text) Plan: medications reviewed norvasc methyloprednisolone labs reviewed case discussed with staff
[2018-11-17] MEDS: cefTRIAXone IV 1 gm in Dextros 50 ML IVPB SCH (12:34)
--- NOTE | 2018-11-17 17:03 | CP.PCM.CON ---
History of Present Illness - History of Present Illness History of Present Illness: Patient is a 83 years old male with PMHX of COPD and CHF brought to the ED complaining of difficulty breathing with associated altered mental status. At the time he was brought to the ED he had an O2 saturation of 88%. Patient has had reoccurring episodes of epistaxis since his admission. He admits to SOB and productive cough of white, clear phlegm. Denies fevers, chills, chest pain. PMHX: COPD, CHF Family HX: Unknown PSHX: CABG, AVR ALL: NKDA MEDS: As per chart SOCIAL: Former tobacco use, quit 5 years ago Physical Exam O2 Saturation 99% NC General: NAD Cardio: S1, S2 Resp: decreased breath sounds Abd: Soft, Non-tender Chest X-Ray 11/13- Redemonstration of presumable right lower pneumonia. Improving pulmonary venous congestion A/P 1) COPD Exacerbation -Continue Steroids -nebuliser treatment 2) Pneumonia -Continue Abx 3) CHF -continue Lasix Past Patient History - Past Medical History & Family History Past Medical History?: Yes - Past Social History Smoking Status: Former Smoker - CARDIAC Hx Congestive Heart Failure: Yes Hx Hypertension: Yes - PULMONARY Hx Chronic Obstructive Pulmonary Disease (COPD): Yes - NEUROLOGICAL Hx Neurological Disorder: No - HEENT Hx HEENT Problems: No - RENAL Hx Chronic Kidney Disease: No - ENDOCRINE/METABOLIC Hx Endocrine Disorders: No - HEMATOLOGICAL/ONCOLOGICAL Hx Blood Disorders: No - INTEGUMENTARY Hx Dermatological Problems: No - MUSCULOSKELETAL/RHEUMATOLOGICAL Hx Musculoskeletal Disorders: No Hx Falls: No - GASTROINTESTINAL Hx Gastrointestinal Disorders: No - GENITOURINARY/GYNECOLOGICAL Hx Genitourinary Disorders: No - PSYCHIATRIC Hx Substance Use: No - SURGICAL HISTORY Hx Coronary Artery Bypass Graft: Yes - ANESTHESIA Hx Anesthesia: Yes Hx Anesthesia Reactions: No Meds Allergies/Adverse Reactions: Allergies Allergy/AdvReac Type Severity Reaction Status Date / Time No Known Allergies Allergy Verified 07/12/18 09:17 - Medications Medications: Current Medications Amlodipine Besylate (Norvasc) 5 mg PO DAILY [facility] Last Admin: 11/17/18 14:01 Dose: 5 mg Aspirin (Aspirin Chewable) 81 mg PO DAILY [facility] Last Admin: 11/17/18 09:42 Dose: 81 mg Furosemide (Lasix) 40 mg IVP DAILY [facility] Last Admin: 11/17/18 09:43 Dose: 40 mg Ceftriaxone Sodium (Rocephin Iv 1 Gm Duplex) 50 mls @ 100 mls/hr IVPB DAILY [facility]; Protocol Last Admin: 11/17/18 12:34 Dose: 100 mls/hr Insulin Human Regular (Novolin R) 0 unit SC ACHS [facility]; Protocol Last Admin: 11/17/18 12:33 Dose: 3 u Lactic Acid (Lac-Hydrin 12% Lotion (225 G)) 0 gm EXT BID [facility] Last Admin: 11/17/18 09:43 Dose: 1 applic Methylprednisolone (Solu-Medrol) 20 mg IVP Q12 [facility] Oxycodone/Acetaminophen (Percocet 5/325 Mg Tab) 1 tab PO Q6H PRN PRN Reason: Pain, moderate (4-7) Stop: 11/19/18 21:29 Last Admin: 11/17/18 05:57 Dose: 1 tab Rivaroxaban (Xarelto) 15 mg PO DAILY [facility] Last Admin: 11/17/18 09:43 Dose: 15 mg Rosuvastatin Calcium (Crestor) 10 mg PO HS [facility] Last Admin: 11/16/18 21:17 Dose: 10 mg Saccharomyces Boulardii (Florastor) 250 mg PO TID [facility] Last Admin: 11/17/18 13:54 Dose: 250 mg Tamsulosin HCl (Flomax) 0.4 mg PO DAILY [facility] Last Admin: 11/17/18 09:42 Dose: 0.4 mg Results - Vital Signs Recent Vital Signs: Last Vital Signs Temp 98.4 F 11/17/18 07:30 Pulse 68 11/17/18 07:30 Resp 20 11/17/18 07:30 BP 167/100 H 11/17/18 09:43 Pulse Ox 99 11/17/18 07:30 - Labs Result Diagrams: 11/16/18 14:04 11/16/18 14:04 Labs: Laboratory Results - last 24 hr 11/16/18 22:16 POC Glucose (mg/dL) 165 H
--- NOTE | 2018-11-17 20:13 | PN ---
DATE: 11/17/2018 SUBJECTIVE: The patient is reporting nasal bleeding from both nostrils. No chest pain. He is mildly short of breath and experiencing productive cough. PHYSICAL EXAMINATION: VITAL SIGNS: Blood pressure 167/100, heart rate 68, temperature 98.4, respirations 20. HEENT: Normocephalic. CHEST: Bibasilar rhonchi. HEART: S1, S2, regular. EXTREMITIES: 1+ pitting edema. ASSESSMENT: 1. Congestive heart failure. 2. Pneumonia. 3. Chronic atrial fibrillation. 4. Coronary artery disease, status post double bypass surgery and bioprosthetic aortic valve replacement. 5. Mild epistaxis. 6. Hypertension. The diastolic blood pressure now is 100. RECOMMENDATIONS: Continue aspirin 81 mg once a day, Lasix 20 mg intravenously daily, docusate 1 tablet every 6 hours p.r.n., Solu-Medrol 20 mg intravenously every 12 hours, Xarelto 15 mg daily, Crestor 10 mg once a day. Start Norvasc at 5 mg daily. I requested from the nurse to have nasal O2 dehumidified and at only 2 L per minute, no more. If epistaxis continues, I will hold either aspirin or Eliquis and consider Ear, Nose and Throat evaluation. Tyler Daley MD
[2018-11-18] MEDS: Oxycodone/Acetaminophen 5/325 mg Tab PO PRN ×2 (07:06→13:19)
[2018-11-18] MEDS: (Novolin R) Insulin Human Regular 100 units/ml vial SC SCH ×4 (07:37→21:12)
[2018-11-18] MEDS: Saccharomyces Boulardi 250 mg Cap PO SCH ×3 (10:07→18:12)
[2018-11-18] MEDS: MethylPREDNISolone 40 mg Vial IVP SCH ×2 (10:08→21:00)
[2018-11-18] MEDS: cefTRIAXone IV 1 gm in Dextros 50 ML IVPB SCH (10:09)
[2018-11-18] MEDS: Ammonium Lactate 12% Lotion (225 g) EXT SCH ×2 (10:10→18:12)
[2018-11-18 11:46] LABS: BASO % 0.2 % (0.0-2.0); HEMOGLOBIN 12.6 g/dL (12.0-18.0); LYMPH # 0.3 K/uL (1.0-4.3); LYMPH % 2.8 % (20.0-40.0); MEAN CELL VOLUME 96.9 fL (80.0-94.0); MEAN CORPUSCULAR HEMOGLOBIN 31.7 pg (27.0-31.0); MEAN CORPUSCULAR HGB CONC 32.7 g/dL (33.0-37.0); MEAN PLATELET VOLUME 9.6 fL (7.2-11.7); MONO # 0.5 K/uL (0.0-0.8); MONO % 4.6 % (0.0-10.0); NEUT # 10.8 K/uL (1.8-7.0); NEUT % 92.4 % (50.0-75.0); NRBC % 0.2 % (0.0-2.0); PLATELET COUNT 194 K/uL (130-400); RBC 3.99 Mil/uL (4.40-5.90); RED CELL DISTRIBUTION WIDTH 14.6 % (11.5-14.5); WHITE BLOOD COUNT 11.7 K/uL (4.8-10.8)
[2018-11-18 12:15] LABS: CALCIUM 8.8 mg/dl (8.6-10.4)
[2018-11-18 12:17] LABS: LYMPHOCYTE 1 % (20-40); MONOCYTE 7 % (0-10); NEUTROPHIL 92 % (50-75); TOTAL CELLS COUNTED 100
[2018-11-18 12:18] LABS: PLATELET ESTIMATE NORMAL (NORMAL)
--- NOTE | 2018-11-18 16:19 | CP.PCM.PN ---
Subjective - Date & Time of Evaluation Date of Evaluation: 11/18/18 Time of Evaluation: 15:10 - Subjective Subjective: Patient was seen and examined Patient is improving clinically Admits to cough with intermittent white phlegm and intermittent SOB Denies fevers, chest pain, Afebrile Physical Exam O2 Saturation 100% NC General: NAD Cardio: S1, S2 Resp: decreased breath sounds Abd: Soft, Non-tender A/P 1) COPD Exacerbation -Continue Steroids 2) Pneumonia -Continue Abx 3) CHF -continue Lasix Objective - Vital Signs/Intake and Output Vital Signs (last 24 hours): Temp Pulse Resp BP Pulse Ox 98.2 F 85 20 146/89 100 11/18/18 07:00 11/18/18 12:48 11/18/18 07:00 11/18/18 10:08 11/18/18 07:00 Intake and Output: 11/18/18 11/18/18 06:59 18:59 Intake Total 840 Output Total 1400 Balance -560 - Medications Medications: Current Medications Amlodipine Besylate (Norvasc) 5 mg PO DAILY [facility] Last Admin: 11/18/18 10:08 Dose: 5 mg Aspirin (Aspirin Chewable) 81 mg PO DAILY [facility] Last Admin: 11/18/18 10:08 Dose: 81 mg Furosemide (Lasix) 40 mg IVP DAILY [facility] Last Admin: 11/18/18 10:08 Dose: 40 mg Ceftriaxone Sodium (Rocephin Iv 1 Gm Duplex) 50 mls @ 100 mls/hr IVPB DAILY [facility]; Protocol Last Admin: 11/18/18 10:09 Dose: 100 mls/hr Insulin Human Regular (Novolin R) 0 unit SC ACHS [facility]; Protocol Last Admin: 11/18/18 12:29 Dose: 6 u Lactic Acid (Lac-Hydrin 12% Lotion (225 G)) 0 gm EXT BID [facility] Last Admin: 11/18/18 10:10 Dose: 1 applic Methylprednisolone (Solu-Medrol) 20 mg IVP Q12 [facility] Last Admin: 11/18/18 10:08 Dose: 20 mg Oxycodone/Acetaminophen (Percocet 5/325 Mg Tab) 1 tab PO Q6H PRN PRN Reason: Pain, moderate (4-7) Stop: 11/19/18 21:29 Last Admin: 11/18/18 13:19 Dose: 1 tab Rivaroxaban (Xarelto) 15 mg PO DAILY [facility] Last Admin: 11/18/18 10:08 Dose: 15 mg Rosuvastatin Calcium (Crestor) 10 mg PO HS [facility] Last Admin: 11/17/18 22:24 Dose: 10 mg Saccharomyces Boulardii (Florastor) 250 mg PO TID [facility] Last Admin: 11/18/18 13:19 Dose: 250 mg Tamsulosin HCl (Flomax) 0.4 mg PO DAILY [facility] Last Admin: 11/18/18 10:07 Dose: 0.4 mg - Labs Labs: 11/18/18 11:33 11/18/18 11:33 PT 13.5 SECONDS (9.7-12.2) H 11/06/18 10:39 INR 1.2 11/06/18 10:39 APTT 34 SECONDS (21-34) 11/06/18 10:39
--- NOTE | 2018-11-18 19:35 | CP.PCM.PN ---
Subjective - Date & Time of Evaluation Date of Evaluation: 11/18/18 - Subjective Subjective: no fever, no diarrhea, no vomiting Objective - Vital Signs/Intake and Output Vital Signs (last 24 hours): Temp Pulse Resp BP Pulse Ox 97 F L 78 20 146/77 97 11/18/18 15:00 11/18/18 16:09 11/18/18 15:00 11/18/18 15:00 11/18/18 15:00 - Medications Medications: Current Medications Amlodipine Besylate (Norvasc) 5 mg PO DAILY [facility] Last Admin: 11/18/18 10:08 Dose: 5 mg Aspirin (Aspirin Chewable) 81 mg PO DAILY [facility] Last Admin: 11/18/18 10:08 Dose: 81 mg Furosemide (Lasix) 40 mg IVP DAILY [facility] Last Admin: 11/18/18 10:08 Dose: 40 mg Ceftriaxone Sodium (Rocephin Iv 1 Gm Duplex) 50 mls @ 100 mls/hr IVPB DAILY [facility]; Protocol Last Admin: 11/18/18 10:09 Dose: 100 mls/hr Insulin Human Regular (Novolin R) 0 unit SC ACHS [facility]; Protocol Last Admin: 11/18/18 18:12 Dose: 2 u Lactic Acid (Lac-Hydrin 12% Lotion (225 G)) 0 gm EXT BID [facility] Last Admin: 11/18/18 18:12 Dose: 1 applic Methylprednisolone (Solu-Medrol) 20 mg IVP Q12 [facility] Last Admin: 11/18/18 10:08 Dose: 20 mg Oxycodone/Acetaminophen (Percocet 5/325 Mg Tab) 1 tab PO Q6H PRN PRN Reason: Pain, moderate (4-7) Stop: 11/19/18 21:29 Last Admin: 11/18/18 13:19 Dose: 1 tab Rivaroxaban (Xarelto) 15 mg PO DAILY [facility] Last Admin: 11/18/18 10:08 Dose: 15 mg Rosuvastatin Calcium (Crestor) 10 mg PO HS [facility] Last Admin: 11/17/18 22:24 Dose: 10 mg Saccharomyces Boulardii (Florastor) 250 mg PO TID [facility] Last Admin: 11/18/18 18:12 Dose: 250 mg Tamsulosin HCl (Flomax) 0.4 mg PO DAILY [facility] Last Admin: 11/18/18 10:07 Dose: 0.4 mg - Labs Labs: 11/18/18 11:33 11/18/18 11:33 PT 13.5 SECONDS (9.7-12.2) H 11/06/18 10:39 INR 1.2 11/06/18 10:39 APTT 34 SECONDS (21-34) 11/06/18 10:39 - Constitutional Appears: Well - Head Exam Head Exam: ATRAUMATIC, NORMAL INSPECTION, NORMOCEPHALIC - Eye Exam Eye Exam: EOMI, Normal appearance, PERRL Pupil Exam: NORMAL ACCOMODATION, PERRL - ENT Exam ENT Exam: Mucous Membranes Moist, Normal Exam - Neck Exam Neck Exam: Full ROM, Normal Inspection. absent: Lymphadenopathy - Respiratory Exam Respiratory Exam: Decreased Breath Sounds - Cardiovascular Exam Cardiovascular Exam: REGULAR RHYTHM, +S1, +S2 - GI/Abdominal Exam GI & Abdominal Exam: Soft, Diminished Bowel Sounds - Rectal Exam Rectal Exam: Deferred Assessment and Plan - Assessment and Plan (Free Text) Plan: vitals signs reviewed medications reviewed aspiring chewable tablet rocephin iv 1gm duplex crestor flomax florastor lac-hydrin- 12% lotion 225g lasix norvasc novolin r percocet 5/325mg tab solu-medrol xarelto labs reviewed
--- NOTE | 2018-11-18 22:46 | CP.PCM.PN ---
Subjective - Date & Time of Evaluation Date of Evaluation: 11/18/18 Time of Evaluation: 09:00 - Subjective Subjective: still mildly SOB at rest 'IV antibiotics renewed Objective - Vital Signs/Intake and Output Vital Signs (last 24 hours): Temp Pulse Resp BP Pulse Ox 97 F L 78 20 146/77 97 11/18/18 15:00 11/18/18 16:09 11/18/18 15:00 11/18/18 15:00 11/18/18 15:00 Intake and Output: 11/18/18 11/19/18 18:59 06:59 Intake Total 480 Output Total 550 Balance -70 - Medications Medications: Current Medications Amlodipine Besylate (Norvasc) 5 mg PO DAILY [facility] Last Admin: 11/18/18 10:08 Dose: 5 mg Aspirin (Aspirin Chewable) 81 mg PO DAILY [facility] Last Admin: 11/18/18 10:08 Dose: 81 mg Furosemide (Lasix) 40 mg IVP DAILY [facility] Last Admin: 11/18/18 10:08 Dose: 40 mg Ceftriaxone Sodium (Rocephin Iv 1 Gm Duplex) 50 mls @ 100 mls/hr IVPB DAILY [facility]; Protocol Last Admin: 11/18/18 10:09 Dose: 100 mls/hr Insulin Human Regular (Novolin R) 0 unit SC ACHS [facility]; Protocol Last Admin: 11/18/18 21:12 Dose: Not Given Lactic Acid (Lac-Hydrin 12% Lotion (225 G)) 0 gm EXT BID [facility] Last Admin: 11/18/18 18:12 Dose: 1 applic Methylprednisolone (Solu-Medrol) 20 mg IVP Q12 [facility] Last Admin: 11/18/18 21:00 Dose: 20 mg Oxycodone/Acetaminophen (Percocet 5/325 Mg Tab) 1 tab PO Q6H PRN PRN Reason: Pain, moderate (4-7) Stop: 11/19/18 21:29 Last Admin: 11/18/18 13:19 Dose: 1 tab Rivaroxaban (Xarelto) 15 mg PO DAILY [facility] Last Admin: 11/18/18 10:08 Dose: 15 mg Rosuvastatin Calcium (Crestor) 10 mg PO HS [facility] Last Admin: 11/18/18 21:00 Dose: 10 mg Saccharomyces Boulardii (Florastor) 250 mg PO TID [facility] Last Admin: 11/18/18 18:12 Dose: 250 mg Tamsulosin HCl (Flomax) 0.4 mg PO DAILY [facility] Last Admin: 11/18/18 10:07 Dose: 0.4 mg - Labs Labs: 11/18/18 11:33 11/18/18 11:33 PT 13.5 SECONDS (9.7-12.2) H 11/06/18 10:39 INR 1.2 11/06/18 10:39 APTT 34 SECONDS (21-34) 11/06/18 10:39 - Constitutional Appears: Non-toxic, No Acute Distress, Chronically Ill - Head Exam Head Exam: ATRAUMATIC, NORMAL INSPECTION, NORMOCEPHALIC - Eye Exam Eye Exam: EOMI, Normal appearance, PERRL Pupil Exam: NORMAL ACCOMODATION, PERRL - ENT Exam ENT Exam: Mucous Membranes Moist, Normal Exam - Neck Exam Neck Exam: Full ROM, Normal Inspection. absent: Lymphadenopathy - Respiratory Exam Respiratory Exam: Decreased Breath Sounds, Prolonged Expiratory Phase, Rhonchi - Cardiovascular Exam Cardiovascular Exam: REGULAR RHYTHM, +S1, +S2. absent: Murmur - GI/Abdominal Exam GI & Abdominal Exam: Soft, Normal Bowel Sounds. absent: Tenderness - Rectal Exam Rectal Exam: Deferred - Exam Exam: NORMAL INSPECTION - Extremities Exam Extremities Exam: Full ROM, Normal Capillary Refill, Pedal Edema. absent: Joint Swelling - Back Exam Back Exam: NORMAL INSPECTION - Neurological Exam Neurological Exam: Alert, Awake, CN II-XII Intact, Normal Gait, Oriented x3 - Psychiatric Exam Psychiatric exam: Normal Affect, Normal Mood - Skin Skin Exam: Dry, Intact, Normal Color, Warm Assessment and Plan (1) CHF exacerbation Status: Acute (2) Chr obstructive pulmonary disease w/ acute lower respiratory infxn Status: Acute (3) COPD (chronic obstructive pulmonary disease) Status: Acute (4) Hypercarbia Status: Acute (5) REYNALDO and COPD overlap syndrome Status: Acute - Assessment and Plan (Free Text) Assessment: cont IV antibiotics' bronchodilators pulm follow up
--- NOTE | 2018-11-19 00:14 | PN ---
DATE: 11/18/2018 SUBJECTIVE: The patient is still experiencing shortness of breath and productive cough, minimal epistaxis. PHYSICAL EXAMINATION: VITAL SIGNS: Blood pressure 146/89, heart rate 76, temperature 98.2, respirations 20. HEENT: Normocephalic. CHEST: Bibasilar rhonchi. HEART: S1 and S2 regular. ABDOMEN: Soft. EXTREMITIES: 1+ pitting edema. LABORATORY DATA: Today's hemoglobin and hematocrit are 12.6 and 38.6, white count 11.7, platelet count 197,000. Today's SMA-7: Sodium 136, potassium 5.2, chloride 89, glucose 146, BUN 71, creatinine 1.6. ASSESSMENT: 1. Pneumonia. 2. Chronic obstructive lung disease. 3. Chronic atrial fibrillation. 4. Coronary artery disease status post double bypass surgery and bioprosthetic aortic valve replacement. 5. Worsening renal insufficiency. RECOMMENDATIONS: Continue aspirin 81 mg once a day, Lasix 40 mg intravenously twice a day, Norvasc 5 mg once a day, Solu-Medrol 20 mg intravenously daily, Rocephin 1 g intravenously daily, Xarelto 15 mg daily. I ordered humidified nasal O2 in nursing communication. Tyler Daley MD
--- NOTE | 2018-11-19 08:19 | PCM.URO ---
Urology Progress Note - Objective Lab Studies: Reviewed (full note to be dictated thank you for gu consult) Lab Results Last 24 Hours: Laboratory Results - last 24 hr 11/18/18 11/18/18 11/18/18 11:33 11:33 16:38 WBC 11.7 H RBC 3.99 L Hgb 12.6 Hct 38.6 MCV 96.9 H MCH 31.7 H MCHC 32.7 L RDW 14.6 H Plt Count 194 MPV 9.6 Neut % (Auto) 92.4 H Lymph % (Auto) 2.8 L Bullock % (Auto) 4.6 Eos % (Auto) 0.0 Baso % (Auto) 0.2 Neut # (Auto) 10.8 H Lymph # (Auto) 0.3 L Bullock # (Auto) 0.5 Eos # (Auto) 0.0 Baso # (Auto) 0.0 Neutrophils % (Manual) 92 H Lymphocytes % (Manual) 1 L Monocytes % (Manual) 7 Platelet Estimate Normal RBC Morphology Normal Sodium 136 Potassium 5.2 Chloride 89 L Carbon Dioxide 43 H* Anion Gap 10 BUN 71 H Creatinine 1.6 H Est GFR ( Amer) 50 Est GFR (Non-Af Amer) 41 POC Glucose (mg/dL) 199 H Random Glucose 146 H D Calcium 8.8 11/18/18 21:11 WBC RBC Hgb Hct MCV MCH MCHC RDW Plt Count MPV Neut % (Auto) Lymph % (Auto) Bullock % (Auto) Eos % (Auto) Baso % (Auto) Neut # (Auto) Lymph # (Auto) Bullock # (Auto) Eos # (Auto) Baso # (Auto) Neutrophils % (Manual) Lymphocytes % (Manual) Monocytes % (Manual) Platelet Estimate RBC Morphology Sodium Potassium Chloride Carbon Dioxide Anion Gap BUN Creatinine Est GFR ( Amer) Est GFR (Non-Af Amer) POC Glucose (mg/dL) 151 H Random Glucose Calcium Intake & Output: Intake & Output 11/18/18 11/19/18 11/19/18 18:59 06:59 18:59 Intake Total 680 Output Total 1150 Balance -470 Intake: Oral 680 Output: Urine 1150 Urine, Voided 1150 Other: # Voids Urine, Voided 2 # Bowel Movements 1 Vital Signs: Vital Signs - 24 hr 11/18/18 11/18/18 11/18/18 10:08 12:48 15:00 Temperature 97 F L Pulse Rate 85 92 H Respiratory 20 Rate Blood Pressure 146/89 146/77 O2 Sat by Pulse 97 Oximetry 11/18/18 11/18/18 11/18/18 16:09 23:20 23:30 Temperature 98.2 F Pulse Rate 78 60 84 Respiratory 20 Rate Blood Pressure 170/79 H O2 Sat by Pulse 96 Oximetry 11/19/18 11/19/18 00:00 04:40 Temperature Pulse Rate 60 67 Respiratory Rate Blood Pressure O2 Sat by Pulse Oximetry
[2018-11-19] MEDS: (Novolin R) Insulin Human Regular 100 units/ml vial SC SCH ×4 (08:20→21:49)
[2018-11-19] MEDS: MethylPREDNISolone 40 mg Vial IVP SCH ×2 (10:26→21:49)
[2018-11-19] MEDS: cefTRIAXone IV 1 gm in Dextros 50 ML IVPB SCH (10:28)
[2018-11-19] MEDS: Ammonium Lactate 12% Lotion (225 g) EXT SCH ×2 (10:29→17:20)
[2018-11-19] MEDS: Saccharomyces Boulardi 250 mg Cap PO SCH ×3 (10:29→17:18)
--- NOTE | 2018-11-19 11:38 | CP.PCM.PN ---
<Woodrow Marie - Last Filed: 11/19/18 11:45> Subjective - Date & Time of Evaluation Date of Evaluation: 11/19/18 Time of Evaluation: 10:00 - Subjective Subjective: Patient seen and examined Complaining of pain Cough and breathing much improved Afebrile Complains a lot Objective - Vital Signs/Intake and Output Vital Signs (last 24 hours): Temp Pulse Resp BP Pulse Ox 98.3 F 66 20 157/89 H 100 11/19/18 07:17 11/19/18 07:17 11/19/18 07:17 11/19/18 10:25 11/19/18 07:17 Intake and Output: 11/19/18 11/19/18 06:59 18:59 Intake Total 680 Output Total 1150 Balance -470 - Medications Medications: Current Medications Amlodipine Besylate (Norvasc) 5 mg PO DAILY [facility] Last Admin: 11/19/18 10:26 Dose: 5 mg Aspirin (Aspirin Chewable) 81 mg PO DAILY [facility] Last Admin: 11/19/18 10:26 Dose: 81 mg Furosemide (Lasix) 40 mg IVP DAILY [facility] Last Admin: 11/19/18 10:25 Dose: 40 mg Ceftriaxone Sodium (Rocephin Iv 1 Gm Duplex) 50 mls @ 100 mls/hr IVPB DAILY [facility]; Protocol Last Admin: 11/19/18 10:28 Dose: 100 mls/hr Insulin Human Regular (Novolin R) 0 unit SC ACHS [facility]; Protocol Last Admin: 11/19/18 08:20 Dose: 2 units Lactic Acid (Lac-Hydrin 12% Lotion (225 G)) 0 gm EXT BID [facility] Last Admin: 11/19/18 10:29 Dose: 1 applic Methylprednisolone (Solu-Medrol) 20 mg IVP Q12 [facility] Last Admin: 11/19/18 10:26 Dose: 20 mg Oxycodone/Acetaminophen (Percocet 5/325 Mg Tab) 1 tab PO Q6H PRN PRN Reason: Pain, moderate (4-7) Stop: 11/19/18 21:29 Last Admin: 11/18/18 13:19 Dose: 1 tab Rivaroxaban (Xarelto) 15 mg PO DAILY [facility] Last Admin: 11/19/18 10:27 Dose: 15 mg Rosuvastatin Calcium (Crestor) 10 mg PO HS [facility] Last Admin: 11/18/18 21:00 Dose: 10 mg Saccharomyces Boulardii (Florastor) 250 mg PO TID [facility] Last Admin: 11/19/18 10:29 Dose: 250 mg Tamsulosin HCl (Flomax) 0.4 mg PO DAILY [facility] Last Admin: 11/19/18 10:25 Dose: 0.4 mg - Labs Labs: 11/18/18 11:33 11/18/18 11:33 PT 13.5 SECONDS (9.7-12.2) H 11/06/18 10:39 INR 1.2 11/06/18 10:39 APTT 34 SECONDS (21-34) 11/06/18 10:39 - Head Exam Head Exam: ATRAUMATIC, NORMOCEPHALIC - ENT Exam ENT Exam: Mucous Membranes Moist - Neck Exam Neck Exam: Normal Inspection - Respiratory Exam Respiratory Exam: Clear to Ausculation Bilateral - Cardiovascular Exam Cardiovascular Exam: REGULAR RHYTHM Assessment and Plan (1) COPD (chronic obstructive pulmonary disease) Assessment & Plan: Taper steroids Nebulizer treatment Continue with the pain medication Follow-up ABG Status: Acute (2) CHF exacerbation Status: Acute <Rey House S - Last Filed: 11/20/18 11:43> Objective - Vital Signs/Intake and Output Vital Signs (last 24 hours): Temp Pulse Resp BP Pulse Ox 97.4 F L 78 18 150/88 100 11/20/18 07:00 11/20/18 07:00 11/20/18 07:00 11/20/18 10:16 11/20/18 07:00 Intake and Output: 11/20/18 11/20/18 06:59 18:59 Intake Total 590 Output Total 550 Balance 40 - Medications Medications: Current Medications Albuterol/Ipratropium (Duoneb 3 Mg/0.5 Mg (3 Ml) Ud) 3 ml INH RQ6 [facility] Last Admin: 11/20/18 08:45 Dose: 3 ml Amlodipine Besylate (Norvasc) 5 mg PO DAILY [facility] Last Admin: 11/20/18 10:15 Dose: 5 mg Aspirin (Aspirin Chewable) 81 mg PO DAILY [facility] Last Admin: 11/20/18 10:14 Dose: 81 mg Furosemide (Lasix) 40 mg IVP DAILY [facility] Last Admin: 11/20/18 10:16 Dose: 40 mg Ceftriaxone Sodium (Rocephin Iv 1 Gm Duplex) 50 mls @ 100 mls/hr IVPB DAILY [facility]; Protocol Last Admin: 11/20/18 10:13 Dose: 100 mls/hr Insulin Human Regular (Novolin R) 0 unit SC ACHS [facility]; Protocol Last Admin: 11/20/18 08:07 Dose: Not Given Lactic Acid (Lac-Hydrin 12% Lotion (225 G)) 0 gm EXT BID [facility] Last Admin: 11/20/18 10:19 Dose: 1 applic Methylprednisolone (Solu-Medrol) 20 mg IVP Q12 [facility] Last Admin: 11/20/18 10:15 Dose: 20 mg Pantoprazole Sodium (Protonix Ec Tab) 40 mg PO DAILY [facility] Last Admin: 11/20/18 10:14 Dose: 40 mg Rivaroxaban (Xarelto) 15 mg PO DAILY [facility] Last Admin: 11/20/18 10:14 Dose: 15 mg Rosuvastatin Calcium (Crestor) 10 mg PO HS [facility] Last Admin: 11/19/18 21:48 Dose: 10 mg Saccharomyces Boulardii (Florastor) 250 mg PO TID [facility] Last Admin: 11/20/18 10:14 Dose: 250 mg Tamsulosin HCl (Flomax) 0.4 mg PO BID [facility] Last Admin: 11/20/18 10:14 Dose: 0.4 mg - Labs Labs: 11/18/18 11:33 11/18/18 11:33 PT 13.5 SECONDS (9.7-12.2) H 11/06/18 10:39 INR 1.2 11/06/18 10:39 APTT 34 SECONDS (21-34) 11/06/18 10:39 Assessment and Plan - Assessment and Plan (Free Text) Plan: Patient agrees eventually to go to the [facility] after a long discussion with the patient's nurse practitioner and nurse was also with me status post ID renewed IV antibiotic status post urologist for most likely prostate cancer as patient PSA is 95 Continue current medications Possible discharge tomorrow to rehab
--- NOTE | 2018-11-19 13:12 | CON ---
DATE: 11/19/2018 REASON FOR CONSULTATION: Epistaxis. REQUESTING PHYSICIAN: Marshal House MD HISTORY OF PRESENT ILLNESS: This is an 83-year-old male who has an episode of left epistaxis, mild, two days ago which resolved by itself. The patient has had no bleeding since. PAST MEDICAL HISTORY: As noted in the chart by me. MEDICATIONS: As noted in the chart by me including Xarelto. ALLERGIES: NOTED IN THE CHART BY ME. PHYSICAL EXAMINATION: HEENT: Head is atraumatic and normocephalic. FACE: Good facial movements bilaterally. CONSTITUTIONAL: Well fed, well nourished. COMMUNICATION: Communicates well and appropriately. EXTERNAL NOSE AND EARS: No masses, no lesions, no erythema, no edema. INTERNAL NOSE: Deviated septum. No bleeding. No masses, no lesions, no erythema, no edema. ORAL CAVITY AND OROPHARYNX: No masses, no lesions, no erythema, no edema LIPS AND GUMS: No masses, no lesions, no erythema. NECK: Supple. THYROID: No thyromegaly. No goiter. LYMPH NODES: No lymphadenopathy of the neck. ASSESSMENT: Epistaxis, which is resolved on the left to the septum. PLAN: Humidified aerosolized nasal cannula. No ENT intervention needed at this time. Jimmy Oropeza MD
[2018-11-19] MEDS: Oxycodone/Acetaminophen 5/325 mg Tab PO PRN (13:31)
--- NOTE | 2018-11-19 19:04 | CP.PCM.PN ---
Subjective - Date & Time of Evaluation Date of Evaluation: 11/19/18 Time of Evaluation: 09:00 - Subjective Subjective: weak nad edematous less sob Objective - Vital Signs/Intake and Output Vital Signs (last 24 hours): Temp Pulse Resp BP Pulse Ox 97.2 F L 68 18 157/89 H 100 11/19/18 15:10 11/19/18 15:10 11/19/18 15:10 11/19/18 10:25 11/19/18 15:10 - Medications Medications: Current Medications Albuterol/Ipratropium (Duoneb 3 Mg/0.5 Mg (3 Ml) Ud) 3 ml INH RQ6 [facility] Amlodipine Besylate (Norvasc) 5 mg PO DAILY [facility] Last Admin: 11/19/18 10:26 Dose: 5 mg Aspirin (Aspirin Chewable) 81 mg PO DAILY [facility] Last Admin: 11/19/18 10:26 Dose: 81 mg Furosemide (Lasix) 40 mg IVP DAILY [facility] Last Admin: 11/19/18 10:25 Dose: 40 mg Ceftriaxone Sodium (Rocephin Iv 1 Gm Duplex) 50 mls @ 100 mls/hr IVPB DAILY [facility]; Protocol Last Admin: 11/19/18 10:28 Dose: 100 mls/hr Insulin Human Regular (Novolin R) 0 unit SC ACHS [facility]; Protocol Last Admin: 11/19/18 17:17 Dose: 10 units Lactic Acid (Lac-Hydrin 12% Lotion (225 G)) 0 gm EXT BID [facility] Last Admin: 11/19/18 17:20 Dose: 1 applic Methylprednisolone (Solu-Medrol) 20 mg IVP Q12 [facility] Last Admin: 11/19/18 10:26 Dose: 20 mg Oxycodone/Acetaminophen (Percocet 5/325 Mg Tab) 1 tab PO Q6H PRN PRN Reason: Pain, moderate (4-7) Stop: 11/19/18 21:29 Last Admin: 11/19/18 13:31 Dose: 1 tab Rivaroxaban (Xarelto) 15 mg PO DAILY [facility] Last Admin: 11/19/18 10:27 Dose: 15 mg Rosuvastatin Calcium (Crestor) 10 mg PO HS [facility] Last Admin: 11/18/18 21:00 Dose: 10 mg Saccharomyces Boulardii (Florastor) 250 mg PO TID [facility] Last Admin: 11/19/18 17:18 Dose: 250 mg Tamsulosin HCl (Flomax) 0.4 mg PO DAILY [facility] Last Admin: 11/19/18 10:25 Dose: 0.4 mg - Labs Labs: 11/18/18 11:33 11/18/18 11:33 PT 13.5 SECONDS (9.7-12.2) H 11/06/18 10:39 INR 1.2 11/06/18 10:39 APTT 34 SECONDS (21-34) 11/06/18 10:39 - Constitutional Appears: Non-toxic, No Acute Distress, Chronically Ill - Head Exam Head Exam: ATRAUMATIC, NORMAL INSPECTION, NORMOCEPHALIC - Eye Exam Eye Exam: EOMI, Normal appearance, PERRL Pupil Exam: NORMAL ACCOMODATION, PERRL - ENT Exam ENT Exam: Mucous Membranes Moist, Normal Exam - Neck Exam Neck Exam: Full ROM, Normal Inspection. absent: Lymphadenopathy - Respiratory Exam Respiratory Exam: Decreased Breath Sounds, Prolonged Expiratory Phase, Rhonchi - Cardiovascular Exam Cardiovascular Exam: REGULAR RHYTHM, +S1, +S2. absent: Murmur - GI/Abdominal Exam GI & Abdominal Exam: Soft, Normal Bowel Sounds. absent: Tenderness - Rectal Exam Rectal Exam: Deferred - Extremities Exam Extremities Exam: Full ROM, Normal Capillary Refill, Pedal Edema. absent: Joint Swelling, Normal Inspection Additional comments: 3 + edema - Back Exam Back Exam: NORMAL INSPECTION - Neurological Exam Neurological Exam: Alert, Awake, CN II-XII Intact, Normal Gait, Oriented x3 - Psychiatric Exam Psychiatric exam: Normal Affect, Normal Mood - Skin Skin Exam: Dry, Intact, Normal Color, Warm Assessment and Plan (1) CHF exacerbation Status: Acute (2) Chr obstructive pulmonary disease w/ acute lower respiratory infxn Status: Acute (3) COPD (chronic obstructive pulmonary disease) Status: Acute (4) Hypercarbia Status: Acute (5) REYNALDO and COPD overlap syndrome Status: Acute - Assessment and Plan (Free Text) Assessment: renew IV rx
[2018-11-19] MEDS ORDERED: Aluminum Hydroxide/Magnesium Hydroxide Susp (30 mL) PO ONE (19:16)
--- NOTE | 2018-11-20 00:39 | PN ---
DATE: 11/19/2018 SUBJECTIVE: The patient is mildly short of breath. He has productive cough. No chest pain. PHYSICAL EXAMINATION: VITAL SIGNS: Blood pressure 157/89, heart rate 77, temperature 98.3, respirations 20. HEENT: Normocephalic. CHEST: Bibasilar rhonchi. HEART: S1 and S2, regular. ABDOMEN: Soft. EXTREMITIES: 1+ pitting edema. ASSESSMENT: 1. Congestive heart failure. 2. Chronic atrial fibrillation. 3. Coronary artery disease status post double bypass surgery and bioprosthetic aortic valve replacement. 4. Chronic renal insufficiency. RECOMMENDATIONS: Continue aspirin 81 mg once a day, albuterol inhaler every 6 hours, Crestor 10 mg once a day, Lasix 20 mg intravenously once a day, Norvasc 5 mg once a day, IV Rocephin 1 g daily, Solu-Medrol 20 mg intravenously every 12 hours, Xarelto 15 mg once a day. Obtain SMA-7 in a.m. Tyler Daley MD
[2018-11-20] MEDS: Albuterol-Ipratrop 3 mg / 0.5 (3 ml) UD INH SCH ×4 (01:21→19:14)
--- NOTE | 2018-11-20 05:03 | CON ---
DATE: 11/19/2018 COMPREHENSIVE UROLOGIC CONSULTATION TIME OF CONSULTATION: Roughly 6:45 p.m. 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 The patient was last seen in the office on 03/26/2017 and was not able to come to the office for a followup. The patient was recommended to start four-month Lupron Depot ADT, and this was never begun for treatment of radiation breakthrough prostate cancer. Patient needed cardiac clearance for Lupron Depot. The patient has been on Jessenia one capsule daily in addition to an additional dose of tamsulosin one capsule daily for treatment of BPH. The patient's last PSA on 04/10/2016 was 10.93 up from 6.05. The patient currently says he is voiding okay with minimal complaints. He has no dysuria, gross hematuria, renal colic or abdominal pain. PAST MEDICAL HISTORY: Includes hypertension, high cholesterol, ED, sciatica, scoliosis, urinary frequency, nocturia, anxiety, high-risk prostate cancer, vertigo, arthritis, heart problem, at times some breathing difficulty, BPH, sinusitis, and past history of urethral stricture disease and elevated PSA. PAST SURGICAL HISTORY: Includes CABG done in 2013; cataract surgery, right eye; carpal tunnel repair, right wrist in 1997; amputation of left index finger in 1956; and colonoscopies. FAMILY HISTORY: His father from a heart problem, and his mother also from a heart problem and diabetes. His brother also from heart surgery. His sister from breast cancer. SOCIAL HISTORY: Currently a nonsmoker and no alcohol abuse. PHYSICAL EXAMINATION: Today, GENERAL: The patient is a well-developed, well-nourished white male, currently alert and seems to be somewhat oriented. VITAL SIGNS: Today, his temperature is 97.2, pulse rate is 68, respiratory rate 18, and O2 sat on room air is 100%. HEENT: Grossly within normal limits. NECK: Supple. Thyroid not palpable. ABDOMEN: Globulus, soft, nondistended. No tenderness. No CVA tenderness. No suprapubic tenderness. GENITALIA: Testes are down bilaterally, nontender without any masses. RECTAL: Normal rectal tone without fluctuance or masses. Prostate is slightly enlarged, smooth, symmetrical, nontender without nodules or induration with a palpable median sulcus. EXTREMITIES: He has range of motion of both upper and lower extremities with some limitations of the lower extremities. LABORATORY DATA: His laboratory evaluation on 11/18/2018 showed a CBC with WBC count 11.7, hemoglobin 12.6, hematocrit 38.6 and platelet count 194,000. His chem profile shows a sodium of 136, potassium 5.2, chloride 89, CO2 of 43, BUN and creatinine of 71 and 1.6 respectively with a GFR around 41 indicating chronic kidney disease stage 3. His latest glucose was 151 in the evening of 11/18/2018. His total PSA is now 95.2. His TSH which was done on 11/17/2018 and his TSH is 0.23. His urinalysis on 11/06/2018 showed 1+ blood, 2 wbc's, 3 rbc's, 6% hyaline cast per high-power field, otherwise a normal urinalysis with a pH of 5 and specific gravity of 1.017. The patient is currently on Rocephin IV antibiotic. Tamsulosin 0.4 mg p.o. daily. His urine culture on 11/06/2018, showed no growth. DIAGNOSTIC IMPRESSION FOR THIS PATIENT: 1. Radiation breakthrough prostate cancer. 2. Elevated prostate-specific antigen over 95. 3. Benign prostatic hypertrophy. 4. Chronic kidney disease, stage 3. PLAN: Plan for this patient will be to increase his Flomax to 0.4 mg b.i.d. and discussed try to start Lupron Depot four months Depot for this patient if possible. This will be discussed with the medical team. Patient will also need a bone scan to check for mets. Wes Leonard MD LIL[facility]
[2018-11-20] MEDS: (Novolin R) Insulin Human Regular 100 units/ml vial SC SCH ×4 (08:07→21:10)
[2018-11-20] MEDS: cefTRIAXone IV 1 gm in Dextros 50 ML IVPB SCH (10:13)
[2018-11-20] MEDS: Pantoprazole 40 mg EC Tab PO SCH (10:14)
[2018-11-20] MEDS: Saccharomyces Boulardi 250 mg Cap PO SCH ×2 (10:14→17:40)
[2018-11-20] MEDS: MethylPREDNISolone 40 mg Vial IVP SCH ×2 (10:15→21:23)
[2018-11-20] MEDS: Ammonium Lactate 12% Lotion (225 g) EXT SCH ×2 (10:19→17:40)
--- NOTE | 2018-11-20 11:46 | CP.PCM.PN ---
Subjective - Date & Time of Evaluation Date of Evaluation: 11/19/18 - Subjective Subjective: Patient was examined today at bedside patient denies nausea, vomiting, fever, diarrhea, dizziness, shortness of breath Objective - Vital Signs/Intake and Output Vital Signs (last 24 hours): Temp Pulse Resp BP Pulse Ox 97.4 F L 78 18 150/88 100 11/20/18 07:00 11/20/18 07:00 11/20/18 07:00 11/20/18 10:16 11/20/18 07:00 Intake and Output: 11/20/18 11/20/18 06:59 18:59 Intake Total 590 Output Total 550 Balance 40 - Medications Medications: Current Medications Albuterol/Ipratropium (Duoneb 3 Mg/0.5 Mg (3 Ml) Ud) 3 ml INH RQ6 [facility] Last Admin: 11/20/18 08:45 Dose: 3 ml Amlodipine Besylate (Norvasc) 5 mg PO DAILY [facility] Last Admin: 11/20/18 10:15 Dose: 5 mg Aspirin (Aspirin Chewable) 81 mg PO DAILY [facility] Last Admin: 11/20/18 10:14 Dose: 81 mg Furosemide (Lasix) 40 mg IVP DAILY [facility] Last Admin: 11/20/18 10:16 Dose: 40 mg Ceftriaxone Sodium (Rocephin Iv 1 Gm Duplex) 50 mls @ 100 mls/hr IVPB DAILY [facility]; Protocol Last Admin: 11/20/18 10:13 Dose: 100 mls/hr Insulin Human Regular (Novolin R) 0 unit SC ACHS [facility]; Protocol Last Admin: 11/20/18 08:07 Dose: Not Given Lactic Acid (Lac-Hydrin 12% Lotion (225 G)) 0 gm EXT BID [facility] Last Admin: 11/20/18 10:19 Dose: 1 applic Methylprednisolone (Solu-Medrol) 20 mg IVP Q12 [facility] Last Admin: 11/20/18 10:15 Dose: 20 mg Pantoprazole Sodium (Protonix Ec Tab) 40 mg PO DAILY [facility] Last Admin: 11/20/18 10:14 Dose: 40 mg Rivaroxaban (Xarelto) 15 mg PO DAILY [facility] Last Admin: 11/20/18 10:14 Dose: 15 mg Rosuvastatin Calcium (Crestor) 10 mg PO HS [facility] Last Admin: 11/19/18 21:48 Dose: 10 mg Saccharomyces Boulardii (Florastor) 250 mg PO TID [facility] Last Admin: 11/20/18 10:14 Dose: 250 mg Tamsulosin HCl (Flomax) 0.4 mg PO BID [facility] Last Admin: 11/20/18 10:14 Dose: 0.4 mg - Labs Labs: 11/18/18 11:33 11/18/18 11:33 PT 13.5 SECONDS (9.7-12.2) H 11/06/18 10:39 INR 1.2 11/06/18 10:39 APTT 34 SECONDS (21-34) 11/06/18 10:39 - Constitutional Appears: Well - Head Exam Head Exam: ATRAUMATIC, NORMAL INSPECTION, NORMOCEPHALIC - Eye Exam Eye Exam: EOMI, Normal appearance, PERRL Pupil Exam: NORMAL ACCOMODATION, PERRL - ENT Exam ENT Exam: Mucous Membranes Moist, Normal Exam - Neck Exam Neck Exam: Full ROM, Normal Inspection. absent: Lymphadenopathy - Respiratory Exam Respiratory Exam: Decreased Breath Sounds - Cardiovascular Exam Cardiovascular Exam: REGULAR RHYTHM, +S1, +S2 - GI/Abdominal Exam GI & Abdominal Exam: Soft, Diminished Bowel Sounds - Rectal Exam Rectal Exam: Deferred - Neurological Exam Neurological Exam: Oriented x3 Assessment and Plan - Assessment and Plan (Free Text) Plan: medications reviewed labs reviewed vitals reviewed
--- NOTE | 2018-11-20 12:30 | CP.PCM.PN ---
Subjective - Date & Time of Evaluation Date of Evaluation: 11/20/18 Time of Evaluation: 10:00 - Subjective Subjective: Patient was seen and examined Admits to cough but much improved Breathing has improved Denies fevers, chest pain, Afebrile Physical Exam O2 Saturation 100% NC General: NAD Cardio: S1, S2 Resp: CTA Abd: Soft, Non-tender A/P 1) COPD Exacerbation -Taper Steroids -Continue Nebulizer treatment -F/U ABG 2) CHF -continue Lasix Objective - Vital Signs/Intake and Output Vital Signs (last 24 hours): Temp Pulse Resp BP Pulse Ox 97.4 F L 78 18 150/88 100 11/20/18 07:00 11/20/18 07:00 11/20/18 07:00 11/20/18 10:16 11/20/18 07:00 Intake and Output: 11/20/18 11/20/18 06:59 18:59 Intake Total 590 Output Total 550 Balance 40 - Medications Medications: Current Medications Albuterol/Ipratropium (Duoneb 3 Mg/0.5 Mg (3 Ml) Ud) 3 ml INH RQ6 [facility] Last Admin: 11/20/18 08:45 Dose: 3 ml Amlodipine Besylate (Norvasc) 5 mg PO DAILY [facility] Last Admin: 11/20/18 10:15 Dose: 5 mg Aspirin (Aspirin Chewable) 81 mg PO DAILY [facility] Last Admin: 11/20/18 10:14 Dose: 81 mg Furosemide (Lasix) 40 mg IVP DAILY [facility] Last Admin: 11/20/18 10:16 Dose: 40 mg Ceftriaxone Sodium (Rocephin Iv 1 Gm Duplex) 50 mls @ 100 mls/hr IVPB DAILY [facility]; Protocol Last Admin: 11/20/18 10:13 Dose: 100 mls/hr Insulin Human Regular (Novolin R) 0 unit SC ACHS [facility]; Protocol Last Admin: 11/20/18 08:07 Dose: Not Given Lactic Acid (Lac-Hydrin 12% Lotion (225 G)) 0 gm EXT BID [facility] Last Admin: 11/20/18 10:19 Dose: 1 applic Methylprednisolone (Solu-Medrol) 20 mg IVP Q12 [facility] Last Admin: 11/20/18 10:15 Dose: 20 mg Pantoprazole Sodium (Protonix Ec Tab) 40 mg PO DAILY [facility] Last Admin: 11/20/18 10:14 Dose: 40 mg Rivaroxaban (Xarelto) 15 mg PO DAILY [facility] Last Admin: 11/20/18 10:14 Dose: 15 mg Rosuvastatin Calcium (Crestor) 10 mg PO HS [facility] Last Admin: 11/19/18 21:48 Dose: 10 mg Saccharomyces Boulardii (Florastor) 250 mg PO TID [facility] Last Admin: 11/20/18 10:14 Dose: 250 mg Tamsulosin HCl (Flomax) 0.4 mg PO BID [facility] Last Admin: 11/20/18 10:14 Dose: 0.4 mg - Labs Labs: 11/18/18 11:33 11/18/18 11:33 PT 13.5 SECONDS (9.7-12.2) H 11/06/18 10:39 INR 1.2 11/06/18 10:39 APTT 34 SECONDS (21-34) 11/06/18 10:39 Assessment and Plan (1) COPD (chronic obstructive pulmonary disease) Status: Acute (2) CHF exacerbation Status: Acute
--- NOTE | 2018-11-20 13:54 | PN ---
DATE: 11/19/2018 SUBJECTIVE: See the chart. The consult was requested for an elevated PSA. Notes are from the chart and then from the patient. He is a very pleasant gentleman who is 83 years old. He has been in the hospital under the care of Dr. Marshal House for various medical reasons. From Urology standpoint, he was found to have an elevated PSA. I came to see the patient as requested for a urology consult and I am putting a progress note in because after talking to the patient further and asking him questions, he had significant voiding disruptive symptoms. He has obstructive and irritative nature of concerns and the PSA is noted. Of note though, the patient has an urologist that he has been seeing on an outpatient, Dr. Leonard, see all plans as listed below and the patient prefers and I will certainly recommend that he sees Dr. Leonard. See all plans as listed below. The past medical and surgical is listed on the chart; otherwise unremarkable in the progress notes all this is noted. The physical examination, medications, allergies are all noted on the chart. Physical exam again is essentially unremarkable from urology standpoint and rectal exam was deferred by the patient. ASSESSMENT AND PLAN: In summary, a very pleasant 83-year-old gentleman with irritative and obstructive voiding complaints, decreased force of stream, etc., and an elevated abnormal PSA. He is already under the care of Dr. Leonard. Urology plan as follows: 1. No further urology intervention by Dr. Kiel Tony. 2. I will alert Dr. Leonard and I will also alert Dr. Marshal House. 3. Then further plans will follow according to Dr. Leonard. Kiel Tony MD
--- NOTE | 2018-11-20 16:40 | PN ---
DATE: 11/20/2018 TIME OF FOLLOWUP: Roughly 2:35 p.m. SUBJECTIVE: The patient is resting comfortably in bed with his facemask today. He is voiding shadia urine without complaints. PHYSICAL EXAMINATION: VITAL SIGNS: Today, his temperature is 97.4, pulse rate is 78, blood pressure 150/88, respiratory rate is 18, O2 saturations with nasal cannula is 100%. ABDOMEN: Soft, nondistended, nontender. No CVA tenderness, no suprapubic tenderness. LABORATORY DATA: His glucose this afternoon was 164. ASSESSMENT: The patient is currently scheduled to go for a bone scan to check for bone metastasis with an elevated PSA of greater than 95 with history of high-risk prostate cancer with radiation breakthrough. PLAN: Plan for this patient will be to try to start the patient on 4-month Lupron Depot ADT if the patient can get cleared medically with this medication by Cardiology. The patient can eventually been seen in the office followup for Lupron 4-month Depot if he gets cleared with this medication. Wes Leonard MD
--- NOTE | 2018-11-20 17:28 | NM ---
Date of service: 11/20/2018 PROCEDURE: Whole Body Bone Scan HISTORY: prostate CA COMPARISON: 02/22/2013 single-view of the abdomen and pelvis. TECHNIQUE: Following administration of 24.9 miCu of Tc MDP multiplanar whole body images were obtained. FINDINGS: Evidence for bony metastatic disease: Abnormal increased uptake in the left hemipelvis and left hip. The findings are inconclusive. There more likely related to non neoplastic processes such as Paget disease. Plain film correlation strongly recommended. Degenerative uptake: Thoracolumbar spine primarily related to scoliosis. Similar findings identified on plain film radiographs of the abdomen 02/22/2013 documenting thoracolumbar scoliosis and extensive sclerotic disease. Physiologic uptake: Normal physiologic activity in the kidneys. Other findings: Intense uptake in the left hemipelvis more likely to represent Paget disease than metastatic disease. IMPRESSION: Presumed degenerative changes thoracolumbar spine. 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 Inconclusive findings left hip. Recommendation: Plain film radiographs thoracolumbar spine and pelvis for further evaluation.
[2018-11-20] MEDS: Oxycodone/Acetaminophen 5/325 mg Tab PO PRN (17:30)
--- NOTE | 2018-11-20 19:42 | CP.PCM.PN ---
Subjective - Date & Time of Evaluation Date of Evaluation: 11/20/18 Time of Evaluation: 07:00 - Subjective Subjective: overall improved has prostate ca on lupron follow up Objective - Vital Signs/Intake and Output Vital Signs (last 24 hours): Temp Pulse Resp BP Pulse Ox 97.5 F L 77 18 133/85 90 L 11/20/18 15:09 11/20/18 19:15 11/20/18 15:09 11/20/18 15:09 11/20/18 15:09 Intake and Output: 11/20/18 11/21/18 18:59 06:59 Intake Total 280 Output Total 400 Balance -120 - Medications Medications: Current Medications Albuterol/Ipratropium (Duoneb 3 Mg/0.5 Mg (3 Ml) Ud) 3 ml INH RQ6 [facility] Last Admin: 11/20/18 19:14 Dose: 3 ml Amlodipine Besylate (Norvasc) 5 mg PO DAILY [facility] Last Admin: 11/20/18 10:15 Dose: 5 mg Aspirin (Aspirin Chewable) 81 mg PO DAILY [facility] Last Admin: 11/20/18 10:14 Dose: 81 mg Furosemide (Lasix) 40 mg IVP DAILY [facility] Last Admin: 11/20/18 10:16 Dose: 40 mg Ceftriaxone Sodium (Rocephin Iv 1 Gm Duplex) 50 mls @ 100 mls/hr IVPB DAILY [facility]; Protocol Last Admin: 11/20/18 10:13 Dose: 100 mls/hr Insulin Human Regular (Novolin R) 0 unit SC ACHS [facility]; Protocol Last Admin: 11/20/18 17:39 Dose: 2 units Lactic Acid (Lac-Hydrin 12% Lotion (225 G)) 0 gm EXT BID [facility] Last Admin: 11/20/18 17:40 Dose: 1 applic Methylprednisolone (Solu-Medrol) 20 mg IVP Q12 [facility] Last Admin: 11/20/18 10:15 Dose: 20 mg Oxycodone/Acetaminophen (Percocet 5/325 Mg Tab) 1 tab PO Q6H PRN PRN Reason: Pain, moderate (4-7) Stop: 11/23/18 17:08 Last Admin: 11/20/18 17:30 Dose: 1 tab Pantoprazole Sodium (Protonix Ec Tab) 40 mg PO DAILY [facility] Last Admin: 03/29/19 10:14 Dose: 40 mg Rivaroxaban (Xarelto) 15 mg PO DAILY [facility] Last Admin: 11/20/18 10:14 Dose: 15 mg Rosuvastatin Calcium (Crestor) 10 mg PO HS [facility] Last Admin: 11/19/18 21:48 Dose: 10 mg Saccharomyces Boulardii (Florastor) 250 mg PO TID [facility] Last Admin: 11/20/18 17:40 Dose: 250 mg Tamsulosin HCl (Flomax) 0.4 mg PO BID [facility] Last Admin: 11/20/18 17:29 Dose: 0.4 mg - Labs Labs: 11/18/18 11:33 11/18/18 11:33 PT 13.5 SECONDS (9.7-12.2) H 11/06/18 10:39 INR 1.2 11/06/18 10:39 APTT 34 SECONDS (21-34) 11/06/18 10:39 - Constitutional Appears: Non-toxic, Chronically Ill - Head Exam Head Exam: ATRAUMATIC, NORMAL INSPECTION, NORMOCEPHALIC - Eye Exam Eye Exam: EOMI, Normal appearance, PERRL Pupil Exam: NORMAL ACCOMODATION, PERRL - ENT Exam ENT Exam: Mucous Membranes Moist, Normal Exam - Neck Exam Neck Exam: Full ROM, Normal Inspection. absent: Lymphadenopathy - Respiratory Exam Respiratory Exam: Decreased Breath Sounds, Prolonged Expiratory Phase. absent: Respiratory Distress - Cardiovascular Exam Cardiovascular Exam: REGULAR RHYTHM, +S1, +S2. absent: Murmur - GI/Abdominal Exam GI & Abdominal Exam: Distended, Soft, Normal Bowel Sounds. absent: Tenderness - Rectal Exam Rectal Exam: Deferred - Exam Exam: NORMAL INSPECTION - Extremities Exam Extremities Exam: Full ROM, Normal Capillary Refill, Pedal Edema. absent: Joint Swelling - Back Exam Back Exam: NORMAL INSPECTION - Neurological Exam Neurological Exam: Alert, Awake, CN II-XII Intact, Normal Gait, Oriented x3 - Psychiatric Exam Psychiatric exam: Normal Affect, Normal Mood - Skin Skin Exam: Dry, Intact, Normal Color, Warm Assessment and Plan (1) CHF exacerbation Status: Acute (2) Chr obstructive pulmonary disease w/ acute lower respiratory infxn Status: Acute (3) COPD (chronic obstructive pulmonary disease) Status: Acute (4) Hypercarbia Status: Acute (5) REYNALDO and COPD overlap syndrome Status: Acute
--- NOTE | 2018-11-20 19:54 | CP.PCM.PN ---
Subjective - Date & Time of Evaluation Date of Evaluation: 11/20/18 - Subjective Subjective: patient seen and examined today no nausea, denies SOB, little bit of cough, denies fever, chest pain, no vomiting, no diarrhea Objective - Vital Signs/Intake and Output Vital Signs (last 24 hours): Temp Pulse Resp BP Pulse Ox 97.5 F L 77 18 133/85 90 L 11/20/18 15:09 11/20/18 19:15 11/20/18 15:09 11/20/18 15:09 11/20/18 15:09 Intake and Output: 11/20/18 11/21/18 18:59 06:59 Intake Total 280 Output Total 400 Balance -120 - Medications Medications: Current Medications Albuterol/Ipratropium (Duoneb 3 Mg/0.5 Mg (3 Ml) Ud) 3 ml INH RQ6 [facility] Last Admin: 11/20/18 19:14 Dose: 3 ml Amlodipine Besylate (Norvasc) 5 mg PO DAILY [facility] Last Admin: 11/20/18 10:15 Dose: 5 mg Aspirin (Aspirin Chewable) 81 mg PO DAILY [facility] Last Admin: 11/20/18 10:14 Dose: 81 mg Furosemide (Lasix) 40 mg IVP DAILY [facility] Last Admin: 11/20/18 10:16 Dose: 40 mg Ceftriaxone Sodium (Rocephin Iv 1 Gm Duplex) 50 mls @ 100 mls/hr IVPB DAILY [facility]; Protocol Last Admin: 11/20/18 10:13 Dose: 100 mls/hr Insulin Human Regular (Novolin R) 0 unit SC ACHS [facility]; Protocol Last Admin: 11/20/18 17:39 Dose: 2 units Lactic Acid (Lac-Hydrin 12% Lotion (225 G)) 0 gm EXT BID [facility] Last Admin: 11/20/18 17:40 Dose: 1 applic Methylprednisolone (Solu-Medrol) 20 mg IVP Q12 [facility] Last Admin: 11/20/18 10:15 Dose: 20 mg Oxycodone/Acetaminophen (Percocet 5/325 Mg Tab) 1 tab PO Q6H PRN PRN Reason: Pain, moderate (4-7) Stop: 11/23/18 17:08 Last Admin: 11/20/18 17:30 Dose: 1 tab Pantoprazole Sodium (Protonix Ec Tab) 40 mg PO DAILY [facility] Last Admin: 11/20/18 10:14 Dose: 40 mg Rivaroxaban (Xarelto) 15 mg PO DAILY [facility] Last Admin: 11/20/18 10:14 Dose: 15 mg Rosuvastatin Calcium (Crestor) 10 mg PO HS [facility] Last Admin: 11/19/18 21:48 Dose: 10 mg Saccharomyces Boulardii (Florastor) 250 mg PO TID [facility] Last Admin: 11/20/18 17:40 Dose: 250 mg Tamsulosin HCl (Flomax) 0.4 mg PO BID [facility] Last Admin: 11/20/18 17:29 Dose: 0.4 mg - Labs Labs: 11/18/18 11:33 11/18/18 11:33 PT 13.5 SECONDS (9.7-12.2) H 11/06/18 10:39 INR 1.2 11/06/18 10:39 APTT 34 SECONDS (21-34) 11/06/18 10:39 - Constitutional Appears: Well - Head Exam Head Exam: ATRAUMATIC, NORMAL INSPECTION, NORMOCEPHALIC - Eye Exam Eye Exam: EOMI, Normal appearance, PERRL Pupil Exam: NORMAL ACCOMODATION, PERRL - ENT Exam ENT Exam: Mucous Membranes Moist, Normal Exam - Neck Exam Neck Exam: Full ROM, Normal Inspection. absent: Lymphadenopathy - Respiratory Exam Respiratory Exam: Decreased Breath Sounds - Cardiovascular Exam Cardiovascular Exam: REGULAR RHYTHM, +S1, +S2 - GI/Abdominal Exam GI & Abdominal Exam: Soft, Diminished Bowel Sounds - Rectal Exam Rectal Exam: Deferred Assessment and Plan - Assessment and Plan (Free Text) Plan: patient evaluated at bedside today bone scan reviewed labs reviewed vitals reviewed medications reviewed aspirin chewable tablet crestor duoneb 3mg/0.5mg 3ml ud flomax florastor lac-hydrin 12% lotion 225g lasix norvasc novolin r percocet 5/325mg tab protonix ect tab rocephin Iv 1 gm duplex sulo-medrol xarelto
[2018-11-21] MEDS: Oxycodone/Acetaminophen 5/325 mg Tab PO PRN ×3 (00:38→21:23)
--- NOTE | 2018-11-21 01:10 | PN ---
DATE: 11/20/2018 SUBJECTIVE: The patient is still short of breath and experiencing leg swelling. PHYSICAL EXAMINATION: VITAL SIGNS: Blood pressure 150/88, heart rate 74, temperature 97.4, respirations 18. HEENT: Normocephalic. CHEST: Bibasilar rhonchi. HEART: S1 and S2 regular. EXTREMITIES: 1+ pitting edema. LABORATORY DATA: Today's blood sugars are 141 and 164 respectively. ASSESSMENT: 1. Improving congestive heart failure. 2. Chronic atrial fibrillation. 3. Coronary artery disease status post double bypass surgery and bioprosthetic aortic valve replacement. 4. Prostatic cancer. RECOMMENDATIONS: Continue current aspirin 81 mg once a day, Crestor 10 mg once a day, Flomax 0.4 mg twice a day, Lasix 40 mg IV twice a day, Norvasc 5 mg once a day, Rocephin at 1 g intravenously daily, Xarelto 15 mg once a day, and Solu-Medrol 20 mg intravenously every 12 hours. The patient is scheduled for bone scan today. Tyler Daley MD
[2018-11-21] MEDS: Albuterol-Ipratrop 3 mg / 0.5 (3 ml) UD INH SCH ×4 (01:21→20:13)
[2018-11-21] MEDS: Ammonium Lactate 12% Lotion (225 g) EXT SCH ×2 (10:00→19:53)
[2018-11-21] MEDS: Saccharomyces Boulardi 250 mg Cap PO SCH ×4 (10:00→19:53)
[2018-11-21] MEDS: (Novolin R) Insulin Human Regular 100 units/ml vial SC SCH ×4 (10:06→22:41)
[2018-11-21] MEDS: Pantoprazole 40 mg EC Tab PO SCH (10:07)
[2018-11-21] MEDS: cefTRIAXone IV 1 gm in Dextros 50 ML IVPB SCH (10:09)
[2018-11-21] MEDS: MethylPREDNISolone 40 mg Vial IVP SCH ×2 (10:10→21:21)
--- NOTE | 2018-11-21 10:37 | CP.PCM.PN ---
Subjective - Date & Time of Evaluation Date of Evaluation: 11/21/18 Time of Evaluation: 08:00 - Subjective Subjective: Patient seen and examined Lying comfortably in no distress Complaining of slight cough Afebrile Stable from pulmonary standpoint Continue nebulizer treatment Continue diuretics Pain medication Objective - Vital Signs/Intake and Output Vital Signs (last 24 hours): Temp Pulse Resp BP Pulse Ox 97.9 F 75 18 124/82 100 11/21/18 07:00 11/21/18 07:00 11/21/18 07:00 11/21/18 10:05 11/21/18 07:00 - Medications Medications: Current Medications Albuterol/Ipratropium (Duoneb 3 Mg/0.5 Mg (3 Ml) Ud) 3 ml INH RQ6 [facility] Last Admin: 11/21/18 01:21 Dose: 3 ml Amlodipine Besylate (Norvasc) 5 mg PO DAILY [facility] Last Admin: 11/21/18 10:05 Dose: 5 mg Aspirin (Aspirin Chewable) 81 mg PO DAILY [facility] Last Admin: 11/21/18 10:06 Dose: 81 mg Furosemide (Lasix) 40 mg IVP DAILY [facility] Last Admin: 11/21/18 10:05 Dose: 40 mg Ceftriaxone Sodium (Rocephin Iv 1 Gm Duplex) 50 mls @ 100 mls/hr IVPB DAILY [facility]; Protocol Last Admin: 11/21/18 10:09 Dose: 100 mls/hr Insulin Human Regular (Novolin R) 0 unit SC ACHS [facility]; Protocol Last Admin: 11/21/18 10:06 Dose: 2 units Lactic Acid (Lac-Hydrin 12% Lotion (225 G)) 0 gm EXT BID [facility] Last Admin: 11/20/18 17:40 Dose: 1 applic Methylprednisolone (Solu-Medrol) 20 mg IVP Q12 [facility] Last Admin: 11/21/18 10:10 Dose: 20 mg Oxycodone/Acetaminophen (Percocet 5/325 Mg Tab) 1 tab PO Q6H PRN PRN Reason: Pain, moderate (4-7) Stop: 11/23/18 17:08 Last Admin: 11/21/18 10:06 Dose: 1 tab Pantoprazole Sodium (Protonix Ec Tab) 40 mg PO DAILY [facility] Last Admin: 11/21/18 10:07 Dose: 40 mg Rivaroxaban (Xarelto) 15 mg PO DAILY [facility] Last Admin: 11/21/18 10:09 Dose: 15 mg Rosuvastatin Calcium (Crestor) 10 mg PO HS [facility] Last Admin: 11/20/18 21:24 Dose: 10 mg Saccharomyces Boulardii (Florastor) 250 mg PO TID [facility] Last Admin: 11/20/18 17:40 Dose: 250 mg Tamsulosin HCl (Flomax) 0.4 mg PO BID [facility] Last Admin: 11/21/18 10:06 Dose: 0.4 mg - Labs Labs: 11/18/18 11:33 11/18/18 11:33 PT 13.5 SECONDS (9.7-12.2) H 11/06/18 10:39 INR 1.2 11/06/18 10:39 APTT 34 SECONDS (21-34) 11/06/18 10:39
[2018-11-21 17:11] VITALS: RESP 20
[2018-11-21] MEDS ORDERED: Alum-Mag Hydrox-Simethicone Susp (30 mL) PO PRN (17:22)
--- NOTE | 2018-11-21 17:42 | RAD ---
Date of service: 11/21/2018 HISTORY: CA COMPARISON: No prior. TECHNIQUE: 2 views obtained. FINDINGS: BONES: There are heterogeneous sclerotic bony lesion noted at the lower thoracic spine. Advanced degenerative changes and large osteophyte formation are seen. DISC SPACES: Multilevel narrowing of the intervertebral disc is spaces. SOFT TISSUES: Normal. OTHER FINDINGS: None. IMPRESSION: Advanced degenerative changes. Suspicious for sclerotic bony lesion at the lower thoracic spine.
--- NOTE | 2018-11-21 17:45 | RAD ---
Date of service: 11/21/2018 PROCEDURE: Radiographs of the Lumbar Spine. HISTORY: CA COMPARISON: No prior. TECHNIQUE: 5 views obtained. FINDINGS: BONES: Advanced degenerative changes seen. There are foci of bony sclerotic changes noted in the lumbar spine. The possibility of metastasis cannot be excluded. DISC SPACES: Severe narrowing of the intervertebral disc is spaces noted. OTHER FINDINGS: None. IMPRESSION: Sclerotic changes may be due to advanced degenerative changes or sclerotic bony metastasis.
--- NOTE | 2018-11-21 17:47 | RAD ---
Date of service: 11/21/2018 PROCEDURE: Radiographs of the pelvis. HISTORY: CA COMPARISON: None. TECHNIQUE: 1 view obtained. FINDINGS: BONES: Pelvic Bones: There are sclerotic bony changes noted in the pelvis more prominent in the left side may represent metastasis. Hips: Grossly unremarkable. JOINTS: Sacroiliac Joints: Arthritic degenerative changes Pubic Symphysis: Arthritic degenerative changes OTHER FINDINGS: None. IMPRESSION: Sclerotic bony changes noted in the left pelvis may be Paget's disease or bony metastasis.
--- NOTE | 2018-11-21 19:47 | CP.PCM.PN ---
Subjective - Date & Time of Evaluation Date of Evaluation: 11/21/18 - Subjective Subjective: patient seen and examined at bedside today no nausea, no vomiting, no fever, no shortness of breath, no diarrhea Objective - Vital Signs/Intake and Output Vital Signs (last 24 hours): Temp Pulse Resp BP Pulse Ox 97.9 F 88 20 150/84 98 11/21/18 16:00 11/21/18 16:00 11/21/18 16:00 11/21/18 16:00 11/21/18 16:00 - Medications Medications: Current Medications Al Hydrox/Mg Hydrox/Simethicone (Maalox Plus 30 Ml) 30 ml PO Q6 PRN PRN Reason: Indigestion / Heartburn Last Admin: 11/21/18 18:02 Dose: 30 ml Albuterol/Ipratropium (Duoneb 3 Mg/0.5 Mg (3 Ml) Ud) 3 ml INH RQ6 [facility] Last Admin: 11/21/18 13:32 Dose: Not Given Amlodipine Besylate (Norvasc) 5 mg PO DAILY [facility] Last Admin: 11/21/18 10:05 Dose: 5 mg Aspirin (Aspirin Chewable) 81 mg PO DAILY [facility] Last Admin: 11/21/18 10:06 Dose: 81 mg Furosemide (Lasix) 40 mg IVP DAILY [facility] Last Admin: 11/21/18 10:05 Dose: 40 mg Ceftriaxone Sodium (Rocephin Iv 1 Gm Duplex) 50 mls @ 100 mls/hr IVPB DAILY [facility]; Protocol Last Admin: 11/21/18 10:09 Dose: 100 mls/hr Insulin Human Regular (Novolin R) 0 unit SC ACHS [facility]; Protocol Last Admin: 11/21/18 18:01 Dose: 2 units Lactic Acid (Lac-Hydrin 12% Lotion (225 G)) 0 gm EXT BID [facility] Last Admin: 11/21/18 10:00 Dose: Not Given Methylprednisolone (Solu-Medrol) 20 mg IVP Q12 [facility] Last Admin: 11/21/18 10:10 Dose: 20 mg Oxycodone/Acetaminophen (Percocet 5/325 Mg Tab) 1 tab PO Q6H PRN PRN Reason: Pain, moderate (4-7) Stop: 11/23/18 17:08 Last Admin: 11/21/18 10:06 Dose: 1 tab Pantoprazole Sodium (Protonix Ec Tab) 40 mg PO DAILY [facility] Last Admin: 11/21/18 10:07 Dose: 40 mg Rivaroxaban (Xarelto) 15 mg PO DAILY [facility] Last Admin: 11/21/18 10:09 Dose: 15 mg Rosuvastatin Calcium (Crestor) 10 mg PO HS [facility] Last Admin: 11/20/18 21:24 Dose: 10 mg Saccharomyces Boulardii (Florastor) 250 mg PO TID [facility] Last Admin: 11/21/18 13:20 Dose: Not Given Tamsulosin HCl (Flomax) 0.4 mg PO BID [facility] Last Admin: 11/21/18 18:02 Dose: 0.4 mg - Labs Labs: 11/18/18 11:33 11/18/18 11:33 PT 13.5 SECONDS (9.7-12.2) H 11/06/18 10:39 INR 1.2 11/06/18 10:39 APTT 34 SECONDS (21-34) 11/06/18 10:39 - Constitutional Appears: Well - Head Exam Head Exam: ATRAUMATIC, NORMAL INSPECTION, NORMOCEPHALIC - Eye Exam Eye Exam: EOMI, Normal appearance, PERRL Pupil Exam: NORMAL ACCOMODATION, PERRL - ENT Exam ENT Exam: Mucous Membranes Moist, Normal Exam - Neck Exam Neck Exam: Full ROM, Normal Inspection. absent: Lymphadenopathy - Respiratory Exam Respiratory Exam: Decreased Breath Sounds - Cardiovascular Exam Cardiovascular Exam: REGULAR RHYTHM, +S1, +S2 - GI/Abdominal Exam GI & Abdominal Exam: Soft, Diminished Bowel Sounds - Rectal Exam Rectal Exam: Deferred Assessment and Plan - Assessment and Plan (Free Text) Plan: thoracic spine xray reviewed medication reviewed aspirin chewable tab crestor duoneb 3mg/0.5mg 3ml ud flomax florastor lac-hydrin 12% lotion 225g lasix maalox plus 30 ml norvasc novolin R percocet 5/325mg tab protonix ec tab rocephin Iv 1gm duplex solu-mderol xarelto vitals and labs reviewed
--- NOTE | 2018-11-21 19:52 | PN ---
DATE: 11/21/2018 SUBJECTIVE: The patient is complaining of shortness of breath and he is unhappy today. PHYSICAL EXAMINATION: VITAL SIGNS: Blood pressure 124/82, heart rate 78, temperature 97.9, respirations 18. HEENT: Normocephalic. CHEST: Bibasilar rhonchi. HEART: S1 and S2 regular. ABDOMEN: Soft. EXTREMITIES: 1+ pitting edema. LABORATORY DATA: Today's blood sugars are 181 and 142 respectively. Bone scan report presumed degenerative changes at the thoracolumbar spine. 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 Inconclusive findings left hip. I recommend plain film radiograph of thoracolumbar spine and pelvis for further evaluation. ASSESSMENT: 1. Improved congestive heart failure. 2. Coronary artery disease, status post double bypass surgery and bioprosthetic aortic valve replacement. 3. Chronic atrial fibrillation. 4. History of prostatic cancer. RECOMMENDATIONS: Continue aspirin 81 mg once a day, Crestor 10 mg once a day, Lasix 40 mg intravenous once a day, amlodipine at 5 mg once a day, Solu-Medrol 40 mg intravenously every 12 hours, Xarelto at 15 mg daily. I will order thoracolumbar spine x-ray as well as pelvic plain x-ray. Tyler Daley MD
[2018-11-22] MEDS: Albuterol-Ipratrop 3 mg / 0.5 (3 ml) UD INH SCH ×4 (01:02→19:31)
[2018-11-22] MEDS: Oxycodone/Acetaminophen 5/325 mg Tab PO PRN (03:33)
[2018-11-22] MEDS: Saccharomyces Boulardi 250 mg Cap PO SCH ×3 (10:29→18:05)
[2018-11-22] MEDS: Pantoprazole 40 mg EC Tab PO SCH (10:33)
[2018-11-22] MEDS: MethylPREDNISolone 40 mg Vial IVP SCH ×2 (10:34→21:35)
[2018-11-22] MEDS: cefTRIAXone IV 1 gm in Dextros 50 ML IVPB SCH (10:38)
[2018-11-22] MEDS: Ammonium Lactate 12% Lotion (225 g) EXT SCH ×2 (10:45→18:07)
[2018-11-22] MEDS: (Novolin R) Insulin Human Regular 100 units/ml vial SC SCH ×4 (10:47→21:36)
--- NOTE | 2018-11-22 14:48 | CP.PCM.PN ---
Subjective - Date & Time of Evaluation Date of Evaluation: 11/22/18 - Subjective Subjective: Patient was examined today at bedside patient denies nausea, vomiting, fever, diarrhea, dizziness, shortness of breath Objective - Vital Signs/Intake and Output Vital Signs (last 24 hours): Temp Pulse Resp BP Pulse Ox 98.8 F 68 20 113/73 94 L 11/22/18 07:30 11/22/18 10:00 11/22/18 07:30 11/22/18 10:30 11/22/18 07:30 Intake and Output: 11/22/18 11/22/18 06:59 18:59 Intake Total 630 Output Total 600 Balance 30 - Medications Medications: Current Medications Al Hydrox/Mg Hydrox/Simethicone (Maalox Plus 30 Ml) 30 ml PO Q6 PRN PRN Reason: Indigestion / Heartburn Last Admin: 11/21/18 18:02 Dose: 30 ml Albuterol/Ipratropium (Duoneb 3 Mg/0.5 Mg (3 Ml) Ud) 3 ml INH RQ6 [facility] Last Admin: 11/22/18 13:12 Dose: 3 ml Amlodipine Besylate (Norvasc) 5 mg PO DAILY [facility] Last Admin: 11/22/18 10:27 Dose: 5 mg Aspirin (Aspirin Chewable) 81 mg PO DAILY [facility] Last Admin: 11/22/18 10:28 Dose: 81 mg Furosemide (Lasix) 40 mg IVP DAILY [facility] Last Admin: 11/22/18 10:30 Dose: 40 mg Ceftriaxone Sodium (Rocephin Iv 1 Gm Duplex) 50 mls @ 100 mls/hr IVPB DAILY [facility]; Protocol Last Admin: 11/22/18 10:38 Dose: 100 mls/hr Insulin Human Regular (Novolin R) 0 unit SC ACHS [facility]; Protocol Last Admin: 11/22/18 12:25 Dose: 2 units Lactic Acid (Lac-Hydrin 12% Lotion (225 G)) 0 gm EXT BID [facility] Last Admin: 11/22/18 10:45 Dose: 1 applic Methylprednisolone (Solu-Medrol) 20 mg IVP Q12 [facility] Last Admin: 11/22/18 10:34 Dose: 20 mg Oxycodone/Acetaminophen (Percocet 5/325 Mg Tab) 1 tab PO Q6H PRN PRN Reason: Pain, moderate (4-7) Stop: 11/23/18 17:08 Last Admin: 11/22/18 03:33 Dose: 1 tab Pantoprazole Sodium (Protonix Ec Tab) 40 mg PO DAILY [facility] Last Admin: 11/22/18 10:33 Dose: 40 mg Rivaroxaban (Xarelto) 15 mg PO DAILY [facility] Last Admin: 11/22/18 10:27 Dose: 15 mg Rosuvastatin Calcium (Crestor) 10 mg PO HS [facility] Last Admin: 11/21/18 21:22 Dose: 10 mg Saccharomyces Boulardii (Florastor) 250 mg PO TID [facility] Last Admin: 11/22/18 13:19 Dose: Not Given Tamsulosin HCl (Flomax) 0.4 mg PO BID [facility] Last Admin: 11/22/18 10:27 Dose: 0.4 mg - Labs Labs: 11/18/18 11:33 11/18/18 11:33 PT 13.5 SECONDS (9.7-12.2) H 11/06/18 10:39 INR 1.2 11/06/18 10:39 APTT 34 SECONDS (21-34) 11/06/18 10:39 - Constitutional Appears: Well - Head Exam Head Exam: ATRAUMATIC, NORMAL INSPECTION, NORMOCEPHALIC - Eye Exam Eye Exam: EOMI, Normal appearance, PERRL Pupil Exam: NORMAL ACCOMODATION, PERRL - ENT Exam ENT Exam: Mucous Membranes Moist, Normal Exam - Neck Exam Neck Exam: Full ROM, Normal Inspection. absent: Lymphadenopathy - Respiratory Exam Respiratory Exam: Decreased Breath Sounds - Cardiovascular Exam Cardiovascular Exam: REGULAR RHYTHM, +S1, +S2 - GI/Abdominal Exam GI & Abdominal Exam: Soft, Diminished Bowel Sounds - Rectal Exam Rectal Exam: Deferred - Neurological Exam Neurological Exam: Oriented x3 Assessment and Plan - Assessment and Plan (Free Text) Plan: chest xray reviewed medications reviewed labs reviewed vitals reviewed aspirin chewable crestor duoneb 3mg/0.5mg 3ml ud flomax florastor lac-hydrin 12% lotion 225g lasix maalox plus 30 Ml borvasc novolin R percocet 5/325mg tab protonix ec tab rocephin Iv 1gm duplex solu-medrol xarelto
--- NOTE | 2018-11-22 16:04 | CP.PCM.PN ---
Subjective - Date & Time of Evaluation Date of Evaluation: 11/22/18 Time of Evaluation: 08:00 - Subjective Subjective: chart reviewed patient examined no new complaints orders signed Objective - Vital Signs/Intake and Output Vital Signs (last 24 hours): Temp Pulse Resp BP Pulse Ox 98.8 F 68 20 113/73 94 L 11/22/18 07:30 11/22/18 10:00 11/22/18 07:30 11/22/18 10:30 11/22/18 07:30 Intake and Output: 11/22/18 11/22/18 06:59 18:59 Intake Total 630 Output Total 600 Balance 30 - Medications Medications: Current Medications Al Hydrox/Mg Hydrox/Simethicone (Maalox Plus 30 Ml) 30 ml PO Q6 PRN PRN Reason: Indigestion / Heartburn Last Admin: 11/21/18 18:02 Dose: 30 ml Albuterol/Ipratropium (Duoneb 3 Mg/0.5 Mg (3 Ml) Ud) 3 ml INH RQ6 [facility] Last Admin: 11/22/18 13:12 Dose: 3 ml Amlodipine Besylate (Norvasc) 5 mg PO DAILY [facility] Last Admin: 11/22/18 10:27 Dose: 5 mg Aspirin (Aspirin Chewable) 81 mg PO DAILY [facility] Last Admin: 11/22/18 10:28 Dose: 81 mg Furosemide (Lasix) 40 mg IVP DAILY [facility] Last Admin: 11/22/18 10:30 Dose: 40 mg Ceftriaxone Sodium (Rocephin Iv 1 Gm Duplex) 50 mls @ 100 mls/hr IVPB DAILY [facility]; Protocol Last Admin: 11/22/18 10:38 Dose: 100 mls/hr Insulin Human Regular (Novolin R) 0 unit SC ACHS [facility]; Protocol Last Admin: 11/22/18 12:25 Dose: 2 units Lactic Acid (Lac-Hydrin 12% Lotion (225 G)) 0 gm EXT BID [facility] Last Admin: 11/22/18 10:45 Dose: 1 applic Methylprednisolone (Solu-Medrol) 20 mg IVP Q12 [facility] Last Admin: 11/22/18 10:34 Dose: 20 mg Oxycodone/Acetaminophen (Percocet 5/325 Mg Tab) 1 tab PO Q6H PRN PRN Reason: Pain, moderate (4-7) Stop: 11/23/18 17:08 Last Admin: 11/22/18 03:33 Dose: 1 tab Pantoprazole Sodium (Protonix Ec Tab) 40 mg PO DAILY [facility] Last Admin: 11/22/18 10:33 Dose: 40 mg Rivaroxaban (Xarelto) 15 mg PO DAILY [facility] Last Admin: 11/22/18 10:27 Dose: 15 mg Rosuvastatin Calcium (Crestor) 10 mg PO HS [facility] Last Admin: 11/21/18 21:22 Dose: 10 mg Saccharomyces Boulardii (Florastor) 250 mg PO TID [facility] Last Admin: 11/22/18 13:19 Dose: Not Given Tamsulosin HCl (Flomax) 0.4 mg PO BID [facility] Last Admin: 11/22/18 10:27 Dose: 0.4 mg - Labs Labs: 11/18/18 11:33 11/18/18 11:33 PT 13.5 SECONDS (9.7-12.2) H 11/06/18 10:39 INR 1.2 11/06/18 10:39 APTT 34 SECONDS (21-34) 11/06/18 10:39 - Constitutional Appears: Toxic, Chronically Ill - Head Exam Head Exam: NORMOCEPHALIC - Eye Exam Eye Exam: absent: Scleral icterus Pupil Exam: NORMAL ACCOMODATION - ENT Exam ENT Exam: Mucous Membranes Dry - Neck Exam Neck Exam: absent: Lymphadenopathy - Respiratory Exam Respiratory Exam: Decreased Breath Sounds - Cardiovascular Exam Cardiovascular Exam: REGULAR RHYTHM - GI/Abdominal Exam GI & Abdominal Exam: Distended, Rigid, Soft - Rectal Exam Rectal Exam: Deferred - Exam Exam: NORMAL INSPECTION, Scrotal Swelling - Back Exam Back Exam: absent: CVA tenderness (L), CVA tenderness (R) - Neurological Exam Neurological Exam: Alert, Awake, CN II-XII Intact Assessment and Plan (1) CHF exacerbation Status: Acute (2) Chr obstructive pulmonary disease w/ acute lower respiratory infxn Status: Acute (3) COPD (chronic obstructive pulmonary disease) Status: Acute (4) Hypercarbia Status: Acute (5) REYNALDO and COPD overlap syndrome Status: Acute
[2018-11-23] MEDS: Oxycodone/Acetaminophen 5/325 mg Tab PO PRN (00:30)
--- NOTE | 2018-11-23 00:31 | PN ---
DATE: 11/22/2018 SUBJECTIVE: The patient denies any chest pain. He is comfortable on nasal O2. PHYSICAL EXAMINATION: VITAL SIGNS: Blood pressure 113/73, heart rate 64, temperature 98.8, respirations 20. HEENT: Normocephalic. CHEST: Bibasilar rhonchi. HEART: S1, S2 regular. EXTREMITIES: 1+ pitting edema. LABORATORY DATA: Today's blood sugars are 168 and 153 respectively. Thoracic spine x-ray, advanced degenerative changes, suspicious sclerotic bony lesion at the lower thoracic spine. Lumbar spine x-ray, sclerotic changes maybe due to advanced degenerative changes or sclerotic bony metastases. Pelvis x-ray, sclerotic bony changes noted in the left pelvis maybe Paget's disease or bony metastases. ASSESSMENT: 1. Congestive heart failure. 2. Coronary artery disease status post double bypass surgery and bioprosthetic aortic valve replacement. 3. Chronic atrial fibrillation. 4. Sclerotic pelvic and lower spinal bony lesions, degenerative changes versus bony metastases. RECOMMENDATIONS: Continue aspirin 81 mg once a day, Crestor 10 mg once a day, Lasix 40 mg intravenously once a day, Norvasc 5 mg once a day, Rocephin 1 g daily, Solu-Medrol 20 mg intravenously every 12 hours, Xarelto at 15 mg once a day. Obtain a BMP in a.m., and the patient will have Urology followup for his questionable bony metastases. Case was discussed with the patient's daughter at the bedside. Tyler Daley MD
[2018-11-23] MEDS: Albuterol-Ipratrop 3 mg / 0.5 (3 ml) UD INH SCH ×3 (03:08→13:19)
[2018-11-23] MEDS: (Novolin R) Insulin Human Regular 100 units/ml vial SC SCH ×4 (07:50→21:46)
[2018-11-23 07:58] LABS: CALCIUM 8.3 mg/dl (8.6-10.4)
[2018-11-23] MEDS ORDERED: guaiFENesin 100 mg/5 ml Syrup UD PO PRN (08:53)
[2018-11-23] MEDS: Pantoprazole 40 mg EC Tab PO SCH (09:29)
[2018-11-23] MEDS: Saccharomyces Boulardi 250 mg Cap PO SCH ×3 (09:29→18:02)
[2018-11-23] MEDS: Ammonium Lactate 12% Lotion (225 g) EXT SCH ×2 (09:29→17:40)
[2018-11-23] MEDS: MethylPREDNISolone 40 mg Vial IVP SCH (09:30)
[2018-11-23] MEDS: cefTRIAXone IV 1 gm in Dextros 50 ML IVPB SCH (09:35)
--- NOTE | 2018-11-23 16:29 | CP.PCM.PN ---
Subjective - Date & Time of Evaluation Date of Evaluation: 11/23/18 Time of Evaluation: 09:40 - Subjective Subjective: pt initialy refsued to go to hosp then agreed after 20 min of discusseion no nauea or vomititng no fever pt enocurage ot eat Objective - Vital Signs/Intake and Output Vital Signs (last 24 hours): Temp Pulse Resp BP Pulse Ox 99.1 F 90 20 111/67 97 11/23/18 07:57 11/23/18 07:57 11/23/18 07:57 11/23/18 09:29 11/23/18 07:57 Intake and Output: 11/23/18 11/23/18 06:59 18:59 Intake Total 500 Balance 500 - Medications Medications: Current Medications Al Hydrox/Mg Hydrox/Simethicone (Maalox Plus 30 Ml) 30 ml PO Q6 PRN PRN Reason: Indigestion / Heartburn Last Admin: 11/21/18 18:02 Dose: 30 ml Albuterol/Ipratropium (Duoneb 3 Mg/0.5 Mg (3 Ml) Ud) 3 ml INH RQ6 [facility] Last Admin: 11/23/18 13:19 Dose: 3 ml Aspirin (Aspirin Chewable) 81 mg PO DAILY [facility] Last Admin: 11/23/18 09:31 Dose: 81 mg Furosemide (Lasix) 40 mg IVP DAILY [facility] Last Admin: 11/23/18 09:29 Dose: 40 mg Guaifenesin (Robitussin) 100 mg PO Q4H PRN PRN Reason: Cough Last Admin: 11/23/18 09:27 Dose: 100 mg Ceftriaxone Sodium (Rocephin Iv 1 Gm Duplex) 50 mls @ 100 mls/hr IVPB DAILY [facility] ; Protocol Last Admin: 11/23/18 09:35 Dose: 100 mls/hr Insulin Human Regular (Novolin R) 0 unit SC ACHS [facility]; Protocol Last Admin: 11/23/18 12:15 Dose: 2 units Lactic Acid (Lac-Hydrin 12% Lotion (225 G)) 0 gm EXT BID [facility] Last Admin: 11/23/18 09:29 Dose: 1 applic Methylprednisolone (Solu-Medrol) 20 mg IVP DAILY [facility] Metoprolol Tartrate (Lopressor) 50 mg PO BIDBS [facility] Last Admin: 11/23/18 13:56 Dose: 50 mg Oxycodone/Acetaminophen (Percocet 5/325 Mg Tab) 1 tab PO Q6H PRN PRN Reason: Pain, moderate (4-7) Stop: 11/23/18 17:08 Last Admin: 11/23/18 00:30 Dose: 1 tab Pantoprazole Sodium (Protonix Ec Tab) 40 mg PO DAILY [facility] Last Admin: 11/23/18 09:29 Dose: 40 mg Rivaroxaban (Xarelto) 15 mg PO DAILY [facility] Last Admin: 11/23/18 09:31 Dose: 15 mg Rosuvastatin Calcium (Crestor) 10 mg PO HS [facility] Last Admin: 11/22/18 21:35 Dose: 10 mg Saccharomyces Boulardii (Florastor) 250 mg PO TID [facility] Last Admin: 11/23/18 13:56 Dose: 250 mg Tamsulosin HCl (Flomax) 0.4 mg PO BID [facility] Last Admin: 11/23/18 09:29 Dose: 0.4 mg - Labs Labs: 11/18/18 11:33 11/23/18 06:43 PT 13.5 SECONDS (9.7-12.2) H 11/06/18 10:39 INR 1.2 11/06/18 10:39 APTT 34 SECONDS (21-34) 11/06/18 10:39 - Constitutional Appears: Well - Head Exam Head Exam: ATRAUMATIC, NORMAL INSPECTION, NORMOCEPHALIC - Eye Exam Eye Exam: EOMI, Normal appearance, PERRL Pupil Exam: NORMAL ACCOMODATION, PERRL - ENT Exam ENT Exam: Mucous Membranes Moist, Normal Exam - Neck Exam Neck Exam: Full ROM, Normal Inspection. absent: Lymphadenopathy - Respiratory Exam Respiratory Exam: Decreased Breath Sounds - Cardiovascular Exam Cardiovascular Exam: REGULAR RHYTHM, +S1, +S2 - GI/Abdominal Exam GI & Abdominal Exam: Soft, Diminished Bowel Sounds - Rectal Exam Rectal Exam: Deferred Assessment and Plan - Assessment and Plan (Free Text) Plan: Aspirin chewable Crestor Note Flomax Florastor Lasix Lopressor Maalox plus next R Protonix Robitussin Rocephin Solu-Medrol Xarelto pt had prostate biopsy in 2009 he doesnot know report pt was seen by dr. alfodr pt agrees to go will call dr. nick chun [facility] i called and spoke to him to docnosultation today before he goes to rehab pt fianly agreed ot trnasfer to hsoital pt is out of bed to chair pt adv to got ther efor may be 3 weeks all questions answered pt given opportunit to ask all questions pt with mod complex care medications, vitals and labs reviewed
[2018-11-23 17:04] VITALS: PULSE 78
--- NOTE | 2018-11-23 17:52 | PCM.HF ---
Heart Failure Core Measure - Heart Failure Ejection Fraction: 40 % or Greater (EF 45-50%) GRIFFIN Inhibitor Prescribed: No Contraindication/Reason for not providing: renal insufficiency Beta-Haydee Prescribed: Carvedilol, Metoprolol Succinate Angiotensin II Receptor Haydee Prescribed: No Contraindication/Reason for not providing: renal insufficiency AnticoagulationTherapy for Atrial Fibrillation/Atrialflutter: Yes Aldosterone Antagonist Prescribed: No Contraindication/Reason for not providing: EF >40% Hydralazine Nitrate Prescribed: No Contraindication/Reason for not providing: EF >40% Implantable Cardioverter Defibrillator Therapy: No Contraindication/Reason for not providing: EF >40% Cardiac Resynchronization Therapy Prescribed: No Contraindication/Reason for not providing: not indicated - Follow up Will be discharged to: Detention Facility ([facility]
--- NOTE | 2018-11-23 18:59 | CP.PCM.PN ---
Subjective - Date & Time of Evaluation Date of Evaluation: 11/23/18 Time of Evaluation: 10:00 - Subjective Subjective: Patient seen and examined Still complaining of cough Overall condition much improved Nebulizer treatment Stable from pulmonary standpoint Objective - Vital Signs/Intake and Output Vital Signs (last 24 hours): Temp Pulse Resp BP Pulse Ox 98.0 F 78 20 128/69 99 11/23/18 15:10 11/23/18 15:10 11/23/18 15:10 11/23/18 15:10 11/23/18 15:10 Intake and Output: 11/23/18 11/23/18 06:59 18:59 Intake Total 500 Balance 500 - Medications Medications: Current Medications Al Hydrox/Mg Hydrox/Simethicone (Maalox Plus 30 Ml) 30 ml PO Q6 PRN PRN Reason: Indigestion / Heartburn Last Admin: 11/21/18 18:02 Dose: 30 ml Albuterol/Ipratropium (Duoneb 3 Mg/0.5 Mg (3 Ml) Ud) 3 ml INH RQ6 [facility] Last Admin: 11/23/18 13:19 Dose: 3 ml Aspirin (Aspirin Chewable) 81 mg PO DAILY [facility] Last Admin: 11/23/18 09:31 Dose: 81 mg Furosemide (Lasix) 40 mg IVP DAILY [facility] Last Admin: 11/23/18 09:29 Dose: 40 mg Guaifenesin (Robitussin) 100 mg PO Q4H PRN PRN Reason: Cough Last Admin: 11/23/18 09:27 Dose: 100 mg Ceftriaxone Sodium (Rocephin Iv 1 Gm Duplex) 50 mls @ 100 mls/hr IVPB DAILY [facility]; Protocol Last Admin: 11/23/18 09:35 Dose: 100 mls/hr Insulin Human Regular (Novolin R) 0 unit SC ACHS [facility]; Protocol Last Admin: 11/23/18 12:15 Dose: 2 units Lactic Acid (Lac-Hydrin 12% Lotion (225 G)) 0 gm EXT BID [facility] Last Admin: 11/23/18 09:29 Dose: 1 applic Methylprednisolone (Solu-Medrol) 20 mg IVP DAILY [facility] Metoprolol Tartrate (Lopressor) 50 mg PO BIDBS [facility] Last Admin: 11/23/18 17:57 Dose: 50 mg Pantoprazole Sodium (Protonix Ec Tab) 40 mg PO DAILY [facility] Last Admin: 11/23/18 09:29 Dose: 40 mg Rivaroxaban (Xarelto) 15 mg PO DAILY [facility] Last Admin: 11/23/18 09:31 Dose: 15 mg Rosuvastatin Calcium (Crestor) 10 mg PO HS [facility] Last Admin: 11/22/18 21:35 Dose: 10 mg Saccharomyces Boulardii (Florastor) 250 mg PO TID [facility] Last Admin: 11/23/18 18:02 Dose: 250 mg Tamsulosin HCl (Flomax) 0.4 mg PO BID [facility] Last Admin: 11/23/18 18:02 Dose: 0.4 mg - Labs Labs: 11/18/18 11:33 11/23/18 06:43 PT 13.5 SECONDS (9.7-12.2) H 11/06/18 10:39 INR 1.2 11/06/18 10:39 APTT 34 SECONDS (21-34) 11/06/18 10:39
--- NOTE | 2018-11-23 22:05 | CP.PCM.CON ---
History of Present Illness - History of Present Illness History of Present Illness: 83 year old male with a history of prostate cancer s/p radiation and androgen deprivation, CAD s/p CABG, COPD, CHF, afib on Xarleto, admitted with AMS and CHF/COPD exacerbation. The patient stopped Lupron injections in 2017 per his pr eference but was recommended to continue. His imaging is suggestive of yesika metastasis vs degenerative changes vs. Pagets disease. His PSA in elevated at 95. Past medical history: prostate cancer s/p radiation and androgen deprivation, CAD s/p CABG, COPD, CHF, afib on Xarleto Past surgical history: CABG Family history: Sister had breast cancer Social history: Former tobacco and alcohol. Allergies: NKA Review of systems: All remaining review of systems including HEENT, cardiovascular, respiratory, gastrointestinal, genitourinary, musculoskeletal, dermatologic, neurologic, and psychiatric are negative unless mentioned in the HPI. Past Patient History - Past Medical History & Family History Past Medical History?: Yes - Past Social History Smoking Status: Former Smoker - CARDIAC Hx Congestive Heart Failure: Yes Hx Hypertension: Yes - PULMONARY Hx Chronic Obstructive Pulmonary Disease (COPD): Yes - NEUROLOGICAL Hx Neurological Disorder: No - HEENT Hx HEENT Problems: No - RENAL Hx Chronic Kidney Disease: No - ENDOCRINE/METABOLIC Hx Endocrine Disorders: No - HEMATOLOGICAL/ONCOLOGICAL Hx Blood Disorders: No - INTEGUMENTARY Hx Dermatological Problems: No - MUSCULOSKELETAL/RHEUMATOLOGICAL Hx Musculoskeletal Disorders: No Hx Falls: No - GASTROINTESTINAL Hx Gastrointestinal Disorders: No - GENITOURINARY/GYNECOLOGICAL Hx Genitourinary Disorders: No - PSYCHIATRIC Hx Substance Use: No - SURGICAL HISTORY Hx Coronary Artery Bypass Graft: Yes - ANESTHESIA Hx Anesthesia: Yes Hx Anesthesia Reactions: No Meds Home Medications: Home Medication List Medication Instructions Recorded Confirmed Type Furosemide [Lasix] 40 mg PO DAILY 30 Days tablet 11/23/18 Rx Metoprolol Tartrate [Lopressor] 50 mg PO BIDBS tab 11/23/18 Rx predniSONE [Prednisone] 10 mg PO DAILY 7 Days tab 11/23/18 Rx Allergies/Adverse Reactions: Allergies Allergy/AdvReac Type Severity Reaction Status Date / Time No Known Allergies Allergy Verified 07/12/18 09:17 - Medications Medications: Current Medications Al Hydrox/Mg Hydrox/Simethicone (Maalox Plus 30 Ml) 30 ml PO Q6 PRN PRN Reason: Indigestion / Heartburn Last Admin: 11/21/18 18:02 Dose: 30 ml Albuterol/Ipratropium (Duoneb 3 Mg/0.5 Mg (3 Ml) Ud) 3 ml INH RQ6 [facility] Last Admin: 11/23/18 13:19 Dose: 3 ml Aspirin (Aspirin Chewable) 81 mg PO DAILY [facility] Last Admin: 11/23/18 09:31 Dose: 81 mg Furosemide (Lasix) 40 mg IVP DAILY [facility] Last Admin: 11/23/18 09:29 Dose: 40 mg Guaifenesin (Robitussin) 100 mg PO Q4H PRN PRN Reason: Cough Last Admin: 11/23/18 09:27 Dose: 100 mg Ceftriaxone Sodium (Rocephin Iv 1 Gm Duplex) 50 mls @ 100 mls/hr IVPB DAILY [facility]; Protocol Last Admin: 11/23/18 09:35 Dose: 100 mls/hr Insulin Human Regular (Novolin R) 0 unit SC ACHS [facility]; Protocol Last Admin: 11/23/18 21:46 Dose: Not Given Lactic Acid (Lac-Hydrin 12% Lotion (225 G)) 0 gm EXT BID [facility] Last Admin: 11/23/18 17:40 Dose: 1 applic Methylprednisolone (Solu-Medrol) 20 mg IVP DAILY [facility] Metoprolol Tartrate (Lopressor) 50 mg PO BIDBS [facility] Last Admin: 11/23/18 17:57 Dose: 50 mg Pantoprazole Sodium (Protonix Ec Tab) 40 mg PO DAILY [facility] Last Admin: 11/23/18 09:29 Dose: 40 mg Rivaroxaban (Xarelto) 15 mg PO DAILY [facility] Last Admin: 11/23/18 09:31 Dose: 15 mg Rosuvastatin Calcium (Crestor) 10 mg PO HS [facility] Last Admin: 11/23/18 21:37 Dose: 10 mg Saccharomyces Boulardii (Florastor) 250 mg PO TID [facility] Last Admin: 11/23/18 18:02 Dose: 250 mg Tamsulosin HCl (Flomax) 0.4 mg PO BID [facility] Last Admin: 11/23/18 18:02 Dose: 0.4 mg Physical Exam - Head Exam Head Exam: ATRAUMATIC - Eye Exam Eye Exam: Normal appearance - ENT Exam ENT Exam: Mucous Membranes Dry - Respiratory Exam Respiratory Exam: NORMAL BREATHING PATTERN - Cardiovascular Exam Cardiovascular Exam: +S1, +S2 - GI/Abdominal Exam GI & Abdominal Exam: Normal Bowel Sounds - Neurological Exam Neurological exam: Oriented x3 - Psychiatric Exam Psychiatric exam: Normal Affect, Normal Mood - Skin Skin Exam: Warm Results - Vital Signs Recent Vital Signs: Last Vital Signs Temp 98.0 F 11/23/18 15:10 Pulse 78 11/23/18 15:10 Resp 20 11/23/18 15:10 BP 128/69 11/23/18 15:10 Pulse Ox 99 11/23/18 15:10 - Labs Result Diagrams: 11/18/18 11:33 11/23/18 06:43 Labs: Laboratory Results - last 24 hr 11/23/18 11/23/18 06:43 11:34 Sodium 131 L Potassium 4.9 Chloride 87 L Carbon Dioxide 37 H Anion Gap 12 BUN 56 H Creatinine 1.5 Est GFR ( Amer) 54 Est GFR (Non-Af Amer) 44 POC Glucose (mg/dL) 153 H Random Glucose 143 H Calcium 8.3 L Assessment & Plan (1) Prostate cancer Assessment and Plan: s/p radiation likely bone metastasis, PSA elevated recommend restarting androgen deprivation with urology outpatient f/u Thank you for this interesting consult. Status: Acute
--- NOTE | 2018-11-23 22:06 | PN ---
DATE: 11/23/2018 SUBJECTIVE: The patient had a 14 beats run of nonsustained ventricular tachycardia. He denies any palpitation or dizziness. The patient was asymptomatic at that time. PHYSICAL EXAMINATION: VITAL SIGNS: Blood pressure 111/67, heart rate 90, temperature 99.1, respiration 20. HEENT: Normocephalic. CHEST: Bibasilar rhonchi. HEART: S1 and S2, regular. ABDOMEN: Soft. EXTREMITIES: 1+ pitting edema. LABORATORY DATA: Today's SMA-7: Sodium 131, potassium 4.9, chloride 87, CO2 of 37, glucose 143, BUN 56, creatinine 1.5. I did order a magnesium level which is still pending. ASSESSMENT: 1. Improved congestive heart failure. 2. Coronary artery disease, status post double bypass surgery and bioprosthetic aortic valve replacement. 3. Chronic renal insufficiency. 4. Chronic atrial fibrillation. 5. Nonsustained ventricular tachycardia. 6. History of prostatic carcinoma. RECOMMENDATIONS: Continue aspirin 81 mg once a day, Lasix 40 mg intravenous twice a day. I started Lopressor 50 mg twice a day and discontinued Norvasc. In the meantime, continue Rocephin at 1 g intravenously daily and Xarelto at 15 mg daily. I will follow magnesium level which was ordered about two to three hours ago. Tyler Daley MD
--- NOTE | 2018-11-23 22:12 | PN ---
DATE: 11/23/2018 FOLLOWUP NOTE TIME OF FOLLOWUP: Roughly 5:00 p.m. SUBJECTIVE: The patient is relatively comfortable today. He supposedly ambulates to the bathroom to void and he is currently voiding okay without any complaints. His nuclear bone scan done on 11/20/2018 was positive for evidence for bony metastatic disease with increased uptake in the left hemipelvis and left hip, but these findings were inconclusive and could also represent Paget's disease and possibly more likely related to a non-neoplastic process. He also had degenerative changes in the thoracolumbar spine and inconclusive findings of the left hip. The x-rays of the pelvis done on 11/21/2018 showed sclerotic bony changes noted in the left pelvis, which may be Paget's disease or bony metastasis; and x-rays of the thoracic spine also done on 11/21/2018 show advanced degenerative changes, suspicious for sclerotic bony lesion of the lower thoracic spine. The patient does have a markedly elevated PSA of 95 and history of high-risk prostate cancer, status post radiation therapy for this disease and now has radiation breakthrough prostate cancer. These findings still could be consistent with bony metastatic prostate cancer. This case will be discussed with Dr. Daley, Cardiology, to see if the patient can receive androgen deprivation therapy (ADT) with four months of Lupron Depot and Dr. Mares is also on the case for Oncology. Wes Leonard MD [facility]
[2018-11-24] MEDS: Albuterol-Ipratrop 3 mg / 0.5 (3 ml) UD INH SCH (01:06)
[2018-11-24 01:33] VITALS: BP 120/74; TEMP 98; O2SAT 97
[2018-11-24] MEDS ORDERED: MethylPREDNISolone 40 mg Vial IVP SCH (10:00)
== END 2018-11-24 02:10 | DRG 291 ==
LOC: C.ER 10:16 → C.9E 12:54 → C.9I 14:46 → C.6T 11-12 15:25
PROVIDERS: ADMIT Internal Medicine Nephrology; ATTEND Internal Medicine Nephrology
PROC: 5A09557 Assistance with Respiratory Ventilation, Greater than 96 Consecutive Hours, Continuous Positive Airway Pressure (ICD-10-PCS; principal; 2018-11-06)
DX: I13.0 Hypertensive heart and chronic kidney disease with heart failure and stage 1 through stage 4 chronic kidney disease, or unspecified chronic kidney disease (principal); J18.1 Lobar pneumonia, unspecified organism; J96.92 Respiratory failure, unspecified with hypercapnia; I47.2 Ventricular tachycardia; I50.42 Chronic combined systolic (congestive) and diastolic (congestive) heart failure; J44.0 Chronic obstructive pulmonary disease with (acute) lower respiratory infection; J44.1 Chronic obstructive pulmonary disease with (acute) exacerbation; M35.1 Other overlap syndromes; C79.51 Secondary malignant neoplasm of bone; E11.65 Type 2 diabetes mellitus with hyperglycemia; G47.33 Obstructive sleep apnea (adult) (pediatric); I25.10 Atherosclerotic heart disease of native coronary artery without angina pectoris; I27.29 Other secondary pulmonary hypertension; I48.2 Chronic atrial fibrillation; I70.0 Atherosclerosis of aorta; M47.815 Spondylosis without myelopathy or radiculopathy, thoracolumbar region; N18.9 Chronic kidney disease, unspecified; N40.0 Benign prostatic hyperplasia without lower urinary tract symptoms; R04.0 Epistaxis; Z85.46 Personal history of malignant neoplasm of prostate; Z87.891 Personal history of nicotine dependence; Z92.3 Personal history of irradiation; Z95.3 Presence of xenogenic heart valve; Z95.1 Presence of aortocoronary bypass graft; E11.22 Type 2 diabetes mellitus with diabetic chronic kidney disease

== ENCOUNTER 2019-01-12 11:27 | Inpatient (IN) | payer MEDICARE ==
[2019-01-12 11:34] VITALS: BMI 31.5
[2019-01-12 12:27] LABS: INR 1.5; PARTIAL THROMBOPLASTIN TIME 29.6 SECONDS (21-34); PROTHROMBIN TIME 16.2 SECONDS (9.7-12.2)
[2019-01-12 12:29] LABS: ALB/GLOB RATIO 1.1 (1.0-2.1); ALBUMIN 3.3 g/dL (3.5-5.0); CALCIUM 8.4 mg/dl (8.6-10.4)
[2019-01-12 12:37] LABS: BASO % 0.3 % (0.0-2.0); EOS # 0.1 K/uL (0.0-0.7); EOS % 0.5 % (0.0-4.0); LYMPH # 0.3 K/uL (1.0-4.3); LYMPH % 2.2 % (20.0-40.0); MEAN CORPUSCULAR HEMOGLOBIN 29.6 pg (27.0-31.0); MEAN CORPUSCULAR HGB CONC 31.5 g/dL (33.0-37.0); MEAN PLATELET VOLUME 8.5 fL (7.2-11.7); MONO # 0.7 K/uL (0.0-0.8); MONO % 5.4 % (0.0-10.0); NEUT # 12.2 K/uL (1.8-7.0); NEUT % 91.6 % (50.0-75.0); NRBC % 1.1 % (0.0-2.0); PLATELET COUNT 281 K/uL (130-400); RBC 2.76 Mil/uL (4.40-5.90); RED CELL DISTRIBUTION WIDTH 17.5 % (11.5-14.5); WHITE BLOOD COUNT 13.3 K/uL (4.8-10.8)
[2019-01-12 12:41] LABS: TROPONIN I 0.086 ng/mL (0.00-0.120)
[2019-01-12 12:44] LABS: HEMOGLOBIN 8.2 g/dL (12.0-18.0); MEAN CELL VOLUME 94.2 fL (80.0-94.0)
[2019-01-12 13:10] LABS: BANDS 4 % (0-2); LYMPHOCYTE 2 % (20-40); MONOCYTE 3 % (0-10); NEUTROPHIL 91 % (50-75); PLATELET ESTIMATE NORMAL (NORMAL); TOTAL CELLS COUNTED 100
[2019-01-12 13:11] LABS: ANISOCYTOSIS SLIGHT
--- NOTE | 2019-01-12 13:50 | C.PDOC ---
History Of Present Illness PGY-[address] Walker Patient is 84 yo Male pmhx of HF, HTN, asthma, chronic resp failure, HLD, BPH coming to the ED from [facility] for low hemoglobin at 7.9, saturing in low 80s, complaining of shortness of breath and coughing dark phlegm, pain in chest associated with coughing. Admits to lower extremity pain of chronic nature. Patient denies dizziness, weakness, bleeding from stools or urine, blood in cough. Denies fever, chills, n/v/d/c. States has oxygen at home but does not use it continuously. <Hung Gagnon - Last Filed: 01/12/19 16:09> <Francesca Walker - Last Filed: 01/12/19 13:35> <Hung Gagnon - Last Filed: 01/12/19 16:09> Time Seen by Provider: 01/12/19 12:23 Chief Complaint (Nursing): Abnormal Labs Past Medical History Vital Signs: Last Vital Signs Temp 98.5 F 01/12/19 11:33 Pulse 87 01/12/19 12:15 Resp 30 H 01/12/19 12:15 BP 129/67 01/12/19 12:15 Pulse Ox 93 L 01/12/19 12:15 Primary Care Provider: Rey House - Medical History PMH: CHF, COPD, HTN Denies: Chronic Kidney Disease Surgical History: CABG - [facility] Procedures ASSISTANCE WITH RESPIRATORY VENTILATION, 24-96 HRS, CPAP (07/12/18) ASSISTANCE WITH RESPIRATORY VENTILATION, >96 HRS, CPAP (11/06/18) Family History: States: Unknown Family Hx - Social History Hx Alcohol Use: Yes Hx Substance Use: No - Immunization History Hx Tetanus Toxoid Vaccination: No Hx Influenza Vaccination: Yes Hx Pneumococcal Vaccination: Yes <Francesca Walker - Last Filed: 01/12/19 13:35> Vital Signs: Last Vital Signs Temp 98.5 F 01/12/19 11:33 Pulse 75 01/12/19 15:25 Resp 22 01/12/19 15:25 BP 101/63 01/12/19 15:25 Pulse Ox 91 L 01/12/19 15:25 - [facility] Procedures ASSISTANCE WITH RESPIRATORY VENTILATION, 24-96 HRS, CPAP (07/12/18) ASSISTANCE WITH RESPIRATORY VENTILATION, >96 HRS, CPAP (11/06/18) - Social History Hx Tobacco Use: Yes (former smoker, 3 packs a day for + 40 years, quit 2014) Hx Alcohol Use: No Hx Substance Use: No <Hung Gagnon - Last Filed: 01/12/19 16:09> Review Of Systems Constitutional: Negative for: Fever, Chills, Weakness, Malaise Eyes: Negative for: Vision Change Cardiovascular: Positive for: Chest Pain Respiratory: Positive for: Cough, Shortness of Breath, Sputum. Negative for: Hemoptysis Gastrointestinal: Negative for: Nausea, Vomiting, Melena Genitourinary: Negative for: Dysuria, Hematuria Musculoskeletal: Positive for: Leg Pain Skin: Negative for: Rash, Lesions Neurological: Negative for: Weakness Psych: Negative for: Anxiety <Hung Gagnon - Last Filed: 01/12/19 16:09> Physical Exam - Physical Exam Appears: Non-toxic, No Acute Distress Skin: Normal Color, Dry, No Cyanotic Head: Atraumatic, Normacephalic Eye(s): bilateral: Normal Inspection, PERRL Oral Mucosa: Moist Tongue: Normal Appearing Cardiovascular: Rhythm Regular, No Murmur Respiratory: Rhonchi, Wheezing (expiratory wheezing left lower lobe ) Gastrointestinal/Abdominal: Bowel Sounds, Soft, No Tenderness Extremity: No Tenderness, Pedal Edema (2+ pitting edema b/l ) Neurological/Psych: Normal Speech, Normal Cognition, Normal Sensation <Hung Gagnon - Last Filed: 01/12/19 16:09> ED Course And Treatment - Laboratory Results Result Diagrams: 01/12/19 12:13 01/12/19 12:13 Lab Results: PT 16.2 SECONDS (9.7-12.2) H 01/12/19 12:13 INR 1.5 01/12/19 12:13 APTT 29.6 SECONDS (21-34) 01/12/19 12:13 Troponin I 0.0860 ng/mL (0.00-0.120) 01/12/19 12:13 NT-Pro-B Natriuret Pep 8780 pg/mL (0-900) H 01/12/19 12:13 Total Bilirubin 0.6 mg/dL (0.2-1.3) 01/12/19 12:13 AST 82 U/L (17-59) H D 01/12/19 12:13 ALT 80 U/L (21-72) H D 01/12/19 12:13 Alkaline Phosphatase 386 U/L (38-126) H D 01/12/19 12:13 Total Protein 6.4 g/dL (6.3-8.3) 01/12/19 12:13 Albumin 3.3 g/dL (3.5-5.0) L 01/12/19 12:13 Globulin 3.0 gm/dL (2.2-3.9) 01/12/19 12:13 Albumin/Globulin Ratio 1.1 (1.0-2.1) 01/12/19 12:13 O2 Sat by Pulse Oximetry: 93 <Francesca Walker - Last Filed: 01/12/19 13:35> - Laboratory Results Result Diagrams: 01/12/19 12:13 01/12/19 12:13 Lab Results: PT 16.2 SECONDS (9.7-12.2) H 01/12/19 12:13 INR 1.5 01/12/19 12:13 APTT 29.6 SECONDS (21-34) 01/12/19 12:13 Troponin I 0.0860 ng/mL (0.00-0.120) 01/12/19 12:13 NT-Pro-B Natriuret Pep 8780 pg/mL (0-900) H 01/12/19 12:13 Total Bilirubin 0.6 mg/dL (0.2-1.3) 01/12/19 12:13 AST 82 U/L (17-59) H D 01/12/19 12:13 ALT 80 U/L (21-72) H D 01/12/19 12:13 Alkaline Phosphatase 386 U/L (38-126) H D 01/12/19 12:13 Total Protein 6.4 g/dL (6.3-8.3) 01/12/19 12:13 Albumin 3.3 g/dL (3.5-5.0) L 01/12/19 12:13 Globulin 3.0 gm/dL (2.2-3.9) 01/12/19 12:13 Albumin/Globulin Ratio 1.1 (1.0-2.1) 01/12/19 12:13 ECG: Viewed By Me ECG Rhythm: Atrial Fibrillation Interpretation Of ECG: atrial fibrillation with premature ventricular or aberrantly conducted complexes Rate From EC - Radiology CXR: Viewed By Me, Read By Radiologist CXR Interpretation: Yes: Other (possible subtle increased congestion, mild new linear subsegmental atelectasis at the left lung base) <Hung Gagnon - Last Filed: 01/12/19 16:09> Medical Decision Making Medical Decision Making: Pt came with above history and physical findings due to heart risk factor, cardiac work up was done Ordered CBC, CMP, trops, EKG, chest xray, blood cultures H/H 8.2/26.0 WBC 13.3 O2 91 with NC @ 2L 1x duoneb given Spoke with Dr Matt House, will admit patient Heme Onc consult - Dr Mares Plan discussed with patient plan d/w ED Dr Aaron Gagnon, PGY-1 <Hung Gagnon - Last Filed: 01/12/19 16:09> Disposition <Francesca Walker - Last Filed: 01/12/19 13:35> Discussed With Dr.: Rey House - Disposition Disposition Time: 15:02 <Hung Gagnon - Last Filed: 01/12/19 16:09> - Disposition Disposition: HOSPITALIZED Condition: STABLE Forms: [facility] (Kiswahili) - Clinical Impression Clinical Impression: Anemia, CHF exacerbation, Hypoxia - PA / [employer]ING [employer]OR / Resident Statement / has reviewed & agrees with the documentation as recorded. /DO has examined the patient and agrees with the treatment plan. <Hung Gagnon - Last Filed: 01/12/19 16:09>
[2019-01-12] MEDS ORDERED: Albuterol-Ipratrop 3 mg / 0.5 (3 ml) UD INH STA (13:57)
--- NOTE | 2019-01-12 14:28 | RAD ---
Date of service: 01/12/2019 HISTORY: SOB, wheezing COMPARISON: 11/16/2018 TECHNIQUE: 1 view obtained. FINDINGS: LUNGS: There is evidence of prior median sternotomy. There is mild new linear subsegmental atelectasis at the left lung base. PLEURA: No significant pleural effusion identified, no pneumothorax apparent. CARDIOVASCULAR: Mild stable aortic atherosclerotic calcification present. Normal cardiac size. Mild increased pulmonary vascular congestion. OSSEOUS STRUCTURES: No significant abnormalities. VISUALIZED UPPER ABDOMEN: Normal. OTHER FINDINGS: None. IMPRESSION: Possible subtle increasing congestion. Mild new linear subsegmental atelectasis at the left lung base.
--- NOTE | 2019-01-12 16:54 | CP.PCM.HP ---
History of Present Illness - History of Present Illness History of Present Illness: 84-year-old male patient with past history of COPD, CHF, prostate cancer. came with shortness of breath, AMS, anemia.patient has intermittent epistaxis. he feels like he is always weak. In regards to his prostate cancer he has been on Lupron since having breakthrough prostate cancer. denies any abnormal bleeding, bruising. past surgical history of CABG. former tobacco user. no history of shortness of breth, chest pain, cough, palpitations, diarrhea, constipation, abdominal pain. no history of weakness, numbness, tingling. Past medical history: COPD, CHF, prostate cancer, HTN Past surgical history: CABG. History of anesthesia and falls. Family history: Denies hematologic and oncologic problems Social history: Former tobacco Allergies: NKA Review of systems: All remaining review of systems including HEENT, cardi ovasular, respiratory, gastrointestinal, genitourinary,musculoskeletal, dermatologic, neurologic, and pschiatric are negative unless mentioned in the HPI. no known drug allergies. - Medications Medications: Current Medications Albuterol/Ipratropium (Duoneb 3 Mg/0.5 Mg (3 Ml) Ud) 3 ml IH Q6H [facility] Last Admin: 01/13/19 01:37 Dose: 3 ml Alprazolam (Xanax) 0.25 mg PO Q12 PRN PRN Reason: Anxiety Stop: 01/19/19 18:30 Aspirin (Aspirin Chewable) 81 mg PO DAILY [facility] Last Admin: 01/13/19 09:35 Dose: 81 mg Docusate Sodium (Colace) 200 mg PO DAILY [facility] Last Admin: 01/13/19 09:35 Dose: 200 mg Epoetin Stephane (Procrit) 10,000 unit SC QWK [facility] Last Admin: 01/13/19 09:41 Dose: 10,000 unit Ferric Sodium Gluconate Complex (Ferrlecit) 125 mg IVPB DAILY [facility] Stop: 01/21/19 10:01 Last Admin: 01/13/19 09:42 Dose: 125 mg Ferrous Sulfate (Feosol) 325 mg PO BID [facility] Last Admin: 01/13/19 09:36 Dose: 325 mg Furosemide (Lasix) 40 mg PO DAILY [facility] Last Admin: 01/13/19 09:40 Dose: Not Given Gabapentin (Neurontin) 200 mg PO HS [facility] Last Admin: 01/12/19 21:30 Dose: 200 mg Ceftriaxone Sodium 1 gm/ (Sodium Chloride) 100 mls @ 100 mls/hr IVPB DAILY [facility]; Protocol Methylprednisolone (Solu-Medrol) 40 mg IV Q8 [facility] Last Admin: 01/13/19 06:11 Dose: 40 mg Metoprolol Tartrate (Lopressor) 50 mg PO BID [facility] Last Admin: 01/13/19 09:41 Dose: Not Given Oxycodone HCl (Oxycodone Immediate Release Tab) 10 mg PO Q4 PRN PRN Reason: Pain, moderate (4-7) Last Admin: 01/13/19 00:43 Dose: 10 mg Potassium Chloride (K-Dur 20 Meq Er Tab) 20 meq PO DAILY [facility] Last Admin: 01/13/19 09:41 Dose: 20 meq Rosuvastatin Calcium (Crestor) 10 mg PO HS [facility] Last Admin: 01/12/19 21:30 Dose: 10 mg Tamsulosin HCl (Flomax) 0.4 mg PO DAILY [facility] Last Admin: 01/13/19 09:35 Dose: 0.4 mg Last Vital Signs Temp 97.6 F 01/13/19 09:08 Pulse 86 01/13/19 09:08 Resp 20 01/13/19 09:08 BP 96/55 L 01/13/19 09:40 Pulse Ox 99 01/13/19 09:08 Past Patient History - Past Medical History & Family History Past Medical History?: Yes - Past Social History Smoking Status: Former Smoker - CARDIAC Hx Congestive Heart Failure: Yes Hx Hypertension: Yes - PULMONARY Hx Chronic Obstructive Pulmonary Disease (COPD): Yes - NEUROLOGICAL Hx Neurological Disorder: No - HEENT Hx HEENT Problems: No - RENAL Hx Chronic Kidney Disease: No - ENDOCRINE/METABOLIC Hx Endocrine Disorders: No - HEMATOLOGICAL/ONCOLOGICAL Hx Blood Disorders: No - INTEGUMENTARY Hx Dermatological Problems: No - MUSCULOSKELETAL/RHEUMATOLOGICAL Hx Musculoskeletal Disorders: No Hx Falls: No - GASTROINTESTINAL Hx Gastrointestinal Disorders: No - GENITOURINARY/GYNECOLOGICAL Hx Genitourinary Disorders: No - PSYCHIATRIC Hx Substance Use: No - SURGICAL HISTORY Hx Coronary Artery Bypass Graft: Yes - ANESTHESIA Hx Anesthesia: Yes Hx Anesthesia Reactions: No Meds Allergies/Adverse Reactions: Allergies Allergy/AdvReac Type Severity Reaction Status Date / Time No Known Allergies Allergy Verified 01/12/19 11:29 Physical Exam - Constitutional Appears: Well - Head Exam Head Exam: ATRAUMATIC, NORMAL INSPECTION, NORMOCEPHALIC - Eye Exam Eye Exam: EOMI, Normal appearance, PERRL Pupil Exam: NORMAL ACCOMODATION, PERRL - ENT Exam ENT Exam: Mucous Membranes Moist, Normal Exam - Neck Exam Neck exam: Positive for: Normal Inspection - Respiratory Exam Respiratory Exam: Decreased Breath Sounds - Cardiovascular Exam Cardiovascular Exam: REGULAR RHYTHM, +S1, +S2 - GI/Abdominal Exam GI & Abdominal Exam: Diminished Bowel Sounds, Soft - Rectal Exam Rectal Exam: Deferred - Neurological Exam Neurological exam: Oriented x3 Results - Vital Signs Recent Vital Signs: Last Vital Signs Temp 98.5 F 01/12/19 11:33 Pulse 75 01/12/19 15:25 Resp 22 01/12/19 15:25 BP 101/63 01/12/19 15:25 Pulse Ox 91 L 01/12/19 15:25 - Labs Result Diagrams: 01/13/19 07:09 01/13/19 07:09 Labs: Laboratory Results - last 24 hr 01/12/19 01/12/19 01/12/19 12:13 12:13 12:13 WBC 13.3 H RBC 2.76 L Hgb 8.2 L D Hct 26.0 L MCV 94.2 H D MCH 29.6 MCHC 31.5 L RDW 17.5 H Plt Count 281 MPV 8.5 Neut % (Auto) 91.6 H Lymph % (Auto) 2.2 L Swisher % (Auto) 5.4 Eos % (Auto) 0.5 Baso % (Auto) 0.3 Neut # (Auto) 12.2 H Lymph # (Auto) 0.3 L Swisher # (Auto) 0.7 Eos # (Auto) 0.1 Baso # (Auto) 0.0 Neutrophils % (Manual) 91 H Band Neutrophils % 4 H Lymphocytes % (Manual) 2 L Monocytes % (Manual) 3 Platelet Estimate Normal Basophilic Stippling Slight Anisocytosis (manual) Slight PT 16.2 H INR 1.5 APTT 29.6 Sodium 135 Potassium 4.4 Chloride 92 L Carbon Dioxide 37 H Anion Gap 11 BUN 57 H Creatinine 1.9 H Est GFR ( Amer) 41 Est GFR (Non-Af Amer) 34 Random Glucose 130 H Calcium 8.4 L Total Bilirubin 0.6 AST 82 H D ALT 80 H D Alkaline Phosphatase 386 H D Troponin I 0.0860 NT-Pro-B Natriuret Pep 8780 H Total Protein 6.4 Albumin 3.3 L Globulin 3.0 Albumin/Globulin Ratio 1.1 Blood Type Antibody Screen 01/12/19 12:15 WBC RBC Hgb Hct MCV MCH MCHC RDW Plt Count MPV Neut % (Auto) Lymph % (Auto) Swisher % (Auto) Eos % (Auto) Baso % (Auto) Neut # (Auto) Lymph # (Auto) Swisher # (Auto) Eos # (Auto) Baso # (Auto) Neutrophils % (Manual) Band Neutrophils % Lymphocytes % (Manual) Monocytes % (Manual) Platelet Estimate Basophilic Stippling Anisocytosis (manual) PT INR APTT Sodium Potassium Chloride Carbon Dioxide Anion Gap BUN Creatinine Est GFR ( Amer) Est GFR (Non-Af Amer) Random Glucose Calcium Total Bilirubin AST ALT Alkaline Phosphatase Troponin I NT-Pro-B Natriuret Pep Total Protein Albumin Globulin Albumin/Globulin Ratio Blood Type A NEGATIVE Antibody Screen Negative Assessment & Plan - Assessment and Plan (Free Text) Assessment: Plan WBC 9.8 Hemoglobin 8.5 Hematocrit 25.8 Platelets 302 Sodium 136 Potassium 4.9 Bicarbonate 36 Bun 49 Creatinine 1.6 Glucose 147 Moderate to high complexity of care. Plan of care discussed with patient &/or family & staff. Medications reviewed and reconciled. Labs reviewed. Vitals reviewed.
[2019-01-12] MEDS: oxyCODONE 10 mg Immediate Release Tab PO PRN (18:44)
[2019-01-12] MEDS: Albuterol-Ipratrop 3 mg / 0.5 (3 ml) UD IH SCH (19:20)
--- NOTE | 2019-01-12 19:42 | CP.PCM.CON ---
History of Present Illness - History of Present Illness History of Present Illness: Reason for consultation: Shortness of breath 84-year-old male with history of hypertension, CHF, hyperlipidemia, BPH was transferred from [facility] for shortness of breath, productive cough, chest pain and low hemoglobin. Chest x-ray consistent with increasing congestion. Review of Systems - Review of Systems All systems: reviewed and no additional remarkable complaints except (Shortness of breath and cough) Past Patient History - Past Medical History & Family History Past Medical History?: Yes - Past Social History Smoking Status: Former Smoker - CARDIAC Hx Congestive Heart Failure: Yes Hx Hypertension: Yes - PULMONARY Hx Chronic Obstructive Pulmonary Disease (COPD): Yes - NEUROLOGICAL Hx Neurological Disorder: No - HEENT Hx HEENT Problems: No - RENAL Hx Chronic Kidney Disease: No - ENDOCRINE/METABOLIC Hx Endocrine Disorders: No - HEMATOLOGICAL/ONCOLOGICAL Hx Blood Disorders: No - INTEGUMENTARY Hx Dermatological Problems: No - MUSCULOSKELETAL/RHEUMATOLOGICAL Hx Musculoskeletal Disorders: No Hx Falls: Yes - GASTROINTESTINAL Hx Gastrointestinal Disorders: No - GENITOURINARY/GYNECOLOGICAL Hx Genitourinary Disorders: No - PSYCHIATRIC Hx Substance Use: No - SURGICAL HISTORY Hx Coronary Artery Bypass Graft: Yes - ANESTHESIA Hx Anesthesia: Yes Hx Anesthesia Reactions: No Meds Allergies/Adverse Reactions: Allergies Allergy/AdvReac Type Severity Reaction Status Date / Time No Known Allergies Allergy Verified 01/12/19 11:29 - Medications Medications: Current Medications Albuterol/Ipratropium (Duoneb 3 Mg/0.5 Mg (3 Ml) Ud) 3 ml IH Q6H [facility] Last Admin: 01/12/19 19:20 Dose: 3 ml Alprazolam (Xanax) 0.25 mg PO Q12 PRN PRN Reason: Anxiety Stop: 01/19/19 18:30 Aspirin (Aspirin Chewable) 81 mg PO DAILY [facility] Docusate Sodium (Colace) 200 mg PO DAILY [facility] Epoetin Stephane (Procrit) 10,000 unit SC QWK [facility] Ferric Sodium Gluconate Complex (Ferrlecit) 125 mg IVPB DAILY [facility] Stop: 01/21/19 10:01 Ferrous Sulfate (Feosol) 325 mg PO BID [facility] Last Admin: 01/12/19 18:45 Dose: 325 mg Furosemide (Lasix) 40 mg PO DAILY [facility] Gabapentin (Neurontin) 200 mg PO HS [facility] Ceftriaxone Sodium 1 gm/ (Sodium Chloride) 100 mls @ 100 mls/hr IVPB DAILY [facility]; Protocol Methylprednisolone (Solu-Medrol) 40 mg IV Q8 [facility] Metoprolol Tartrate (Lopressor) 50 mg PO BID [facility] Oxycodone HCl (Oxycodone Immediate Release Tab) 10 mg PO Q4 PRN PRN Reason: Pain, moderate (4-7) Last Admin: 01/12/19 18:44 Dose: 10 mg Potassium Chloride (K-Dur 20 Meq Er Tab) 20 meq PO DAILY [facility] Rosuvastatin Calcium (Crestor) 10 mg PO HS [facility] Tamsulosin HCl (Flomax) 0.4 mg PO DAILY [facility] Physical Exam - Head Exam Head Exam: ATRAUMATIC, NORMOCEPHALIC - ENT Exam ENT Exam: Mucous Membranes Moist - Neck Exam Neck exam: Positive for: Normal Inspection - Respiratory Exam Respiratory Exam: Rales - Cardiovascular Exam Cardiovascular Exam: REGULAR RHYTHM - GI/Abdominal Exam GI & Abdominal Exam: Normal Bowel Sounds, Soft - Extremities Exam Extremities exam: Positive for: pedal edema Results - Vital Signs Recent Vital Signs: Last Vital Signs Temp 97.9 F 01/12/19 18:17 Pulse 84 01/12/19 19:22 Resp 20 01/12/19 18:17 BP 119/68 01/12/19 18:17 Pulse Ox 95 01/12/19 17:08 - Labs Result Diagrams: 01/12/19 12:13 01/12/19 12:13 Labs: Laboratory Results - last 24 hr 01/12/19 01/12/19 01/12/19 12:13 12:13 12:13 WBC 13.3 H RBC 2.76 L Hgb 8.2 L D Hct 26.0 L MCV 94.2 H D MCH 29.6 MCHC 31.5 L RDW 17.5 H Plt Count 281 MPV 8.5 Neut % (Auto) 91.6 H Lymph % (Auto) 2.2 L Burt % (Auto) 5.4 Eos % (Auto) 0.5 Baso % (Auto) 0.3 Neut # (Auto) 12.2 H Lymph # (Auto) 0.3 L Burt # (Auto) 0.7 Eos # (Auto) 0.1 Baso # (Auto) 0.0 Neutrophils % (Manual) 91 H Band Neutrophils % 4 H Lymphocytes % (Manual) 2 L Monocytes % (Manual) 3 Platelet Estimate Normal Basophilic Stippling Slight Anisocytosis (manual) Slight PT 16.2 H INR 1.5 APTT 29.6 Sodium 135 Potassium 4.4 Chloride 92 L Carbon Dioxide 37 H Anion Gap 11 BUN 57 H Creatinine 1.9 H Est GFR ( Amer) 41 Est GFR (Non-Af Amer) 34 Random Glucose 130 H Calcium 8.4 L Total Bilirubin 0.6 AST 82 H D ALT 80 H D Alkaline Phosphatase 386 H D Troponin I 0.0860 NT-Pro-B Natriuret Pep 8780 H Total Protein 6.4 Albumin 3.3 L Globulin 3.0 Albumin/Globulin Ratio 1.1 Blood Type Antibody Screen 01/12/19 12:15 WBC RBC Hgb Hct MCV MCH MCHC RDW Plt Count MPV Neut % (Auto) Lymph % (Auto) Burt % (Auto) Eos % (Auto) Baso % (Auto) Neut # (Auto) Lymph # (Auto) Burt # (Auto) Eos # (Auto) Baso # (Auto) Neutrophils % (Manual) Band Neutrophils % Lymphocytes % (Manual) Monocytes % (Manual) Platelet Estimate Basophilic Stippling Anisocytosis (manual) PT INR APTT Sodium Potassium Chloride Carbon Dioxide Anion Gap BUN Creatinine Est GFR ( Amer) Est GFR (Non-Af Amer) Random Glucose Calcium Total Bilirubin AST ALT Alkaline Phosphatase Troponin I NT-Pro-B Natriuret Pep Total Protein Albumin Globulin Albumin/Globulin Ratio Blood Type A NEGATIVE Antibody Screen Negative Assessment & Plan (1) CHF exacerbation Status: Acute Comment: Started on Lasix. Follow-up BUN and creatinine. BiPAP at night (2) REYNALDO and COPD overlap syndrome Status: Acute Comment: BiPAP. Nebulizer treatment and steroids. Follow-up ABG
[2019-01-12] MEDS: MethylPREDNISolone 40 mg Vial IV SCH (21:30)
[2019-01-12] MEDS ORDERED: methylPREDNISolone 40 MG in Sodium Chloride 0.9% 100 ML IVPB SCH (22:00)
[2019-01-13] MEDS: oxyCODONE 10 mg Immediate Release Tab PO PRN (00:43)
[2019-01-13] MEDS: Albuterol-Ipratrop 3 mg / 0.5 (3 ml) UD IH SCH ×4 (01:37→19:45)
[2019-01-13] MEDS: MethylPREDNISolone 40 mg Vial IV SCH ×3 (06:11→21:27)
[2019-01-13 07:33] LABS: BASO % 0.1 % (0.0-2.0); HEMOGLOBIN 8.5 g/dL (12.0-18.0); LYMPH # 0.2 K/uL (1.0-4.3); MEAN CELL VOLUME 93.7 fL (80.0-94.0); MEAN CORPUSCULAR HEMOGLOBIN 31.1 pg (27.0-31.0); MEAN CORPUSCULAR HGB CONC 33.2 g/dL (33.0-37.0); MEAN PLATELET VOLUME 8.7 fL (7.2-11.7); MONO # 0.1 K/uL (0.0-0.8); MONO % 1.3 % (0.0-10.0); NEUT # 9.5 K/uL (1.8-7.0); NEUT % 96.6 % (50.0-75.0); NRBC % 0.5 % (0.0-2.0); PLATELET COUNT 302 K/uL (130-400); RBC 2.75 Mil/uL (4.40-5.90); RED CELL DISTRIBUTION WIDTH 17.7 % (11.5-14.5); WHITE BLOOD COUNT 9.8 K/uL (4.8-10.8)
[2019-01-13 07:47] LABS: ALB/GLOB RATIO 1.2 (1.0-2.1); ALBUMIN 3.5 g/dL (3.5-5.0); CALCIUM 8.6 mg/dl (8.6-10.4)
[2019-01-13 08:53] LABS: ANISOCYTOSIS SLIGHT; LYMPHOCYTE 2 % (20-40); MONOCYTE 1 % (0-10); NEUTROPHIL 97 % (50-75); NUCLEATED RED BLOOD CELL 1 % (0-0); PLATELET ESTIMATE NORMAL (NORMAL); POIKILOCYTOSIS SLIGHT; TOTAL CELLS COUNTED 100
[2019-01-13 08:55] LABS: HYPOCHROMIC SLIGHT; LARGE PLATELETS PRESENT
[2019-01-13 08:56] LABS: MICROCYTOSIS SLIGHT; TEARDROP CELLS SLIGHT
[2019-01-13] MEDS: Potassium Chloride 20 mEq ER Tab PO SCH (09:41)
[2019-01-13] MEDS: Ferric Sodium Gluconat Complex 62.5 mg/5 ml Vial IVPB SCH (09:42)
[2019-01-13] MEDS ORDERED: EPOETIN ALFA 10,000 UNIT/ML ML SC SCH (10:00)
--- NOTE | 2019-01-13 12:23 | CP.PCM.CON ---
History of Present Illness - History of Present Illness History of Present Illness: 84 year old male with a history of COPD, CHF, high risk prostate cancer s/p radiation with elevated PSA on intermittent Lupron, [facility], AMS, and anemia. Of note, the patient has intermittent epistaxis. He currently notes to breathing better. He feels he is always weak and denies other known abnormal bleeding/bruising. In regards to his prostate cancer he has been on intermittent Lupron since having breakthrough prostate cancer. Past medical history: COPD, CHF, prostate cancer Past surgical history: CABG Family history: Denies hematologic and oncologic problems Social history: Former tobacco Allergies: NKA Review of systems: All remaining review of systems including HEENT, c ardiovasular, respiratory, gastrointestinal, genitourinary,musculoskeletal, dermatologic, neurologic, and pschiatric are negative unless mentioned in the HPI. Past Patient History - Past Medical History & Family History Past Medical History?: Yes - Past Social History Smoking Status: Former Smoker - CARDIAC Hx Congestive Heart Failure: Yes Hx Hypertension: Yes - PULMONARY Hx Chronic Obstructive Pulmonary Disease (COPD): Yes - NEUROLOGICAL Hx Neurological Disorder: No - HEENT Hx HEENT Problems: No - RENAL Hx Chronic Kidney Disease: No - ENDOCRINE/METABOLIC Hx Endocrine Disorders: No - HEMATOLOGICAL/ONCOLOGICAL Hx Blood Disorders: No - INTEGUMENTARY Hx Dermatological Problems: No - MUSCULOSKELETAL/RHEUMATOLOGICAL Hx Musculoskeletal Disorders: No Hx Falls: Yes - GASTROINTESTINAL Hx Gastrointestinal Disorders: No - GENITOURINARY/GYNECOLOGICAL Hx Genitourinary Disorders: No - PSYCHIATRIC Hx Substance Use: No - SURGICAL HISTORY Hx Coronary Artery Bypass Graft: Yes - ANESTHESIA Hx Anesthesia: Yes Hx Anesthesia Reactions: No Meds Allergies/Adverse Reactions: Allergies Allergy/AdvReac Type Severity Reaction Status Date / Time No Known Allergies Allergy Verified 01/12/19 11:29 - Medications Medications: Current Medications Albuterol/Ipratropium (Duoneb 3 Mg/0.5 Mg (3 Ml) Ud) 3 ml IH Q6H [facility] Last Admin: 01/13/19 01:37 Dose: 3 ml Alprazolam (Xanax) 0.25 mg PO Q12 PRN PRN Reason: Anxiety Stop: 01/19/19 18:30 Aspirin (Aspirin Chewable) 81 mg PO DAILY [facility] Last Admin: 01/13/19 09:35 Dose: 81 mg Docusate Sodium (Colace) 200 mg PO DAILY [facility] Last Admin: 01/13/19 09:35 Dose: 200 mg Epoetin Stephane (Procrit) 10,000 unit SC QWK [facility] Last Admin: 01/13/19 09:41 Dose: 10,000 unit Ferric Sodium Gluconate Complex (Ferrlecit) 125 mg IVPB DAILY [facility] Stop: 01/21/19 10:01 Last Admin: 01/13/19 09:42 Dose: 125 mg Ferrous Sulfate (Feosol) 325 mg PO BID [facility] Last Admin: 01/13/19 09:36 Dose: 325 mg Furosemide (Lasix) 40 mg PO DAILY [facility] Last Admin: 01/13/19 09:40 Dose: Not Given Gabapentin (Neurontin) 200 mg PO HS [facility] Last Admin: 01/12/19 21:30 Dose: 200 mg Ceftriaxone Sodium 1 gm/ (Sodium Chloride) 100 mls @ 100 mls/hr IVPB DAILY [facility]; Protocol Methylprednisolone (Solu-Medrol) 40 mg IV Q8 [facility] Last Admin: 01/13/19 06:11 Dose: 40 mg Metoprolol Tartrate (Lopressor) 50 mg PO BID [facility] Last Admin: 01/13/19 09:41 Dose: Not Given Oxycodone HCl (Oxycodone Immediate Release Tab) 10 mg PO Q4 PRN PRN Reason: Pain, moderate (4-7) Last Admin: 01/13/19 00:43 Dose: 10 mg Potassium Chloride (K-Dur 20 Meq Er Tab) 20 meq PO DAILY [facility] Last Admin: 01/13/19 09:41 Dose: 20 meq Rosuvastatin Calcium (Crestor) 10 mg PO [facility] Last Admin: 01/12/19 21:30 Dose: 10 mg Tamsulosin HCl (Flomax) 0.4 mg PO DAILY [facility] Last Admin: 01/13/19 09:35 Dose: 0.4 mg Physical Exam - Head Exam Head Exam: ATRAUMATIC - Eye Exam Eye Exam: Normal appearance - ENT Exam ENT Exam: Mucous Membranes Dry - Respiratory Exam Respiratory Exam: Decreased Breath Sounds - Cardiovascular Exam Cardiovascular Exam: +S1, +S2 - GI/Abdominal Exam GI & Abdominal Exam: Normal Bowel Sounds - Extremities Exam Extremities exam: Positive for: pedal edema - Neurological Exam Neurological exam: Oriented x3 - Psychiatric Exam Psychiatric exam: Normal Affect, Normal Mood - Skin Skin Exam: Warm Results - Vital Signs Recent Vital Signs: Last Vital Signs Temp 97.6 F 01/13/19 09:08 Pulse 86 01/13/19 09:08 Resp 20 01/13/19 09:08 BP 96/55 L 01/13/19 09:40 Pulse Ox 99 01/13/19 09:08 - Labs Result Diagrams: 01/13/19 07:09 01/13/19 07:09 Labs: Laboratory Results - last 24 hr 01/12/19 01/12/19 01/12/19 12:13 12:13 12:13 WBC 13.3 H RBC 2.76 L Hgb 8.2 L D Hct 26.0 L MCV 94.2 H D MCH 29.6 MCHC 31.5 L RDW 17.5 H Plt Count 281 MPV 8.5 Neut % (Auto) 91.6 H Lymph % (Auto) 2.2 L Wilson % (Auto) 5.4 Eos % (Auto) 0.5 Baso % (Auto) 0.3 Neut # (Auto) 12.2 H Lymph # (Auto) 0.3 L Wilson # (Auto) 0.7 Eos # (Auto) 0.1 Baso # (Auto) 0.0 Neutrophils % (Manual) 91 H Band Neutrophils % 4 H Lymphocytes % (Manual) 2 L Monocytes % (Manual) 3 Nucleated RBC % Platelet Estimate Normal Large Platelets Hypochromasia (manual) Poikilocytosis (manual Basophilic Stippling Slight Anisocytosis (manual) Slight Microcytosis (manual) Macrocytosis (manual) Tear Drop Cells PT 16.2 H INR 1.5 APTT 29.6 Sodium 135 Potassium 4.4 Chloride 92 L Carbon Dioxide 37 H Anion Gap 11 BUN 57 H Creatinine 1.9 H Est GFR ( Amer) 41 Est GFR (Non-Af Amer) 34 Random Glucose 130 H Calcium 8.4 L Phosphorus Magnesium Total Bilirubin 0.6 AST 82 H D ALT 80 H D Alkaline Phosphatase 386 H D Troponin I 0.0860 NT-Pro-B Natriuret Pep 8780 H Total Protein 6.4 Albumin 3.3 L Globulin 3.0 Albumin/Globulin Ratio 1.1 Blood Type Antibody Screen 01/12/19 01/13/19 01/13/19 12:15 07:09 07:09 WBC 9.8 RBC 2.75 L Hgb 8.5 L Hct 25.8 L MCV 93.7 MCH 31.1 H MCHC 33.2 RDW 17.7 H Plt Count 302 MPV 8.7 Neut % (Auto) 96.6 H Lymph % (Auto) 2.0 L Wilson % (Auto) 1.3 Eos % (Auto) 0.0 Baso % (Auto) 0.1 Neut # (Auto) 9.5 H Lymph # (Auto) 0.2 L Wilson # (Auto) 0.1 Eos # (Auto) 0.0 Baso # (Auto) 0.0 Neutrophils % (Manual) 97 H Band Neutrophils % Lymphocytes % (Manual) 2 L Monocytes % (Manual) 1 Nucleated RBC % 1 H Platelet Estimate Normal Large Platelets Present Hypochromasia (manual) Slight Poikilocytosis (manual Slight Basophilic Stippling Anisocytosis (manual) Slight Microcytosis (manual) Slight Macrocytosis (manual) Slight Tear Drop Cells Slight PT INR APTT Sodium 136 Potassium 4.9 Chloride 92 L Carbon Dioxide 36 H Anion Gap 14 BUN 49 H Creatinine 1.6 H Est GFR ( Amer) 50 Est GFR (Non-Af Amer) 41 Random Glucose 147 H Calcium 8.6 Phosphorus 4.9 H Magnesium 2.4 H Total Bilirubin 0.8 AST 61 H D ALT 64 Alkaline Phosphatase 393 H Troponin I NT-Pro-B Natriuret Pep Total Protein 6.4 Albumin 3.5 Globulin 3.0 Albumin/Globulin Ratio 1.2 Blood Type A NEGATIVE Antibody Screen Negative Assessment & Plan (1) Anemia Assessment and Plan: retic count, b12, folate, ferritin FOBT to further characterize anemia of CKD and chronic disease will give a dose of Procrit Status: Acute (2) Prostate cancer Assessment and Plan: underwent radiation in the past rising PSA on Lupron with urology repeat PSA and testosterone Thank you for this interesting consult. Status: Acute
--- NOTE | 2019-01-13 12:26 | CP.PCM.PN ---
Subjective - Date & Time of Evaluation Date of Evaluation: 01/13/19 Time of Evaluation: 12:00 - Subjective Subjective: Feels weak. Objective - Vital Signs/Intake and Output Vital Signs (last 24 hours): Temp Pulse Resp BP Pulse Ox 97.6 F 86 20 96/55 L 99 01/13/19 09:08 01/13/19 09:08 01/13/19 09:08 01/13/19 09:40 01/13/19 09:08 - Medications Medications: Current Medications Albuterol/Ipratropium (Duoneb 3 Mg/0.5 Mg (3 Ml) Ud) 3 ml IH Q6H [facility] Last Admin: 01/13/19 01:37 Dose: 3 ml Alprazolam (Xanax) 0.25 mg PO Q12 PRN PRN Reason: Anxiety Stop: 01/19/19 18:30 Aspirin (Aspirin Chewable) 81 mg PO DAILY [facility] Last Admin: 01/13/19 09:35 Dose: 81 mg Docusate Sodium (Colace) 200 mg PO DAILY [facility] Last Admin: 01/13/19 09:35 Dose: 200 mg Epoetin Stephane (Procrit) 10,000 unit SC QWK [facility] Last Admin: 01/13/19 09:41 Dose: 10,000 unit Ferric Sodium Gluconate Complex (Ferrlecit) 125 mg IVPB DAILY [facility] Stop: 01/21/19 10:01 Last Admin: 01/13/19 09:42 Dose: 125 mg Ferrous Sulfate (Feosol) 325 mg PO BID [facility] Last Admin: 01/13/19 09:36 Dose: 325 mg Furosemide (Lasix) 40 mg PO DAILY [facility] Last Admin: 01/13/19 09:40 Dose: Not Given Gabapentin (Neurontin) 200 mg PO HS [facility] Last Admin: 01/12/19 21:30 Dose: 200 mg Ceftriaxone Sodium 1 gm/ (Sodium Chloride) 100 mls @ 100 mls/hr IVPB DAILY [facility]; Protocol Methylprednisolone (Solu-Medrol) 40 mg IV Q8 [facility] Last Admin: 01/13/19 06:11 Dose: 40 mg Metoprolol Tartrate (Lopressor) 50 mg PO BID [facility] Last Admin: 01/13/19 09:41 Dose: Not Given Oxycodone HCl (Oxycodone Immediate Release Tab) 10 mg PO Q4 PRN PRN Reason: Pain, moderate (4-7) Last Admin: 01/13/19 00:43 Dose: 10 mg Potassium Chloride (K-Dur 20 Meq Er Tab) 20 meq PO DAILY [facility] Last Admin: 01/13/19 09:41 Dose: 20 meq Rosuvastatin Calcium (Crestor) 10 mg PO HS [facility] Last Admin: 01/12/19 21:30 Dose: 10 mg Tamsulosin HCl (Flomax) 0.4 mg PO DAILY [facility] Last Admin: 01/13/19 09:35 Dose: 0.4 mg - Labs Labs: 01/13/19 07:09 01/13/19 07:09 PT 16.2 SECONDS (9.7-12.2) H 01/12/19 12:13 INR 1.5 01/12/19 12:13 APTT 29.6 SECONDS (21-34) 01/12/19 12:13 - Head Exam Head Exam: ATRAUMATIC - Eye Exam Eye Exam: Normal appearance - ENT Exam ENT Exam: Mucous Membranes Dry - Respiratory Exam Respiratory Exam: NORMAL BREATHING PATTERN - Cardiovascular Exam Cardiovascular Exam: +S1, +S2 - GI/Abdominal Exam GI & Abdominal Exam: Normal Bowel Sounds Assessment and Plan (1) Anemia Assessment & Plan: f/u retic count, b12, folate, ferritin FOBT to further characterize anemia of CKD and chronic disease s/p Procrit Status: Acute (2) Prostate cancer Assessment & Plan: underwent radiation in the past rising PSA on Lupron with urology repeat PSA and testosterone Status: Acute
--- NOTE | 2019-01-13 15:47 | CP.PCM.PN ---
Subjective - Date & Time of Evaluation Date of Evaluation: 01/13/19 Time of Evaluation: 11:00 - Subjective Subjective: Patient seen and examined Still complaining of shortness of breath Refusing to use BiPAP Swelling of legs Objective - Vital Signs/Intake and Output Vital Signs (last 24 hours): Temp Pulse Resp BP Pulse Ox 97.6 F 98 H 20 96/55 L 99 01/13/19 09:08 01/13/19 14:00 01/13/19 09:08 01/13/19 09:40 01/13/19 09:08 - Medications Medications: Current Medications Albuterol/Ipratropium (Duoneb 3 Mg/0.5 Mg (3 Ml) Ud) 3 ml IH Q6H [facility] Last Admin: 01/13/19 13:13 Dose: Not Given Alprazolam (Xanax) 0.25 mg PO Q12 PRN PRN Reason: Anxiety Stop: 01/19/19 18:30 Aspirin (Aspirin Chewable) 81 mg PO DAILY [facility] Last Admin: 01/13/19 09:35 Dose: 81 mg Docusate Sodium (Colace) 200 mg PO DAILY [facility] Last Admin: 01/13/19 09:35 Dose: 200 mg Epoetin Stephane (Procrit) 10,000 unit SC QWK [facility] Last Admin: 01/13/19 09:41 Dose: 10,000 unit Ferric Sodium Gluconate Complex (Ferrlecit) 125 mg IVPB DAILY [facility] Stop: 01/21/19 10:01 Last Admin: 01/13/19 09:42 Dose: 125 mg Ferrous Sulfate (Feosol) 325 mg PO BID [facility] Last Admin: 01/13/19 09:36 Dose: 325 mg Furosemide (Lasix) 40 mg PO DAILY [facility] Last Admin: 01/13/19 09:40 Dose: Not Given Gabapentin (Neurontin) 200 mg PO HS [facility] Last Admin: 01/12/19 21:30 Dose: 200 mg Ceftriaxone Sodium 1 gm/ (Sodium Chloride) 100 mls @ 100 mls/hr IVPB DAILY [facility]; Protocol Last Admin: 01/13/19 10:00 Dose: 100 mls/hr Methylprednisolone (Solu-Medrol) 40 mg IV Q8 [facility] Last Admin: 01/13/19 13:50 Dose: 40 mg Metoprolol Tartrate (Lopressor) 50 mg PO BID [facility] Last Admin: 01/13/19 09:41 Dose: Not Given Oxycodone HCl (Oxycodone Immediate Release Tab) 10 mg PO Q4 PRN PRN Reason: Pain, moderate (4-7) Last Admin: 01/13/19 00:43 Dose: 10 mg Potassium Chloride (K-Dur 20 Meq Er Tab) 20 meq PO DAILY [facility] Last Admin: 01/13/19 09:41 Dose: 20 meq Rosuvastatin Calcium (Crestor) 10 mg PO HS [facility] Last Admin: 01/12/19 21:30 Dose: 10 mg Tamsulosin HCl (Flomax) 0.4 mg PO DAILY [facility] Last Admin: 01/13/19 09:35 Dose: 0.4 mg - Labs Labs: 01/13/19 07:09 01/13/19 07:09 PT 16.2 SECONDS (9.7-12.2) H 01/12/19 12:13 INR 1.5 01/12/19 12:13 APTT 29.6 SECONDS (21-34) 01/12/19 12:13 - Head Exam Head Exam: ATRAUMATIC, NORMOCEPHALIC - ENT Exam ENT Exam: Mucous Membranes Moist - Neck Exam Neck Exam: Normal Inspection - Respiratory Exam Respiratory Exam: Rales - Cardiovascular Exam Cardiovascular Exam: REGULAR RHYTHM - GI/Abdominal Exam GI & Abdominal Exam: Soft, Normal Bowel Sounds - Extremities Exam Extremities Exam: Pedal Edema Assessment and Plan (1) CHF exacerbation Assessment & Plan: Lasix twice daily Continue antibiotics Continue with nebulizer treatment Patient advised to use BiPAP Status: Acute (2) REYNALDO and COPD overlap syndrome Status: Acute
--- NOTE | 2019-01-13 21:03 | CP.PCM.PN ---
Subjective - Date & Time of Evaluation Date of Evaluation: 01/13/19 - Subjective Subjective: patient examined today no nausea, no vomiting, no dizziness, no diarrhea, no fever, no shortness of breath Objective - Vital Signs/Intake and Output Vital Signs (last 24 hours): Temp Pulse Resp BP Pulse Ox 98.1 F 67 20 129/84 96 01/13/19 16:27 01/13/19 16:27 01/13/19 16:27 01/13/19 16:27 01/13/19 16:27 Intake and Output: 01/13/19 01/14/19 18:59 06:59 Intake Total 600 Output Total 400 Balance 200 - Medications Medications: Current Medications Albuterol/Ipratropium (Duoneb 3 Mg/0.5 Mg (3 Ml) Ud) 3 ml IH Q6H [facility] Last Admin: 01/13/19 19:45 Dose: 3 ml Alprazolam (Xanax) 0.25 mg PO Q12 PRN PRN Reason: Anxiety Stop: 01/19/19 18:30 Aspirin (Aspirin Chewable) 81 mg PO DAILY [facility] Last Admin: 01/13/19 09:35 Dose: 81 mg Docusate Sodium (Colace) 200 mg PO DAILY [facility] Last Admin: 01/13/19 09:35 Dose: 200 mg Epoetin Stephane (Procrit) 10,000 unit SC QWK [facility] Last Admin: 01/13/19 09:41 Dose: 10,000 unit Ferric Sodium Gluconate Complex (Ferrlecit) 125 mg IVPB DAILY [facility] Stop: 01/21/19 10:01 Last Admin: 01/13/19 09:42 Dose: 125 mg Ferrous Sulfate (Feosol) 325 mg PO BID [facility] Last Admin: 01/13/19 17:28 Dose: 325 mg Furosemide (Lasix) 40 mg PO DAILY [facility] Last Admin: 01/13/19 09:40 Dose: Not Given Gabapentin (Neurontin) 200 mg PO HS [facility] Last Admin: 01/12/19 21:30 Dose: 200 mg Ceftriaxone Sodium 1 gm/ (Sodium Chloride) 100 mls @ 100 mls/hr IVPB DAILY [facility]; Protocol Last Admin: 01/13/19 10:00 Dose: 100 mls/hr Methylprednisolone (Solu-Medrol) 40 mg IV Q8 [facility] Last Admin: 05/22/19 13:50 Dose: 40 mg Metoprolol Tartrate (Lopressor) 50 mg PO BID [facility] Last Admin: 01/13/19 17:29 Dose: 50 mg Oxycodone HCl (Oxycodone Immediate Release Tab) 10 mg PO Q4 PRN PRN Reason: Pain, moderate (4-7) Last Admin: 01/13/19 00:43 Dose: 10 mg Potassium Chloride (K-Dur 20 Meq Er Tab) 20 meq PO DAILY [facility] Last Admin: 01/13/19 09:41 Dose: 20 meq Rosuvastatin Calcium (Crestor) 10 mg PO HS [facility] Last Admin: 01/12/19 21:30 Dose: 10 mg Tamsulosin HCl (Flomax) 0.4 mg PO DAILY [facility] Last Admin: 01/13/19 09:35 Dose: 0.4 mg - Labs Labs: 01/13/19 07:09 01/13/19 07:09 PT 16.2 SECONDS (9.7-12.2) H 01/12/19 12:13 INR 1.5 01/12/19 12:13 APTT 29.6 SECONDS (21-34) 01/12/19 12:13 - Constitutional Appears: Well - Head Exam Head Exam: ATRAUMATIC, NORMAL INSPECTION, NORMOCEPHALIC - Eye Exam Eye Exam: EOMI, Normal appearance, PERRL Pupil Exam: NORMAL ACCOMODATION, PERRL - ENT Exam ENT Exam: Mucous Membranes Moist, Normal Exam - Neck Exam Neck Exam: Full ROM, Normal Inspection. absent: Lymphadenopathy - Respiratory Exam Respiratory Exam: Decreased Breath Sounds - Cardiovascular Exam Cardiovascular Exam: REGULAR RHYTHM, +S1, +S2 - GI/Abdominal Exam GI & Abdominal Exam: Soft, Diminished Bowel Sounds - Rectal Exam Rectal Exam: Deferred - Neurological Exam Neurological Exam: Oriented x3 Assessment and Plan - Assessment and Plan (Free Text) Plan: plan discussed with patient moderate complexity of care apsirin chewable ceftriaxone sodium colace crestor duoneb feosol ferrlecit flomax k-dur lasix lopressor neurotin oxycodone IR tab solu-medrol xanax medications reviewed vitals reviewed labs reviewed
--- NOTE | 2019-01-14 00:04 | CARD ---
APPROVED REPORT Date of service: 01/12/2019 EKG Measurement Heart [id number] <Conclusion> Atrial fibrillation with premature ventricular or aberrantly conducted complexes Low voltage QRS Cannot rule out Anterior infarct, age undetermined ST & T wave abnormality, consider lateral ischemia Abnormal ECG
[2019-01-14] MEDS: Albuterol-Ipratrop 3 mg / 0.5 (3 ml) UD IH SCH ×4 (01:30→20:57)
[2019-01-14] MEDS: MethylPREDNISolone 40 mg Vial IV SCH ×3 (06:03→21:38)
[2019-01-14 08:49] LABS: FERRITIN 56.2 ng/mL
[2019-01-14 08:55] LABS: TESTOSTERONE 13.3 ng/mL
[2019-01-14] MEDS: oxyCODONE 10 mg Immediate Release Tab PO PRN ×2 (09:07→23:38)
[2019-01-14] MEDS: Ferric Sodium Gluconat Complex 62.5 mg/5 ml Vial IVPB SCH (09:12)
[2019-01-14 09:19] LABS: FOLATE 14.2 ng/mL
[2019-01-14] MEDS: Potassium Chloride 20 mEq ER Tab PO SCH (09:33)
--- NOTE | 2019-01-14 16:59 | CP.PCM.PN ---
Subjective - Date & Time of Evaluation Date of Evaluation: 01/14/19 Time of Evaluation: 11:00 - Subjective Subjective: Patient seen and examined Sitting comfortably in no distress Dyspnea on minimal exertion Afebrile Complaining of swelling of legs Breathing better Objective - Vital Signs/Intake and Output Vital Signs (last 24 hours): Temp Pulse Resp BP Pulse Ox 98.2 F 82 18 127/64 93 L 01/14/19 15:12 01/14/19 15:12 01/14/19 15:12 01/14/19 15:12 01/14/19 15:12 Intake and Output: 01/14/19 01/14/19 06:59 18:59 Intake Total 600 Output Total 600 Balance 0 - Medications Medications: Current Medications Albuterol/Ipratropium (Duoneb 3 Mg/0.5 Mg (3 Ml) Ud) 3 ml IH Q6H [facility] Last Admin: 01/14/19 13:36 Dose: 3 ml Alprazolam (Xanax) 0.25 mg PO Q12 PRN PRN Reason: Anxiety Stop: 01/19/19 18:30 Aspirin (Aspirin Chewable) 81 mg PO DAILY [facility] Last Admin: 01/14/19 09:07 Dose: 81 mg Docusate Sodium (Colace) 200 mg PO DAILY [facility] Last Admin: 01/14/19 09:07 Dose: 200 mg Epoetin Stephane (Procrit) 10,000 unit SC QWK [facility] Last Admin: 01/13/19 09:41 Dose: 10,000 unit Ferric Sodium Gluconate Complex (Ferrlecit) 125 mg IVPB DAILY [facility] Stop: 01/21/19 10:01 Last Admin: 01/14/19 09:12 Dose: 125 mg Ferrous Sulfate (Feosol) 325 mg PO BID [facility] Last Admin: 01/14/19 09:09 Dose: 325 mg Furosemide (Lasix) 40 mg IVP Q12 [facility] Last Admin: 01/14/19 09:28 Dose: 40 mg Gabapentin (Neurontin) 200 mg PO HS [facility] Last Admin: 01/13/19 21:28 Dose: 200 mg Ceftriaxone Sodium 1 gm/ (Sodium Chloride) 100 mls @ 100 mls/hr IVPB DAILY [facility]; Protocol Last Admin: 01/14/19 11:02 Dose: 100 mls/hr Methylprednisolone (Solu-Medrol) 40 mg IV Q8 [facility] Last Admin: 01/14/19 13:25 Dose: 40 mg Metoprolol Tartrate (Lopressor) 50 mg PO BID [facility] Last Admin: 01/14/19 09:08 Dose: 50 mg Oxycodone HCl (Oxycodone Immediate Release Tab) 10 mg PO Q4 PRN PRN Reason: Pain, moderate (4-7) Last Admin: 01/14/19 09:07 Dose: 10 mg Potassium Chloride (K-Dur 20 Meq Er Tab) 20 meq PO DAILY [facility] Last Admin: 01/14/19 09:33 Dose: 20 meq Rosuvastatin Calcium (Crestor) 10 mg PO HS [facility] Last Admin: 01/13/19 21:28 Dose: 10 mg Sennosides (Senokot Tab) 8.6 mg PO HS [facility] Tamsulosin HCl (Flomax) 0.4 mg PO DAILY [facility] Last Admin: 01/14/19 09:09 Dose: 0.4 mg - Labs Labs: 01/13/19 07:09 01/13/19 07:09 PT 16.2 SECONDS (9.7-12.2) H 01/12/19 12:13 INR 1.5 01/12/19 12:13 APTT 29.6 SECONDS (21-34) 01/12/19 12:13 - Head Exam Head Exam: ATRAUMATIC, NORMOCEPHALIC - ENT Exam ENT Exam: Mucous Membranes Moist - Neck Exam Neck Exam: Normal Inspection - Respiratory Exam Respiratory Exam: Decreased Breath Sounds, Rales - Cardiovascular Exam Cardiovascular Exam: REGULAR RHYTHM - GI/Abdominal Exam GI & Abdominal Exam: Soft, Normal Bowel Sounds - Extremities Exam Extremities Exam: Full ROM, Pedal Edema - Neurological Exam Neurological Exam: Awake, Oriented x3 Assessment and Plan (1) CHF exacerbation Assessment & Plan: Continue diuretics Continue with the nebulizer treatment and antibiotics Physical therapy Clinically improving Status: Acute (2) REYNALDO and COPD overlap syndrome Status: Acute
--- NOTE | 2019-01-14 19:13 | CP.PCM.PN ---
Subjective - Date & Time of Evaluation Date of Evaluation: 01/14/19 Time of Evaluation: 10:25 - Subjective Subjective: patient seen today no nausea, no dizziness, no diarrhea, no fever, no vomiting no shortness of breath Objective - Vital Signs/Intake and Output Vital Signs (last 24 hours): Temp Pulse Resp BP Pulse Ox 98.2 F 82 18 127/64 93 L 01/14/19 15:12 01/14/19 15:12 01/14/19 15:12 01/14/19 15:12 01/14/19 15:12 Intake and Output: 01/14/19 01/15/19 18:59 06:59 Intake Total 600 Output Total 600 Balance 0 - Medications Medications: Current Medications Albuterol/Ipratropium (Duoneb 3 Mg/0.5 Mg (3 Ml) Ud) 3 ml IH Q6H [facility] Last Admin: 01/14/19 13:36 Dose: 3 ml Alprazolam (Xanax) 0.25 mg PO Q12 PRN PRN Reason: Anxiety Stop: 01/19/19 18:30 Aspirin (Aspirin Chewable) 81 mg PO DAILY [facility] Last Admin: 01/14/19 09:07 Dose: 81 mg Docusate Sodium (Colace) 200 mg PO DAILY [facility] Last Admin: 01/14/19 09:07 Dose: 200 mg Epoetin Stephane (Procrit) 10,000 unit SC QWK [facility] Last Admin: 01/13/19 09:41 Dose: 10,000 unit Ferric Sodium Gluconate Complex (Ferrlecit) 125 mg IVPB DAILY [facility] Stop: 01/21/19 10:01 Last Admin: 01/14/19 09:12 Dose: 125 mg Ferrous Sulfate (Feosol) 325 mg PO BID [facility] Last Admin: 01/14/19 17:25 Dose: 325 mg Furosemide (Lasix) 40 mg IVP Q12 [facility] Last Admin: 01/14/19 09:28 Dose: 40 mg Gabapentin (Neurontin) 200 mg PO HS [facility] Last Admin: 01/13/19 21:28 Dose: 200 mg Ceftriaxone Sodium 1 gm/ (Sodium Chloride) 100 mls @ 100 mls/hr IVPB DAILY [facility]; Protocol Last Admin: 01/14/19 11:02 Dose: 100 mls/hr Methylprednisolone (Solu-Medrol) 40 mg IV Q8 [facility] Last Admin: 01/14/19 13:25 Dose: 40 mg Metoprolol Tartrate (Lopressor) 50 mg PO BID [facility] Last Admin: 01/14/19 17:26 Dose: 50 mg Oxycodone HCl (Oxycodone Immediate Release Tab) 10 mg PO Q4 PRN PRN Reason: Pain, moderate (4-7) Last Admin: 01/14/19 09:07 Dose: 10 mg Potassium Chloride (K-Dur 20 Meq Er Tab) 20 meq PO DAILY [facility] Last Admin: 01/14/19 09:33 Dose: 20 meq Rosuvastatin Calcium (Crestor) 10 mg PO HS [facility] Last Admin: 01/13/19 21:28 Dose: 10 mg Sennosides (Senokot Tab) 8.6 mg PO [facility] Tamsulosin HCl (Flomax) 0.4 mg PO DAILY [facility] Last Admin: 01/14/19 09:09 Dose: 0.4 mg - Labs Labs: 01/13/19 07:09 01/13/19 07:09 PT 16.2 SECONDS (9.7-12.2) H 01/12/19 12:13 INR 1.5 01/12/19 12:13 APTT 29.6 SECONDS (21-34) 01/12/19 12:13 - Constitutional Appears: Well - Head Exam Head Exam: ATRAUMATIC, NORMAL INSPECTION, NORMOCEPHALIC - Eye Exam Eye Exam: EOMI, Normal appearance, PERRL Pupil Exam: NORMAL ACCOMODATION, PERRL - ENT Exam ENT Exam: Mucous Membranes Moist, Normal Exam - Neck Exam Neck Exam: Full ROM, Normal Inspection. absent: Lymphadenopathy - Respiratory Exam Respiratory Exam: Decreased Breath Sounds - Cardiovascular Exam Cardiovascular Exam: REGULAR RHYTHM, +S1, +S2 - GI/Abdominal Exam GI & Abdominal Exam: Soft, Diminished Bowel Sounds - Rectal Exam Rectal Exam: Deferred - Neurological Exam Neurological Exam: Oriented x3 Assessment and Plan (1) Altered mental status Status: Acute (2) Anemia Status: Acute (3) CHF exacerbation Status: Acute (4) COPD (chronic obstructive pulmonary disease) Status: Acute (5) Chr obstructive pulmonary disease w/ acute lower respiratory infxn Status: Acute (6) Hypercarbia Status: Acute (7) Hypoxia Status: Acute (8) REYNALDO and COPD overlap syndrome Status: Acute (9) Prostate cancer Status: Acute (10) Troponin level elevated Status: Acute - Assessment and Plan (Free Text) Plan: plan discussed with patient moderate complexity of care apsirin chewable ceftriaxone sodium colace crestor duoneb feosol ferrlecit flomax k-dur lasix lopressor neurotin oxycodone IR tab solu-medrol xanax medications reviewed vitals reviewed labs reviewed Feeling better discussed about the discharge planning and patient advised to go see the urologist in 2 weeks as you have already seen by urologist you just here for low hemoglobin discussed with Dr. Mares given Procrit status post Lupron patient advised that Lupron cannot be given daily patient understands it discharge planning seen by lung doctor patient's will be discharged upon clearance from the lung doctor patient still mildly short of breath patient has a swelling on the leg which is much better Moderate to high complexity of care. Plan of care discussed with patient &/or family & staff. Medications reviewed and reconciled. Labs reviewed. Vitals reviewed.
[2019-01-15] MEDS: Albuterol-Ipratrop 3 mg / 0.5 (3 ml) UD IH SCH ×4 (01:37→20:41)
[2019-01-15 03:51] VITALS: RESP 20
--- NOTE | 2019-01-15 05:52 | CON ---
DATE: 01/14/2019 REASON FOR CONSULTATION: Exacerbation of congestive heart failure. HISTORY OF PRESENT ILLNESS: The patient is an 84-year-old male who has a history of coronary artery disease, status post double bypass surgery at [facility] in 2013 and history of aortic valve replacement at the same time with porcine bioprosthesis. The patient was followed by Dr. Olivas, his soils engineer, at [place]. The patient was admitted in October of this year with exacerbation of congestive heart failure as well as bilateral pneumonia and was discharged following that to subacute rehab to be readmitted to [facility] because of shortness of breath. The patient has a history of chronic atrial fibrillation and was on Pradaxa. The patient denies any retrosternal chest pain. SOCIAL HISTORY: Nonsmoker. He lived with his daughter prior to his most recent admission to [facility] in October of this year. MEDICATIONS: Current medications; aspirin 81 mg once daily, Rocephin 1 g intravenously daily, Colace 200 mg daily, Crestor 10 mg once a day, albuterol inhaler every 6 hours, Feosol 325 mg once a day, Ferrlecit infusion, K-Dur 20 mEq once a day, Lasix 40 mg intravenously twice a day, Lopressor 50 twice a day, gabapentin 200 mg at bedtime, Procrit 10,000 units subcutaneously weekly, Solu-Medrol 40 mg intravenously every 8 hours, and Xanax 0.25 mg twice a day. REVIEW OF SYSTEMS: No nausea or vomiting, no fever or chills, and no productive cough. PAST MEDICAL HISTORY: History of double bypass surgery and bioprosthetic aortic valve placement in 2013 at [facility], history of chronic atrial fibrillation, and history of recent pneumonia. PHYSICAL EXAMINATION: GENERAL: The patient is an elderly male, who does not appear to be in acute distress. VITAL SIGNS: Blood pressure 128/73, heart rate 69, temperature 98, and respirations 20. HEENT: Pale conjunctivae. CHEST: Bibasilar rhonchi. HEART: S1 and S2, regular. ABDOMEN: Soft. EXTREMITIES: 2+ pitting edema. LABORATORY DATA: SMA-7: Yesterday, sodium 136, potassium 4.9, chloride 92, CO2 of 36, glucose 147, BUN 49, creatinine 1.6. Yesterday's magnesium was 2.4 and phosphorus 4.9 respectively. ProBNP this admission is 8780. Admitting hemoglobin and hematocrit 8.2 and 26.0, white count 15.3, and platelet count 281,000. INR on admission was 1.5. EKG revealed atrial fibrillation at the rate of 95, PVCs versus aberrancy, low-voltage QRS, cannot rule out inferior infarct, age undetermined. ST-T wave abnormality, consider lateral ischemia. Chest x-ray revealed cardiomegaly, sternotomy wires were noted and [id number] CHF. Echocardiographic study performed in June of last year revealed ejection fraction in the range of 45% to 50%, mild concentric LVH, mildly reduced right ventricular systolic function. Calculated aortic valve area of 1.2 sq cm with pressure gradient of 34 mmHg. Moderate mitral insufficiency. Moderate pulmonary hypertension. ASSESSMENT: 1. Exacerbation of congestive heart failure. 2. Moderate valvular aortic stenosis of a bioprosthetic valve. 3. Moderate pulmonary hypertension. 4. Mild to moderately depressed left ventricular systolic dysfunction. 5. Moderate pulmonary hypertension and right-sided failure. 6. Anemia. 7. Chronic renal insufficiency. RECOMMENDATIONS: Continue aspirin 81 mg once a day, IV Rocephin at 1 g daily, Crestor 10 mg once a day, Feosol one tablet twice a day, K-Dur 20 mEq once daily, Lasix 40 mg intravenously twice a daily, Lopressor 50 mg twice a day, Solu-Medrol at 40 mg intravenously every 8 hours, hold on any anticoagulation therapy. Obtain stool for occult blood. Tyler Daley MD
[2019-01-15] MEDS: MethylPREDNISolone 40 mg Vial IV SCH ×3 (05:53→21:46)
[2019-01-15 07:25] LABS: CALCIUM 8.5 mg/dl (8.6-10.4)
[2019-01-15] MEDS: Ferric Sodium Gluconat Complex 62.5 mg/5 ml Vial IVPB SCH (09:20)
[2019-01-15] MEDS: oxyCODONE 10 mg Immediate Release Tab PO PRN ×2 (09:29→21:57)
[2019-01-15] MEDS: Potassium Chloride 20 mEq ER Tab PO SCH (14:42)
--- NOTE | 2019-01-15 19:20 | CP.PCM.PN ---
Subjective - Date & Time of Evaluation Date of Evaluation: 01/15/19 Time of Evaluation: 11:14 - Subjective Subjective: patient examined today no nausea, no vomiting, no dizziness, no diarrhea, no fever no shortness of breath at rest and is much better discharge planning Objective - Vital Signs/Intake and Output Vital Signs (last 24 hours): Temp Pulse Resp BP Pulse Ox 97.8 F 84 20 157/68 H 97 01/15/19 15:05 01/15/19 15:05 01/15/19 15:05 01/15/19 15:05 01/15/19 15:05 - Medications Medications: Current Medications Albuterol/Ipratropium (Duoneb 3 Mg/0.5 Mg (3 Ml) Ud) 3 ml IH Q6H [facility] Last Admin: 01/15/19 15:08 Dose: 3 ml Alprazolam (Xanax) 0.25 mg PO Q12 PRN PRN Reason: Anxiety Stop: 01/19/19 18:30 Aspirin (Aspirin Chewable) 81 mg PO DAILY [facility] Last Admin: 01/15/19 09:20 Dose: 81 mg Docusate Sodium (Colace) 200 mg PO DAILY [facility] Last Admin: 01/15/19 09:20 Dose: 200 mg Epoetin Stephane (Procrit) 10,000 unit SC QWK [facility] Last Admin: 01/13/19 09:41 Dose: 10,000 unit Ferric Sodium Gluconate Complex (Ferrlecit) 125 mg IVPB DAILY [facility] Stop: 01/21/19 10:01 Last Admin: 01/15/19 09:20 Dose: 125 mg Ferrous Sulfate (Feosol) 325 mg PO BID [facility] Last Admin: 01/15/19 18:01 Dose: 325 mg Furosemide (Lasix) 40 mg IVP Q12 [facility] Last Admin: 01/15/19 09:19 Dose: 40 mg Gabapentin (Neurontin) 200 mg PO HS [facility] Last Admin: 01/14/19 21:38 Dose: 200 mg Ceftriaxone Sodium 1 gm/ (Sodium Chloride) 100 mls @ 100 mls/hr IVPB DAILY [facility]; Protocol Last Admin: 01/15/19 13:29 Dose: 100 mls/hr Methylprednisolone (Solu-Medrol) 40 mg IV Q8 [facility] Last Admin: 01/15/19 14:35 Dose: 40 mg Metoprolol Tartrate (Lopressor) 50 mg PO BID [facility] Last Admin: 01/15/19 18:02 Dose: 50 mg Oxycodone HCl (Oxycodone Immediate Release Tab) 10 mg PO Q4 PRN PRN Reason: Pain, moderate (4-7) Last Admin: 01/15/19 09:29 Dose: 10 mg Potassium Chloride (K-Dur 20 Meq Er Tab) 20 meq PO DAILY [facility] Last Admin: 01/15/19 14:42 Dose: Not Given Rosuvastatin Calcium (Crestor) 10 mg PO [facility] Last Admin: 01/14/19 21:39 Dose: 10 mg Sennosides (Senokot Tab) 8.6 mg PO [facility] Last Admin: 01/14/19 21:44 Dose: 8.6 mg Tamsulosin HCl (Flomax) 0.4 mg PO DAILY [facility] Last Admin: 01/15/19 09:20 Dose: 0.4 mg - Labs Labs: 01/13/19 07:09 01/15/19 06:30 PT 16.2 SECONDS (9.7-12.2) H 01/12/19 12:13 INR 1.5 01/12/19 12:13 APTT 29.6 SECONDS (21-34) 01/12/19 12:13 - Constitutional Appears: Well - Head Exam Head Exam: ATRAUMATIC, NORMAL INSPECTION, NORMOCEPHALIC - Eye Exam Eye Exam: EOMI, Normal appearance, PERRL Pupil Exam: NORMAL ACCOMODATION, PERRL - ENT Exam ENT Exam: Mucous Membranes Moist, Normal Exam - Neck Exam Neck Exam: Full ROM, Normal Inspection. absent: Lymphadenopathy - Respiratory Exam Respiratory Exam: Decreased Breath Sounds - Cardiovascular Exam Cardiovascular Exam: REGULAR RHYTHM, +S1 - GI/Abdominal Exam GI & Abdominal Exam: Soft, Diminished Bowel Sounds - Rectal Exam Rectal Exam: Deferred - Neurological Exam Neurological Exam: Oriented x3 Assessment and Plan - Assessment and Plan (Free Text) Plan: plan discussed with patient moderate complexity of care apsirin chewable ceftriaxone sodium colace crestor duoneb feosol ferrlecit flomax k-dur lasix lopressor neurotin oxycodone IR tab solu-medrol xanax medications reviewed vitals reviewed labs reviewed Discharge planning feels much better hemoglobin 8.5 hgb Moderate to high complexity of care. Plan of care discussed with patient &/or family & staff.
--- NOTE | 2019-01-15 20:23 | PN ---
DATE: 01/15/2019 SUBJECTIVE: The patient complains of shortness of breath. He is at times angry and uncooperative. PHYSICAL EXAMINATION: VITAL SIGNS: Blood pressure 139/65, heart rate 71, temperature 98.5, respirations 20. HEENT: Pale conjunctivae. CHEST: Bibasilar rhonchi. HEART: S1 and S2, regular. ABDOMEN: Soft. EXTREMITIES: 1+ pitting edema. LABORATORY DATA: Two days ago, hemoglobin and hematocrit 8.5 and 25.8. White count and platelet count are within normal limits. Today's SMA-7; sodium 135, potassium 4.9, chloride 93, CO2 of 36, glucose 147, BUN 62, creatinine 1.4. Stool occult blood was ordered but report is not available and it is unclear to me if this sample was collected. ASSESSMENT: 1. Exacerbation of congestive heart failure. 2. Moderate bioprosthetic aortic valve stenosis. 3. Mildly to moderate depressed left ventricular systolic function. 4. Moderate pulmonary hypertension and right-sided heart failure. 5. Chronic renal insufficiency. 6. Chronic atrial fibrillation. 7. Anemia. RECOMMENDATIONS: Continue current aspirin 81 mg once a day, IV Rocephin 1 g daily, albuterol inhaler every 6 hours, Feosol one tablet twice a day, Ferrlecit infusion, Lasix 40 mg intravenously twice a day, K-Dur 20 mEq once a day, Lopressor 50 mg twice a day, Solu-Medrol 40 mg intravenously every 8 hours. Obtain CBC and PT/PTT in a.m. I will further discuss the case with the patient's daughter when she comes and visits Mr. Chase. Tyler Daley MD
[2019-01-16] MEDS: Albuterol-Ipratrop 3 mg / 0.5 (3 ml) UD IH SCH ×3 (01:33→13:59)
[2019-01-16] MEDS: MethylPREDNISolone 40 mg Vial IV SCH ×2 (06:09→13:42)
[2019-01-16 08:09] VITALS: PULSE 78
[2019-01-16 08:10] LABS: HEMOGLOBIN 9.3 g/dL (12.0-18.0); MEAN CELL VOLUME 94.2 fL (80.0-94.0); MEAN CORPUSCULAR HEMOGLOBIN 31.1 pg (27.0-31.0); RED CELL DISTRIBUTION WIDTH 18.6 % (11.5-14.5); WHITE BLOOD COUNT 12.1 K/uL (4.8-10.8)
[2019-01-16 08:20] LABS: INR 1.2; PARTIAL THROMBOPLASTIN TIME 27.8 SECONDS (21-34); PROTHROMBIN TIME 12.8 SECONDS (9.7-12.2)
[2019-01-16] MEDS: Potassium Chloride 20 mEq ER Tab PO SCH (09:43)
[2019-01-16] MEDS: Ferric Sodium Gluconat Complex 62.5 mg/5 ml Vial IVPB SCH (09:44)
--- NOTE | 2019-01-16 11:25 | PCM.HF ---
Heart Failure Core Measure - Heart Failure Ejection Fraction: 40 % or Greater (EF 45%) GRIFFIN Inhibitor Prescribed: No Contraindication/Reason for not providing: RENAL INSUFFICIENCY Beta-Haydee Prescribed: Metoprolol Succinate Angiotensin II Receptor Haydee Prescribed: No Contraindication/Reason for not providing: renal insufficiency AnticoagulationTherapy for Atrial Fibrillation/Atrialflutter: Yes Aldosterone Antagonist Prescribed: No Contraindication/Reason for not providing: renal dysfunction Hydralazine Nitrate Prescribed: No Contraindication/Reason for not providing: EF >40% Implantable Cardioverter Defibrillator Therapy: No Contraindication/Reason for not providing: EF >40% Cardiac Resynchronization Therapy Prescribed: No Contraindication/Reason for not providing: not indicated - Follow up Will be discharged to: [facility]
--- NOTE | 2019-01-16 11:25 | CP.PCM.PN ---
Subjective - Date & Time of Evaluation Date of Evaluation: 01/16/19 Time of Evaluation: 09:00 - Subjective Subjective: alrt, orientedx3. denies sob or chest pains. Objective - Vital Signs/Intake and Output Vital Signs (last 24 hours): Temp Pulse Resp BP Pulse Ox 98.1 F 78 20 132/76 94 L 01/16/19 07:00 01/16/19 08:00 01/16/19 07:00 01/16/19 11:07 01/16/19 09:46 - Medications Medications: Current Medications Albuterol/Ipratropium (Duoneb 3 Mg/0.5 Mg (3 Ml) Ud) 3 ml IH Q6H [facility] Last Admin: 01/16/19 09:52 Dose: 3 ml Alprazolam (Xanax) 0.25 mg PO Q12 PRN PRN Reason: Anxiety Stop: 01/19/19 18:30 Aspirin (Aspirin Chewable) 81 mg PO DAILY [facility] Last Admin: 01/16/19 09:43 Dose: 81 mg Docusate Sodium (Colace) 200 mg PO DAILY [facility] Last Admin: 01/16/19 09:42 Dose: 200 mg Epoetin Stephane (Procrit) 10,000 unit SC QWK [facility] Last Admin: 01/13/19 09:41 Dose: 10,000 unit Ferric Sodium Gluconate Complex (Ferrlecit) 125 mg IVPB DAILY [facility] Stop: 01/21/19 10:01 Last Admin: 01/16/19 09:44 Dose: 125 mg Ferrous Sulfate (Feosol) 325 mg PO BID [facility] Last Admin: 01/16/19 09:42 Dose: 325 mg Furosemide (Lasix) 40 mg IVP Q12 [facility] Last Admin: 01/16/19 11:07 Dose: 40 mg Gabapentin (Neurontin) 200 mg PO HS [facility] Last Admin: 01/15/19 21:45 Dose: 200 mg Ceftriaxone Sodium 1 gm/ (Sodium Chloride) 100 mls @ 100 mls/hr IVPB DAILY [facility]; Protocol Last Admin: 01/16/19 11:10 Dose: 100 mls/hr Methylprednisolone (Solu-Medrol) 40 mg IV Q8 [facility] Last Admin: 01/16/19 06:09 Dose: 40 mg Metoprolol Tartrate (Lopressor) 50 mg PO BID [facility] Last Admin: 01/16/19 09:46 Dose: 50 mg Oxycodone HCl (Oxycodone Immediate Release Tab) 10 mg PO Q4 PRN PRN Reason: Pain, moderate (4-7) Last Admin: 01/15/19 21:57 Dose: 10 mg Potassium Chloride (K-Dur 20 Meq Er Tab) 20 meq PO DAILY [facility] Last Admin: 01/16/19 09:43 Dose: 20 meq Rosuvastatin Calcium (Crestor) 10 mg PO HS [facility] Last Admin: 01/15/19 21:44 Dose: 10 mg Sennosides (Senokot Tab) 8.6 mg PO HS [facility] Last Admin: 01/15/19 21:45 Dose: 8.6 mg Tamsulosin HCl (Flomax) 0.4 mg PO DAILY [facility] Last Admin: 01/16/19 09:42 Dose: 0.4 mg - Labs Labs: 01/16/19 07:51 01/15/19 06:30 PT 12.8 SECONDS (9.7-12.2) H 01/16/19 07:51 INR 1.2 01/16/19 07:51 APTT 27.8 SECONDS (21-34) 01/16/19 07:51 Assessment and Plan - Assessment and Plan (Free Text) Assessment: Patient is seen and examined. Admitted with CHF, hypoxia, prostate CA.Alert and oriented x3, out of bed on the chair. Edema on the legs improving, no complaints of sob or chest pains. Cleared by the cardiology, discussed with DR Tita House, plan to discharge back to the alf. Will follow up with DR Mares and DR Vu to follow up with cancer therapy.
[2019-01-16 14:35] VITALS: BP 108/56; TEMP 98; O2SAT 95
--- NOTE | 2019-01-16 21:35 | CP.PCM.DIS ---
Provider - Provider Date of Admission: 01/12/19 15:18 Attending physician: Marshal House MD Consults: 01/12/19 17:40 Hematology Oncology Consult Routine Comment: Consulting Provider: David Mares Consulting Physician: David Mares Reason for Consult: Anemia 01/12/19 18:28 Pulmonology Consult Routine Comment: Consulting Provider: Woodrow Marie Consulting Physician: Woodrow Marie Reason for Consult: COPD, sob 01/12/19 19:18 Inpatient SURVEYOR HELPER Core Measures Referral Routine Comment: Physician Instructions: Reason For Exam: Hx of CHF Nursing Referral for Wound Care Routine Comment: Scabs on [place] big toes Physician Instructions: Reason For Exam: Aj score 16, sacral redness, Social Work Referral Routine Comment: Krissy score 17 Physician Instructions: Reason For Exam: Krissy score 17 01/14/19 08:21 Cardiology Consult Routine Comment: Consulting Provider: Tyler Daley Consulting Physician: Tyler Daley Reason for Consult: CHF 01/15/19 17:13 Urology Consult Routine Comment: Consulting Provider: Wes Leonard Consulting Physician: Wes Leonard Reason for Consult: prostate CA, Lupron therapy? Time Spent in preparation of Discharge (in minutes): 35 Hospital Course - Lab Results Lab Results: Micro Results 01/12/19 13:21 Blood Blood Culture - Preliminary NO GROWTH AFTER 4 DAYS 01/12/19 13:21 Blood S.aureus & Coag-Neg Staph PNA FISH - Final 01/12/19 13:21 Blood Blood Culture - Final Streptococcus Salivarius 01/12/19 13:21 Blood Gram Stain - Final Most Recent Lab Values WBC 12.1 K/uL (4.8-10.8) H 01/16/19 07:51 RBC 3.00 Mil/uL (4.40-5.90) L 01/16/19 07:51 Hgb 9.3 g/dL (12.0-18.0) L 01/16/19 07:51 Hct 28.2 % (35.0-51.0) L 01/16/19 07:51 MCV 94.2 fL (80.0-94.0) H 01/16/19 07:51 MCH 31.1 pg (27.0-31.0) H 01/16/19 07:51 MCHC 33.0 g/dL (33.0-37.0) 01/16/19 07:51 RDW 18.6 % (11.5-14.5) H 01/16/19 07:51 Plt Count 291 K/uL (130-400) 01/16/19 07:51 MPV 9.0 fL (7.2-11.7) 01/16/19 07:51 Neut % (Auto) 96.6 % (50.0-75.0) H 01/13/19 07:09 Lymph % (Auto) 2.0 % (20.0-40.0) L 01/13/19 07:09 [place] % (Auto) 1.3 % (0.0-10.0) 01/13/19 07:09 Eos % (Auto) 0.0 % (0.0-4.0) 01/13/19 07:09 Baso % (Auto) 0.1 % (0.0-2.0) 01/13/19 07:09 Neut # (Auto) 9.5 K/uL (1.8-7.0) H 01/13/19 07:09 Lymph # (Auto) 0.2 K/uL (1.0-4.3) L 01/13/19 07:09 [place] # (Auto) 0.1 K/uL (0.0-0.8) 01/13/19 07:09 Eos # (Auto) 0.0 K/uL (0.0-0.7) 01/13/19 07:09 Baso # (Auto) 0.0 K/uL (0.0-0.2) 01/13/19 07:09 Neutrophils % (Manual) 97 % (50-75) H 01/13/19 07:09 Band Neutrophils % 4 % (0-2) H 01/12/19 12:13 Lymphocytes % (Manual) 2 % (20-40) L 01/13/19 07:09 Monocytes % (Manual) 1 % (0-10) 01/13/19 07:09 Nucleated RBC % 1 % (0-0) H 01/13/19 07:09 Platelet Estimate Normal (NORMAL) 01/13/19 07:09 Large Platelets Present 01/13/19 07:09 Hypochromasia (manual) Slight 01/13/19 07:09 Poikilocytosis (manual Slight 01/13/19 07:09 Basophilic Stippling Slight 01/12/19 12:13 Anisocytosis (manual) Slight 01/13/19 07:09 Microcytosis (manual) Slight 01/13/19 07:09 Macrocytosis (manual) Slight 01/13/19 07:09 Tear Drop Cells Slight 01/13/19 07:09 Retic Count 5.1 % (0.5-1.5) H 01/14/19 07:50 PT 12.8 SECONDS (9.7-12.2) H 01/16/19 07:51 INR 1.2 01/16/19 07:51 APTT 27.8 SECONDS (21-34) 01/16/19 07:51 Sodium 135 mmol/L (132-148) 01/15/19 06:30 Potassium 4.9 mmol/L (3.6-5.2) 01/15/19 06:30 Chloride 93 mmol/L (98-107) L 01/15/19 06:30 Carbon Dioxide 36 mmol/L (22-30) H 01/15/19 06:30 Anion Gap 10 (10-20) 01/15/19 06:30 BUN 52 mg/dL (9-20) H 01/15/19 06:30 Creatinine 1.4 mg/dL (0.8-1.5) 01/15/19 06:30 Est GFR ( Amer) 58 01/15/19 06:30 Est GFR (Non-Af Amer) 48 01/15/19 06:30 Random Glucose 147 mg/dL (75-110) H 01/15/19 06:30 Calcium 8.5 mg/dl (8.6-10.4) L 01/15/19 06:30 Phosphorus 4.9 mg/dL (2.5-4.5) H 01/13/19 07:09 Magnesium 2.4 mg/dL (1.6-2.3) H 01/13/19 07:09 Ferritin 56.2 ng/mL 01/14/19 07:50 Total Bilirubin 0.8 mg/dL (0.2-1.3) 01/13/19 07:09 AST 61 U/L (17-59) H D 01/13/19 07:09 ALT 64 U/L (21-72) 01/13/19 07:09 Alkaline Phosphatase 393 U/L (38-126) H 01/13/19 07:09 Troponin I 0.0860 ng/mL (0.00-0.120) 01/12/19 12:13 NT-Pro-B Natriuret Pep 8780 pg/mL (0-900) H 01/12/19 12:13 Total Protein 6.4 g/dL (6.3-8.3) 01/13/19 07:09 Albumin 3.5 g/dL (3.5-5.0) 01/13/19 07:09 Globulin 3.0 gm/dL (2.2-3.9) 01/13/19 07:09 Albumin/Globulin Ratio 1.2 (1.0-2.1) 01/13/19 07:09 Prostate Specific Ag 178 ng/mL (0.00-4.0) H 01/14/19 07:50 Vitamin B12 872 pg/mL (239-931) 01/14/19 07:50 Folate 14.2 ng/mL 01/14/19 07:50 Testosterone Level 13.3 ng/mL 01/14/19 07:50 Blood Type A NEGATIVE 01/12/19 12:15 Antibody Screen Negative 01/12/19 12:15 - Hospital Course Hospital Course: 84-year-old male with history of diabetes history of hypertension history of prostate CA status post seen by Dr. Leonard came because of hemoglobin was on the lower side at the rehab eventually patient was brought in for further work- up patient is seen by Dr. Mares patient denies any evidence of acute GI bleeding eventually patient's came patient's been seen by multiple consultants patient wanted the reports by but by the urologist for his Lupron spoke to Dr. Leonard before patient is discharged as patient needs shots every 3months patient given medications antibiotic felt better seen by heme-onc . seen Seen by pulmonary Dr. cleared the patient for the discharge will monitor hemoglobin outpatients along with the bleeding patient agreed to be discharged Moderate to high complexity of care. Plan of care discussed with patient &/or family & staff. Medications reviewed and reconciled. Labs reviewed. Vitals reviewed. Discharge Exam - Head Exam Head Exam: ATRAUMATIC, NORMAL INSPECTION, NORMOCEPHALIC - Eye Exam Eye Exam: EOMI, Normal appearance, PERRL Pupil Exam: NORMAL ACCOMODATION, PERRL - ENT Exam ENT Exam: Normal Exam - Neck Exam Neck exam: Full Rom - Respiratory Exam Respiratory Exam: Decreased Breath Sounds - Cardiovascular Exam Cardiovascular Exam: REGULAR RHYTHM, +S1, +S2 - GI/Abdominal Exam GI & Abdominal Exam: Diminished Bowel Sounds, Distended, Soft - Rectal Exam Rectal Exam: Deferred - Neurological Exam Neurological exam: Oriented x3 - Skin Skin Exam: Intact Discharge Plan - Discharge Medications Prescriptions: Ceftriaxone Sodium [Ceftriaxone] 1 gm IV DAILY 5 Days vial - Follow Up Plan Condition: STABLE Disposition: TRANSF TO SNF Instructions: Anemia Caused by Low Iron, Heart Failure, Adult (DC), Shortness of Breath (Dyspnea) (DC), Exacerbation of COPD (DC), Heart Failure (DC), Heart Failure (GEN), Pacemaker (DC), Pacemaker (GEN), Pulmonary Edema (DC), Pulmonary Edema (GEN), Ascites (DC), Ascites (GEN), Altered Mental Status (GEN) Additional Instructions: follow up with DR Mares and DR Pierce PT/OT as tolerated
--- NOTE | 2019-01-16 21:46 | CP.PCM.PN ---
Subjective - Date & Time of Evaluation Date of Evaluation: 01/14/19 Time of Evaluation: 12:00 - Subjective Subjective: Breathing better Objective - Vital Signs/Intake and Output Vital Signs (last 24 hours): Temp Pulse Resp BP Pulse Ox 98 F 78 20 108/56 L 95 01/16/19 14:34 01/16/19 14:34 01/16/19 14:34 01/16/19 14:34 01/16/19 14:34 - Labs Labs: 01/16/19 07:51 01/15/19 06:30 PT 12.8 SECONDS (9.7-12.2) H 01/16/19 07:51 INR 1.2 01/16/19 07:51 APTT 27.8 SECONDS (21-34) 01/16/19 07:51 - Head Exam Head Exam: ATRAUMATIC - Eye Exam Eye Exam: Normal appearance - ENT Exam ENT Exam: Mucous Membranes Dry - Respiratory Exam Respiratory Exam: NORMAL BREATHING PATTERN - Cardiovascular Exam Cardiovascular Exam: +S1, +S2 - GI/Abdominal Exam GI & Abdominal Exam: Normal Bowel Sounds Assessment and Plan (1) Anemia Assessment & Plan: anemia of CKD and chronic disease s/p Procrit Status: Acute (2) Prostate cancer Assessment & Plan: underwent radiation in the past rising PSA on Lupron with urology repeat PSA and testosterone Status: Acute
--- NOTE | 2019-01-16 21:47 | CP.PCM.PN ---
Subjective - Date & Time of Evaluation Date of Evaluation: 01/15/19 Time of Evaluation: 12:00 - Subjective Subjective: Feeling better Objective - Vital Signs/Intake and Output Vital Signs (last 24 hours): Temp Pulse Resp BP Pulse Ox 98 F 78 20 108/56 L 95 01/16/19 14:34 01/16/19 14:34 01/16/19 14:34 01/16/19 14:34 01/16/19 14:34 - Labs Labs: 01/16/19 07:51 01/15/19 06:30 PT 12.8 SECONDS (9.7-12.2) H 01/16/19 07:51 INR 1.2 01/16/19 07:51 APTT 27.8 SECONDS (21-34) 01/16/19 07:51 - Head Exam Head Exam: ATRAUMATIC - Eye Exam Eye Exam: Normal appearance - ENT Exam ENT Exam: Mucous Membranes Dry - Respiratory Exam Respiratory Exam: NORMAL BREATHING PATTERN - Cardiovascular Exam Cardiovascular Exam: +S1, +S2 - GI/Abdominal Exam GI & Abdominal Exam: Normal Bowel Sounds Assessment and Plan (1) Anemia Assessment & Plan: anemia of CKD and chronic disease s/p Procrit Status: Acute (2) Prostate cancer Assessment & Plan: underwent radiation in the past rising PSA on Lupron with urology repeat PSA and testosterone Status: Acute
--- NOTE | 2019-01-16 21:48 | CP.PCM.PN ---
Subjective - Date & Time of Evaluation Date of Evaluation: 01/16/19 Time of Evaluation: 13:00 - Subjective Subjective: Feeling better Objective - Vital Signs/Intake and Output Vital Signs (last 24 hours): Temp Pulse Resp BP Pulse Ox 98 F 78 20 108/56 L 95 01/16/19 14:34 01/16/19 14:34 01/16/19 14:34 01/16/19 14:34 01/16/19 14:34 - Labs Labs: 01/16/19 07:51 01/15/19 06:30 PT 12.8 SECONDS (9.7-12.2) H 01/16/19 07:51 INR 1.2 01/16/19 07:51 APTT 27.8 SECONDS (21-34) 01/16/19 07:51 - Head Exam Head Exam: ATRAUMATIC - Eye Exam Eye Exam: Normal appearance - ENT Exam ENT Exam: Mucous Membranes Dry - Respiratory Exam Respiratory Exam: NORMAL BREATHING PATTERN - Cardiovascular Exam Cardiovascular Exam: +S1, +S2 - GI/Abdominal Exam GI & Abdominal Exam: Normal Bowel Sounds Assessment and Plan (1) Anemia Assessment & Plan: anemia of CKD and chronic disease s/p Procrit Status: Acute (2) Prostate cancer Assessment & Plan: underwent radiation in the past rising PSA on Lupron with urology repeat PSA and testosterone Status: Acute
== END 2019-01-16 15:01 | DRG 292 ==
LOC: C.ER 11:27 → C.9E 15:18 → C.6T 16:46
PROVIDERS: ADMIT Internal Medicine Nephrology; ATTEND Internal Medicine Nephrology
DX: I13.0 Hypertensive heart and chronic kidney disease with heart failure and stage 1 through stage 4 chronic kidney disease, or unspecified chronic kidney disease (principal); T82.857A Stenosis of other cardiac prosthetic devices, implants and grafts, initial encounter; J96.11 Chronic respiratory failure with hypoxia; M35.1 Other overlap syndromes; I25.10 Atherosclerotic heart disease of native coronary artery without angina pectoris; I27.29 Other secondary pulmonary hypertension; I35.0 Nonrheumatic aortic (valve) stenosis; I48.2 Chronic atrial fibrillation; I50.810 Right heart failure, unspecified; J44.9 Chronic obstructive pulmonary disease, unspecified; G47.33 Obstructive sleep apnea (adult) (pediatric); N18.9 Chronic kidney disease, unspecified; E78.5 Hyperlipidemia, unspecified; N40.0 Benign prostatic hyperplasia without lower urinary tract symptoms; C61 Malignant neoplasm of prostate; D63.1 Anemia in chronic kidney disease; E11.22 Type 2 diabetes mellitus with diabetic chronic kidney disease; Y83.1 Surgical operation with implant of artificial internal device as the cause of abnormal reaction of the patient, or of later complication, without mention of misadventure at the time of the procedure; Z87.891 Personal history of nicotine dependence; Z79.818 Long term (current) use of other agents affecting estrogen receptors and estrogen levels; Z92.3 Personal history of irradiation; Z95.1 Presence of aortocoronary bypass graft; Z95.2 Presence of prosthetic heart valve; Z99.81 Dependence on supplemental oxygen